=== PATIENT | male | born 1950 | race Two or more races ===

== ENCOUNTER 2017-01-22 21:40 | Inpatient (IN) | payer BC ==
[2017-01-22 23:49] LABS: ADD MAN DIFF? NO
[2017-01-22 23:51] LABS: BASOPHILS % 0.2 % (0.0-2.0); EOSINOPHILS # 0.1 10^3/ul (0.0-0.5); HEMOGLOBIN 9.2 g/dl (14.0-18.0); LYMPHOCYTES # 1.3 10^3/ul (0.8-2.9); LYMPHOCYTES % 11.4 % (15.0-51.0); MEAN CORPUSCULAR HEMOGLOBIN 28.6 pg (29.0-33.0); MEAN CORPUSCULAR HGB CONC 32.9 g/dl (32.0-37.0); MEAN PLATELET VOLUME 9.1 fl (7.4-10.4); MONOCYTE # 0.7 10^3/ul (0.3-0.9); MONOCYTES % 6.4 % (0.0-11.0); NEUTROPHILS % 79.8 % (39.0-77.0); PLATELET COUNT 259 10^3/UL (140-415); RED BLOOD COUNT 3.22 10^6/ul (4.70-6.10); RED CELL DISTRIBUTION WIDTH 15.2 % (11.5-14.5)
[2017-01-22 23:51] LABS: WHITE BLOOD COUNT 11.3 10^3/ul (4.8-10.8)
[2017-01-23 00:16] LABS: ALANINE AMINOTRANSFERASE 31 IU/L (13-69); ALBUMIN 3.4 g/dl (3.3-4.9); ALBUMIN/GLOBULIN RATIO 0.77; ALKALINE PHOSPHATASE 379 IU/L (42-121); ANION GAP 16 (8-16); ASPARTATE AMINO TRANSFERASE 20 IU/L (15-46); BILIRUBIN,INDIRECT 0.1 mg/dl (0-1.1); BILIRUBIN,TOTAL 0.1 mg/dl (0.2-1.3); BLOOD UREA NITROGEN 34 mg/dl (7-20); CALCIUM 9.8 mg/dl (8.4-10.2); CARBON DIOXIDE 21 mmol/L (21-31); CHLORIDE 113 mmol/L (97-110); CREATININE 1.85 mg/dl (0.61-1.24); GLUCOSE 103 mg/dl (70-220); SODIUM 146 mmol/L (135-144); TOTAL PROTEIN 7.8 g/dl (6.1-8.1)
[2017-01-23 00:17] LABS: LACTIC ACID 1.1 mmol/L (0.5-2.0)
[2017-01-23 00:47] LABS: LIPASE 3402 U/L (23-300)
[2017-01-23] MEDS ORDERED: SOD CHLORIDE 0.9% 1,000 ML IV (04:00)
[2017-01-23] MEDS ORDERED: DEXTROSE 50% 50 ML SYRINGE IV (04:30)
[2017-01-23] MEDS ORDERED: GLUCOSE GEL 15 GRAM TUBE BUCCAL (04:30)
[2017-01-23] MEDS ORDERED: GLUCAGON 1 MG INJ IM (04:30)
[2017-01-23] MEDS ORDERED: GLUCOSE GEL 15 GRAM TUBE PO ×2 (04:30)
[2017-01-23] MEDS: DEXTROSE 5%-0.45% NACL 1,000 ML IV ×3 (04:53→09:38)
[2017-01-23] MEDS: INSULIN ASPART [NOVOLOG] 3 ML PEN SC ×5 (04:53→21:00)
[2017-01-23 07:06] LABS: ADD MAN DIFF? NO
[2017-01-23 07:12] LABS: WHITE BLOOD COUNT 11.7 10^3/ul (4.8-10.8)
[2017-01-23 07:12] LABS: BASOPHILS % 0.2 % (0.0-2.0); EOSINOPHILS # 0.1 10^3/ul (0.0-0.5); EOSINOPHILS % 0.9 % (0.0-7.0); HEMATOCRIT 25.8 % (42.0-52.0); HEMOGLOBIN 8.4 g/dl (14.0-18.0); LYMPHOCYTES # 1.6 10^3/ul (0.8-2.9); LYMPHOCYTES % 13.6 % (15.0-51.0); MEAN CORPUSCULAR HEMOGLOBIN 28.4 pg (29.0-33.0); MEAN CORPUSCULAR HGB CONC 32.6 g/dl (32.0-37.0); MEAN CORPUSCULAR VOLUME 87.2 fl (82.0-101.0); MEAN PLATELET VOLUME 9.3 fl (7.4-10.4); MONOCYTE # 0.7 10^3/ul (0.3-0.9); MONOCYTES % 6.1 % (0.0-11.0); NEUTROPHIL # 9.1 10^3/ul (1.6-7.5); NEUTROPHILS % 77.9 % (39.0-77.0); PLATELET COUNT 273 10^3/UL (140-415); RED BLOOD COUNT 2.96 10^6/ul (4.70-6.10); RED CELL DISTRIBUTION WIDTH 15.4 % (11.5-14.5)
[2017-01-23 07:34] LABS: HEMOGLOBIN A1C 5.8 % (0-5.9)
[2017-01-23 07:34] LABS: ALANINE AMINOTRANSFERASE 30 IU/L (13-69); ALBUMIN 3.3 g/dl (3.3-4.9); ALBUMIN/GLOBULIN RATIO 0.75; ALKALINE PHOSPHATASE 403 IU/L (42-121); ANION GAP 15 (8-16); ASPARTATE AMINO TRANSFERASE 20 IU/L (15-46); BILIRUBIN,INDIRECT 0.1 mg/dl (0-1.1); BILIRUBIN,TOTAL 0.1 mg/dl (0.2-1.3); BLOOD UREA NITROGEN 35 mg/dl (7-20); CALCIUM 9.9 mg/dl (8.4-10.2); CARBON DIOXIDE 21 mmol/L (21-31); CHLORIDE 113 mmol/L (97-110); CREATININE 1.93 mg/dl (0.61-1.24); GLUCOSE 117 mg/dl (70-220); MAGNESIUM 1.9 mg/dl (1.7-2.5); POTASSIUM 4.2 mmol/L (3.5-5.1); SODIUM 145 mmol/L (135-144); TOTAL PROTEIN 7.7 g/dl (6.1-8.1)
[2017-01-23] MEDS: LOPERAMIDE 2 MG CAP PO ×3 (07:39→21:07)
[2017-01-23] MEDS: APIXABAN 5 MG TABLET PO ×2 (09:16→21:07)
[2017-01-23] MEDS: ZINC SULFATE 220 MG CAP PO (09:16)
[2017-01-23] MEDS: ASCORBIC ACID 500 MG TAB PO (09:16)
[2017-01-23 09:54] LABS: AMYLASE 366 U/L (11-123)
[2017-01-23 10:06] LABS: LIPASE 3680 U/L (23-300)
[2017-01-23] MEDS: AMLODIPINE 2.5 MG TAB PO ×2 (11:00→13:21)
[2017-01-23] MEDS ORDERED: VANCOMYCIN IV PER PHARMACY XX (11:00)
[2017-01-23 11:16] LABS: FREE T4 (FREE THYROXINE) 1.15 ng/dl (0.78-2.44)
[2017-01-23] MEDS: VANCOMYCIN 750 MG in DEXTROSE 5% 150 ML IVPB (13:21)
[2017-01-23] MEDS: PIPER-TAZO 2.25 GM (PMX) 50 ML IVPB ×2 (13:21→21:07)
[2017-01-23] MEDS: PANTOPRAZOLE 40 MG INJ IV (14:08)
[2017-01-23] MEDS: INSULIN GLARGINE [LANtus] 3 ML PEN SC (21:37)
[2017-01-23] MEDS: morphine 2 MG INJ IV (23:09)
[2017-01-24] MEDS: DEXTROSE 5%-0.45% NACL 1,000 ML IV ×4 (00:27→20:00)
[2017-01-24] MEDS: INSULIN ASPART [NOVOLOG] 3 ML PEN SC ×6 (00:27→21:00)
[2017-01-24] MEDS: ACCU-CHEK XX (02:00)
[2017-01-24] MEDS: PIPER-TAZO 2.25 GM (PMX) 50 ML IVPB ×3 (06:28→22:00)
[2017-01-24 06:50] LABS: ADD MAN DIFF? NO
[2017-01-24 06:52] LABS: WHITE BLOOD COUNT 10.5 10^3/ul (4.8-10.8)
[2017-01-24 06:52] LABS: BASOPHILS % 0.2 % (0.0-2.0); EOSINOPHILS # 0.1 10^3/ul (0.0-0.5); EOSINOPHILS % 1.3 % (0.0-7.0); HEMATOCRIT 24.6 % (42.0-52.0); HEMOGLOBIN 7.7 g/dl (14.0-18.0); LYMPHOCYTES # 1.3 10^3/ul (0.8-2.9); LYMPHOCYTES % 12.8 % (15.0-51.0); MEAN CORPUSCULAR HEMOGLOBIN 27.8 pg (29.0-33.0); MEAN CORPUSCULAR HGB CONC 31.3 g/dl (32.0-37.0); MEAN CORPUSCULAR VOLUME 88.8 fl (82.0-101.0); MEAN PLATELET VOLUME 9.2 fl (7.4-10.4); MONOCYTE # 0.5 10^3/ul (0.3-0.9); NEUTROPHIL # 8.3 10^3/ul (1.6-7.5); NEUTROPHILS % 79.5 % (39.0-77.0); PLATELET COUNT 250 10^3/UL (140-415); RED BLOOD COUNT 2.77 10^6/ul (4.70-6.10); RED CELL DISTRIBUTION WIDTH 15.3 % (11.5-14.5)
[2017-01-24 07:16] LABS: MAGNESIUM 1.5 mg/dl (1.7-2.5)
[2017-01-24 07:16] LABS: PHOSPHORUS 3.4 mg/dl (2.5-4.9)
[2017-01-24 07:18] LABS: CARBON DIOXIDE 19 mmol/L (21-31); CHLORIDE 112 mmol/L (97-110); POTASSIUM 4.1 mmol/L (3.5-5.1); SODIUM 139 mmol/L (135-144)
[2017-01-24 07:19] LABS: ALANINE AMINOTRANSFERASE 34 IU/L (13-69); ALBUMIN/GLOBULIN RATIO 0.78; ALKALINE PHOSPHATASE 304 IU/L (42-121); AMYLASE 306 U/L (11-123); ANION GAP 12 (8-16); ASPARTATE AMINO TRANSFERASE 21 IU/L (15-46); BILIRUBIN,INDIRECT 0.1 mg/dl (0-1.1); BILIRUBIN,TOTAL 0.1 mg/dl (0.2-1.3); BLOOD UREA NITROGEN 31 mg/dl (7-20); CALCIUM 9.1 mg/dl (8.4-10.2); CREATININE 1.99 mg/dl (0.61-1.24); GLUCOSE 126 mg/dl (70-220); TOTAL PROTEIN 6.8 g/dl (6.1-8.1)
[2017-01-24] MEDS: ZINC SULFATE 220 MG CAP PO (08:08)
[2017-01-24] MEDS: AMLODIPINE 2.5 MG TAB PO (08:08)
[2017-01-24] MEDS: APIXABAN 5 MG TABLET PO ×2 (08:08→20:59)
[2017-01-24] MEDS: ASCORBIC ACID 500 MG TAB PO (08:08)
[2017-01-24] MEDS: morphine 2 MG INJ IV ×2 (08:09→14:30)
[2017-01-24] MEDS: LOPERAMIDE 2 MG CAP PO ×3 (08:09→20:59)
[2017-01-24] MEDS: ONDANSETRON 4 MG INJ IV (08:23)
[2017-01-24 09:09] LABS: LIPASE 3515 U/L (23-300)
[2017-01-24] MEDS: MAGNESIUM SULFATE 2 GM/50 ML 50 ML IVPB (12:25)
[2017-01-24 12:38] LABS: CREATINE KINASE < 20 IU/L (23-200)
[2017-01-24 12:49] LABS: CK-MB < 0.22 ng/ml (0.0-2.4); TROPONIN-I < 0.012 ng/ml (0.00-0.12)
[2017-01-24 13:38] LABS: ADD UMIC YES; UR ASCORBIC ACID NEGATIVE (NEGATIVE); UR BACTERIA FEW /HPF (NONE SEEN); UR BILIRUBIN (Dip) NEGATIVE (NEGATIVE); UR BLOOD (Dip) 3+ mg/dL (NEGATIVE); UR CLARITY CLOUDY (CLEAR); UR COLOR RED (YELLOW); UR GLUCOSE (Dip) NEGATIVE (NEGATIVE); UR KETONES (Dip) NEGATIVE (NEGATIVE); UR LEUKOCYTE ESTERASE (Dip) 3+ Leu/ul (NEGATIVE); UR NITRITE (Dip) NEGATIVE (NEGATIVE); UR RBC > 182 /HPF (0-5); UR SPECIFIC GRAVITY (Dip) 1.012 (1.003-1.030); UR TOTAL PROTEIN (Dip) 2+ mg/dl (NEGATIVE); UR UROBILINOGEN (Dip) NEGATIVE (NEGATIVE); UR WBC > 182 /HPF (0-5)
[2017-01-24] MEDS: VANCOMYCIN 750 MG in DEXTROSE 5% 150 ML IVPB (14:30)
[2017-01-24] MEDS: INSULIN GLARGINE [LANtus] 3 ML PEN SC (21:00)
[2017-01-25] MEDS: INSULIN ASPART [NOVOLOG] 3 ML PEN SC ×6 (00:15→20:56)
[2017-01-25] MEDS: ACCU-CHEK XX (02:00)
[2017-01-25] MEDS: DEXTROSE 5%-0.45% NACL 1,000 ML IV ×3 (02:40→15:32)
[2017-01-25] MEDS: PIPER-TAZO 2.25 GM (PMX) 50 ML IVPB (06:41)
[2017-01-25] MEDS: morphine 2 MG INJ IV ×2 (07:33→20:57)
[2017-01-25 07:41] LABS: ADD MAN DIFF? NO
[2017-01-25 07:50] LABS: BASOPHILS % 0.3 % (0.0-2.0); EOSINOPHILS # 0.2 10^3/ul (0.0-0.5); EOSINOPHILS % 1.7 % (0.0-7.0); HEMOGLOBIN 7.4 g/dl (14.0-18.0); LYMPHOCYTES # 1.3 10^3/ul (0.8-2.9); LYMPHOCYTES % 14.1 % (15.0-51.0); MEAN CORPUSCULAR HEMOGLOBIN 28.2 pg (29.0-33.0); MEAN CORPUSCULAR HGB CONC 32.2 g/dl (32.0-37.0); MEAN CORPUSCULAR VOLUME 87.8 fl (82.0-101.0); MONOCYTE # 0.6 10^3/ul (0.3-0.9); MONOCYTES % 5.9 % (0.0-11.0); NEUTROPHIL # 7.3 10^3/ul (1.6-7.5); NEUTROPHILS % 76.7 % (39.0-77.0); PLATELET COUNT 245 10^3/UL (140-415); RED BLOOD COUNT 2.62 10^6/ul (4.70-6.10); RED CELL DISTRIBUTION WIDTH 15.5 % (11.5-14.5)
[2017-01-25 07:50] LABS: WHITE BLOOD COUNT 9.5 10^3/ul (4.8-10.8)
[2017-01-25] MEDS: AMLODIPINE 2.5 MG TAB PO (08:40)
[2017-01-25] MEDS: ZINC SULFATE 220 MG CAP PO (08:40)
[2017-01-25] MEDS: LOPERAMIDE 2 MG CAP PO ×3 (08:40→20:56)
[2017-01-25] MEDS: ASCORBIC ACID 500 MG TAB PO (08:41)
[2017-01-25] MEDS: APIXABAN 5 MG TABLET PO (08:41)
[2017-01-25 11:47] LABS: LIPASE 1552 U/L (23-300)
[2017-01-25 11:47] LABS: AMYLASE 204 U/L (11-123)
[2017-01-25 11:56] LABS: ALANINE AMINOTRANSFERASE 34 IU/L (13-69); ALBUMIN 2.5 g/dl (3.3-4.9); ALBUMIN/GLOBULIN RATIO 0.78; ALKALINE PHOSPHATASE 234 IU/L (42-121); ANION GAP 14 (8-16); ASPARTATE AMINO TRANSFERASE 12 IU/L (15-46); BLOOD UREA NITROGEN 28 mg/dl (7-20); CALCIUM 8.9 mg/dl (8.4-10.2); CARBON DIOXIDE 16 mmol/L (21-31); CHLORIDE 111 mmol/L (97-110); CREATININE 2.17 mg/dl (0.61-1.24); GLUCOSE 179 mg/dl (70-220); POTASSIUM 3.9 mmol/L (3.5-5.1); SODIUM 137 mmol/L (135-144); TOTAL PROTEIN 5.7 g/dl (6.1-8.1)
[2017-01-25] MEDS: VANCOMYCIN 750 MG in DEXTROSE 5% 150 ML IVPB (12:08)
[2017-01-25 12:19] LABS: MAGNESIUM 1.8 mg/dl (1.7-2.5)
[2017-01-25 12:19] LABS: PHOSPHORUS 3.7 mg/dl (2.5-4.9)
[2017-01-25] MEDS: DAPTOMYCIN 230 MG in SOD CHLORIDE 0.9% 100 ML IVPB (15:32)
[2017-01-25] MEDS: INFLUENZA VIRUS VACCINE 0.5 ML (DISPENSING) IM* (15:40)
[2017-01-25 16:05] LABS: ANION GAP 15 (8-16); BLOOD UREA NITROGEN 28 mg/dl (7-20); CALCIUM 9.3 mg/dl (8.4-10.2); CARBON DIOXIDE 20 mmol/L (21-31); CHLORIDE 109 mmol/L (97-110); CREATININE 2.41 mg/dl (0.61-1.24); GLUCOSE 92 mg/dl (70-220); POTASSIUM 4.1 mmol/L (3.5-5.1); SODIUM 140 mmol/L (135-144)
[2017-01-25 16:38] LABS: PROTIME 16.4 Sec (11.9-14.9); PT RATIO 1.3
[2017-01-25 16:39] LABS: PARTIAL THROMBOPLASTIN TIME 45.3 Sec (25.0-35.0)
[2017-01-25] MEDS: INSULIN GLARGINE [LANtus] 3 ML PEN SC ×2 (20:53→21:00)
[2017-01-25 22:27] LABS: AHG CROSSMATCH 1 1
[2017-01-26] MEDS: DEXTROSE 5%-0.45% NACL 1,000 ML IV ×2 (00:09→05:25)
[2017-01-26] MEDS: INSULIN ASPART [NOVOLOG] 3 ML PEN SC ×6 (01:00→20:53)
[2017-01-26] MEDS: ACCU-CHEK XX (02:00)
[2017-01-26] MEDS: ASCORBIC ACID 500 MG TAB PO (08:17)
[2017-01-26] MEDS: ZINC SULFATE 220 MG CAP PO (08:17)
[2017-01-26] MEDS: LOPERAMIDE 2 MG CAP PO ×3 (08:17→20:53)
[2017-01-26] MEDS: AMLODIPINE 2.5 MG TAB PO (08:17)
[2017-01-26 10:57] LABS: ADD MAN DIFF? NO
[2017-01-26 11:17] LABS: ANION GAP 15 (8-16); BASOPHILS % 0.2 % (0.0-2.0); BLOOD UREA NITROGEN 25 mg/dl (7-20); CALCIUM 9.6 mg/dl (8.4-10.2); CARBON DIOXIDE 17 mmol/L (21-31); CHLORIDE 111 mmol/L (97-110); CREATININE 2.46 mg/dl (0.61-1.24); EOSINOPHILS # 0.1 10^3/ul (0.0-0.5); EOSINOPHILS % 1.4 % (0.0-7.0); GLUCOSE 109 mg/dl (70-220); HEMATOCRIT 29.9 % (42.0-52.0); HEMOGLOBIN 9.6 g/dl (14.0-18.0); LYMPHOCYTES # 1.4 10^3/ul (0.8-2.9); LYMPHOCYTES % 16.4 % (15.0-51.0); MEAN CORPUSCULAR HGB CONC 32.1 g/dl (32.0-37.0); MEAN CORPUSCULAR VOLUME 87.2 fl (82.0-101.0); MEAN PLATELET VOLUME 9.3 fl (7.4-10.4); MONOCYTE # 0.4 10^3/ul (0.3-0.9); MONOCYTES % 4.8 % (0.0-11.0); NEUTROPHIL # 6.6 10^3/ul (1.6-7.5); NEUTROPHILS % 76.2 % (39.0-77.0); PLATELET COUNT 291 10^3/UL (140-415); POTASSIUM 4.2 mmol/L (3.5-5.1); RED BLOOD COUNT 3.43 10^6/ul (4.70-6.10); RED CELL DISTRIBUTION WIDTH 14.9 % (11.5-14.5); SODIUM 139 mmol/L (135-144)
[2017-01-26 11:17] LABS: WHITE BLOOD COUNT 8.6 10^3/ul (4.8-10.8)
[2017-01-26] MEDS: morphine 2 MG INJ IV ×2 (12:49→19:17)
[2017-01-26 13:11] LABS: ALANINE AMINOTRANSFERASE 22 IU/L (13-69); ALBUMIN 3.1 g/dl (3.3-4.9); ALKALINE PHOSPHATASE 252 IU/L (42-121); ASPARTATE AMINO TRANSFERASE 20 IU/L (15-46); BILIRUBIN,INDIRECT 0.2 mg/dl (0-1.1); BILIRUBIN,TOTAL 0.2 mg/dl (0.2-1.3); TOTAL PROTEIN 7.2 g/dl (6.1-8.1)
[2017-01-26] MEDS: INSULIN GLARGINE [LANtus] 3 ML PEN SC (20:53)
[2017-01-26] MEDS ORDERED: FLUCONAZOLE 100 MG/NS (PMX) 50 ML IVPB ×2 (21:00→21:27)
[2017-01-26] MEDS: FLUCONAZOLE 100 MG/NS (PMX) 50 ML IVPB (22:56)
[2017-01-27] MEDS: INSULIN ASPART [NOVOLOG] 3 ML PEN SC ×6 (01:00→20:35)
[2017-01-27] MEDS: ACCU-CHEK XX (02:00)
[2017-01-27] MEDS: DEXTROSE 5%-0.45% NACL 1,000 ML IV ×3 (04:34→20:47)
[2017-01-27] MEDS: DEXTROSE 50% 50 ML SYRINGE IV (05:55)
[2017-01-27] MEDS: LOPERAMIDE 2 MG CAP PO ×3 (08:35→20:34)
[2017-01-27] MEDS: ZINC SULFATE 220 MG CAP PO (08:36)
[2017-01-27] MEDS: AMLODIPINE 2.5 MG TAB PO (08:36)
[2017-01-27] MEDS: ASCORBIC ACID 500 MG TAB PO (08:36)
[2017-01-27 08:54] LABS: ADD MAN DIFF? NO
[2017-01-27 08:55] LABS: WHITE BLOOD COUNT 9.7 10^3/ul (4.8-10.8)
[2017-01-27 08:55] LABS: BASOPHILS % 0.2 % (0.0-2.0); EOSINOPHILS # 0.1 10^3/ul (0.0-0.5); EOSINOPHILS % 1.2 % (0.0-7.0); HEMOGLOBIN 9.3 g/dl (14.0-18.0); LYMPHOCYTES # 1.5 10^3/ul (0.8-2.9); MEAN CORPUSCULAR HEMOGLOBIN 28.2 pg (29.0-33.0); MEAN CORPUSCULAR HGB CONC 33.2 g/dl (32.0-37.0); MEAN CORPUSCULAR VOLUME 84.8 fl (82.0-101.0); MONOCYTE # 0.4 10^3/ul (0.3-0.9); MONOCYTES % 4.4 % (0.0-11.0); NEUTROPHIL # 7.6 10^3/ul (1.6-7.5); NEUTROPHILS % 78.2 % (39.0-77.0); PLATELET COUNT 272 10^3/UL (140-415); RED CELL DISTRIBUTION WIDTH 14.7 % (11.5-14.5)
[2017-01-27 09:26] LABS: ANION GAP 16 (8-16); BLOOD UREA NITROGEN 27 mg/dl (7-20); CALCIUM 9.4 mg/dl (8.4-10.2); CARBON DIOXIDE 15 mmol/L (21-31); CHLORIDE 111 mmol/L (97-110); CREATININE 2.52 mg/dl (0.61-1.24); GLUCOSE 110 mg/dl (70-220); POTASSIUM 4.3 mmol/L (3.5-5.1); SODIUM 138 mmol/L (135-144)
[2017-01-27 12:21] LABS: LIPASE 511 U/L (23-300)
[2017-01-27] MEDS: morphine 2 MG INJ IV ×2 (12:40→20:00)
[2017-01-27] MEDS: DAPTOMYCIN 230 MG in SOD CHLORIDE 0.9% 100 ML IVPB (15:45)
[2017-01-27] MEDS: ONDANSETRON 4 MG INJ IV (15:52)
[2017-01-27] MEDS: INSULIN GLARGINE [LANtus] 3 ML PEN SC (20:45)
[2017-01-27] MEDS: FLUCONAZOLE 100 MG/NS (PMX) 50 ML IVPB (22:14)
[2017-01-28] MEDS: INSULIN ASPART [NOVOLOG] 3 ML PEN SC ×6 (02:00→21:00)
[2017-01-28] MEDS: ACCU-CHEK XX (02:04)
[2017-01-28] MEDS: morphine 2 MG INJ IV ×4 (02:08→20:26)
[2017-01-28] MEDS: DEXTROSE 5%-0.45% NACL 1,000 ML IV ×2 (05:19→16:43)
[2017-01-28 07:17] LABS: ADD MAN DIFF? NO
[2017-01-28 07:24] LABS: WHITE BLOOD COUNT 8.9 10^3/ul (4.8-10.8)
[2017-01-28 07:24] LABS: BASOPHILS % 0.2 % (0.0-2.0); EOSINOPHILS # 0.2 10^3/ul (0.0-0.5); EOSINOPHILS % 1.8 % (0.0-7.0); HEMATOCRIT 28.5 % (42.0-52.0); HEMOGLOBIN 9.4 g/dl (14.0-18.0); LYMPHOCYTES # 1.6 10^3/ul (0.8-2.9); LYMPHOCYTES % 17.5 % (15.0-51.0); MEAN CORPUSCULAR HEMOGLOBIN 28.3 pg (29.0-33.0); MEAN CORPUSCULAR VOLUME 85.8 fl (82.0-101.0); MEAN PLATELET VOLUME 9.3 fl (7.4-10.4); MONOCYTE # 0.6 10^3/ul (0.3-0.9); MONOCYTES % 6.3 % (0.0-11.0); NEUTROPHIL # 6.5 10^3/ul (1.6-7.5); NEUTROPHILS % 73.4 % (39.0-77.0); PLATELET COUNT 293 10^3/UL (140-415); RED BLOOD COUNT 3.32 10^6/ul (4.70-6.10); RED CELL DISTRIBUTION WIDTH 14.9 % (11.5-14.5)
[2017-01-28 07:52] LABS: ANION GAP 17 (8-16); BLOOD UREA NITROGEN 24 mg/dl (7-20); CALCIUM 9.9 mg/dl (8.4-10.2); CARBON DIOXIDE 18 mmol/L (21-31); CHLORIDE 112 mmol/L (97-110); GLUCOSE 110 mg/dl (70-220); POTASSIUM 4.6 mmol/L (3.5-5.1); SODIUM 142 mmol/L (135-144)
[2017-01-28] MEDS: LOPERAMIDE 2 MG CAP PO ×3 (08:30→20:35)
[2017-01-28] MEDS: ZINC SULFATE 220 MG CAP PO (08:30)
[2017-01-28] MEDS: ASCORBIC ACID 500 MG TAB PO (08:30)
[2017-01-28] MEDS: AMLODIPINE 2.5 MG TAB PO (08:30)
[2017-01-28] MEDS ORDERED: LIDOCAINE 1% (MDV) 20 ML INJ (14:30)
[2017-01-28] MEDS ORDERED: IODIXANOL LOCM 100 ML BTL (14:30)
[2017-01-28] MEDS: INSULIN GLARGINE [LANtus] 3 ML PEN SC (20:33)
[2017-01-29] MEDS: FLUCONAZOLE 100 MG/NS (PMX) 50 ML IVPB ×2 (00:38→21:17)
[2017-01-29] MEDS: INSULIN ASPART [NOVOLOG] 3 ML PEN SC ×6 (01:00→21:00)
[2017-01-29] MEDS: ACCU-CHEK XX (02:00)
[2017-01-29] MEDS: morphine 2 MG INJ IV ×5 (02:02→21:16)
[2017-01-29 05:58] LABS: ADD MAN DIFF? NO
[2017-01-29 06:01] LABS: WHITE BLOOD COUNT 10.3 10^3/ul (4.8-10.8)
[2017-01-29 06:01] LABS: BASOPHILS % 0.2 % (0.0-2.0); EOSINOPHILS # 0.1 10^3/ul (0.0-0.5); EOSINOPHILS % 1.1 % (0.0-7.0); HEMATOCRIT 28.3 % (42.0-52.0); HEMOGLOBIN 9.2 g/dl (14.0-18.0); LYMPHOCYTES # 1.6 10^3/ul (0.8-2.9); LYMPHOCYTES % 15.7 % (15.0-51.0); MEAN CORPUSCULAR HGB CONC 32.5 g/dl (32.0-37.0); MEAN CORPUSCULAR VOLUME 86.3 fl (82.0-101.0); MONOCYTE # 0.7 10^3/ul (0.3-0.9); MONOCYTES % 7.1 % (0.0-11.0); NEUTROPHIL # 7.8 10^3/ul (1.6-7.5); NEUTROPHILS % 75.4 % (39.0-77.0); PLATELET COUNT 282 10^3/UL (140-415); RED BLOOD COUNT 3.28 10^6/ul (4.70-6.10); RED CELL DISTRIBUTION WIDTH 14.8 % (11.5-14.5)
[2017-01-29] MEDS: DEXTROSE 5%-0.45% NACL 1,000 ML IV ×2 (06:34→19:35)
[2017-01-29 07:01] LABS: ALANINE AMINOTRANSFERASE 27 IU/L (13-69); ALBUMIN/GLOBULIN RATIO 0.68; ALKALINE PHOSPHATASE 216 IU/L (42-121); ANION GAP 14 (8-16); ASPARTATE AMINO TRANSFERASE 15 IU/L (15-46); BLOOD UREA NITROGEN 19 mg/dl (7-20); CALCIUM 9.4 mg/dl (8.4-10.2); CARBON DIOXIDE 18 mmol/L (21-31); CHLORIDE 112 mmol/L (97-110); CREATININE 2.66 mg/dl (0.61-1.24); GLUCOSE 108 mg/dl (70-220); LIPASE 286 U/L (23-300); POTASSIUM 4.4 mmol/L (3.5-5.1); SODIUM 140 mmol/L (135-144); TOTAL PROTEIN 7.4 g/dl (6.1-8.1)
[2017-01-29] MEDS: ZINC SULFATE 220 MG CAP PO (09:11)
[2017-01-29] MEDS: LOPERAMIDE 2 MG CAP PO ×3 (09:11→21:09)
[2017-01-29] MEDS: ASCORBIC ACID 500 MG TAB PO (09:11)
[2017-01-29] MEDS: AMLODIPINE 2.5 MG TAB PO (09:13)
[2017-01-29] MEDS: ONDANSETRON 4 MG INJ IV (12:47)
[2017-01-29] MEDS: DAPTOMYCIN 230 MG in SOD CHLORIDE 0.9% 100 ML IVPB (15:25)
[2017-01-29] MEDS: ACETAMINOPHEN 325 MG TAB PO (16:50)
[2017-01-29] MEDS: INSULIN GLARGINE [LANtus] 3 ML PEN SC (21:11)
[2017-01-30] MEDS: INSULIN ASPART [NOVOLOG] 3 ML PEN SC ×6 (01:00→21:00)
[2017-01-30] MEDS: ACCU-CHEK XX (02:00)
[2017-01-30] MEDS: morphine 2 MG INJ IV ×4 (03:06→19:29)
[2017-01-30] MEDS: PANTOPRAZOLE 40 MG INJ IV (06:03)
[2017-01-30 06:11] LABS: ADD MAN DIFF? NO
[2017-01-30 06:38] LABS: BASOPHILS % 0.3 % (0.0-2.0); EOSINOPHILS # 0.1 10^3/ul (0.0-0.5); EOSINOPHILS % 0.8 % (0.0-7.0); HEMATOCRIT 31.7 % (42.0-52.0); HEMOGLOBIN 10.3 g/dl (14.0-18.0); LYMPHOCYTES % 15.6 % (15.0-51.0); MEAN CORPUSCULAR HGB CONC 32.5 g/dl (32.0-37.0); MEAN CORPUSCULAR VOLUME 86.1 fl (82.0-101.0); MEAN PLATELET VOLUME 9.1 fl (7.4-10.4); MONOCYTE # 0.7 10^3/ul (0.3-0.9); MONOCYTES % 5.2 % (0.0-11.0); NEUTROPHIL # 10.1 10^3/ul (1.6-7.5); NEUTROPHILS % 77.6 % (39.0-77.0); PLATELET COUNT 336 10^3/UL (140-415); RED BLOOD COUNT 3.68 10^6/ul (4.70-6.10); RED CELL DISTRIBUTION WIDTH 15.1 % (11.5-14.5)
[2017-01-30 07:12] LABS: ANION GAP 18 (8-16); BLOOD UREA NITROGEN 17 mg/dl (7-20); CALCIUM 10.3 mg/dl (8.4-10.2); CARBON DIOXIDE 17 mmol/L (21-31); CHLORIDE 110 mmol/L (97-110); CREATININE 2.86 mg/dl (0.61-1.24); GLUCOSE 98 mg/dl (70-220); POTASSIUM 4.5 mmol/L (3.5-5.1); SODIUM 140 mmol/L (135-144)
[2017-01-30] MEDS: ASCORBIC ACID 500 MG TAB PO (08:20)
[2017-01-30] MEDS: ZINC SULFATE 220 MG CAP PO (08:20)
[2017-01-30] MEDS: LOPERAMIDE 2 MG CAP PO ×3 (08:21→21:15)
[2017-01-30] MEDS: AMLODIPINE 2.5 MG TAB PO (08:21)
[2017-01-30] MEDS: DEXTROSE 5%-0.45% NACL 1,000 ML IV ×2 (08:22→22:18)
[2017-01-30] MEDS: ONDANSETRON 4 MG INJ IV ×2 (09:00→19:34)
[2017-01-30] MEDS ORDERED: ERTAPENEM SODIUM 1 GM in SOD CHLORIDE 0.9% 100 ML IVPB (12:30)
[2017-01-30] MEDS ORDERED: ERTAPENEM SODIUM 0.5 GM in SOD CHLORIDE 0.9% 100 ML IVPB (14:00)
[2017-01-30] MEDS: ERTAPENEM SODIUM 0.5 GM in SOD CHLORIDE 0.9% 100 ML IVPB (14:40)
[2017-01-30] MEDS: ACETAMINOPHEN 325 MG TAB PO ×2 (14:40→22:18)
[2017-01-30] MEDS: LINEZOLID 600 MG/D5W (PMX) 300 ML IVPB (21:13)
[2017-01-30] MEDS: INSULIN GLARGINE [LANtus] 3 ML PEN SC (21:22)
[2017-01-30] MEDS: FLUCONAZOLE 100 MG/NS (PMX) 50 ML IVPB (22:18)
[2017-01-31] MEDS: DEXTROSE 5%-0.45% NACL 1,000 ML IV ×2 (00:09→13:34)
[2017-01-31] MEDS: ONDANSETRON 4 MG INJ IV ×2 (00:57→08:04)
[2017-01-31] MEDS: morphine 2 MG INJ IV ×5 (00:57→22:46)
[2017-01-31] MEDS: ACCU-CHEK XX (02:00)
[2017-01-31] MEDS: PANTOPRAZOLE 40 MG INJ IV (05:09)
[2017-01-31] MEDS: INSULIN ASPART [NOVOLOG] 3 ML PEN SC ×4 (08:03→20:31)
[2017-01-31] MEDS: LOPERAMIDE 2 MG CAP PO ×3 (08:03→20:32)
[2017-01-31] MEDS: ZINC SULFATE 220 MG CAP PO (08:04)
[2017-01-31] MEDS: ASCORBIC ACID 500 MG TAB PO (08:04)
[2017-01-31] MEDS: AMLODIPINE 2.5 MG TAB PO (08:06)
[2017-01-31] MEDS: LINEZOLID 600 MG/D5W (PMX) 300 ML IVPB ×2 (08:28→20:31)
[2017-01-31] MEDS: ACETAMINOPHEN 325 MG TAB PO ×2 (08:28→20:39)
[2017-01-31 11:02] LABS: CREATINE KINASE < 20 IU/L (23-200)
[2017-01-31 11:08] LABS: ADD MAN DIFF? NO
[2017-01-31 11:11] LABS: BASOPHILS % 0.2 % (0.0-2.0); EOSINOPHILS # 0.1 10^3/ul (0.0-0.5); EOSINOPHILS % 0.6 % (0.0-7.0); HEMATOCRIT 29.5 % (42.0-52.0); HEMOGLOBIN 9.4 g/dl (14.0-18.0); LYMPHOCYTES # 1.2 10^3/ul (0.8-2.9); LYMPHOCYTES % 10.4 % (15.0-51.0); MEAN CORPUSCULAR HEMOGLOBIN 28.1 pg (29.0-33.0); MEAN CORPUSCULAR HGB CONC 31.9 g/dl (32.0-37.0); MEAN CORPUSCULAR VOLUME 88.3 fl (82.0-101.0); MEAN PLATELET VOLUME 9.1 fl (7.4-10.4); MONOCYTE # 0.6 10^3/ul (0.3-0.9); MONOCYTES % 5.2 % (0.0-11.0); NEUTROPHIL # 9.9 10^3/ul (1.6-7.5); NEUTROPHILS % 83.3 % (39.0-77.0); PLATELET COUNT 318 10^3/UL (140-415); RED BLOOD COUNT 3.34 10^6/ul (4.70-6.10); RED CELL DISTRIBUTION WIDTH 15.1 % (11.5-14.5)
[2017-01-31 11:11] LABS: WHITE BLOOD COUNT 11.9 10^3/ul (4.8-10.8)
[2017-01-31 11:33] LABS: ANION GAP 17 (8-16); BLOOD UREA NITROGEN 18 mg/dl (7-20); CALCIUM 9.6 mg/dl (8.4-10.2); CARBON DIOXIDE 15 mmol/L (21-31); CHLORIDE 109 mmol/L (97-110); CREATININE 2.82 mg/dl (0.61-1.24); GLUCOSE 142 mg/dl (70-220); POTASSIUM 4.5 mmol/L (3.5-5.1); SODIUM 136 mmol/L (135-144)
[2017-01-31] MEDS: ERTAPENEM SODIUM 0.5 GM in SOD CHLORIDE 0.9% 100 ML IVPB (13:34)
[2017-01-31] MEDS: INSULIN GLARGINE [LANtus] 3 ML PEN SC (20:37)
[2017-01-31] MEDS: FLUCONAZOLE 100 MG/NS (PMX) 50 ML IVPB (22:46)
[2017-02-01] MEDS: ACCU-CHEK XX (02:00)
[2017-02-01] MEDS: NACL 0.9% 3 ML SYG IV ×2 (02:44→05:15)
[2017-02-01] MEDS: morphine 2 MG INJ IV ×4 (02:44→20:42)
[2017-02-01] MEDS: DEXTROSE 5%-0.45% NACL 1,000 ML IV ×4 (02:47→20:34)
[2017-02-01] MEDS: PANTOPRAZOLE 40 MG INJ IV (05:15)
[2017-02-01] MEDS: INSULIN ASPART [NOVOLOG] 3 ML PEN SC ×4 (08:00→21:00)
[2017-02-01] MEDS: LOPERAMIDE 2 MG CAP PO ×3 (08:05→21:27)
[2017-02-01] MEDS: LINEZOLID 600 MG/D5W (PMX) 300 ML IVPB ×2 (08:05→21:27)
[2017-02-01] MEDS: ACETAMINOPHEN 325 MG TAB PO (08:06)
[2017-02-01] MEDS: ASCORBIC ACID 500 MG TAB PO (08:06)
[2017-02-01] MEDS: ZINC SULFATE 220 MG CAP PO (08:06)
[2017-02-01] MEDS: AMLODIPINE 2.5 MG TAB PO (08:08)
[2017-02-01 08:13] LABS: ADD MAN DIFF? NO
[2017-02-01 08:29] LABS: BASOPHILS % 0.2 % (0.0-2.0); EOSINOPHILS # 0.1 10^3/ul (0.0-0.5); HEMATOCRIT 28.8 % (42.0-52.0); HEMOGLOBIN 9.2 g/dl (14.0-18.0); LYMPHOCYTES # 1.3 10^3/ul (0.8-2.9); LYMPHOCYTES % 14.9 % (15.0-51.0); MEAN CORPUSCULAR HGB CONC 31.9 g/dl (32.0-37.0); MEAN CORPUSCULAR VOLUME 87.5 fl (82.0-101.0); MEAN PLATELET VOLUME 9.2 fl (7.4-10.4); MONOCYTE # 0.5 10^3/ul (0.3-0.9); MONOCYTES % 5.8 % (0.0-11.0); NEUTROPHIL # 6.8 10^3/ul (1.6-7.5); NEUTROPHILS % 77.6 % (39.0-77.0); PLATELET COUNT 299 10^3/UL (140-415); RED BLOOD COUNT 3.29 10^6/ul (4.70-6.10); RED CELL DISTRIBUTION WIDTH 15.1 % (11.5-14.5)
[2017-02-01 08:29] LABS: WHITE BLOOD COUNT 8.7 10^3/ul (4.8-10.8)
[2017-02-01 08:46] LABS: ALANINE AMINOTRANSFERASE 23 IU/L (13-69); ALBUMIN 3.2 g/dl (3.3-4.9); ALKALINE PHOSPHATASE 221 IU/L (42-121); ASPARTATE AMINO TRANSFERASE 14 IU/L (15-46); BILIRUBIN,INDIRECT 0.1 mg/dl (0-1.1); BILIRUBIN,TOTAL 0.1 mg/dl (0.2-1.3); TOTAL PROTEIN 7.6 g/dl (6.1-8.1)
[2017-02-01 08:51] LABS: LIPASE 582 U/L (23-300)
[2017-02-01 08:51] LABS: ANION GAP 16 (8-16); BLOOD UREA NITROGEN 19 mg/dl (7-20); CALCIUM 9.2 mg/dl (8.4-10.2); CARBON DIOXIDE 17 mmol/L (21-31); CHLORIDE 108 mmol/L (97-110); CREATININE 2.61 mg/dl (0.61-1.24); GLUCOSE 78 mg/dl (70-220); POTASSIUM 4.6 mmol/L (3.5-5.1); SODIUM 136 mmol/L (135-144)
[2017-02-01] MEDS: ONDANSETRON 4 MG INJ IV (10:06)
[2017-02-01] MEDS: ERTAPENEM SODIUM 0.5 GM in SOD CHLORIDE 0.9% 100 ML IVPB (13:59)
[2017-02-01] MEDS: INSULIN GLARGINE [LANtus] 3 ML PEN SC (21:29)
[2017-02-01] MEDS: FLUCONAZOLE 100 MG/NS (PMX) 50 ML IVPB (23:12)
[2017-02-02] MEDS: morphine 2 MG INJ IV ×5 (00:43→19:59)
[2017-02-02] MEDS: ACCU-CHEK XX (02:00)
[2017-02-02] MEDS: PANTOPRAZOLE 40 MG INJ IV (05:33)
[2017-02-02 07:09] LABS: ADD MAN DIFF? NO
[2017-02-02 07:25] LABS: BASOPHILS % 0.4 % (0.0-2.0); EOSINOPHILS # 0.1 10^3/ul (0.0-0.5); HEMATOCRIT 27.9 % (42.0-52.0); LYMPHOCYTES # 1.5 10^3/ul (0.8-2.9); LYMPHOCYTES % 18.3 % (15.0-51.0); MEAN CORPUSCULAR HEMOGLOBIN 28.2 pg (29.0-33.0); MEAN CORPUSCULAR HGB CONC 32.3 g/dl (32.0-37.0); MEAN CORPUSCULAR VOLUME 87.5 fl (82.0-101.0); MEAN PLATELET VOLUME 9.1 fl (7.4-10.4); MONOCYTE # 0.5 10^3/ul (0.3-0.9); MONOCYTES % 6.1 % (0.0-11.0); NEUTROPHILS % 73.7 % (39.0-77.0); PLATELET COUNT 310 10^3/UL (140-415); RED BLOOD COUNT 3.19 10^6/ul (4.70-6.10)
[2017-02-02 07:25] LABS: WHITE BLOOD COUNT 8.2 10^3/ul (4.8-10.8)
[2017-02-02] MEDS: INSULIN ASPART [NOVOLOG] 3 ML PEN SC ×4 (08:15→20:19)
[2017-02-02] MEDS: AMLODIPINE 2.5 MG TAB PO (09:00)
[2017-02-02 09:04] LABS: ANION GAP 16 (8-16)
[2017-02-02] MEDS: ASCORBIC ACID 500 MG TAB PO (09:07)
[2017-02-02] MEDS: LOPERAMIDE 2 MG CAP PO ×3 (09:07→20:18)
[2017-02-02] MEDS: ZINC SULFATE 220 MG CAP PO (09:10)
[2017-02-02] MEDS: LINEZOLID 600 MG/D5W (PMX) 300 ML IVPB ×2 (09:10→20:18)
[2017-02-02 09:16] LABS: BLOOD UREA NITROGEN 17 mg/dl (7-20); CALCIUM 9.7 mg/dl (8.4-10.2); CARBON DIOXIDE 16 mmol/L (21-31); CHLORIDE 108 mmol/L (97-110); CREATININE 2.65 mg/dl (0.61-1.24); GLUCOSE 91 mg/dl (70-220); POTASSIUM 4.7 mmol/L (3.5-5.1); SODIUM 135 mmol/L (135-144)
[2017-02-02 12:16] LABS: LIPASE 498 U/L (23-300)
[2017-02-02 13:18] LABS: MAGNESIUM 1.3 mg/dl (1.7-2.5)
[2017-02-02] MEDS: DEXTROSE 5%-0.45% NACL 1,000 ML IV ×2 (13:36→18:06)
[2017-02-02 13:55] LABS: ALANINE AMINOTRANSFERASE 24 IU/L (13-69); ALBUMIN 3.2 g/dl (3.3-4.9); ALKALINE PHOSPHATASE 228 IU/L (42-121); ASPARTATE AMINO TRANSFERASE 10 IU/L (15-46)
[2017-02-02] MEDS: ERTAPENEM SODIUM 0.5 GM in SOD CHLORIDE 0.9% 100 ML IVPB (14:42)
[2017-02-02] MEDS: INSULIN GLARGINE [LANtus] 3 ML PEN SC (20:20)
[2017-02-02] MEDS: FLUCONAZOLE 100 MG/NS (PMX) 50 ML IVPB (22:37)
[2017-02-03] MEDS: morphine 2 MG INJ IV ×5 (00:30→22:27)
[2017-02-03] MEDS: ACCU-CHEK XX (02:00)
[2017-02-03] MEDS: PANTOPRAZOLE 40 MG INJ IV (05:45)
[2017-02-03] MEDS: DEXTROSE 5%-0.45% NACL 1,000 ML IV ×2 (05:46→08:09)
[2017-02-03 07:33] LABS: ADD MAN DIFF? NO
[2017-02-03 07:38] LABS: WHITE BLOOD COUNT 7.6 10^3/ul (4.8-10.8)
[2017-02-03 07:38] LABS: BASOPHILS % 0.4 % (0.0-2.0); EOSINOPHILS # 0.1 10^3/ul (0.0-0.5); EOSINOPHILS % 1.3 % (0.0-7.0); HEMATOCRIT 26.3 % (42.0-52.0); HEMOGLOBIN 8.7 g/dl (14.0-18.0); LYMPHOCYTES # 1.7 10^3/ul (0.8-2.9); LYMPHOCYTES % 22.8 % (15.0-51.0); MEAN CORPUSCULAR HEMOGLOBIN 27.7 pg (29.0-33.0); MEAN CORPUSCULAR HGB CONC 33.1 g/dl (32.0-37.0); MEAN CORPUSCULAR VOLUME 83.8 fl (82.0-101.0); MEAN PLATELET VOLUME 8.7 fl (7.4-10.4); MONOCYTE # 0.5 10^3/ul (0.3-0.9); MONOCYTES % 6.6 % (0.0-11.0); NEUTROPHIL # 5.2 10^3/ul (1.6-7.5); NEUTROPHILS % 68.4 % (39.0-77.0); PLATELET COUNT 321 10^3/UL (140-415); RED BLOOD COUNT 3.14 10^6/ul (4.70-6.10); RED CELL DISTRIBUTION WIDTH 14.7 % (11.5-14.5)
[2017-02-03 08:01] LABS: LIPASE 563 U/L (23-300)
[2017-02-03 08:02] LABS: ALANINE AMINOTRANSFERASE 23 IU/L (13-69); ALBUMIN 2.9 g/dl (3.3-4.9); ALKALINE PHOSPHATASE 241 IU/L (42-121); ASPARTATE AMINO TRANSFERASE 13 IU/L (15-46); BILIRUBIN,INDIRECT 0.1 mg/dl (0-1.1); BILIRUBIN,TOTAL 0.1 mg/dl (0.2-1.3); TOTAL PROTEIN 6.8 g/dl (6.1-8.1)
[2017-02-03 08:03] LABS: BLOOD UREA NITROGEN 15 mg/dl (7-20); CALCIUM 9.4 mg/dl (8.4-10.2); CARBON DIOXIDE 15 mmol/L (21-31); CHLORIDE 107 mmol/L (97-110); GLUCOSE 88 mg/dl (70-220); POTASSIUM 4.2 mmol/L (3.5-5.1)
[2017-02-03 08:05] LABS: MAGNESIUM 1.1 mg/dl (1.7-2.5)
[2017-02-03] MEDS: INSULIN ASPART [NOVOLOG] 3 ML PEN SC ×4 (08:15→21:00)
[2017-02-03 08:18] LABS: ANION GAP 16 (8-16); SODIUM 134 mmol/L (135-144)
[2017-02-03] MEDS: CITRIC ACID/SODIUM CITRATE 15 ML CUP PO ×4 (08:43→22:06)
[2017-02-03] MEDS: ZINC SULFATE 220 MG CAP PO (08:44)
[2017-02-03] MEDS: LOPERAMIDE 2 MG CAP PO ×3 (08:44→21:07)
[2017-02-03] MEDS: ASCORBIC ACID 500 MG TAB PO (08:45)
[2017-02-03] MEDS: LINEZOLID 600 MG/D5W (PMX) 300 ML IVPB ×2 (08:47→21:08)
[2017-02-03] MEDS: AMLODIPINE 2.5 MG TAB PO (08:47)
[2017-02-03] MEDS: BARIUM SULF 2% 450 ML BTL (BERRY SMOOTHIE) PO (10:00)
[2017-02-03 10:21] LABS: AMYLASE 127 U/L (11-123)
[2017-02-03] MEDS: MAGNESIUM SULFATE 4 GM/100 ML 100 ML IVPB (10:39)
[2017-02-03] MEDS: ONDANSETRON 4 MG INJ IV (10:39)
[2017-02-03] MEDS: ERTAPENEM SODIUM 0.5 GM in SOD CHLORIDE 0.9% 100 ML IVPB (14:31)
[2017-02-03] MEDS: INSULIN GLARGINE [LANtus] 3 ML PEN SC (21:15)
[2017-02-03] MEDS: FLUCONAZOLE 100 MG/NS (PMX) 50 ML IVPB (22:26)
[2017-02-04] MEDS: ACCU-CHEK XX (02:00)
[2017-02-04] MEDS: morphine 2 MG INJ IV ×3 (05:09→19:44)
[2017-02-04] MEDS: PANTOPRAZOLE 40 MG INJ IV (05:09)
[2017-02-04] MEDS: DEXTROSE 5%-0.45% NACL 1,000 ML IV ×3 (05:10→19:45)
[2017-02-04 06:30] LABS: ADD MAN DIFF? NO
[2017-02-04 06:35] LABS: WHITE BLOOD COUNT 7.3 10^3/ul (4.8-10.8)
[2017-02-04 06:35] LABS: BASOPHILS % 0.6 % (0.0-2.0); EOSINOPHILS # 0.1 10^3/ul (0.0-0.5); EOSINOPHILS % 1.5 % (0.0-7.0); HEMATOCRIT 29.8 % (42.0-52.0); HEMOGLOBIN 9.8 g/dl (14.0-18.0); LYMPHOCYTES % 27.3 % (15.0-51.0); MEAN CORPUSCULAR HEMOGLOBIN 27.6 pg (29.0-33.0); MEAN CORPUSCULAR HGB CONC 32.9 g/dl (32.0-37.0); MEAN CORPUSCULAR VOLUME 83.9 fl (82.0-101.0); MEAN PLATELET VOLUME 8.7 fl (7.4-10.4); MONOCYTE # 0.5 10^3/ul (0.3-0.9); MONOCYTES % 6.7 % (0.0-11.0); NEUTROPHIL # 4.6 10^3/ul (1.6-7.5); NEUTROPHILS % 63.3 % (39.0-77.0); PLATELET COUNT 359 10^3/UL (140-415); RED BLOOD COUNT 3.55 10^6/ul (4.70-6.10); RED CELL DISTRIBUTION WIDTH 14.6 % (11.5-14.5)
[2017-02-04 07:08] LABS: ANION GAP 18 (8-16); BLOOD UREA NITROGEN 14 mg/dl (7-20); CALCIUM 10.1 mg/dl (8.4-10.2); CARBON DIOXIDE 19 mmol/L (21-31); CHLORIDE 103 mmol/L (97-110); CREATININE 2.73 mg/dl (0.61-1.24); GLUCOSE 88 mg/dl (70-220); POTASSIUM 4.3 mmol/L (3.5-5.1); SODIUM 136 mmol/L (135-144)
[2017-02-04 07:11] LABS: LIPASE 503 U/L (23-300)
[2017-02-04 07:28] LABS: MAGNESIUM 2.4 mg/dl (1.7-2.5)
[2017-02-04] MEDS: INSULIN ASPART [NOVOLOG] 3 ML PEN SC ×4 (08:15→21:00)
[2017-02-04] MEDS: LINEZOLID 600 MG/D5W (PMX) 300 ML IVPB ×2 (08:43→21:30)
[2017-02-04] MEDS: ZINC SULFATE 220 MG CAP PO (08:43)
[2017-02-04] MEDS: LOPERAMIDE 2 MG CAP PO ×3 (08:43→21:27)
[2017-02-04] MEDS: ASCORBIC ACID 500 MG TAB PO (08:43)
[2017-02-04] MEDS: AMLODIPINE 2.5 MG TAB PO (08:44)
[2017-02-04] MEDS: CITRIC ACID/SODIUM CITRATE 15 ML CUP PO ×2 (12:16→21:00)
[2017-02-04] MEDS: ERTAPENEM SODIUM 0.5 GM in SOD CHLORIDE 0.9% 100 ML IVPB (14:07)
[2017-02-04] MEDS: INSULIN GLARGINE [LANtus] 3 ML PEN SC (21:30)
[2017-02-05] MEDS: morphine 2 MG INJ IV ×3 (00:44→21:30)
[2017-02-05] MEDS: FLUCONAZOLE 100 MG/NS (PMX) 50 ML IVPB ×2 (00:48→22:35)
[2017-02-05] MEDS: ACCU-CHEK XX (02:00)
[2017-02-05] MEDS: PANTOPRAZOLE 40 MG INJ IV (05:41)
[2017-02-05 06:21] LABS: ADD MAN DIFF? NO
[2017-02-05 06:37] LABS: BASOPHILS % 0.5 % (0.0-2.0); EOSINOPHILS # 0.1 10^3/ul (0.0-0.5); EOSINOPHILS % 1.4 % (0.0-7.0); HEMATOCRIT 28.3 % (42.0-52.0); HEMOGLOBIN 9.4 g/dl (14.0-18.0); LYMPHOCYTES # 1.7 10^3/ul (0.8-2.9); LYMPHOCYTES % 25.9 % (15.0-51.0); MEAN CORPUSCULAR HEMOGLOBIN 27.8 pg (29.0-33.0); MEAN CORPUSCULAR HGB CONC 33.2 g/dl (32.0-37.0); MEAN CORPUSCULAR VOLUME 83.7 fl (82.0-101.0); MEAN PLATELET VOLUME 8.5 fl (7.4-10.4); MONOCYTE # 0.5 10^3/ul (0.3-0.9); MONOCYTES % 8.1 % (0.0-11.0); NEUTROPHIL # 4.2 10^3/ul (1.6-7.5); NEUTROPHILS % 63.6 % (39.0-77.0); PLATELET COUNT 327 10^3/UL (140-415); RED BLOOD COUNT 3.38 10^6/ul (4.70-6.10); RED CELL DISTRIBUTION WIDTH 14.6 % (11.5-14.5)
[2017-02-05 06:37] LABS: WHITE BLOOD COUNT 6.6 10^3/ul (4.8-10.8)
[2017-02-05 07:11] LABS: ANION GAP 20 (8-16); BLOOD UREA NITROGEN 17 mg/dl (7-20); CALCIUM 9.9 mg/dl (8.4-10.2); CARBON DIOXIDE 18 mmol/L (21-31); CHLORIDE 105 mmol/L (97-110); CREATININE 2.59 mg/dl (0.61-1.24); GLUCOSE 102 mg/dl (70-220); POTASSIUM 4.3 mmol/L (3.5-5.1); SODIUM 139 mmol/L (135-144)
[2017-02-05 07:24] LABS: MAGNESIUM 1.9 mg/dl (1.7-2.5)
[2017-02-05] MEDS: INSULIN ASPART [NOVOLOG] 3 ML PEN SC ×4 (08:15→21:39)
[2017-02-05] MEDS: LOPERAMIDE 2 MG CAP PO ×3 (08:21→21:30)
[2017-02-05] MEDS: AMLODIPINE 2.5 MG TAB PO (08:21)
[2017-02-05] MEDS: ASCORBIC ACID 500 MG TAB PO (08:21)
[2017-02-05] MEDS: CITRIC ACID/SODIUM CITRATE 15 ML CUP PO ×3 (08:22→21:28)
[2017-02-05] MEDS: ZINC SULFATE 220 MG CAP PO (08:22)
[2017-02-05] MEDS: LINEZOLID 600 MG/D5W (PMX) 300 ML IVPB ×2 (08:23→21:28)
[2017-02-05] MEDS: DEXTROSE 5%-0.45% NACL 1,000 ML IV (11:04)
[2017-02-05 11:32] LABS: LIPASE 568 U/L (23-300)
[2017-02-05] MEDS: ERTAPENEM SODIUM 0.5 GM in SOD CHLORIDE 0.9% 100 ML IVPB (13:38)
[2017-02-05] MEDS: INSULIN GLARGINE [LANtus] 3 ML PEN SC (21:39)
[2017-02-06] MEDS: morphine 2 MG INJ IV ×4 (01:47→21:00)
[2017-02-06] MEDS: ACCU-CHEK XX (02:41)
[2017-02-06] MEDS: DEXTROSE 5%-0.45% NACL 1,000 ML IV ×3 (04:04→21:01)
[2017-02-06] MEDS: PANTOPRAZOLE 40 MG INJ IV (06:03)
[2017-02-06 06:37] LABS: ADD MAN DIFF? NO
[2017-02-06 06:40] LABS: WHITE BLOOD COUNT 7.6 10^3/ul (4.8-10.8)
[2017-02-06 06:40] LABS: BASOPHILS % 0.4 % (0.0-2.0); EOSINOPHILS # 0.1 10^3/ul (0.0-0.5); EOSINOPHILS % 1.3 % (0.0-7.0); HEMATOCRIT 30.3 % (42.0-52.0); HEMOGLOBIN 9.7 g/dl (14.0-18.0); LYMPHOCYTES # 2.1 10^3/ul (0.8-2.9); LYMPHOCYTES % 27.8 % (15.0-51.0); MEAN CORPUSCULAR HEMOGLOBIN 27.2 pg (29.0-33.0); MEAN CORPUSCULAR VOLUME 85.1 fl (82.0-101.0); MEAN PLATELET VOLUME 8.5 fl (7.4-10.4); MONOCYTE # 0.5 10^3/ul (0.3-0.9); MONOCYTES % 6.9 % (0.0-11.0); NEUTROPHIL # 4.8 10^3/ul (1.6-7.5); NEUTROPHILS % 63.3 % (39.0-77.0); PLATELET COUNT 302 10^3/UL (140-415); RED BLOOD COUNT 3.56 10^6/ul (4.70-6.10); RED CELL DISTRIBUTION WIDTH 14.8 % (11.5-14.5)
[2017-02-06 07:16] LABS: ALANINE AMINOTRANSFERASE 17 IU/L (13-69); ALBUMIN 3.5 g/dl (3.3-4.9); ALBUMIN/GLOBULIN RATIO 0.77; ALKALINE PHOSPHATASE 261 IU/L (42-121); AMYLASE 147 U/L (11-123); ANION GAP 19 (8-16); ASPARTATE AMINO TRANSFERASE 19 IU/L (15-46); BLOOD UREA NITROGEN 16 mg/dl (7-20); CALCIUM 10.2 mg/dl (8.4-10.2); CARBON DIOXIDE 22 mmol/L (21-31); CHLORIDE 104 mmol/L (97-110); GLUCOSE 93 mg/dl (70-220); LIPASE 579 U/L (23-300); POTASSIUM 4.7 mmol/L (3.5-5.1); SODIUM 140 mmol/L (135-144)
[2017-02-06 07:22] LABS: MAGNESIUM 1.6 mg/dl (1.7-2.5)
[2017-02-06 07:22] LABS: PHOSPHORUS 3.7 mg/dl (2.5-4.9)
[2017-02-06] MEDS: INSULIN ASPART [NOVOLOG] 3 ML PEN SC ×4 (08:15→21:00)
[2017-02-06] MEDS: CITRIC ACID/SODIUM CITRATE 15 ML CUP PO ×3 (08:27→21:01)
[2017-02-06] MEDS: LOPERAMIDE 2 MG CAP PO ×3 (08:28→21:01)
[2017-02-06] MEDS: AMLODIPINE 2.5 MG TAB PO (08:29)
[2017-02-06] MEDS: ZINC SULFATE 220 MG CAP PO (08:30)
[2017-02-06] MEDS: ASCORBIC ACID 500 MG TAB PO (08:30)
[2017-02-06] MEDS: LINEZOLID 600 MG/D5W (PMX) 300 ML IVPB ×2 (08:30→21:00)
[2017-02-06] MEDS: MAGNESIUM SULFATE 2 GM/50 ML 50 ML IVPB (11:50)
[2017-02-06] MEDS: ERTAPENEM SODIUM 0.5 GM in SOD CHLORIDE 0.9% 100 ML IVPB (14:29)
[2017-02-06] MEDS: INSULIN GLARGINE [LANtus] 3 ML PEN SC (21:20)
[2017-02-06] MEDS: FLUCONAZOLE 100 MG/NS (PMX) 50 ML IVPB (22:23)
[2017-02-07] MEDS: morphine 2 MG INJ IV ×5 (01:13→21:37)
[2017-02-07] MEDS: ACCU-CHEK XX (02:00)
[2017-02-07] MEDS: PANTOPRAZOLE 40 MG INJ IV (06:15)
[2017-02-07 07:03] LABS: ADD MAN DIFF? NO
[2017-02-07 07:13] LABS: WHITE BLOOD COUNT 7.2 10^3/ul (4.8-10.8)
[2017-02-07 07:13] LABS: BASOPHIL # 0.1 10^3/ul (0.0-0.1); BASOPHILS % 0.7 % (0.0-2.0); EOSINOPHILS # 0.2 10^3/ul (0.0-0.5); EOSINOPHILS % 2.1 % (0.0-7.0); HEMATOCRIT 29.6 % (42.0-52.0); HEMOGLOBIN 9.7 g/dl (14.0-18.0); LYMPHOCYTES # 2.3 10^3/ul (0.8-2.9); LYMPHOCYTES % 31.7 % (15.0-51.0); MEAN CORPUSCULAR HEMOGLOBIN 27.6 pg (29.0-33.0); MEAN CORPUSCULAR HGB CONC 32.8 g/dl (32.0-37.0); MEAN CORPUSCULAR VOLUME 84.3 fl (82.0-101.0); MEAN PLATELET VOLUME 8.6 fl (7.4-10.4); MONOCYTE # 0.6 10^3/ul (0.3-0.9); MONOCYTES % 7.7 % (0.0-11.0); NEUTROPHIL # 4.1 10^3/ul (1.6-7.5); NEUTROPHILS % 57.4 % (39.0-77.0); PLATELET COUNT 271 10^3/UL (140-415); RED BLOOD COUNT 3.51 10^6/ul (4.70-6.10)
[2017-02-07 07:35] LABS: MAGNESIUM 2.2 mg/dl (1.7-2.5)
[2017-02-07 07:35] LABS: PHOSPHORUS 3.7 mg/dl (2.5-4.9)
[2017-02-07] MEDS: ZINC SULFATE 220 MG CAP PO (07:55)
[2017-02-07] MEDS: LOPERAMIDE 2 MG CAP PO ×3 (07:55→21:31)
[2017-02-07] MEDS: CITRIC ACID/SODIUM CITRATE 15 ML CUP PO ×3 (07:55→21:31)
[2017-02-07] MEDS: ASCORBIC ACID 500 MG TAB PO (07:56)
[2017-02-07] MEDS: AMLODIPINE 2.5 MG TAB PO (07:56)
[2017-02-07] MEDS: INSULIN ASPART [NOVOLOG] 3 ML PEN SC ×4 (07:57→21:00)
[2017-02-07] MEDS: LINEZOLID 600 MG/D5W (PMX) 300 ML IVPB ×2 (07:59→21:31)
[2017-02-07 08:02] LABS: AMYLASE 129 U/L (11-123); ANION GAP 19 (8-16); BLOOD UREA NITROGEN 17 mg/dl (7-20); CALCIUM 9.8 mg/dl (8.4-10.2); CARBON DIOXIDE 19 mmol/L (21-31); CHLORIDE 103 mmol/L (97-110); CREATININE 2.57 mg/dl (0.61-1.24); GLUCOSE 93 mg/dl (70-220); LIPASE 590 U/L (23-300); SODIUM 136 mmol/L (135-144)
[2017-02-07] MEDS: ONDANSETRON 4 MG INJ IV (10:02)
[2017-02-07] MEDS: DEXTROSE 5%-0.45% NACL 1,000 ML IV ×2 (13:39→17:18)
[2017-02-07] MEDS: ERTAPENEM SODIUM 0.5 GM in SOD CHLORIDE 0.9% 100 ML IVPB (13:39)
[2017-02-07] MEDS: INSULIN GLARGINE [LANtus] 3 ML PEN SC (21:33)
[2017-02-07] MEDS: FLUCONAZOLE 100 MG/NS (PMX) 50 ML IVPB (22:25)
[2017-02-08] MEDS: ACCU-CHEK XX (02:00)
[2017-02-08] MEDS: morphine 2 MG INJ IV ×4 (02:53→20:24)
[2017-02-08] MEDS: PANTOPRAZOLE 40 MG INJ IV (05:48)
[2017-02-08] MEDS: DEXTROSE 5%-0.45% NACL 1,000 ML IV ×4 (05:49→21:29)
[2017-02-08 06:03] LABS: ADD MAN DIFF? NO
[2017-02-08 06:12] LABS: BASOPHIL # 0.1 10^3/ul (0.0-0.1); BASOPHILS % 0.7 % (0.0-2.0); EOSINOPHILS # 0.2 10^3/ul (0.0-0.5); EOSINOPHILS % 2.2 % (0.0-7.0); HEMATOCRIT 32.4 % (42.0-52.0); HEMOGLOBIN 10.5 g/dl (14.0-18.0); LYMPHOCYTES # 2.1 10^3/ul (0.8-2.9); LYMPHOCYTES % 27.5 % (15.0-51.0); MEAN CORPUSCULAR HEMOGLOBIN 27.5 pg (29.0-33.0); MEAN CORPUSCULAR HGB CONC 32.4 g/dl (32.0-37.0); MEAN CORPUSCULAR VOLUME 84.8 fl (82.0-101.0); MEAN PLATELET VOLUME 8.3 fl (7.4-10.4); MONOCYTE # 0.4 10^3/ul (0.3-0.9); MONOCYTES % 5.5 % (0.0-11.0); NEUTROPHIL # 4.9 10^3/ul (1.6-7.5); NEUTROPHILS % 63.7 % (39.0-77.0); PLATELET COUNT 239 10^3/UL (140-415); RED BLOOD COUNT 3.82 10^6/ul (4.70-6.10); RED CELL DISTRIBUTION WIDTH 14.8 % (11.5-14.5)
[2017-02-08 06:12] LABS: WHITE BLOOD COUNT 7.6 10^3/ul (4.8-10.8)
[2017-02-08 06:37] LABS: PHOSPHORUS 4.2 mg/dl (2.5-4.9)
[2017-02-08 06:37] LABS: MAGNESIUM 1.8 mg/dl (1.7-2.5)
[2017-02-08 07:36] LABS: AMYLASE 156 U/L (11-123); ANION GAP 20 (8-16); BLOOD UREA NITROGEN 20 mg/dl (7-20); CARBON DIOXIDE 21 mmol/L (21-31); CHLORIDE 103 mmol/L (97-110); CREATININE 2.65 mg/dl (0.61-1.24); GLUCOSE 90 mg/dl (70-220); LIPASE 585 U/L (23-300); SODIUM 139 mmol/L (135-144)
[2017-02-08 08:01] LABS: POTASSIUM 5.4 mmol/L (3.5-5.1)
[2017-02-08] MEDS: INSULIN ASPART [NOVOLOG] 3 ML PEN SC ×4 (08:15→20:55)
[2017-02-08] MEDS: AMLODIPINE 2.5 MG TAB PO (09:00)
[2017-02-08] MEDS: ZINC SULFATE 220 MG CAP PO (09:50)
[2017-02-08] MEDS: LOPERAMIDE 2 MG CAP PO ×3 (09:50→20:56)
[2017-02-08] MEDS: ASCORBIC ACID 500 MG TAB PO (09:51)
[2017-02-08] MEDS: CITRIC ACID/SODIUM CITRATE 15 ML CUP PO ×3 (09:54→20:56)
[2017-02-08] MEDS: LINEZOLID 600 MG/D5W (PMX) 300 ML IVPB ×2 (09:55→20:49)
[2017-02-08 12:56] LABS: POTASSIUM 5.2 mmol/L (3.5-5.1)
[2017-02-08] MEDS: ERTAPENEM SODIUM 0.5 GM in SOD CHLORIDE 0.9% 100 ML IVPB (15:56)
[2017-02-08] MEDS: INSULIN GLARGINE [LANtus] 3 ML PEN SC (21:13)
[2017-02-08] MEDS: FLUCONAZOLE 100 MG/NS (PMX) 50 ML IVPB (22:24)
[2017-02-09] MEDS: morphine 2 MG INJ IV ×4 (00:11→21:41)
[2017-02-09] MEDS: ACCU-CHEK XX (02:00)
[2017-02-09] MEDS: PANTOPRAZOLE 40 MG INJ IV (06:02)
[2017-02-09 06:32] LABS: ADD MAN DIFF? NO
[2017-02-09 06:43] LABS: BASOPHILS % 0.5 % (0.0-2.0); EOSINOPHILS # 0.2 10^3/ul (0.0-0.5); EOSINOPHILS % 2.1 % (0.0-7.0); HEMATOCRIT 29.9 % (42.0-52.0); HEMOGLOBIN 9.5 g/dl (14.0-18.0); LYMPHOCYTES # 2.1 10^3/ul (0.8-2.9); LYMPHOCYTES % 25.8 % (15.0-51.0); MEAN CORPUSCULAR HEMOGLOBIN 27.4 pg (29.0-33.0); MEAN CORPUSCULAR HGB CONC 31.8 g/dl (32.0-37.0); MEAN CORPUSCULAR VOLUME 86.2 fl (82.0-101.0); MEAN PLATELET VOLUME 8.6 fl (7.4-10.4); MONOCYTE # 0.5 10^3/ul (0.3-0.9); MONOCYTES % 5.6 % (0.0-11.0); NEUTROPHIL # 5.4 10^3/ul (1.6-7.5); NEUTROPHILS % 65.6 % (39.0-77.0); PLATELET COUNT 218 10^3/UL (140-415); RED BLOOD COUNT 3.47 10^6/ul (4.70-6.10); RED CELL DISTRIBUTION WIDTH 14.9 % (11.5-14.5)
[2017-02-09 06:43] LABS: WHITE BLOOD COUNT 8.3 10^3/ul (4.8-10.8)
[2017-02-09 07:05] LABS: PHOSPHORUS 3.9 mg/dl (2.5-4.9)
[2017-02-09 07:05] LABS: MAGNESIUM 1.5 mg/dl (1.7-2.5)
[2017-02-09 07:12] LABS: ALANINE AMINOTRANSFERASE 20 IU/L (13-69); ALBUMIN 3.5 g/dl (3.3-4.9); ALBUMIN/GLOBULIN RATIO 0.83; ALKALINE PHOSPHATASE 212 IU/L (42-121); ANION GAP 18 (8-16); ASPARTATE AMINO TRANSFERASE 42 IU/L (15-46); BLOOD UREA NITROGEN 22 mg/dl (7-20); CALCIUM 9.8 mg/dl (8.4-10.2); CARBON DIOXIDE 24 mmol/L (21-31); CHLORIDE 104 mmol/L (97-110); CREATININE 2.62 mg/dl (0.61-1.24); GLUCOSE 85 mg/dl (70-220); POTASSIUM 5.1 mmol/L (3.5-5.1); SODIUM 141 mmol/L (135-144); TOTAL PROTEIN 7.7 g/dl (6.1-8.1)
[2017-02-09 07:34] LABS: LIPASE 492 U/L (23-300)
[2017-02-09 07:34] LABS: AMYLASE 158 U/L (11-123)
[2017-02-09] MEDS: INSULIN ASPART [NOVOLOG] 3 ML PEN SC ×4 (08:15→21:00)
[2017-02-09] MEDS: AMLODIPINE 2.5 MG TAB PO (09:00)
[2017-02-09] MEDS: LOPERAMIDE 2 MG CAP PO ×3 (09:24→21:39)
[2017-02-09] MEDS: ZINC SULFATE 220 MG CAP PO (09:24)
[2017-02-09] MEDS: LINEZOLID 600 MG/D5W (PMX) 300 ML IVPB (09:24)
[2017-02-09] MEDS: CITRIC ACID/SODIUM CITRATE 15 ML CUP PO ×3 (09:24→21:39)
[2017-02-09] MEDS: ASCORBIC ACID 500 MG TAB PO (09:24)
[2017-02-09] MEDS: DEXTROSE 5%-0.45% NACL 1,000 ML IV (12:16)
[2017-02-09] MEDS: ERTAPENEM SODIUM 0.5 GM in SOD CHLORIDE 0.9% 100 ML IVPB (14:13)
[2017-02-09] MEDS: ACETAMINOPHEN 325 MG TAB PO (16:25)
[2017-02-09] MEDS: FLUCONAZOLE 100 MG/NS (PMX) 50 ML IVPB (21:40)
[2017-02-09] MEDS: INSULIN GLARGINE [LANtus] 3 ML PEN SC (22:08)
[2017-02-10] MEDS: DEXTROSE 5%-0.45% NACL 1,000 ML IV ×4 (00:09→19:46)
[2017-02-10] MEDS: ACCU-CHEK XX (02:00)
[2017-02-10] MEDS: morphine 2 MG INJ IV ×4 (02:25→16:56)
[2017-02-10] MEDS: PANTOPRAZOLE 40 MG INJ IV (06:34)
[2017-02-10] MEDS: INSULIN ASPART [NOVOLOG] 3 ML PEN SC ×4 (08:15→21:00)
[2017-02-10] MEDS: AMLODIPINE 2.5 MG TAB PO (08:42)
[2017-02-10] MEDS: LOPERAMIDE 2 MG CAP PO ×3 (08:42→21:30)
[2017-02-10] MEDS: CITRIC ACID/SODIUM CITRATE 15 ML CUP PO ×3 (08:42→21:30)
[2017-02-10] MEDS: ZINC SULFATE 220 MG CAP PO (08:42)
[2017-02-10] MEDS: ASCORBIC ACID 500 MG TAB PO (08:42)
[2017-02-10 09:09] LABS: ANION GAP 21 (8-16); BLOOD UREA NITROGEN 21 mg/dl (7-20); CALCIUM 9.7 mg/dl (8.4-10.2); CARBON DIOXIDE 23 mmol/L (21-31); CHLORIDE 102 mmol/L (97-110); CREATININE 2.41 mg/dl (0.61-1.24); GLUCOSE 87 mg/dl (70-220); MAGNESIUM 1.4 mg/dl (1.7-2.5); POTASSIUM 5.6 mmol/L (3.5-5.1); SODIUM 140 mmol/L (135-144)
[2017-02-10] MEDS: NA POLYST SULFON 15 GM/60 ML BTL PO (12:48)
[2017-02-10] MEDS: MAGNESIUM SULFATE 4 GM/100 ML 100 ML IVPB (16:16)
[2017-02-10] MEDS: HYDROCODONE/APAP (5/325) TAB PO (19:45)
[2017-02-10] MEDS: INSULIN GLARGINE [LANtus] 3 ML PEN SC (21:38)
[2017-02-10] MEDS: FLUCONAZOLE 100 MG TAB PO (22:36)
[2017-02-11] MEDS: ACCU-CHEK XX (02:00)
[2017-02-11] MEDS: PANTOPRAZOLE 40 MG INJ IV (05:47)
[2017-02-11 07:19] LABS: AMYLASE 166 U/L (11-123)
[2017-02-11 07:19] LABS: LIPASE 392 U/L (23-300)
[2017-02-11] MEDS: INSULIN ASPART [NOVOLOG] 3 ML PEN SC ×4 (08:15→21:28)
[2017-02-11] MEDS: LOPERAMIDE 2 MG CAP PO ×3 (10:17→21:23)
[2017-02-11] MEDS: HYDROCODONE/APAP (5/325) TAB PO (10:17)
[2017-02-11] MEDS: CITRIC ACID/SODIUM CITRATE 15 ML CUP PO ×3 (10:17→21:23)
[2017-02-11] MEDS: ZINC SULFATE 220 MG CAP PO (10:17)
[2017-02-11] MEDS: AMLODIPINE 2.5 MG TAB PO (10:18)
[2017-02-11] MEDS: ASCORBIC ACID 500 MG TAB PO (10:19)
[2017-02-11] MEDS: DEXTROSE 5%-0.45% NACL 1,000 ML IV ×2 (10:19→16:09)
[2017-02-11 18:51] LABS: ANION GAP 21 (8-16); BLOOD UREA NITROGEN 24 mg/dl (7-20); CALCIUM 9.5 mg/dl (8.4-10.2); CARBON DIOXIDE 26 mmol/L (21-31); CHLORIDE 100 mmol/L (97-110); GLUCOSE 133 mg/dl (70-220); POTASSIUM 4.9 mmol/L (3.5-5.1); SODIUM 142 mmol/L (135-144)
[2017-02-11] MEDS: FLUCONAZOLE 100 MG TAB PO (21:25)
[2017-02-11] MEDS: INSULIN GLARGINE [LANtus] 3 ML PEN SC (21:28)
[2017-02-11] MEDS: morphine 2 MG INJ IV (21:37)
[2017-02-12] MEDS: DEXTROSE 5%-0.45% NACL 1,000 ML IV ×3 (01:19→18:00)
[2017-02-12] MEDS: ACCU-CHEK XX (02:00)
[2017-02-12] MEDS: SOD CHLORIDE 0.9% 500 ML IV (02:13)
[2017-02-12] MEDS: morphine 2 MG INJ IV ×3 (03:32→22:11)
[2017-02-12] MEDS: PANTOPRAZOLE 40 MG INJ IV (06:37)
[2017-02-12] MEDS: INSULIN ASPART [NOVOLOG] 3 ML PEN SC ×4 (08:15→21:00)
[2017-02-12] MEDS: AMLODIPINE 2.5 MG TAB PO (09:00)
[2017-02-12] MEDS: ASCORBIC ACID 500 MG TAB PO (09:43)
[2017-02-12] MEDS: CITRIC ACID/SODIUM CITRATE 15 ML CUP PO ×3 (09:43→21:57)
[2017-02-12] MEDS: ZINC SULFATE 220 MG CAP PO (09:43)
[2017-02-12] MEDS: LOPERAMIDE 2 MG CAP PO ×3 (09:44→21:57)
[2017-02-12 18:00] LABS: ANION GAP 18 (8-16); BLOOD UREA NITROGEN 24 mg/dl (7-20); CALCIUM 9.4 mg/dl (8.4-10.2); CARBON DIOXIDE 26 mmol/L (21-31); CHLORIDE 105 mmol/L (97-110); GLUCOSE 99 mg/dl (70-220); POTASSIUM 5.3 mmol/L (3.5-5.1); SODIUM 144 mmol/L (135-144)
[2017-02-12] MEDS: FLUCONAZOLE 100 MG TAB PO (21:57)
[2017-02-12] MEDS: INSULIN GLARGINE [LANtus] 3 ML PEN SC (22:09)
[2017-02-13] MEDS: ACCU-CHEK XX (02:00)
[2017-02-13] MEDS: DEXTROSE 5%-0.45% NACL 1,000 ML IV ×3 (03:44→21:29)
[2017-02-13] MEDS: morphine 2 MG INJ IV ×2 (03:55→19:18)
[2017-02-13] MEDS: PANTOPRAZOLE 40 MG INJ IV (05:28)
[2017-02-13 06:03] LABS: ADD MAN DIFF? NO
[2017-02-13 06:12] LABS: BASOPHILS % 0.4 % (0.0-2.0); EOSINOPHILS # 0.2 10^3/ul (0.0-0.5); HEMATOCRIT 27.1 % (42.0-52.0); HEMOGLOBIN 8.4 g/dl (14.0-18.0); LYMPHOCYTES # 2.4 10^3/ul (0.8-2.9); LYMPHOCYTES % 30.1 % (15.0-51.0); MEAN CORPUSCULAR HEMOGLOBIN 27.6 pg (29.0-33.0); MEAN CORPUSCULAR VOLUME 89.1 fl (82.0-101.0); MEAN PLATELET VOLUME 9.3 fl (7.4-10.4); MONOCYTE # 0.6 10^3/ul (0.3-0.9); MONOCYTES % 7.3 % (0.0-11.0); NEUTROPHIL # 4.8 10^3/ul (1.6-7.5); PLATELET COUNT 150 10^3/UL (140-415); RED BLOOD COUNT 3.04 10^6/ul (4.70-6.10); RED CELL DISTRIBUTION WIDTH 14.9 % (11.5-14.5)
[2017-02-13 06:37] LABS: ANION GAP 17 (8-16); BLOOD UREA NITROGEN 25 mg/dl (7-20); CALCIUM 9.3 mg/dl (8.4-10.2); CARBON DIOXIDE 25 mmol/L (21-31); CHLORIDE 106 mmol/L (97-110); CREATININE 2.38 mg/dl (0.61-1.24); GLUCOSE 73 mg/dl (70-220); SODIUM 143 mmol/L (135-144)
[2017-02-13] MEDS: INSULIN ASPART [NOVOLOG] 3 ML PEN SC ×4 (08:15→21:00)
[2017-02-13] MEDS: AMLODIPINE 2.5 MG TAB PO (09:00)
[2017-02-13] MEDS: LOPERAMIDE 2 MG CAP PO ×3 (09:10→22:22)
[2017-02-13] MEDS: CITRIC ACID/SODIUM CITRATE 15 ML CUP PO ×3 (09:10→22:23)
[2017-02-13] MEDS: ASCORBIC ACID 500 MG TAB PO (09:11)
[2017-02-13] MEDS: ZINC SULFATE 220 MG CAP PO (09:11)
[2017-02-13 16:36] LABS: MAGNESIUM 1.8 mg/dl (1.7-2.5)
[2017-02-13] MEDS: FLUCONAZOLE 100 MG TAB PO (22:22)
[2017-02-13] MEDS: INSULIN GLARGINE [LANtus] 3 ML PEN SC (22:33)
[2017-02-14] MEDS: morphine 2 MG INJ IV ×3 (01:39→21:44)
[2017-02-14] MEDS: ACCU-CHEK XX (02:00)
[2017-02-14] MEDS: PANTOPRAZOLE (EC) 40 MG TAB PO (06:47)
[2017-02-14 07:28] LABS: MAGNESIUM 1.7 mg/dl (1.7-2.5)
[2017-02-14] MEDS: INSULIN ASPART [NOVOLOG] 3 ML PEN SC ×4 (08:15→21:00)
[2017-02-14] MEDS: AMLODIPINE 2.5 MG TAB PO (09:00)
[2017-02-14] MEDS: CITRIC ACID/SODIUM CITRATE 15 ML CUP PO ×3 (09:21→21:43)
[2017-02-14] MEDS: DEXTROSE 5%-0.45% NACL 1,000 ML IV ×3 (09:22→20:25)
[2017-02-14] MEDS: ZINC SULFATE 220 MG CAP PO (09:22)
[2017-02-14] MEDS: LOPERAMIDE 2 MG CAP PO ×3 (09:22→21:43)
[2017-02-14] MEDS: ASCORBIC ACID 500 MG TAB PO (09:22)
[2017-02-14] MEDS: SOD CHLORIDE 0.9% 250 ML IV (21:43)
[2017-02-14] MEDS: FLUCONAZOLE 100 MG TAB PO (21:43)
[2017-02-14] MEDS: INSULIN GLARGINE [LANtus] 3 ML PEN SC (21:58)
[2017-02-15] MEDS: DEXTROSE 5%-0.45% NACL 1,000 ML IV ×3 (00:09→13:29)
[2017-02-15] MEDS: ACCU-CHEK XX (02:00)
[2017-02-15 06:22] LABS: ADD MAN DIFF? NO
[2017-02-15 06:32] LABS: BASOPHIL # 0.1 10^3/ul (0.0-0.1); BASOPHILS % 0.8 % (0.0-2.0); EOSINOPHILS # 0.2 10^3/ul (0.0-0.5); EOSINOPHILS % 3.3 % (0.0-7.0); HEMATOCRIT 26.4 % (42.0-52.0); HEMOGLOBIN 8.3 g/dl (14.0-18.0); LYMPHOCYTES % 30.8 % (15.0-51.0); MEAN CORPUSCULAR HEMOGLOBIN 27.5 pg (29.0-33.0); MEAN CORPUSCULAR HGB CONC 31.4 g/dl (32.0-37.0); MEAN CORPUSCULAR VOLUME 87.4 fl (82.0-101.0); MONOCYTE # 0.5 10^3/ul (0.3-0.9); MONOCYTES % 7.6 % (0.0-11.0); NEUTROPHIL # 3.7 10^3/ul (1.6-7.5); PLATELET COUNT 156 10^3/UL (140-415); RED BLOOD COUNT 3.02 10^6/ul (4.70-6.10)
[2017-02-15 06:32] LABS: WHITE BLOOD COUNT 6.5 10^3/ul (4.8-10.8)
[2017-02-15] MEDS: PANTOPRAZOLE (EC) 40 MG TAB PO (06:39)
[2017-02-15] MEDS: morphine 2 MG INJ IV ×2 (06:39→15:29)
[2017-02-15 06:47] LABS: ANION GAP 17 (8-16); BLOOD UREA NITROGEN 23 mg/dl (7-20); CALCIUM 9.5 mg/dl (8.4-10.2); CARBON DIOXIDE 24 mmol/L (21-31); CHLORIDE 107 mmol/L (97-110); CREATININE 2.31 mg/dl (0.61-1.24); GLUCOSE 82 mg/dl (70-220); POTASSIUM 4.8 mmol/L (3.5-5.1); SODIUM 143 mmol/L (135-144)
[2017-02-15 07:00] LABS: LIPASE 404 U/L (23-300)
[2017-02-15] MEDS: INSULIN ASPART [NOVOLOG] 3 ML PEN SC ×4 (08:15→20:51)
[2017-02-15] MEDS: ASCORBIC ACID 500 MG TAB PO (08:27)
[2017-02-15] MEDS: ZINC SULFATE 220 MG CAP PO (08:27)
[2017-02-15] MEDS: LOPERAMIDE 2 MG CAP PO ×3 (08:27→20:48)
[2017-02-15] MEDS: AMLODIPINE 2.5 MG TAB PO (08:28)
[2017-02-15] MEDS: CITRIC ACID/SODIUM CITRATE 15 ML CUP PO ×2 (08:28→11:30)
[2017-02-15] MEDS: INSULIN GLARGINE [LANtus] 3 ML PEN SC (21:08)
[2017-02-15] MEDS: HYDROCODONE/APAP (5/325) TAB PO (22:41)
[2017-02-16] MEDS: DEXTROSE 5%-0.45% NACL 1,000 ML IV (00:36)
[2017-02-16] MEDS: ACCU-CHEK XX (02:00)
[2017-02-16] MEDS: HYDROCODONE/APAP (5/325) TAB PO (05:46)
[2017-02-16] MEDS: PANTOPRAZOLE (EC) 40 MG TAB PO (05:46)
[2017-02-16 06:30] LABS: ADD MAN DIFF? NO
[2017-02-16 06:41] LABS: BASOPHILS % 0.5 % (0.0-2.0); EOSINOPHILS # 0.3 10^3/ul (0.0-0.5); EOSINOPHILS % 3.8 % (0.0-7.0); HEMATOCRIT 26.8 % (42.0-52.0); HEMOGLOBIN 8.4 g/dl (14.0-18.0); LYMPHOCYTES # 2.3 10^3/ul (0.8-2.9); LYMPHOCYTES % 34.5 % (15.0-51.0); MEAN CORPUSCULAR HGB CONC 31.3 g/dl (32.0-37.0); MEAN CORPUSCULAR VOLUME 89.3 fl (82.0-101.0); MEAN PLATELET VOLUME 9.6 fl (7.4-10.4); MONOCYTE # 0.5 10^3/ul (0.3-0.9); MONOCYTES % 7.7 % (0.0-11.0); NEUTROPHIL # 3.5 10^3/ul (1.6-7.5); NEUTROPHILS % 53.2 % (39.0-77.0); PLATELET COUNT 185 10^3/UL (140-415); RED CELL DISTRIBUTION WIDTH 14.9 % (11.5-14.5)
[2017-02-16 06:41] LABS: WHITE BLOOD COUNT 6.6 10^3/ul (4.8-10.8)
[2017-02-16 07:08] LABS: AMYLASE 136 U/L (11-123); ANION GAP 15 (8-16); BLOOD UREA NITROGEN 24 mg/dl (7-20); CALCIUM 9.3 mg/dl (8.4-10.2); CARBON DIOXIDE 25 mmol/L (21-31); CHLORIDE 108 mmol/L (97-110); CREATININE 2.44 mg/dl (0.61-1.24); GLUCOSE 88 mg/dl (70-220); LIPASE 378 U/L (23-300); POTASSIUM 5.1 mmol/L (3.5-5.1); SODIUM 143 mmol/L (135-144)
[2017-02-16 07:12] LABS: MAGNESIUM 1.4 mg/dl (1.7-2.5)
[2017-02-16 07:12] LABS: PHOSPHORUS 4.4 mg/dl (2.5-4.9)
[2017-02-16] MEDS: INSULIN ASPART [NOVOLOG] 3 ML PEN SC ×4 (07:53→20:24)
[2017-02-16] MEDS: ASCORBIC ACID 500 MG TAB PO (09:23)
[2017-02-16] MEDS: ZINC SULFATE 220 MG CAP PO (09:23)
[2017-02-16] MEDS: AMLODIPINE 2.5 MG TAB PO (09:24)
[2017-02-16] MEDS: LOPERAMIDE 2 MG CAP PO ×3 (09:24→20:22)
[2017-02-16] MEDS: MAGNESIUM SULFATE 3 GM in DEXTROSE 5% 100 ML IVPB (10:00)
[2017-02-16] MEDS: morphine 2 MG INJ IV ×3 (12:50→23:59)
[2017-02-16] MEDS: INSULIN GLARGINE [LANtus] 3 ML PEN SC (20:30)
[2017-02-17] MEDS: ACCU-CHEK XX (01:04)
[2017-02-17] MEDS: PANTOPRAZOLE (EC) 40 MG TAB PO (05:40)
[2017-02-17] MEDS: morphine 2 MG INJ IV ×3 (06:02→16:34)
[2017-02-17 06:15] LABS: ADD MAN DIFF? NO
[2017-02-17 06:20] LABS: BASOPHILS % 0.6 % (0.0-2.0); EOSINOPHILS # 0.2 10^3/ul (0.0-0.5); EOSINOPHILS % 3.4 % (0.0-7.0); HEMATOCRIT 30.2 % (42.0-52.0); HEMOGLOBIN 9.5 g/dl (14.0-18.0); LYMPHOCYTES # 2.2 10^3/ul (0.8-2.9); LYMPHOCYTES % 31.1 % (15.0-51.0); MEAN CORPUSCULAR HEMOGLOBIN 27.9 pg (29.0-33.0); MEAN CORPUSCULAR HGB CONC 31.5 g/dl (32.0-37.0); MEAN CORPUSCULAR VOLUME 88.6 fl (82.0-101.0); MEAN PLATELET VOLUME 9.6 fl (7.4-10.4); MONOCYTE # 0.6 10^3/ul (0.3-0.9); MONOCYTES % 7.9 % (0.0-11.0); NEUTROPHILS % 56.6 % (39.0-77.0); PLATELET COUNT 221 10^3/UL (140-415); RED BLOOD COUNT 3.41 10^6/ul (4.70-6.10); RED CELL DISTRIBUTION WIDTH 15.2 % (11.5-14.5)
[2017-02-17 06:20] LABS: WHITE BLOOD COUNT 7.1 10^3/ul (4.8-10.8)
[2017-02-17 06:45] LABS: PHOSPHORUS 4.5 mg/dl (2.5-4.9)
[2017-02-17 06:45] LABS: MAGNESIUM 2.1 mg/dl (1.7-2.5)
[2017-02-17 06:57] LABS: AMYLASE 151 U/L (11-123); ANION GAP 16 (8-16); BLOOD UREA NITROGEN 24 mg/dl (7-20); CALCIUM 10.1 mg/dl (8.4-10.2); CARBON DIOXIDE 23 mmol/L (21-31); CHLORIDE 107 mmol/L (97-110); CREATININE 2.65 mg/dl (0.61-1.24); GLUCOSE 80 mg/dl (70-220); LIPASE 392 U/L (23-300); POTASSIUM 5.1 mmol/L (3.5-5.1); SODIUM 141 mmol/L (135-144)
[2017-02-17] MEDS: INSULIN ASPART [NOVOLOG] 3 ML PEN SC ×3 (08:01→17:27)
[2017-02-17] MEDS: ZINC SULFATE 220 MG CAP PO (08:47)
[2017-02-17] MEDS: ASCORBIC ACID 500 MG TAB PO (08:47)
[2017-02-17] MEDS: LOPERAMIDE 2 MG CAP PO ×2 (08:48→14:03)
[2017-02-17] MEDS: AMLODIPINE 2.5 MG TAB PO (08:48)
== END 2017-02-17 18:20 | DRG 853 ==
LOC: TEL 21:40 → MS2 01-28 14:53
PROC: 06H03DZ Insertion of Intraluminal Device into Inferior Vena Cava, Percutaneous Approach (ICD-10-PCS; principal; 2017-01-28 13:30)
PROC: B519ZZA Fluoroscopy of Inferior Vena Cava, Guidance (ICD-10-PCS; 2017-01-28 13:30)
PROC: 30233N1 Transfusion of Nonautologous Red Blood Cells into Peripheral Vein, Percutaneous Approach (ICD-10-PCS; 2017-01-28 14:34)
DX: A41.02 Sepsis due to Methicillin resistant Staphylococcus aureus (principal); E43 Unspecified severe protein-calorie malnutrition; N17.0 Acute kidney failure with tubular necrosis; I82.411 Acute embolism and thrombosis of right femoral vein; N13.30 Unspecified hydronephrosis; E83.42 Hypomagnesemia; B37.49 Other urogenital candidiasis; K85.90 Acute pancreatitis without necrosis or infection, unspecified; N39.0 Urinary tract infection, site not specified; Z68.1 Body mass index [BMI] 19.9 or less, adult; B17.9 Acute viral hepatitis, unspecified; A41.81 Sepsis due to Enterococcus; I12.9 Hypertensive chronic kidney disease with stage 1 through stage 4 chronic kidney disease, or unspecified chronic kidney disease; N18.9 Chronic kidney disease, unspecified; Z85.51 Personal history of malignant neoplasm of bladder; Z93.3 Colostomy status; Z93.2 Ileostomy status; Z80.0 Family history of malignant neoplasm of digestive organs; D63.1 Anemia in chronic kidney disease; N13.9 Obstructive and reflux uropathy, unspecified; Z92.21 Personal history of antineoplastic chemotherapy; K62.7 Radiation proctitis; M47.9 Spondylosis, unspecified; Z85.46 Personal history of malignant neoplasm of prostate; Y84.2 Radiological procedure and radiotherapy as the cause of abnormal reaction of the patient, or of later complication, without mention of misadventure at the time of the procedure
CPT/HCPCS: 36430; 37191; 71010; 74176; 76705; 80048; 80053; 80076; 81001; 82150; 82550; 82553; 82962; 83036; 83605; 83690; 83735; 84100; 84132; 84439; 84443; 84484; 85025; 85610; 85730; 86850; 86900; 86901; 86920; 87040; 87075; 87086; 90686; 97110; 97116; 97162; 97530

== ENCOUNTER 2017-02-26 19:40 | Inpatient (IN) | payer BC ==
[2017-02-26] MEDS: CEFEPIME 2GM/50 ML (PMX) 50 ML IVPB (20:18)
[2017-02-26] MEDS: SOD CHLORIDE 0.9% 1,000 ML IV ×2 (20:21→20:23)
[2017-02-26 20:28] LABS: HEMATOCRIT 34.3 % (42.0-52.0); HEMOGLOBIN 11.4 g/dl (14.0-18.0); MEAN CORPUSCULAR HEMOGLOBIN 28.1 pg (29.0-33.0); MEAN CORPUSCULAR HGB CONC 33.2 g/dl (32.0-37.0); MEAN CORPUSCULAR VOLUME 84.5 fl (82.0-101.0); MEAN PLATELET VOLUME 9.4 fl (7.4-10.4); PLATELET COUNT 567 10^3/UL (140-415); POSITIVE DIFF @See below; RED BLOOD COUNT 4.06 10^6/ul (4.70-6.10); RED CELL DISTRIBUTION WIDTH 16.8 % (11.5-14.5)
[2017-02-26 20:28] LABS: WHITE BLOOD COUNT 9.9 10^3/ul (4.8-10.8)
[2017-02-26 20:35] LABS: ADD MAN DIFF? YES
[2017-02-26 20:48] LABS: INR 0.93; PROTIME 12.6 Sec (11.9-14.9)
[2017-02-26 20:49] LABS: PARTIAL THROMBOPLASTIN TIME 33.2 Sec (25.0-35.0)
[2017-02-26 20:52] LABS: ALANINE AMINOTRANSFERASE 57 IU/L (13-69); ALBUMIN 4.4 g/dl (3.3-4.9); ALBUMIN/GLOBULIN RATIO 0.89; ALKALINE PHOSPHATASE 490 IU/L (42-121); ANION GAP 30 (8-16); ASPARTATE AMINO TRANSFERASE 34 IU/L (15-46); BLOOD UREA NITROGEN 76 mg/dl (7-20); CALCIUM 10.3 mg/dl (8.4-10.2); CARBON DIOXIDE 13 mmol/L (21-31); CHLORIDE 98 mmol/L (97-110); CREATININE 4.22 mg/dl (0.61-1.24); GLUCOSE 147 mg/dl (70-220); SODIUM 135 mmol/L (135-144); TOTAL PROTEIN 9.3 g/dl (6.1-8.1)
[2017-02-26 20:53] LABS: LACTIC ACID 1.6 mmol/L (0.5-2.0)
[2017-02-26 20:57] LABS: BAND NEUTROPHILS #M 1.3 10^3/ul (0.0-0.6); BAND NEUTROPHILS % (M) 14 % (0-4); GIANT THROMBO% (M) 3 % (0-0); LYMPHOCYTES #M 1.7 10^3/ul (0.8-2.9); LYMPHOCYTES % (M) 18 % (15-51); MONOCYTE #M 0.9 10^3/ul (0.3-0.9); MONOCYTES % (M) 10 % (0-11); PLATELET ESTIMATE NORMAL; SEG NEUT #M 5.9 10^3/ul (1.7-7.5); SEGMENTED NEUTROPHILS (M) % 58 % (39-77); SMUDGE%M 3 % (0-0)
[2017-02-26 21:05] LABS: POTASSIUM 6.4 mmol/L (3.5-5.1); TROPONIN-I < 0.012 ng/ml (0.00-0.12)
[2017-02-26] MEDS ORDERED: ONDANSETRON 4 MG INJ IV (21:30)
[2017-02-26] MEDS: VANCOMYCIN 1 GM (PMX) 250 ML IVPB (21:40)
[2017-02-26] MEDS: ACETAMINOPHEN 325 MG TAB PO (21:44)
[2017-02-26 22:11] LABS: LACTIC ACID 2.2 mmol/L (0.5-2.0)
[2017-02-26] MEDS: NA BICARBONATE 8.4% 50 ML SYG IV (22:11)
[2017-02-26] MEDS: NA POLYST SULFON 15 GM/60 ML BTL PO (22:12)
[2017-02-26] MEDS: INSULIN REGULAR, HUMAN 100 UNIT/1 ML 3ML VIAL IV (22:16)
[2017-02-26] MEDS: DEXTROSE 50% 50 ML SYRINGE IV (22:21)
[2017-02-26] MEDS: ALBUTEROL 0.5% (NEB) 2.5 MG/0.5 ML AMP INH (22:28)
[2017-02-26] MEDS ORDERED: LORAZEPAM 2 MG INJ IV (22:30)
[2017-02-26] MEDS ORDERED: hydrALAzine 20 MG INJ IV (22:30)
[2017-02-26] MEDS ORDERED: DOCUSATE SODIUM 100 MG CAP PO (22:30)
[2017-02-26] MEDS ORDERED: NITROGLYCERIN (SL) 0.4 MG TAB SL (22:30)
[2017-02-26] MEDS ORDERED: NA PHOSPHATE/BIPHOS 133 ML ENEMA PR (22:30)
[2017-02-26] MEDS ORDERED: NACL 0.9% 3 ML SYG IV (22:30)
[2017-02-26] MEDS ORDERED: VANCOMYCIN IV PER PHARMACY XX (22:30)
[2017-02-26] MEDS ORDERED: ACETAMINOPHEN 325 MG TAB PO (22:30)
[2017-02-26] MEDS ORDERED: MAGNESIUM HYDROXIDE 30ML CUP PO (22:30)
[2017-02-26] MEDS ORDERED: ALBUTEROL/IPRATROPIUM (NEB) 3 ML AMP HHN (22:30)
[2017-02-27] MEDS: PIPER-TAZO 2.25 GM (PMX) 50 ML IVPB ×4 (00:35→17:22)
[2017-02-27] MEDS: SOD CHLORIDE 0.45% 1,000 ML IV (00:35)
[2017-02-27 01:55] LABS: LACTIC ACID 3.5 mmol/L (0.5-2.0)
[2017-02-27] MEDS: ONDANSETRON 4 MG INJ IV ×2 (04:16→11:04)
[2017-02-27] MEDS: SOD CHLORIDE 0.9% 1,000 ML IV ×2 (05:55→16:19)
[2017-02-27] MEDS ORDERED: PANTOPRAZOLE 40 MG INJ IV (06:00)
[2017-02-27] MEDS: PANTOPRAZOLE (EC) 40 MG TAB PO (07:37)
[2017-02-27 08:57] LABS: LACTIC ACID 1.7 mmol/L (0.5-2.0)
[2017-02-27 09:01] LABS: ANION GAP 18 (8-16); BLOOD UREA NITROGEN 62 mg/dl (7-20); CALCIUM 9.5 mg/dl (8.4-10.2); CARBON DIOXIDE 21 mmol/L (21-31); CHLORIDE 105 mmol/L (97-110); CREATININE 3.27 mg/dl (0.61-1.24); GLUCOSE 122 mg/dl (70-220); MAGNESIUM 1.5 mg/dl (1.7-2.5); PHOSPHORUS 4.8 mg/dl (2.5-4.9); POTASSIUM 5.2 mmol/L (3.5-5.1); SODIUM 139 mmol/L (135-144)
[2017-02-27 09:03] LABS: CHOL/HDL RATIO 5.1 RATIO; HDL CHOLESTEROL 29 mg/dl (30-78); LDL CHOLESTEROL,CALCULATED 79 mg/dl; TRIGLYCERIDES 200 mg/dl (0-149)
[2017-02-27 09:03] LABS: CHOLESTEROL 148 mg/dl (100-200)
[2017-02-27 09:33] LABS: THYROID STIMULATING HORMONE 0.472 MIU/L (0.465-4.680)
[2017-02-27] MEDS: ZINC SULFATE 220 MG CAP PO (09:38)
[2017-02-27] MEDS: LOPERAMIDE 2 MG CAP PO ×3 (09:38→22:45)
[2017-02-27] MEDS: ASCORBIC ACID 500 MG TAB PO (09:38)
[2017-02-27 09:45] LABS: HEMOGLOBIN A1C 5.6 % (0-5.9)
[2017-02-27] MEDS: HEPARIN 5,000 UNIT/0.5 ML VIAL SC ×2 (09:50→23:01)
[2017-02-27] MEDS: MAGNESIUM SULFATE 2 GM/50 ML 50 ML IVPB (11:04)
[2017-02-27] MEDS: ACETAMINOPHEN 325 MG TAB PO ×3 (11:05→22:46)
[2017-02-27 11:58] LABS: ADD UMIC YES; UR ASCORBIC ACID 20 mg/dL (NEGATIVE); UR BACTERIA FEW /HPF (NONE SEEN); UR BILIRUBIN (Dip) NEGATIVE (NEGATIVE); UR BLOOD (Dip) 3+ mg/dL (NEGATIVE); UR CLARITY TURBID (CLEAR); UR COLOR YELLOW (YELLOW); UR GLUCOSE (Dip) NEGATIVE (NEGATIVE); UR KETONES (Dip) NEGATIVE (NEGATIVE); UR LEUKOCYTE ESTERASE (Dip) 3+ Leu/ul (NEGATIVE); UR MUCUS FEW /HPF (NONE SEEN); UR NITRITE (Dip) NEGATIVE (NEGATIVE); UR NONSQUAMOUS EPITHELIAL CELL 127 /HPF (NONE SEEN); UR RBC > 182 /HPF (0-5); UR SPECIFIC GRAVITY (Dip) 1.013 (1.003-1.030); UR SQUAMOUS EPITHELIAL CELL FEW /HPF (FEW); UR TOTAL PROTEIN (Dip) 2+ mg/dl (NEGATIVE); UR UROBILINOGEN (Dip) NEGATIVE (NEGATIVE); UR WBC > 182 /HPF (0-5)
[2017-02-27 12:37] LABS: LACTIC ACID 1.9 mmol/L (0.5-2.0)
[2017-02-27 12:42] LABS: POTASSIUM 5.7 mmol/L (3.5-5.1)
[2017-02-27] MEDS: SOD CHLORIDE 0.9% 500 ML IV ×2 (13:30→21:16)
[2017-02-27 14:16] LABS: HEMATOCRIT 32.2 % (42.0-52.0); HEMOGLOBIN 10.2 g/dl (14.0-18.0); MEAN CORPUSCULAR HEMOGLOBIN 27.5 pg (29.0-33.0); MEAN CORPUSCULAR HGB CONC 31.7 g/dl (32.0-37.0); MEAN CORPUSCULAR VOLUME 86.8 fl (82.0-101.0); MEAN PLATELET VOLUME 9.8 fl (7.4-10.4); PLATELET COUNT 382 10^3/UL (140-415); POSITIVE DIFF @See below; RED BLOOD COUNT 3.71 10^6/ul (4.70-6.10); RED CELL DISTRIBUTION WIDTH 17.1 % (11.5-14.5)
[2017-02-27 14:27] LABS: ADD MAN DIFF? YES
[2017-02-27] MEDS: NA POLYST SULFON 15 GM/60 ML BTL PO (15:04)
[2017-02-27 16:04] LABS: BAND NEUTROPHILS #M 0.4 10^3/ul (0.0-0.6); BAND NEUTROPHILS % (M) 8 % (0-4); LYMPHOCYTES # 1.1 10^3/ul (0.8-2.9); LYMPHOCYTES #M 1.1 10^3/ul (0.8-2.9); LYMPHOCYTES % (M) 19 % (15-51); MONOCYTE # 0.6 10^3/ul (0.3-0.9); MONOCYTE #M 0.6 10^3/ul (0.3-0.9); MONOCYTES % (M) 10 % (0-11); SEG NEUT #M 3.8 10^3/ul (1.7-7.5); SEGMENTED NEUTROPHILS (M) % 63 % (39-77)
[2017-02-27 18:51] LABS: LACTIC ACID 1.6 mmol/L (0.5-2.0)
[2017-02-27] MEDS ORDERED: SOD CHLORIDE 0.9% 500 ML IV ×3 (21:00→21:30)
[2017-02-27] MEDS: LACTOBACILLUS RHAMNOSUS CAP PO (22:45)
[2017-02-28] MEDS: PIPER-TAZO 2.25 GM (PMX) 50 ML IVPB ×2 (00:19→06:07)
[2017-02-28] MEDS: SOD CHLORIDE 0.9% 1,000 ML IV ×5 (00:59→21:00)
[2017-02-28] MEDS: ACETAMINOPHEN 325 MG TAB PO (04:58)
[2017-02-28 06:09] LABS: ADD MAN DIFF? NO
[2017-02-28 06:20] LABS: WHITE BLOOD COUNT 5.7 10^3/ul (4.8-10.8)
[2017-02-28 06:20] LABS: BASOPHILS % 0.7 % (0.0-2.0); EOSINOPHILS # 0.1 10^3/ul (0.0-0.5); EOSINOPHILS % 1.7 % (0.0-7.0); HEMATOCRIT 28.1 % (42.0-52.0); HEMOGLOBIN 9.3 g/dl (14.0-18.0); LYMPHOCYTES % 16.6 % (15.0-51.0); MEAN CORPUSCULAR HEMOGLOBIN 28.3 pg (29.0-33.0); MEAN CORPUSCULAR HGB CONC 33.1 g/dl (32.0-37.0); MEAN CORPUSCULAR VOLUME 85.4 fl (82.0-101.0); MEAN PLATELET VOLUME 9.3 fl (7.4-10.4); MONOCYTE # 0.6 10^3/ul (0.3-0.9); MONOCYTES % 10.5 % (0.0-11.0); NEUTROPHILS % 69.6 % (39.0-77.0); PLATELET COUNT 312 10^3/UL (140-415); RED BLOOD COUNT 3.29 10^6/ul (4.70-6.10)
[2017-02-28 06:43] LABS: ALANINE AMINOTRANSFERASE 40 IU/L (13-69); ALBUMIN 3.2 g/dl (3.3-4.9); ALBUMIN/GLOBULIN RATIO 0.74; ALKALINE PHOSPHATASE 323 IU/L (42-121); ANION GAP 16 (8-16); ASPARTATE AMINO TRANSFERASE 22 IU/L (15-46); BLOOD UREA NITROGEN 47 mg/dl (7-20); CALCIUM 9.5 mg/dl (8.4-10.2); CARBON DIOXIDE 19 mmol/L (21-31); CHLORIDE 109 mmol/L (97-110); CREATININE 2.58 mg/dl (0.61-1.24); GLUCOSE 94 mg/dl (70-220); MAGNESIUM 2.1 mg/dl (1.7-2.5); PHOSPHORUS 3.4 mg/dl (2.5-4.9); POTASSIUM 4.2 mmol/L (3.5-5.1); SODIUM 140 mmol/L (135-144); TOTAL PROTEIN 7.5 g/dl (6.1-8.1)
[2017-02-28 07:48] LABS: VANCOMYCIN,RANDOM 8.7 ug/ml
[2017-02-28] MEDS: LACTOBACILLUS RHAMNOSUS CAP PO ×2 (08:29→21:25)
[2017-02-28] MEDS: ASCORBIC ACID 500 MG TAB PO (08:29)
[2017-02-28] MEDS: ZINC SULFATE 220 MG CAP PO (08:29)
[2017-02-28] MEDS: LOPERAMIDE 2 MG CAP PO ×3 (08:30→21:25)
[2017-02-28] MEDS: FAMOTIDINE 20 MG TAB PO (08:30)
[2017-02-28] MEDS: HEPARIN 5,000 UNIT/0.5 ML VIAL SC ×2 (08:31→21:26)
[2017-02-28] MEDS: HYDROCODONE/APAP (5/325) TAB PO ×2 (12:22→18:29)
[2017-02-28] MEDS: VANCOMYCIN 1 GM 250 ML IVPB (13:58)
[2017-02-28] MEDS ORDERED: SOD CHLORIDE 0.9% 500 ML IV (14:30)
[2017-02-28] MEDS ORDERED: MIDODRINE 5 MG TAB PO (14:30)
[2017-02-28] MEDS: MIDODRINE 5 MG TAB PO (14:31)
[2017-02-28] MEDS: ALBUMIN HUMAN 25% 100 ML IV (15:47)
[2017-02-28] MEDS: SOD CHLORIDE 0.9% 500 ML IV (15:48)
[2017-02-28] MEDS ORDERED: VANCOMYCIN 1 GM 250 ML IVPB (17:00)
[2017-02-28] MEDS: MEROPENEM 500MG/50 ML (PMX) 50 ML IVPB ×2 (17:52→21:25)
[2017-03-01] MEDS: HYDROCODONE/APAP (5/325) TAB PO ×3 (02:22→17:26)
[2017-03-01 06:19] LABS: ADD MAN DIFF? NO
[2017-03-01 06:46] LABS: WHITE BLOOD COUNT 5.1 10^3/ul (4.8-10.8)
[2017-03-01 06:46] LABS: BASOPHILS % 0.4 % (0.0-2.0); EOSINOPHILS # 0.1 10^3/ul (0.0-0.5); EOSINOPHILS % 1.6 % (0.0-7.0); HEMATOCRIT 23.8 % (42.0-52.0); HEMOGLOBIN 7.7 g/dl (14.0-18.0); LYMPHOCYTES # 1.4 10^3/ul (0.8-2.9); MEAN CORPUSCULAR HEMOGLOBIN 28.4 pg (29.0-33.0); MEAN CORPUSCULAR HGB CONC 32.4 g/dl (32.0-37.0); MEAN CORPUSCULAR VOLUME 87.8 fl (82.0-101.0); MEAN PLATELET VOLUME 9.3 fl (7.4-10.4); MONOCYTE # 0.5 10^3/ul (0.3-0.9); MONOCYTES % 9.8 % (0.0-11.0); NEUTROPHILS % 59.2 % (39.0-77.0); PLATELET COUNT 250 10^3/UL (140-415); RED BLOOD COUNT 2.71 10^6/ul (4.70-6.10); RED CELL DISTRIBUTION WIDTH 17.2 % (11.5-14.5)
[2017-03-01 06:56] LABS: ANION GAP 13 (8-16); BLOOD UREA NITROGEN 35 mg/dl (7-20); CALCIUM 9.3 mg/dl (8.4-10.2); CARBON DIOXIDE 16 mmol/L (21-31); CHLORIDE 114 mmol/L (97-110); CREATININE 2.07 mg/dl (0.61-1.24); GLUCOSE 84 mg/dl (70-220); POTASSIUM 4.2 mmol/L (3.5-5.1); SODIUM 139 mmol/L (135-144)
[2017-03-01] MEDS: FAMOTIDINE 20 MG TAB PO (09:09)
[2017-03-01] MEDS: ZINC SULFATE 220 MG CAP PO (09:09)
[2017-03-01] MEDS: SOD CHLORIDE 0.9% 1,000 ML IV ×3 (09:09→22:58)
[2017-03-01] MEDS: LACTOBACILLUS RHAMNOSUS CAP PO ×2 (09:10→20:47)
[2017-03-01] MEDS: LOPERAMIDE 2 MG CAP PO ×3 (09:10→20:47)
[2017-03-01] MEDS: ASCORBIC ACID 500 MG TAB PO (09:10)
[2017-03-01] MEDS: HEPARIN 5,000 UNIT/0.5 ML VIAL SC ×2 (09:11→20:59)
[2017-03-01] MEDS: MEROPENEM 500MG/50 ML (PMX) 50 ML IVPB ×2 (11:06→20:46)
[2017-03-02] MEDS: HYDROCODONE/APAP (5/325) TAB PO ×4 (00:13→19:46)
[2017-03-02 07:46] LABS: ADD MAN DIFF? NO
[2017-03-02 07:48] LABS: BASOPHILS % 0.5 % (0.0-2.0); EOSINOPHILS # 0.1 10^3/ul (0.0-0.5); EOSINOPHILS % 1.4 % (0.0-7.0); HEMATOCRIT 24.2 % (42.0-52.0); HEMOGLOBIN 7.9 g/dl (14.0-18.0); LYMPHOCYTES # 1.3 10^3/ul (0.8-2.9); MEAN CORPUSCULAR HEMOGLOBIN 28.6 pg (29.0-33.0); MEAN CORPUSCULAR HGB CONC 32.6 g/dl (32.0-37.0); MEAN CORPUSCULAR VOLUME 87.7 fl (82.0-101.0); MONOCYTE # 0.7 10^3/ul (0.3-0.9); MONOCYTES % 10.5 % (0.0-11.0); NEUTROPHIL # 4.2 10^3/ul (1.6-7.5); NEUTROPHILS % 64.4 % (39.0-77.0); PLATELET COUNT 281 10^3/UL (140-415); RED BLOOD COUNT 2.76 10^6/ul (4.70-6.10); RED CELL DISTRIBUTION WIDTH 17.4 % (11.5-14.5)
[2017-03-02 07:48] LABS: WHITE BLOOD COUNT 6.5 10^3/ul (4.8-10.8)
[2017-03-02 08:14] LABS: ALANINE AMINOTRANSFERASE 31 IU/L (13-69); ALBUMIN 2.9 g/dl (3.3-4.9); ALBUMIN/GLOBULIN RATIO 0.87; ALKALINE PHOSPHATASE 284 IU/L (42-121); ANION GAP 14 (8-16); ASPARTATE AMINO TRANSFERASE 16 IU/L (15-46); BLOOD UREA NITROGEN 27 mg/dl (7-20); CALCIUM 8.8 mg/dl (8.4-10.2); CARBON DIOXIDE 16 mmol/L (21-31); CHLORIDE 115 mmol/L (97-110); CREATININE 1.82 mg/dl (0.61-1.24); GLUCOSE 93 mg/dl (70-220); POTASSIUM 3.9 mmol/L (3.5-5.1); SODIUM 141 mmol/L (135-144); TOTAL PROTEIN 6.2 g/dl (6.1-8.1)
[2017-03-02] MEDS: MEROPENEM 500MG/50 ML (PMX) 50 ML IVPB ×2 (11:15→21:07)
[2017-03-02] MEDS: FAMOTIDINE 20 MG TAB PO (11:16)
[2017-03-02] MEDS: ZINC SULFATE 220 MG CAP PO (11:16)
[2017-03-02] MEDS: ASCORBIC ACID 500 MG TAB PO (11:16)
[2017-03-02] MEDS: LACTOBACILLUS RHAMNOSUS CAP PO ×2 (11:16→21:07)
[2017-03-02] MEDS: LOPERAMIDE 2 MG CAP PO ×3 (11:16→21:07)
[2017-03-02] MEDS: HEPARIN 5,000 UNIT/0.5 ML VIAL SC ×2 (11:17→21:08)
[2017-03-02] MEDS: FLUCONAZOLE 100 MG TAB PO (17:54)
[2017-03-02] MEDS: SOD CHLORIDE 0.9% 1,000 ML IV (19:47)
[2017-03-03] MEDS: HYDROCODONE/APAP (5/325) TAB PO ×3 (03:06→21:28)
[2017-03-03 07:14] LABS: ADD MAN DIFF? NO
[2017-03-03 07:21] LABS: WHITE BLOOD COUNT 7.8 10^3/ul (4.8-10.8)
[2017-03-03 07:21] LABS: BASOPHILS % 0.3 % (0.0-2.0); EOSINOPHILS # 0.1 10^3/ul (0.0-0.5); EOSINOPHILS % 1.2 % (0.0-7.0); HEMATOCRIT 24.6 % (42.0-52.0); HEMOGLOBIN 8.1 g/dl (14.0-18.0); LYMPHOCYTES # 1.5 10^3/ul (0.8-2.9); LYMPHOCYTES % 18.6 % (15.0-51.0); MEAN CORPUSCULAR HEMOGLOBIN 28.2 pg (29.0-33.0); MEAN CORPUSCULAR HGB CONC 32.9 g/dl (32.0-37.0); MEAN CORPUSCULAR VOLUME 85.7 fl (82.0-101.0); MEAN PLATELET VOLUME 9.5 fl (7.4-10.4); MONOCYTE # 0.6 10^3/ul (0.3-0.9); MONOCYTES % 7.2 % (0.0-11.0); NEUTROPHIL # 5.5 10^3/ul (1.6-7.5); NEUTROPHILS % 69.9 % (39.0-77.0); PLATELET COUNT 273 10^3/UL (140-415); POSITIVE DIFF @See below; RED BLOOD COUNT 2.87 10^6/ul (4.70-6.10); RED CELL DISTRIBUTION WIDTH 17.4 % (11.5-14.5)
[2017-03-03 07:41] LABS: ANION GAP 14 (8-16); BLOOD UREA NITROGEN 25 mg/dl (7-20); CALCIUM 9.5 mg/dl (8.4-10.2); CARBON DIOXIDE 16 mmol/L (21-31); CHLORIDE 116 mmol/L (97-110); CREATININE 1.83 mg/dl (0.61-1.24); GLUCOSE 106 mg/dl (70-220); POTASSIUM 3.9 mmol/L (3.5-5.1); SODIUM 142 mmol/L (135-144)
[2017-03-03] MEDS: FAMOTIDINE 20 MG TAB PO (08:47)
[2017-03-03] MEDS: LOPERAMIDE 2 MG CAP PO ×3 (08:47→21:07)
[2017-03-03] MEDS: ASCORBIC ACID 500 MG TAB PO (08:47)
[2017-03-03] MEDS: LACTOBACILLUS RHAMNOSUS CAP PO ×2 (08:47→21:07)
[2017-03-03] MEDS: MEROPENEM 500MG/50 ML (PMX) 50 ML IVPB (08:47)
[2017-03-03] MEDS: HEPARIN 5,000 UNIT/0.5 ML VIAL SC ×2 (08:47→21:09)
[2017-03-03] MEDS: FLUCONAZOLE 100 MG TAB PO (08:47)
[2017-03-03] MEDS: ZINC SULFATE 220 MG CAP PO (08:47)
[2017-03-03] MEDS: ERTAPENEM SODIUM 1 GM in SOD CHLORIDE 0.9% 100 ML IVPB (17:20)
[2017-03-03] MEDS: CITRIC ACID/SODIUM CITRATE 15 ML CUP PO (21:11)
[2017-03-03 22:52] LABS: ADD UMIC YES; UR ASCORBIC ACID NEGATIVE (NEGATIVE); UR BILIRUBIN (Dip) NEGATIVE (NEGATIVE); UR BLOOD (Dip) 3+ mg/dL (NEGATIVE); UR CLARITY TURBID (CLEAR); UR COLOR YELLOW (YELLOW); UR GLUCOSE (Dip) NEGATIVE (NEGATIVE); UR KETONES (Dip) NEGATIVE (NEGATIVE); UR LEUKOCYTE ESTERASE (Dip) 3+ Leu/ul (NEGATIVE); UR NITRITE (Dip) NEGATIVE (NEGATIVE); UR RBC > 182 /HPF (0-5); UR TOTAL PROTEIN (Dip) 2+ mg/dl (NEGATIVE); UR UROBILINOGEN (Dip) NEGATIVE (NEGATIVE); UR WBC > 182 /HPF (0-5)
[2017-03-04] MEDS: HYDROCODONE/APAP (5/325) TAB PO ×3 (05:38→18:15)
[2017-03-04 06:38] LABS: ADD MAN DIFF? NO
[2017-03-04 06:46] LABS: WHITE BLOOD COUNT 8.2 10^3/ul (4.8-10.8)
[2017-03-04 06:46] LABS: BASOPHILS % 0.5 % (0.0-2.0); EOSINOPHILS # 0.1 10^3/ul (0.0-0.5); EOSINOPHILS % 1.1 % (0.0-7.0); HEMATOCRIT 30.6 % (42.0-52.0); HEMOGLOBIN 9.6 g/dl (14.0-18.0); LYMPHOCYTES # 1.7 10^3/ul (0.8-2.9); LYMPHOCYTES % 20.4 % (15.0-51.0); MEAN CORPUSCULAR HEMOGLOBIN 27.7 pg (29.0-33.0); MEAN CORPUSCULAR HGB CONC 31.4 g/dl (32.0-37.0); MEAN CORPUSCULAR VOLUME 88.2 fl (82.0-101.0); MEAN PLATELET VOLUME 8.8 fl (7.4-10.4); MONOCYTE # 0.6 10^3/ul (0.3-0.9); MONOCYTES % 6.8 % (0.0-11.0); NEUTROPHIL # 5.5 10^3/ul (1.6-7.5); NEUTROPHILS % 67.2 % (39.0-77.0); PLATELET COUNT 289 10^3/UL (140-415); RED BLOOD COUNT 3.47 10^6/ul (4.70-6.10); RED CELL DISTRIBUTION WIDTH 17.6 % (11.5-14.5)
[2017-03-04 07:19] LABS: ANION GAP 15 (8-16); BLOOD UREA NITROGEN 24 mg/dl (7-20); CARBON DIOXIDE 17 mmol/L (21-31); CHLORIDE 116 mmol/L (97-110); CREATININE 1.96 mg/dl (0.61-1.24); GLUCOSE 99 mg/dl (70-220); POTASSIUM 4.3 mmol/L (3.5-5.1); SODIUM 144 mmol/L (135-144)
[2017-03-04] MEDS: ASCORBIC ACID 500 MG TAB PO (08:57)
[2017-03-04] MEDS: LACTOBACILLUS RHAMNOSUS CAP PO ×2 (08:57→20:58)
[2017-03-04] MEDS: ZINC SULFATE 220 MG CAP PO (08:57)
[2017-03-04] MEDS: FAMOTIDINE 20 MG TAB PO (08:57)
[2017-03-04] MEDS: FLUCONAZOLE 100 MG TAB PO (08:57)
[2017-03-04] MEDS: LOPERAMIDE 2 MG CAP PO ×3 (08:57→20:58)
[2017-03-04] MEDS: HEPARIN 5,000 UNIT/0.5 ML VIAL SC ×2 (08:58→20:59)
[2017-03-04] MEDS: CITRIC ACID/SODIUM CITRATE 15 ML CUP PO ×2 (09:00→20:58)
[2017-03-04] MEDS: ERTAPENEM SODIUM 1 GM in SOD CHLORIDE 0.9% 100 ML IVPB (17:24)
[2017-03-05] MEDS: HYDROCODONE/APAP (5/325) TAB PO ×3 (01:00→19:02)
[2017-03-05 06:12] LABS: HEMATOCRIT 28.3 % (42.0-52.0); HEMOGLOBIN 9.2 g/dl (14.0-18.0); MEAN CORPUSCULAR HGB CONC 32.5 g/dl (32.0-37.0); MEAN CORPUSCULAR VOLUME 86.3 fl (82.0-101.0); MEAN PLATELET VOLUME 9.1 fl (7.4-10.4); PLATELET COUNT 319 10^3/UL (140-415); POSITIVE DIFF @See below; RED BLOOD COUNT 3.28 10^6/ul (4.70-6.10); RED CELL DISTRIBUTION WIDTH 17.8 % (11.5-14.5)
[2017-03-05 06:12] LABS: WHITE BLOOD COUNT 11.1 10^3/ul (4.8-10.8)
[2017-03-05 06:37] LABS: ADD MAN DIFF? YES
[2017-03-05 06:54] LABS: ANION GAP 15 (8-16); BLOOD UREA NITROGEN 31 mg/dl (7-20); CALCIUM 9.7 mg/dl (8.4-10.2); CARBON DIOXIDE 21 mmol/L (21-31); CHLORIDE 110 mmol/L (97-110); CREATININE 2.21 mg/dl (0.61-1.24); GLUCOSE 101 mg/dl (70-220); POTASSIUM 4.4 mmol/L (3.5-5.1); SODIUM 142 mmol/L (135-144)
[2017-03-05] MEDS: CITRIC ACID/SODIUM CITRATE 15 ML CUP PO ×2 (09:44→20:28)
[2017-03-05] MEDS: FAMOTIDINE 20 MG TAB PO (09:45)
[2017-03-05] MEDS: ZINC SULFATE 220 MG CAP PO (09:45)
[2017-03-05] MEDS: FLUCONAZOLE 100 MG TAB PO (09:45)
[2017-03-05] MEDS: LOPERAMIDE 2 MG CAP PO ×3 (09:45→20:28)
[2017-03-05] MEDS: ASCORBIC ACID 500 MG TAB PO (09:45)
[2017-03-05] MEDS: LACTOBACILLUS RHAMNOSUS CAP PO ×2 (09:45→20:28)
[2017-03-05] MEDS: HEPARIN 5,000 UNIT/0.5 ML VIAL SC ×2 (09:47→20:29)
[2017-03-05 10:42] LABS: ANISOCYTOSIS 1+ (0-0); BAND NEUTROPHILS #M 0.7 10^3/ul (0.0-0.6); BAND NEUTROPHILS % (M) 7 % (0-4); BASOPHIL #M 0.1 10^3/ul (0.0-0.0); BASOPHILS % (M) 1 % (0-2); EOSINOPHILS % (M) 2 % (0-7); GIANT THROMBO% (M) 1 % (0-0); LYMPHOCYTES #M 2.1 10^3/ul (0.8-2.9); LYMPHOCYTES % (M) 19 % (15-51); METAMYELOCYTES #M 0.1 10^3/ul (0.0-0.0); METAMYELOCYTES %M 1 % (0-0); MONOCYTE #M 0.4 10^3/ul (0.3-0.9); MONOCYTES % (M) 4 % (0-11); MYELOCYTES #M 0.1 10^3/ul (0.0-0.0); MYELOCYTES % (M) 1 % (0-0); PLATELET ESTIMATE NORMAL; POLYCHROMASIA 3+ (0-0); SEG NEUT #M 7.3 10^3/ul (1.7-7.5); SEGMENTED NEUTROPHILS (M) % 65 % (39-77); SMUDGE%M 2 % (0-0)
[2017-03-05] MEDS: ERTAPENEM SODIUM 1 GM in SOD CHLORIDE 0.9% 100 ML IVPB (17:44)
[2017-03-06] MEDS: HYDROCODONE/APAP (5/325) TAB PO ×3 (01:24→16:49)
[2017-03-06 05:03] LABS: ADD MAN DIFF? NO
[2017-03-06 05:06] LABS: BASOPHILS % 0.4 % (0.0-2.0); EOSINOPHILS # 0.1 10^3/ul (0.0-0.5); EOSINOPHILS % 1.1 % (0.0-7.0); HEMATOCRIT 27.9 % (42.0-52.0); HEMOGLOBIN 9.2 g/dl (14.0-18.0); LYMPHOCYTES # 2.2 10^3/ul (0.8-2.9); LYMPHOCYTES % 21.1 % (15.0-51.0); MEAN CORPUSCULAR HEMOGLOBIN 28.3 pg (29.0-33.0); MEAN CORPUSCULAR VOLUME 85.8 fl (82.0-101.0); MEAN PLATELET VOLUME 8.9 fl (7.4-10.4); MONOCYTE # 0.6 10^3/ul (0.3-0.9); MONOCYTES % 6.1 % (0.0-11.0); NEUTROPHIL # 7.1 10^3/ul (1.6-7.5); NEUTROPHILS % 69.6 % (39.0-77.0); PLATELET COUNT 285 10^3/UL (140-415); POSITIVE DIFF @See below; RED BLOOD COUNT 3.25 10^6/ul (4.70-6.10); RED CELL DISTRIBUTION WIDTH 17.8 % (11.5-14.5)
[2017-03-06 05:06] LABS: WHITE BLOOD COUNT 10.2 10^3/ul (4.8-10.8)
[2017-03-06 05:41] LABS: ANION GAP 15 (8-16); BLOOD UREA NITROGEN 31 mg/dl (7-20); CALCIUM 9.8 mg/dl (8.4-10.2); CARBON DIOXIDE 18 mmol/L (21-31); CHLORIDE 111 mmol/L (97-110); CREATININE 2.21 mg/dl (0.61-1.24); GLUCOSE 94 mg/dl (70-220); POTASSIUM 4.2 mmol/L (3.5-5.1); SODIUM 140 mmol/L (135-144)
[2017-03-06] MEDS: LACTOBACILLUS RHAMNOSUS CAP PO ×2 (08:59→21:51)
[2017-03-06] MEDS: ASCORBIC ACID 500 MG TAB PO (08:59)
[2017-03-06] MEDS: FAMOTIDINE 20 MG TAB PO (08:59)
[2017-03-06] MEDS: FLUCONAZOLE 100 MG TAB PO (08:59)
[2017-03-06] MEDS: LOPERAMIDE 2 MG CAP PO ×3 (08:59→21:51)
[2017-03-06] MEDS: ZINC SULFATE 220 MG CAP PO (08:59)
[2017-03-06] MEDS: HEPARIN 5,000 UNIT/0.5 ML VIAL SC ×2 (09:00→21:52)
[2017-03-06] MEDS: CITRIC ACID/SODIUM CITRATE 15 ML CUP PO ×2 (09:04→21:51)
[2017-03-06] MEDS: ERTAPENEM SODIUM 1 GM in SOD CHLORIDE 0.9% 100 ML IVPB (17:25)
[2017-03-06] MEDS: morphine 2 MG INJ IV (22:17)
[2017-03-07] MEDS: SOD CHLORIDE 0.9% 500 ML IV (05:58)
[2017-03-07] MEDS: traMADol 50 MG TAB PO (05:59)
[2017-03-07] MEDS: morphine 2 MG INJ IV ×3 (08:39→21:35)
[2017-03-07] MEDS: FAMOTIDINE 20 MG TAB PO (08:40)
[2017-03-07] MEDS: ASCORBIC ACID 500 MG TAB PO (08:44)
[2017-03-07] MEDS: HEPARIN 5,000 UNIT/0.5 ML VIAL SC ×2 (08:44→21:26)
[2017-03-07] MEDS: ZINC SULFATE 220 MG CAP PO (08:44)
[2017-03-07] MEDS: LACTOBACILLUS RHAMNOSUS CAP PO ×2 (08:45→21:20)
[2017-03-07] MEDS: CITRIC ACID/SODIUM CITRATE 15 ML CUP PO ×2 (08:45→21:20)
[2017-03-07] MEDS: FLUCONAZOLE 100 MG TAB PO (08:45)
[2017-03-07] MEDS: LOPERAMIDE 2 MG CAP PO ×3 (08:46→21:20)
[2017-03-07] MEDS: ERTAPENEM SODIUM 1 GM in SOD CHLORIDE 0.9% 100 ML IVPB (16:16)
[2017-03-08] MEDS: SOD CHLORIDE 0.9% 500 ML IV (04:22)
[2017-03-08] MEDS: CITRIC ACID/SODIUM CITRATE 15 ML CUP PO ×2 (09:03→21:13)
[2017-03-08] MEDS: FAMOTIDINE 20 MG TAB PO (09:08)
[2017-03-08] MEDS: LOPERAMIDE 2 MG CAP PO ×3 (09:08→21:13)
[2017-03-08] MEDS: ASCORBIC ACID 500 MG TAB PO (09:08)
[2017-03-08] MEDS: HEPARIN 5,000 UNIT/0.5 ML VIAL SC ×2 (09:08→21:23)
[2017-03-08] MEDS: ZINC SULFATE 220 MG CAP PO (09:08)
[2017-03-08] MEDS: FLUCONAZOLE 100 MG TAB PO (09:08)
[2017-03-08] MEDS: LACTOBACILLUS RHAMNOSUS CAP PO ×2 (09:08→21:13)
[2017-03-08] MEDS: morphine 2 MG INJ IV (11:47)
[2017-03-08] MEDS: morphine LIQ (10 MG/5 ML) CUP PO ×2 (17:23→21:57)
[2017-03-08] MEDS: ERTAPENEM SODIUM 1 GM in SOD CHLORIDE 0.9% 100 ML IVPB (17:23)
[2017-03-09] MEDS: morphine LIQ (10 MG/5 ML) CUP PO ×4 (03:07→21:26)
[2017-03-09] MEDS: ZINC SULFATE 220 MG CAP PO (08:40)
[2017-03-09] MEDS: LACTOBACILLUS RHAMNOSUS CAP PO ×2 (08:40→20:13)
[2017-03-09] MEDS: CITRIC ACID/SODIUM CITRATE 15 ML CUP PO ×2 (08:40→20:13)
[2017-03-09] MEDS: ASCORBIC ACID 500 MG TAB PO (08:40)
[2017-03-09] MEDS: LOPERAMIDE 2 MG CAP PO ×3 (08:40→20:13)
[2017-03-09] MEDS: FAMOTIDINE 20 MG TAB PO (08:40)
[2017-03-09] MEDS: HEPARIN 5,000 UNIT/0.5 ML VIAL SC ×2 (08:42→20:18)
[2017-03-09] MEDS: VORICONAZOLE 200 MG TAB PO ×2 (08:44→20:13)
[2017-03-09 09:53] LABS: ANION GAP 20 (8-16); BLOOD UREA NITROGEN 35 mg/dl (7-20); CALCIUM 10.6 mg/dl (8.4-10.2); CARBON DIOXIDE 23 mmol/L (21-31); CHLORIDE 104 mmol/L (97-110); GLUCOSE 148 mg/dl (70-220); POTASSIUM 4.9 mmol/L (3.5-5.1); SODIUM 142 mmol/L (135-144)
[2017-03-09] MEDS: ERTAPENEM SODIUM 1 GM in SOD CHLORIDE 0.9% 100 ML IVPB (16:46)
[2017-03-10 07:08] LABS: ANION GAP 17 (8-16); BLOOD UREA NITROGEN 40 mg/dl (7-20); CALCIUM 10.5 mg/dl (8.4-10.2); CARBON DIOXIDE 25 mmol/L (21-31); CHLORIDE 102 mmol/L (97-110); CREATININE 2.65 mg/dl (0.61-1.24); GLUCOSE 110 mg/dl (70-220); MAGNESIUM 1.2 mg/dl (1.7-2.5); PHOSPHORUS 4.9 mg/dl (2.5-4.9); SODIUM 139 mmol/L (135-144)
[2017-03-10 07:12] LABS: POTASSIUM 5.3 mmol/L (3.5-5.1)
[2017-03-10] MEDS: CITRIC ACID/SODIUM CITRATE 15 ML CUP PO (10:26)
[2017-03-10] MEDS: ZINC SULFATE 220 MG CAP PO (10:26)
[2017-03-10] MEDS: FAMOTIDINE 20 MG TAB PO (10:26)
[2017-03-10] MEDS: LOPERAMIDE 2 MG CAP PO ×2 (10:26→14:08)
[2017-03-10] MEDS: VORICONAZOLE 200 MG TAB PO (10:26)
[2017-03-10] MEDS: LACTOBACILLUS RHAMNOSUS CAP PO (10:26)
[2017-03-10] MEDS: ASCORBIC ACID 500 MG TAB PO (10:26)
[2017-03-10] MEDS: HEPARIN 5,000 UNIT/0.5 ML VIAL SC (10:28)
[2017-03-10] MEDS: MAGNESIUM SULFATE 4 GM/100 ML 100 ML IVPB (10:32)
[2017-03-10] MEDS: HYDROCODONE/APAP (5/325) TAB PO ×2 (10:32→18:09)
[2017-03-10] MEDS: MAGNESIUM OXIDE 400 MG TAB PO (14:01)
[2017-03-10] MEDS: NA POLYST SULFON 15 GM/60 ML BTL PO (19:42)
== END 2017-03-10 20:04 | DRG 871 ==
LOC: E/R 19:40 → PP2 02-28 13:30 → MS4 21:10
DX: A41.02 Sepsis due to Methicillin resistant Staphylococcus aureus (principal); N17.0 Acute kidney failure with tubular necrosis; E43 Unspecified severe protein-calorie malnutrition; E87.5 Hyperkalemia; B37.49 Other urogenital candidiasis; N39.0 Urinary tract infection, site not specified; Z68.1 Body mass index [BMI] 19.9 or less, adult; R65.20 Severe sepsis without septic shock; I12.9 Hypertensive chronic kidney disease with stage 1 through stage 4 chronic kidney disease, or unspecified chronic kidney disease; N18.9 Chronic kidney disease, unspecified; Z86.718 Personal history of other venous thrombosis and embolism; Z93.2 Ileostomy status; Z85.51 Personal history of malignant neoplasm of bladder; D64.9 Anemia, unspecified
CPT/HCPCS: 71045; 80048; 80053; 80061; 80202; 81001; 82962; 83036; 83605; 83735; 84100; 84132; 84439; 84443; 84484; 85025; 85610; 85730; 87040; 87045; 87075; 87081; 87086; 87400; 93005; 94664; 96374; 96375; 97110; 97116; 97163; 97530; 99291-25

== ENCOUNTER 2017-03-12 20:54 | Inpatient (IN) | payer BC ==
[2017-03-12 21:40] LABS: ADD MAN DIFF? NO
[2017-03-12 21:45] LABS: BASOPHILS % 0.2 % (0.0-2.0); EOSINOPHILS % 0.4 % (0.0-7.0); HEMATOCRIT 33.2 % (42.0-52.0); HEMOGLOBIN 10.7 g/dl (14.0-18.0); LYMPHOCYTES # 1.9 10^3/ul (0.8-2.9); MEAN CORPUSCULAR HEMOGLOBIN 28.5 pg (29.0-33.0); MEAN CORPUSCULAR HGB CONC 32.2 g/dl (32.0-37.0); MEAN CORPUSCULAR VOLUME 88.3 fl (82.0-101.0); MEAN PLATELET VOLUME 9.9 fl (7.4-10.4); MONOCYTE # 0.8 10^3/ul (0.3-0.9); MONOCYTES % 7.3 % (0.0-11.0); NEUTROPHIL # 7.9 10^3/ul (1.6-7.5); NEUTROPHILS % 73.6 % (39.0-77.0); PLATELET COUNT 366 10^3/UL (140-415); RED BLOOD COUNT 3.76 10^6/ul (4.70-6.10); RED CELL DISTRIBUTION WIDTH 18.6 % (11.5-14.5)
[2017-03-12 21:45] LABS: WHITE BLOOD COUNT 10.7 10^3/ul (4.8-10.8)
[2017-03-12] MEDS: SOD CHLORIDE 0.9% 1,000 ML IV ×2 (21:45→22:28)
[2017-03-12 22:16] LABS: ANION GAP 24 (8-16); BLOOD UREA NITROGEN 66 mg/dl (7-20); CALCIUM 10.9 mg/dl (8.4-10.2); CARBON DIOXIDE 21 mmol/L (21-31); CHLORIDE 97 mmol/L (97-110); CREATININE 5.19 mg/dl (0.61-1.24); GLUCOSE 79 mg/dl (70-220); SODIUM 136 mmol/L (135-144)
[2017-03-12 22:22] LABS: POTASSIUM 6.4 mmol/L (3.5-5.1)
[2017-03-12 22:24] LABS: LACTIC ACID 2.7 mmol/L (0.5-2.0)
[2017-03-13] MEDS: CALCIUM GLUCONATE 10% 1 GM in DEXTROSE 5% 100 ML IVPB (00:13)
[2017-03-13] MEDS: NA BICARBONATE 8.4% 50 ML SYG IV (00:13)
[2017-03-13] MEDS: SOD CHLORIDE 0.9% 1,000 ML IV (00:14)
[2017-03-13] MEDS: NA POLYST SULFON 15 GM/60 ML BTL PO (00:14)
[2017-03-13] MEDS ORDERED: ALBUTEROL/IPRATROPIUM (NEB) 3 ML AMP NEB (00:30)
[2017-03-13] MEDS: CEFEPIME 2GM/50 ML (PMX) 50 ML IVPB (00:45)
[2017-03-13] MEDS: NORepinephrine 8MG/250 ML (PMX 250 ML IV ×2 (00:49→19:18)
[2017-03-13] MEDS: morphine 2 MG INJ IV ×3 (01:01→19:46)
[2017-03-13] MEDS: VANCOMYCIN 1 GM (PMX) 250 ML IVPB (01:41)
[2017-03-13] MEDS: DEXTROSE 5%-0.45% NACL 1,000 ML IV ×3 (01:41→13:14)
[2017-03-13 01:57] LABS: LACTIC ACID 3.7 mmol/L (0.5-2.0)
[2017-03-13 03:42] LABS: LACTIC ACID 1.1 mmol/L (0.5-2.0)
[2017-03-13 08:16] LABS: ADD MAN DIFF? NO
[2017-03-13 08:23] LABS: BASOPHILS % 0.2 % (0.0-2.0); EOSINOPHILS # 0.1 10^3/ul (0.0-0.5); EOSINOPHILS % 0.6 % (0.0-7.0); HEMATOCRIT 24.6 % (42.0-52.0); HEMOGLOBIN 7.9 g/dl (14.0-18.0); LYMPHOCYTES # 1.5 10^3/ul (0.8-2.9); LYMPHOCYTES % 11.9 % (15.0-51.0); MEAN CORPUSCULAR HEMOGLOBIN 28.9 pg (29.0-33.0); MEAN CORPUSCULAR HGB CONC 32.1 g/dl (32.0-37.0); MEAN CORPUSCULAR VOLUME 90.1 fl (82.0-101.0); MEAN PLATELET VOLUME 9.5 fl (7.4-10.4); MONOCYTE # 0.8 10^3/ul (0.3-0.9); MONOCYTES % 6.7 % (0.0-11.0); NEUTROPHILS % 80.1 % (39.0-77.0); PLATELET COUNT 353 10^3/UL (140-415); RED BLOOD COUNT 2.73 10^6/ul (4.70-6.10); RED CELL DISTRIBUTION WIDTH 18.3 % (11.5-14.5)
[2017-03-13 08:23] LABS: WHITE BLOOD COUNT 12.5 10^3/ul (4.8-10.8)
[2017-03-13 08:39] LABS: ALANINE AMINOTRANSFERASE 73 IU/L (13-69); ALBUMIN 3.2 g/dl (3.3-4.9); ALBUMIN/GLOBULIN RATIO 0.91; ALKALINE PHOSPHATASE 421 IU/L (42-121); ANION GAP 15 (8-16); ASPARTATE AMINO TRANSFERASE 101 IU/L (15-46); BILIRUBIN,INDIRECT 0.1 mg/dl (0-1.1); BILIRUBIN,TOTAL 0.1 mg/dl (0.2-1.3); BLOOD UREA NITROGEN 51 mg/dl (7-20); CALCIUM 8.9 mg/dl (8.4-10.2); CARBON DIOXIDE 20 mmol/L (21-31); CHLORIDE 110 mmol/L (97-110); GLUCOSE 159 mg/dl (70-220); POTASSIUM 5.1 mmol/L (3.5-5.1); SODIUM 140 mmol/L (135-144); TOTAL PROTEIN 6.7 g/dl (6.1-8.1)
[2017-03-13] MEDS: FAMOTIDINE 20 MG INJ IV (08:56)
[2017-03-13] MEDS: ZINC SULFATE 220 MG CAP PO (08:56)
[2017-03-13] MEDS: HEPARIN 5,000 UNIT/0.5 ML VIAL SC ×2 (08:56→21:32)
[2017-03-13] MEDS: ONDANSETRON 4 MG INJ IV (10:57)
[2017-03-13] MEDS ORDERED: FLUCONAZOLE 100 MG/NS (PMX) 50 ML IVPB (13:30)
[2017-03-13 13:36] LABS: HEMATOCRIT 25.5 % (42.0-52.0); HEMOGLOBIN 8.3 g/dl (14.0-18.0)
[2017-03-13] MEDS: MEROPENEM 500MG/50 ML (PMX) 50 ML IVPB ×2 (14:09→21:31)
[2017-03-13] MEDS: LINEZOLID 600 MG/D5W (PMX) 300 ML IVPB ×2 (14:34→21:31)
[2017-03-13 15:51] LABS: ADD UMIC YES; UR ASCORBIC ACID 20 mg/dL (NEGATIVE); UR BACTERIA FEW /HPF (NONE SEEN); UR BILIRUBIN (Dip) NEGATIVE (NEGATIVE); UR BLOOD (Dip) 3+ mg/dL (NEGATIVE); UR CLARITY TURBID (CLEAR); UR COLOR YELLOW (YELLOW); UR GLUCOSE (Dip) NEGATIVE (NEGATIVE); UR KETONES (Dip) NEGATIVE (NEGATIVE); UR LEUKOCYTE ESTERASE (Dip) 3+ Leu/ul (NEGATIVE); UR MUCUS MODERATE /HPF (NONE SEEN); UR NITRITE (Dip) NEGATIVE (NEGATIVE); UR NONSQUAMOUS EPITHELIAL CELL 1 /HPF (NONE SEEN); UR RBC > 182 /HPF (0-5); UR SPECIFIC GRAVITY (Dip) 1.011 (1.003-1.030); UR TOTAL PROTEIN (Dip) 2+ mg/dl (NEGATIVE); UR UROBILINOGEN (Dip) NEGATIVE (NEGATIVE); UR WBC > 182 /HPF (0-5)
[2017-03-13] MEDS: FLUCONAZOLE 100 MG/NS (PMX) 50 ML IVPB (15:58)
[2017-03-14] MEDS: morphine 2 MG INJ IV ×4 (00:28→20:51)
[2017-03-14] MEDS: DEXTROSE 5%-0.45% NACL 1,000 ML IV ×2 (03:06→13:47)
[2017-03-14 05:26] LABS: ADD MAN DIFF? NO
[2017-03-14 05:32] LABS: WHITE BLOOD COUNT 8.5 10^3/ul (4.8-10.8)
[2017-03-14 05:32] LABS: BASOPHILS % 0.4 % (0.0-2.0); EOSINOPHILS # 0.1 10^3/ul (0.0-0.5); EOSINOPHILS % 1.1 % (0.0-7.0); HEMATOCRIT 24.3 % (42.0-52.0); HEMOGLOBIN 7.6 g/dl (14.0-18.0); LYMPHOCYTES # 1.7 10^3/ul (0.8-2.9); LYMPHOCYTES % 19.4 % (15.0-51.0); MEAN CORPUSCULAR HEMOGLOBIN 28.3 pg (29.0-33.0); MEAN CORPUSCULAR HGB CONC 31.3 g/dl (32.0-37.0); MEAN CORPUSCULAR VOLUME 90.3 fl (82.0-101.0); MEAN PLATELET VOLUME 9.7 fl (7.4-10.4); MONOCYTE # 0.6 10^3/ul (0.3-0.9); MONOCYTES % 7.2 % (0.0-11.0); NEUTROPHIL # 6.1 10^3/ul (1.6-7.5); NEUTROPHILS % 71.5 % (39.0-77.0); PLATELET COUNT 254 10^3/UL (140-415); POSITIVE DIFF @See below; RED BLOOD COUNT 2.69 10^6/ul (4.70-6.10); RED CELL DISTRIBUTION WIDTH 18.5 % (11.5-14.5)
[2017-03-14 06:07] LABS: ANION GAP 16 (8-16); BLOOD UREA NITROGEN 36 mg/dl (7-20); CALCIUM 8.9 mg/dl (8.4-10.2); CARBON DIOXIDE 20 mmol/L (21-31); CHLORIDE 111 mmol/L (97-110); CREATININE 2.49 mg/dl (0.61-1.24); GLUCOSE 116 mg/dl (70-220); POTASSIUM 4.8 mmol/L (3.5-5.1); SODIUM 142 mmol/L (135-144)
[2017-03-14] MEDS: MEROPENEM 500MG/50 ML (PMX) 50 ML IVPB ×2 (08:07→20:52)
[2017-03-14] MEDS: HEPARIN 5,000 UNIT/0.5 ML VIAL SC ×2 (09:00→20:53)
[2017-03-14] MEDS: LINEZOLID 600 MG/D5W (PMX) 300 ML IVPB ×2 (09:10→20:52)
[2017-03-14] MEDS: ZINC SULFATE 220 MG CAP PO (09:10)
[2017-03-14] MEDS: FAMOTIDINE 20 MG INJ IV (09:10)
[2017-03-14] MEDS: FLUCONAZOLE 100 MG/NS (PMX) 50 ML IVPB (15:41)
[2017-03-15] MEDS: morphine 2 MG INJ IV ×3 (00:27→12:38)
[2017-03-15] MEDS: NORepinephrine 8MG/250 ML (PMX 250 ML IV (01:55)
[2017-03-15] MEDS: DEXTROSE 5%-0.45% NACL 1,000 ML IV ×3 (01:55→23:06)
[2017-03-15 05:55] LABS: ADD MAN DIFF? NO
[2017-03-15 05:59] LABS: BASOPHILS % 0.6 % (0.0-2.0); EOSINOPHILS # 0.2 10^3/ul (0.0-0.5); EOSINOPHILS % 2.3 % (0.0-7.0); HEMOGLOBIN 7.9 g/dl (14.0-18.0); LYMPHOCYTES # 1.6 10^3/ul (0.8-2.9); LYMPHOCYTES % 23.2 % (15.0-51.0); MEAN CORPUSCULAR HEMOGLOBIN 28.6 pg (29.0-33.0); MEAN CORPUSCULAR HGB CONC 31.6 g/dl (32.0-37.0); MEAN CORPUSCULAR VOLUME 90.6 fl (82.0-101.0); MEAN PLATELET VOLUME 9.7 fl (7.4-10.4); MONOCYTE # 0.6 10^3/ul (0.3-0.9); MONOCYTES % 8.5 % (0.0-11.0); NEUTROPHIL # 4.5 10^3/ul (1.6-7.5); NEUTROPHILS % 65.1 % (39.0-77.0); PLATELET COUNT 253 10^3/UL (140-415); RED BLOOD COUNT 2.76 10^6/ul (4.70-6.10); RED CELL DISTRIBUTION WIDTH 18.7 % (11.5-14.5)
[2017-03-15 05:59] LABS: WHITE BLOOD COUNT 6.9 10^3/ul (4.8-10.8)
[2017-03-15 06:37] LABS: ANION GAP 13 (8-16); BLOOD UREA NITROGEN 27 mg/dl (7-20); CARBON DIOXIDE 20 mmol/L (21-31); CHLORIDE 111 mmol/L (97-110); CREATININE 2.15 mg/dl (0.61-1.24); GLUCOSE 116 mg/dl (70-220); POTASSIUM 5.1 mmol/L (3.5-5.1); SODIUM 139 mmol/L (135-144)
[2017-03-15] MEDS: ZINC SULFATE 220 MG CAP PO (08:29)
[2017-03-15] MEDS: FAMOTIDINE 20 MG INJ IV (08:29)
[2017-03-15] MEDS: LINEZOLID 600 MG/D5W (PMX) 300 ML IVPB (08:29)
[2017-03-15] MEDS: HEPARIN 5,000 UNIT/0.5 ML VIAL SC ×2 (08:37→20:59)
[2017-03-15] MEDS: MEROPENEM 500MG/50 ML (PMX) 50 ML IVPB (09:41)
[2017-03-15 10:14] LABS: ALANINE AMINOTRANSFERASE 43 IU/L (13-69); ALBUMIN 3.1 g/dl (3.3-4.9); ALKALINE PHOSPHATASE 318 IU/L (42-121); ASPARTATE AMINO TRANSFERASE 35 IU/L (15-46); TOTAL PROTEIN 6.7 g/dl (6.1-8.1)
[2017-03-15 10:15] LABS: AMYLASE 94 U/L (11-123)
[2017-03-15 10:15] LABS: LIPASE 359 U/L (23-300)
[2017-03-15] MEDS: FLUCONAZOLE 100 MG/NS (PMX) 50 ML IVPB (14:34)
[2017-03-15] MEDS: morphine LIQ (10 MG/5 ML) CUP PO ×2 (16:29→21:02)
[2017-03-15] MEDS: CITRIC ACID/SODIUM CITRATE 15 ML CUP PO (20:56)
[2017-03-16] MEDS: morphine LIQ (10 MG/5 ML) CUP PO ×5 (01:40→20:22)
[2017-03-16 05:29] LABS: ADD MAN DIFF? NO
[2017-03-16 05:44] LABS: BASOPHILS % 0.5 % (0.0-2.0); EOSINOPHILS # 0.1 10^3/ul (0.0-0.5); EOSINOPHILS % 1.8 % (0.0-7.0); HEMATOCRIT 23.3 % (42.0-52.0); HEMOGLOBIN 7.4 g/dl (14.0-18.0); LYMPHOCYTES # 1.5 10^3/ul (0.8-2.9); LYMPHOCYTES % 19.5 % (15.0-51.0); MEAN CORPUSCULAR HEMOGLOBIN 28.8 pg (29.0-33.0); MEAN CORPUSCULAR HGB CONC 31.8 g/dl (32.0-37.0); MEAN CORPUSCULAR VOLUME 90.7 fl (82.0-101.0); MEAN PLATELET VOLUME 9.6 fl (7.4-10.4); MONOCYTE # 0.7 10^3/ul (0.3-0.9); MONOCYTES % 8.6 % (0.0-11.0); NEUTROPHIL # 5.5 10^3/ul (1.6-7.5); NEUTROPHILS % 69.2 % (39.0-77.0); PLATELET COUNT 212 10^3/UL (140-415); RED BLOOD COUNT 2.57 10^6/ul (4.70-6.10); RED CELL DISTRIBUTION WIDTH 18.7 % (11.5-14.5)
[2017-03-16 05:44] LABS: WHITE BLOOD COUNT 7.9 10^3/ul (4.8-10.8)
[2017-03-16 06:22] LABS: PHOSPHORUS 3.1 mg/dl (2.5-4.9)
[2017-03-16 06:22] LABS: MAGNESIUM 1.2 mg/dl (1.7-2.5)
[2017-03-16 06:32] LABS: ANION GAP 12 (8-16); BLOOD UREA NITROGEN 23 mg/dl (7-20); CALCIUM 8.7 mg/dl (8.4-10.2); CARBON DIOXIDE 19 mmol/L (21-31); CHLORIDE 114 mmol/L (97-110); GLUCOSE 118 mg/dl (70-220); POTASSIUM 4.5 mmol/L (3.5-5.1); SODIUM 140 mmol/L (135-144)
[2017-03-16] MEDS ORDERED: MAGNESIUM SULFATE 2 GM/50 ML 50 ML (06:45)
[2017-03-16] MEDS: MAGNESIUM SULFATE 2 GM/50 ML 50 ML IVPB (06:51)
[2017-03-16] MEDS: DEXTROSE 5%-0.45% NACL 1,000 ML IV ×2 (09:40→18:23)
[2017-03-16] MEDS: HEPARIN 5,000 UNIT/0.5 ML VIAL SC ×2 (09:50→20:25)
[2017-03-16] MEDS: CITRIC ACID/SODIUM CITRATE 15 ML CUP PO ×3 (09:50→20:22)
[2017-03-16] MEDS: ZINC SULFATE 220 MG CAP PO (09:50)
[2017-03-16] MEDS: FAMOTIDINE 20 MG INJ IV (09:51)
[2017-03-16 12:50] LABS: MAGNESIUM 2.1 mg/dl (1.7-2.5)
[2017-03-16] MEDS: VORICONAZOLE 200 MG TAB PO (20:22)
[2017-03-17] MEDS: morphine LIQ (10 MG/5 ML) CUP PO ×4 (00:23→18:29)
[2017-03-17] MEDS: DEXTROSE 5%-0.45% NACL 1,000 ML IV ×3 (04:25→21:06)
[2017-03-17 05:55] LABS: ADD MAN DIFF? NO
[2017-03-17 06:04] LABS: BASOPHILS % 0.4 % (0.0-2.0); EOSINOPHILS # 0.2 10^3/ul (0.0-0.5); EOSINOPHILS % 2.8 % (0.0-7.0); HEMATOCRIT 22.6 % (42.0-52.0); LYMPHOCYTES # 1.9 10^3/ul (0.8-2.9); LYMPHOCYTES % 27.2 % (15.0-51.0); MEAN CORPUSCULAR HEMOGLOBIN 28.2 pg (29.0-33.0); MEAN CORPUSCULAR VOLUME 91.1 fl (82.0-101.0); MEAN PLATELET VOLUME 10.1 fl (7.4-10.4); MONOCYTE # 0.7 10^3/ul (0.3-0.9); MONOCYTES % 9.8 % (0.0-11.0); NEUTROPHIL # 4.1 10^3/ul (1.6-7.5); NEUTROPHILS % 59.5 % (39.0-77.0); PLATELET COUNT 237 10^3/UL (140-415); RED BLOOD COUNT 2.48 10^6/ul (4.70-6.10); RED CELL DISTRIBUTION WIDTH 18.8 % (11.5-14.5)
[2017-03-17 06:04] LABS: WHITE BLOOD COUNT 6.8 10^3/ul (4.8-10.8)
[2017-03-17 06:27] LABS: PHOSPHORUS 2.9 mg/dl (2.5-4.9)
[2017-03-17 06:27] LABS: MAGNESIUM 1.5 mg/dl (1.7-2.5)
[2017-03-17 06:34] LABS: BLOOD UREA NITROGEN 18 mg/dl (7-20); CARBON DIOXIDE 20 mmol/L (21-31); CHLORIDE 110 mmol/L (97-110); CREATININE 1.77 mg/dl (0.61-1.24); GLUCOSE 103 mg/dl (70-220); SODIUM 139 mmol/L (135-144)
[2017-03-17 07:40] LABS: ANION GAP 14 (8-16)
[2017-03-17 07:43] LABS: POTASSIUM 4.7 mmol/L (3.5-5.1)
[2017-03-17] MEDS: FAMOTIDINE 20 MG INJ IV (08:11)
[2017-03-17] MEDS: CITRIC ACID/SODIUM CITRATE 15 ML CUP PO ×3 (08:11→21:02)
[2017-03-17] MEDS: ZINC SULFATE 220 MG CAP PO (08:11)
[2017-03-17] MEDS: VORICONAZOLE 200 MG TAB PO ×2 (08:11→21:03)
[2017-03-17 10:19] LABS: HEMATOCRIT 21.8 % (42.0-52.0)
[2017-03-17] MEDS: HYDROCORTISONE 100 MG INJ IV ×3 (10:22→21:06)
[2017-03-17] MEDS: MAGNESIUM SULFATE 2 GM/50 ML 50 ML IVPB (10:22)
[2017-03-17 10:24] LABS: HEMOGLOBIN 6.9 g/dl (14.0-18.0)
[2017-03-17] MEDS: HEPARIN 5,000 UNIT/0.5 ML VIAL SC (10:30)
[2017-03-17 12:50] LABS: AHG CROSSMATCH 1 1
[2017-03-18] MEDS: morphine LIQ (10 MG/5 ML) CUP PO ×6 (01:56→22:24)
[2017-03-18 05:46] LABS: ADD MAN DIFF? NO
[2017-03-18 05:56] LABS: WHITE BLOOD COUNT 5.2 10^3/ul (4.8-10.8)
[2017-03-18 05:56] LABS: BASOPHILS % 0.2 % (0.0-2.0); HEMATOCRIT 26.5 % (42.0-52.0); HEMOGLOBIN 8.6 g/dl (14.0-18.0); LYMPHOCYTES # 1.1 10^3/ul (0.8-2.9); LYMPHOCYTES % 20.2 % (15.0-51.0); MEAN CORPUSCULAR HEMOGLOBIN 28.6 pg (29.0-33.0); MEAN CORPUSCULAR HGB CONC 32.5 g/dl (32.0-37.0); MEAN PLATELET VOLUME 9.5 fl (7.4-10.4); MONOCYTE # 0.3 10^3/ul (0.3-0.9); MONOCYTES % 5.6 % (0.0-11.0); NEUTROPHIL # 3.9 10^3/ul (1.6-7.5); PLATELET COUNT 193 10^3/UL (140-415); RED BLOOD COUNT 3.01 10^6/ul (4.70-6.10); RED CELL DISTRIBUTION WIDTH 18.4 % (11.5-14.5)
[2017-03-18] MEDS: HYDROCORTISONE 100 MG INJ IV ×3 (06:12→22:25)
[2017-03-18 06:22] LABS: PHOSPHORUS 2.8 mg/dl (2.5-4.9)
[2017-03-18 06:22] LABS: MAGNESIUM 1.8 mg/dl (1.7-2.5)
[2017-03-18 06:35] LABS: ANION GAP 10 (8-16); BLOOD UREA NITROGEN 20 mg/dl (7-20); CALCIUM 8.8 mg/dl (8.4-10.2); CARBON DIOXIDE 25 mmol/L (21-31); CHLORIDE 109 mmol/L (97-110); CREATININE 1.53 mg/dl (0.61-1.24); GLUCOSE 197 mg/dl (70-220); POTASSIUM 5.3 mmol/L (3.5-5.1); SODIUM 139 mmol/L (135-144)
[2017-03-18] MEDS: CITRIC ACID/SODIUM CITRATE 15 ML CUP PO ×3 (08:07→22:25)
[2017-03-18] MEDS: VORICONAZOLE 200 MG TAB PO ×2 (08:07→22:26)
[2017-03-18] MEDS: ZINC SULFATE 220 MG CAP PO (08:07)
[2017-03-18] MEDS: FAMOTIDINE 20 MG INJ IV (08:07)
[2017-03-18] MEDS: DEXTROSE 5%-0.45% NACL 1,000 ML IV ×2 (10:27→22:26)
[2017-03-19] MEDS: morphine LIQ (10 MG/5 ML) CUP PO ×4 (02:01→23:18)
[2017-03-19] MEDS: HYDROCORTISONE 100 MG INJ IV (05:42)
[2017-03-19] MEDS: DEXTROSE 5%-0.45% NACL 1,000 ML IV ×2 (06:07→15:22)
[2017-03-19 08:23] LABS: ADD MAN DIFF? NO
[2017-03-19 08:26] LABS: BASOPHILS % 0.2 % (0.0-2.0); HEMATOCRIT 28.9 % (42.0-52.0); HEMOGLOBIN 9.1 g/dl (14.0-18.0); MEAN CORPUSCULAR HEMOGLOBIN 28.4 pg (29.0-33.0); MEAN CORPUSCULAR HGB CONC 31.5 g/dl (32.0-37.0); MEAN CORPUSCULAR VOLUME 90.3 fl (82.0-101.0); MONOCYTE # 0.2 10^3/ul (0.3-0.9); MONOCYTES % 3.5 % (0.0-11.0); NEUTROPHIL # 5.2 10^3/ul (1.6-7.5); NEUTROPHILS % 79.8 % (39.0-77.0); PLATELET COUNT 185 10^3/UL (140-415); RED CELL DISTRIBUTION WIDTH 18.5 % (11.5-14.5)
[2017-03-19 08:26] LABS: WHITE BLOOD COUNT 6.5 10^3/ul (4.8-10.8)
[2017-03-19] MEDS: CITRIC ACID/SODIUM CITRATE 15 ML CUP PO ×3 (08:35→21:44)
[2017-03-19] MEDS: VORICONAZOLE 200 MG TAB PO ×2 (08:35→21:44)
[2017-03-19] MEDS: FAMOTIDINE 20 MG INJ IV (08:35)
[2017-03-19] MEDS: ZINC SULFATE 220 MG CAP PO (08:35)
[2017-03-19 08:46] LABS: PHOSPHORUS 3.1 mg/dl (2.5-4.9)
[2017-03-19 08:46] LABS: MAGNESIUM 1.6 mg/dl (1.7-2.5)
[2017-03-19 08:59] LABS: ALANINE AMINOTRANSFERASE 57 IU/L (13-69); ALBUMIN 2.9 g/dl (3.3-4.9); ALBUMIN/GLOBULIN RATIO 0.85; ALKALINE PHOSPHATASE 271 IU/L (42-121); ANION GAP 12 (8-16); ASPARTATE AMINO TRANSFERASE 86 IU/L (15-46); BLOOD UREA NITROGEN 23 mg/dl (7-20); CARBON DIOXIDE 22 mmol/L (21-31); CHLORIDE 110 mmol/L (97-110); GLUCOSE 137 mg/dl (70-220); SODIUM 139 mmol/L (135-144); TOTAL PROTEIN 6.3 g/dl (6.1-8.1)
[2017-03-19] MEDS: MAGNESIUM SULFATE 2 GM/50 ML 50 ML IVPB (11:44)
[2017-03-19 13:20] LABS: FREE T4 (FREE THYROXINE) 0.91 ng/dl (0.78-2.44)
[2017-03-19 13:30] LABS: THYROID STIMULATING HORMONE 0.315 MIU/L (0.465-4.680)
[2017-03-20] MEDS: DEXTROSE 5%-0.45% NACL 1,000 ML IV ×3 (01:41→21:18)
[2017-03-20 07:22] LABS: ADD MAN DIFF? NO
[2017-03-20 07:25] LABS: WHITE BLOOD COUNT 5.7 10^3/ul (4.8-10.8)
[2017-03-20 07:25] LABS: BASOPHILS % 0.4 % (0.0-2.0); EOSINOPHILS % 0.5 % (0.0-7.0); HEMATOCRIT 27.8 % (42.0-52.0); HEMOGLOBIN 9.1 g/dl (14.0-18.0); LYMPHOCYTES # 1.7 10^3/ul (0.8-2.9); LYMPHOCYTES % 30.4 % (15.0-51.0); MEAN CORPUSCULAR HEMOGLOBIN 29.4 pg (29.0-33.0); MEAN CORPUSCULAR HGB CONC 32.7 g/dl (32.0-37.0); MEAN CORPUSCULAR VOLUME 89.7 fl (82.0-101.0); MEAN PLATELET VOLUME 9.9 fl (7.4-10.4); MONOCYTE # 0.7 10^3/ul (0.3-0.9); MONOCYTES % 11.4 % (0.0-11.0); NEUTROPHIL # 3.2 10^3/ul (1.6-7.5); NEUTROPHILS % 56.6 % (39.0-77.0); PLATELET COUNT 207 10^3/UL (140-415); RED CELL DISTRIBUTION WIDTH 18.2 % (11.5-14.5)
[2017-03-20 07:43] LABS: MAGNESIUM 1.6 mg/dl (1.7-2.5)
[2017-03-20 07:43] LABS: PHOSPHORUS 2.8 mg/dl (2.5-4.9)
[2017-03-20 07:48] LABS: ANION GAP 8 (8-16); BLOOD UREA NITROGEN 23 mg/dl (7-20); CALCIUM 8.6 mg/dl (8.4-10.2); CARBON DIOXIDE 25 mmol/L (21-31); CHLORIDE 111 mmol/L (97-110); CREATININE 1.79 mg/dl (0.61-1.24); GLUCOSE 88 mg/dl (70-220); POTASSIUM 4.1 mmol/L (3.5-5.1); SODIUM 140 mmol/L (135-144)
[2017-03-20] MEDS: VORICONAZOLE 200 MG TAB PO ×2 (09:08→20:18)
[2017-03-20] MEDS: ZINC SULFATE 220 MG CAP PO (09:08)
[2017-03-20] MEDS: FAMOTIDINE 20 MG INJ IV (09:08)
[2017-03-20] MEDS: CITRIC ACID/SODIUM CITRATE 15 ML CUP PO ×2 (09:08→20:18)
[2017-03-20] MEDS: MAGNESIUM SULFATE 2 GM/50 ML 50 ML IVPB (13:09)
[2017-03-20] MEDS: morphine LIQ (10 MG/5 ML) CUP PO (21:18)
[2017-03-21] MEDS: morphine LIQ (10 MG/5 ML) CUP PO ×3 (05:03→23:26)
[2017-03-21 06:27] LABS: ADD MAN DIFF? NO
[2017-03-21 06:39] LABS: BASOPHILS % 0.5 % (0.0-2.0); EOSINOPHILS # 0.1 10^3/ul (0.0-0.5); EOSINOPHILS % 1.6 % (0.0-7.0); HEMATOCRIT 26.9 % (42.0-52.0); HEMOGLOBIN 8.7 g/dl (14.0-18.0); LYMPHOCYTES # 1.7 10^3/ul (0.8-2.9); LYMPHOCYTES % 30.4 % (15.0-51.0); MEAN CORPUSCULAR HGB CONC 32.3 g/dl (32.0-37.0); MEAN CORPUSCULAR VOLUME 89.7 fl (82.0-101.0); MEAN PLATELET VOLUME 9.8 fl (7.4-10.4); MONOCYTE # 0.7 10^3/ul (0.3-0.9); MONOCYTES % 11.6 % (0.0-11.0); NEUTROPHIL # 3.1 10^3/ul (1.6-7.5); NEUTROPHILS % 55.4 % (39.0-77.0); PLATELET COUNT 241 10^3/UL (140-415); RED CELL DISTRIBUTION WIDTH 18.3 % (11.5-14.5)
[2017-03-21 06:39] LABS: WHITE BLOOD COUNT 5.6 10^3/ul (4.8-10.8)
[2017-03-21 06:59] LABS: ANION GAP 8 (8-16); BLOOD UREA NITROGEN 23 mg/dl (7-20); CALCIUM 8.6 mg/dl (8.4-10.2); CARBON DIOXIDE 22 mmol/L (21-31); CHLORIDE 110 mmol/L (97-110); CREATININE 1.83 mg/dl (0.61-1.24); GLUCOSE 101 mg/dl (70-220); POTASSIUM 4.1 mmol/L (3.5-5.1); SODIUM 136 mmol/L (135-144)
[2017-03-21 07:00] LABS: PHOSPHORUS 3.1 mg/dl (2.5-4.9)
[2017-03-21 07:00] LABS: MAGNESIUM 1.9 mg/dl (1.7-2.5)
[2017-03-21] MEDS: FAMOTIDINE 20 MG INJ IV (09:25)
[2017-03-21] MEDS: VORICONAZOLE 200 MG TAB PO ×2 (09:25→20:44)
[2017-03-21] MEDS: ZINC SULFATE 220 MG CAP PO (09:25)
[2017-03-21] MEDS: CITRIC ACID/SODIUM CITRATE 15 ML CUP PO ×2 (09:26→20:44)
[2017-03-21] MEDS: DEXTROSE 5%-0.45% NACL 1,000 ML IV ×2 (09:26→18:16)
[2017-03-22] MEDS: morphine LIQ (10 MG/5 ML) CUP PO ×3 (04:47→16:11)
[2017-03-22] MEDS: DEXTROSE 5%-0.45% NACL 1,000 ML IV ×2 (04:53→15:26)
[2017-03-22 07:21] LABS: ADD MAN DIFF? NO
[2017-03-22 07:34] LABS: BASOPHILS % 0.2 % (0.0-2.0); EOSINOPHILS # 0.1 10^3/ul (0.0-0.5); EOSINOPHILS % 1.4 % (0.0-7.0); HEMATOCRIT 28.5 % (42.0-52.0); HEMOGLOBIN 9.1 g/dl (14.0-18.0); LYMPHOCYTES # 1.5 10^3/ul (0.8-2.9); MEAN CORPUSCULAR HEMOGLOBIN 28.9 pg (29.0-33.0); MEAN CORPUSCULAR HGB CONC 31.9 g/dl (32.0-37.0); MEAN CORPUSCULAR VOLUME 90.5 fl (82.0-101.0); MEAN PLATELET VOLUME 9.5 fl (7.4-10.4); MONOCYTE # 0.7 10^3/ul (0.3-0.9); MONOCYTES % 10.4 % (0.0-11.0); NEUTROPHILS % 63.4 % (39.0-77.0); PLATELET COUNT 228 10^3/UL (140-415); RED BLOOD COUNT 3.15 10^6/ul (4.70-6.10); RED CELL DISTRIBUTION WIDTH 18.6 % (11.5-14.5)
[2017-03-22 07:34] LABS: WHITE BLOOD COUNT 6.3 10^3/ul (4.8-10.8)
[2017-03-22 07:49] LABS: MAGNESIUM 1.4 mg/dl (1.7-2.5)
[2017-03-22 07:49] LABS: PHOSPHORUS 3.1 mg/dl (2.5-4.9)
[2017-03-22 07:50] LABS: ANION GAP 10 (8-16); BLOOD UREA NITROGEN 22 mg/dl (7-20); CALCIUM 8.6 mg/dl (8.4-10.2); CARBON DIOXIDE 23 mmol/L (21-31); CHLORIDE 110 mmol/L (97-110); CREATININE 1.89 mg/dl (0.61-1.24); GLUCOSE 171 mg/dl (70-220); SODIUM 139 mmol/L (135-144)
[2017-03-22] MEDS: CITRIC ACID/SODIUM CITRATE 15 ML CUP PO ×2 (09:47→20:37)
[2017-03-22] MEDS: ZINC SULFATE 220 MG CAP PO (09:48)
[2017-03-22] MEDS: VORICONAZOLE 200 MG TAB PO (09:48)
[2017-03-22] MEDS: FAMOTIDINE 20 MG INJ IV (09:48)
[2017-03-22] MEDS: MAGNESIUM SULFATE 4 GM/100 ML 100 ML IVPB (15:29)
[2017-03-22 23:23] LABS: AHG CROSSMATCH 1 1
[2017-03-23] MEDS: DEXTROSE 5%-0.45% NACL 1,000 ML IV ×3 (00:07→20:07)
[2017-03-23] MEDS: morphine LIQ (10 MG/5 ML) CUP PO ×2 (02:23→14:57)
[2017-03-23] MEDS: CITRIC ACID/SODIUM CITRATE 15 ML CUP PO ×2 (08:52→21:36)
[2017-03-23] MEDS: ZINC SULFATE 220 MG CAP PO (08:52)
[2017-03-23] MEDS: FAMOTIDINE 20 MG INJ IV (08:52)
[2017-03-23] MEDS: MAGNESIUM SULFATE 3 GM in DEXTROSE 5% 100 ML IVPB (12:20)
[2017-03-23 15:36] LABS: ADD MAN DIFF? NO
[2017-03-23 15:39] LABS: BASOPHILS % 0.2 % (0.0-2.0); EOSINOPHILS # 0.1 10^3/ul (0.0-0.5); HEMATOCRIT 28.8 % (42.0-52.0); HEMOGLOBIN 9.3 g/dl (14.0-18.0); LYMPHOCYTES % 16.3 % (15.0-51.0); MEAN CORPUSCULAR HEMOGLOBIN 28.7 pg (29.0-33.0); MEAN CORPUSCULAR HGB CONC 32.3 g/dl (32.0-37.0); MEAN CORPUSCULAR VOLUME 88.9 fl (82.0-101.0); MEAN PLATELET VOLUME 9.5 fl (7.4-10.4); MONOCYTE # 0.6 10^3/ul (0.3-0.9); MONOCYTES % 10.5 % (0.0-11.0); NEUTROPHIL # 4.3 10^3/ul (1.6-7.5); NEUTROPHILS % 70.7 % (39.0-77.0); PLATELET COUNT 224 10^3/UL (140-415); RED BLOOD COUNT 3.24 10^6/ul (4.70-6.10); RED CELL DISTRIBUTION WIDTH 18.3 % (11.5-14.5)
[2017-03-23 15:39] LABS: WHITE BLOOD COUNT 6.1 10^3/ul (4.8-10.8)
[2017-03-23] MEDS: VORICONAZOLE 200 MG TAB PO (21:36)
[2017-03-23] MEDS: HYDROCODONE/APAP (10/325) TAB PO (21:39)
[2017-03-24] MEDS: DEXTROSE 5%-0.45% NACL 1,000 ML IV ×3 (05:49→21:45)
[2017-03-24 07:16] LABS: ADD MAN DIFF? NO
[2017-03-24 07:21] LABS: WHITE BLOOD COUNT 5.5 10^3/ul (4.8-10.8)
[2017-03-24 07:21] LABS: BASOPHILS % 0.2 % (0.0-2.0); EOSINOPHILS # 0.2 10^3/ul (0.0-0.5); EOSINOPHILS % 3.8 % (0.0-7.0); HEMATOCRIT 31.2 % (42.0-52.0); HEMOGLOBIN 10.1 g/dl (14.0-18.0); LYMPHOCYTES # 1.1 10^3/ul (0.8-2.9); LYMPHOCYTES % 20.5 % (15.0-51.0); MEAN CORPUSCULAR HEMOGLOBIN 28.8 pg (29.0-33.0); MEAN CORPUSCULAR HGB CONC 32.4 g/dl (32.0-37.0); MEAN CORPUSCULAR VOLUME 88.9 fl (82.0-101.0); MEAN PLATELET VOLUME 9.6 fl (7.4-10.4); MONOCYTE # 0.6 10^3/ul (0.3-0.9); MONOCYTES % 11.5 % (0.0-11.0); NEUTROPHIL # 3.5 10^3/ul (1.6-7.5); NEUTROPHILS % 63.6 % (39.0-77.0); PLATELET COUNT 242 10^3/UL (140-415); RED BLOOD COUNT 3.51 10^6/ul (4.70-6.10); RED CELL DISTRIBUTION WIDTH 17.5 % (11.5-14.5)
[2017-03-24 07:47] LABS: ANION GAP 12 (8-16); BLOOD UREA NITROGEN 23 mg/dl (7-20); CALCIUM 8.9 mg/dl (8.4-10.2); CARBON DIOXIDE 25 mmol/L (21-31); CHLORIDE 105 mmol/L (97-110); CREATININE 1.98 mg/dl (0.61-1.24); GLUCOSE 94 mg/dl (70-220); MAGNESIUM 2.4 mg/dl (1.7-2.5); POTASSIUM 4.5 mmol/L (3.5-5.1); SODIUM 137 mmol/L (135-144)
[2017-03-24] MEDS: ZINC SULFATE 220 MG CAP PO (08:44)
[2017-03-24] MEDS: VORICONAZOLE 200 MG TAB PO ×2 (08:44→21:35)
[2017-03-24] MEDS: CITRIC ACID/SODIUM CITRATE 15 ML CUP PO ×2 (08:44→21:35)
[2017-03-24] MEDS: FAMOTIDINE 20 MG INJ IV (09:14)
[2017-03-24] MEDS: SODIUM CHLORIDE 0.45% 500 ML BAG IV* (12:00)
[2017-03-24] MEDS: FLUCONAZOLE 100 MG/NS (PMX) 50 ML IVPB ×2 (12:00→12:30)
[2017-03-24] MEDS ORDERED: ROCURONIUM 50 MG INJ (13:00)
[2017-03-24] MEDS ORDERED: ETOMIDATE 20 MG INJ (13:00)
[2017-03-24] MEDS ORDERED: SUGAMMADEX SODIUM 200 MG/2 ML VIAL IV (13:00)
[2017-03-24] MEDS ORDERED: SUCCINYLCHOLINE CHLORIDE 100 MG/5 ML SYG IV (13:00)
[2017-03-24] MEDS ORDERED: PROPOFOL 200 MG INJ (13:00)
[2017-03-24] MEDS ORDERED: LIDOCAINE 2% (SDV) 5 ML INJ (13:00)
[2017-03-24] MEDS ORDERED: FENTAnyl 50 MCG/ML VIAL (13:00)
[2017-03-24] MEDS ORDERED: CIPRO 400 MG/200 ML D5W IVPB (13:00)
[2017-03-24] MEDS: IOHEXOL 300MG/ML 30 ML BTL (13:56)
[2017-03-24] MEDS ORDERED: MEPERIDINE 25 MG INJ IV (14:00)
[2017-03-24] MEDS ORDERED: METOCLOPRAMIDE 10 MG INJ IV (14:00)
[2017-03-24] MEDS ORDERED: FENTAnyl 50 MCG/ML VIAL IV ×2 (14:00)
[2017-03-24] MEDS ORDERED: ONDANSETRON 4 MG INJ IV (14:00)
[2017-03-24] MEDS ORDERED: DIPHENHYDRAMINE 50 MG INJ IV (14:00)
[2017-03-24] MEDS: morphine LIQ (10 MG/5 ML) CUP PO (17:54)
[2017-03-24] MEDS: HYDROCODONE/APAP (10/325) TAB PO (21:35)
[2017-03-25] MEDS: DEXTROSE 5%-0.45% NACL 1,000 ML IV ×3 (02:07→22:42)
[2017-03-25] MEDS: morphine LIQ (10 MG/5 ML) CUP PO ×2 (02:11→09:53)
[2017-03-25] MEDS: FAMOTIDINE 20 MG INJ IV (09:00)
[2017-03-25] MEDS: CITRIC ACID/SODIUM CITRATE 15 ML CUP PO ×2 (09:53→20:43)
[2017-03-25] MEDS: VORICONAZOLE 200 MG TAB PO ×2 (09:53→20:43)
[2017-03-25] MEDS: ACETAMINOPHEN 650MG/20.3ML CUP PO ×2 (09:53→20:43)
[2017-03-25] MEDS: ZINC SULFATE 220 MG CAP PO (09:53)
[2017-03-25 23:00] LABS: ADD UMIC YES; UR ASCORBIC ACID NEGATIVE (NEGATIVE); UR BACTERIA MODERATE /HPF (NONE SEEN); UR BILIRUBIN (Dip) NEGATIVE (NEGATIVE); UR BLOOD (Dip) 2+ mg/dL (NEGATIVE); UR CLARITY TURBID (CLEAR); UR COLOR YELLOW (YELLOW); UR GLUCOSE (Dip) NEGATIVE (NEGATIVE); UR KETONES (Dip) NEGATIVE (NEGATIVE); UR LEUKOCYTE ESTERASE (Dip) 3+ Leu/ul (NEGATIVE); UR NITRITE (Dip) POSITIVE (NEGATIVE); UR RBC 124 /HPF (0-5); UR SPECIFIC GRAVITY (Dip) 1.009 (1.003-1.030); UR TOTAL PROTEIN (Dip) 2+ mg/dl (NEGATIVE); UR UROBILINOGEN (Dip) NEGATIVE (NEGATIVE); UR WBC > 182 /HPF (0-5)
[2017-03-26] MEDS: ONDANSETRON 4 MG INJ IV (00:34)
[2017-03-26] MEDS: SOD CHLORIDE 0.9% 1,000 ML IV (01:41)
[2017-03-26] MEDS: CEFEPIME 1GM/50 ML (PMX) 50 ML IVPB ×2 (01:41→09:15)
[2017-03-26] MEDS: DEXTROSE 5%-0.45% NACL 1,000 ML IV ×2 (08:07→18:28)
[2017-03-26] MEDS: VORICONAZOLE 200 MG TAB PO ×3 (09:00→20:48)
[2017-03-26] MEDS: CITRIC ACID/SODIUM CITRATE 15 ML CUP PO ×2 (09:15→20:48)
[2017-03-26] MEDS: LOPERAMIDE 2 MG CAP PO ×3 (09:16→20:48)
[2017-03-26] MEDS: ZINC SULFATE 220 MG CAP PO (09:16)
[2017-03-26] MEDS: FAMOTIDINE 20 MG INJ IV (09:16)
[2017-03-26] MEDS: PANTOPRAZOLE (EC) 40 MG TAB PO (09:25)
[2017-03-26] MEDS ORDERED: VANCOMYCIN IV PER PHARMACY XX (13:00)
[2017-03-26] MEDS: VANCOMYCIN 1.25 GM in SOD CHLORIDE 0.9% 250 ML IVPB (18:05)
[2017-03-26] MEDS: HYDROCODONE/APAP (10/325) TAB PO (18:27)
[2017-03-26] MEDS: MEROPENEM 500MG/50 ML (PMX) 50 ML IVPB (20:48)
[2017-03-26] MEDS: LACTOBACILLUS RHAMNOSUS CAP PO (20:48)
[2017-03-26] MEDS: morphine LIQ (10 MG/5 ML) CUP PO (20:48)
[2017-03-27] MEDS: DEXTROSE 5%-0.45% NACL 1,000 ML IV ×2 (05:38→12:10)
[2017-03-27] MEDS: morphine LIQ (10 MG/5 ML) CUP PO ×2 (05:39→23:33)
[2017-03-27 07:12] LABS: ADD MAN DIFF? NO
[2017-03-27 07:15] LABS: BASOPHILS % 0.3 % (0.0-2.0); EOSINOPHILS # 0.1 10^3/ul (0.0-0.5); EOSINOPHILS % 1.3 % (0.0-7.0); HEMATOCRIT 29.8 % (42.0-52.0); HEMOGLOBIN 9.7 g/dl (14.0-18.0); LYMPHOCYTES % 15.8 % (15.0-51.0); MEAN CORPUSCULAR HGB CONC 32.6 g/dl (32.0-37.0); MEAN PLATELET VOLUME 9.6 fl (7.4-10.4); MONOCYTE # 0.8 10^3/ul (0.3-0.9); MONOCYTES % 12.3 % (0.0-11.0); NEUTROPHIL # 4.5 10^3/ul (1.6-7.5); NEUTROPHILS % 69.5 % (39.0-77.0); PLATELET COUNT 224 10^3/UL (140-415); RED BLOOD COUNT 3.35 10^6/ul (4.70-6.10); RED CELL DISTRIBUTION WIDTH 17.3 % (11.5-14.5)
[2017-03-27 07:15] LABS: WHITE BLOOD COUNT 6.4 10^3/ul (4.8-10.8)
[2017-03-27 08:03] LABS: ALANINE AMINOTRANSFERASE 27 IU/L (13-69); ALBUMIN 2.8 g/dl (3.3-4.9); ALKALINE PHOSPHATASE 361 IU/L (42-121); ANION GAP 11 (8-16); ASPARTATE AMINO TRANSFERASE 32 IU/L (15-46); BILIRUBIN,TOTAL 0.1 mg/dl (0.2-1.3); BLOOD UREA NITROGEN 19 mg/dl (7-20); CARBON DIOXIDE 23 mmol/L (21-31); CHLORIDE 109 mmol/L (97-110); CREATININE 1.89 mg/dl (0.61-1.24); GLUCOSE 105 mg/dl (70-220); SODIUM 139 mmol/L (135-144); TOTAL PROTEIN 6.3 g/dl (6.1-8.1)
[2017-03-27] MEDS: MEROPENEM 500MG/50 ML (PMX) 50 ML IVPB ×2 (08:48→20:21)
[2017-03-27] MEDS: CITRIC ACID/SODIUM CITRATE 15 ML CUP PO ×2 (08:48→20:21)
[2017-03-27] MEDS: ZINC SULFATE 220 MG CAP PO (08:49)
[2017-03-27] MEDS: PANTOPRAZOLE (EC) 40 MG TAB PO (08:49)
[2017-03-27] MEDS: FAMOTIDINE 20 MG INJ IV (08:49)
[2017-03-27] MEDS: VORICONAZOLE 200 MG TAB PO ×2 (08:49→20:21)
[2017-03-27] MEDS: LOPERAMIDE 2 MG CAP PO ×3 (08:49→20:21)
[2017-03-27] MEDS: LACTOBACILLUS RHAMNOSUS CAP PO ×2 (08:49→20:21)
[2017-03-27] MEDS: ENOXAPARIN 30 MG/0.3 ML SYG SC (08:59)
[2017-03-27 09:03] LABS: TRIIODOTHYRONINE 0.69 ng/ml (0.97-1.69)
[2017-03-27] MEDS: VANCOMYCIN 1 GM (PMX) 250 ML IVPB (17:44)
[2017-03-28] MEDS: DEXTROSE 5%-0.45% NACL 1,000 ML IV ×3 (01:27→14:51)
[2017-03-28] MEDS ORDERED: VANCOMYCIN 1 GM (PMX) 250 ML IVPB (06:00)
[2017-03-28 06:21] LABS: ADD MAN DIFF? NO
[2017-03-28 06:24] LABS: BASOPHILS % 0.3 % (0.0-2.0); EOSINOPHILS # 0.1 10^3/ul (0.0-0.5); EOSINOPHILS % 1.3 % (0.0-7.0); HEMATOCRIT 29.3 % (42.0-52.0); HEMOGLOBIN 9.4 g/dl (14.0-18.0); LYMPHOCYTES # 1.3 10^3/ul (0.8-2.9); LYMPHOCYTES % 19.4 % (15.0-51.0); MEAN CORPUSCULAR HEMOGLOBIN 29.1 pg (29.0-33.0); MEAN CORPUSCULAR HGB CONC 32.1 g/dl (32.0-37.0); MEAN CORPUSCULAR VOLUME 90.7 fl (82.0-101.0); MEAN PLATELET VOLUME 9.4 fl (7.4-10.4); MONOCYTE # 0.6 10^3/ul (0.3-0.9); MONOCYTES % 9.4 % (0.0-11.0); NEUTROPHIL # 4.7 10^3/ul (1.6-7.5); NEUTROPHILS % 68.9 % (39.0-77.0); PLATELET COUNT 217 10^3/UL (140-415); RED BLOOD COUNT 3.23 10^6/ul (4.70-6.10); RED CELL DISTRIBUTION WIDTH 17.3 % (11.5-14.5)
[2017-03-28 06:24] LABS: WHITE BLOOD COUNT 6.8 10^3/ul (4.8-10.8)
[2017-03-28 06:59] LABS: ALANINE AMINOTRANSFERASE 37 IU/L (13-69); ALBUMIN 2.8 g/dl (3.3-4.9); ALKALINE PHOSPHATASE 416 IU/L (42-121); ANION GAP 12 (8-16); ASPARTATE AMINO TRANSFERASE 36 IU/L (15-46); BLOOD UREA NITROGEN 17 mg/dl (7-20); CALCIUM 8.6 mg/dl (8.4-10.2); CARBON DIOXIDE 24 mmol/L (21-31); CHLORIDE 110 mmol/L (97-110); CREATININE 1.79 mg/dl (0.61-1.24); GLUCOSE 89 mg/dl (70-220); MAGNESIUM 1.4 mg/dl (1.7-2.5); PHOSPHORUS 2.9 mg/dl (2.5-4.9); POTASSIUM 4.1 mmol/L (3.5-5.1); SODIUM 142 mmol/L (135-144); TOTAL PROTEIN 5.9 g/dl (6.1-8.1)
[2017-03-28] MEDS: PANTOPRAZOLE (EC) 40 MG TAB PO (08:55)
[2017-03-28] MEDS: LACTOBACILLUS RHAMNOSUS CAP PO ×2 (08:55→20:26)
[2017-03-28] MEDS: LOPERAMIDE 2 MG CAP PO ×3 (08:56→20:26)
[2017-03-28] MEDS: ZINC SULFATE 220 MG CAP PO (08:56)
[2017-03-28] MEDS: VORICONAZOLE 200 MG TAB PO ×2 (08:56→20:25)
[2017-03-28] MEDS: FAMOTIDINE 20 MG TAB PO (08:56)
[2017-03-28] MEDS: CITRIC ACID/SODIUM CITRATE 15 ML CUP PO ×2 (08:56→20:25)
[2017-03-28] MEDS: ENOXAPARIN 30 MG/0.3 ML SYG SC (08:57)
[2017-03-28] MEDS: MEROPENEM 500MG/50 ML (PMX) 50 ML IVPB ×2 (09:02→20:25)
[2017-03-28] MEDS: HYDROCODONE/APAP (10/325) TAB PO (14:51)
[2017-03-28] MEDS: VANCOMYCIN 1 GM (PMX) 250 ML IVPB (17:52)
[2017-03-28] MEDS ORDERED: LIDOCAINE 1% (MPF) 5 ML VIAL SC (19:30)
[2017-03-28] MEDS: morphine LIQ (10 MG/5 ML) CUP PO (23:36)
[2017-03-29 07:01] LABS: ADD MAN DIFF? NO
[2017-03-29 07:06] LABS: WHITE BLOOD COUNT 7.2 10^3/ul (4.8-10.8)
[2017-03-29 07:06] LABS: BASOPHILS % 0.3 % (0.0-2.0); EOSINOPHILS # 0.2 10^3/ul (0.0-0.5); EOSINOPHILS % 2.2 % (0.0-7.0); HEMATOCRIT 29.3 % (42.0-52.0); HEMOGLOBIN 9.5 g/dl (14.0-18.0); LYMPHOCYTES # 1.6 10^3/ul (0.8-2.9); LYMPHOCYTES % 21.8 % (15.0-51.0); MEAN CORPUSCULAR HEMOGLOBIN 29.1 pg (29.0-33.0); MEAN CORPUSCULAR HGB CONC 32.4 g/dl (32.0-37.0); MEAN CORPUSCULAR VOLUME 89.6 fl (82.0-101.0); MEAN PLATELET VOLUME 9.6 fl (7.4-10.4); MONOCYTE # 0.6 10^3/ul (0.3-0.9); MONOCYTES % 8.6 % (0.0-11.0); NEUTROPHIL # 4.8 10^3/ul (1.6-7.5); NEUTROPHILS % 66.3 % (39.0-77.0); PLATELET COUNT 219 10^3/UL (140-415); RED BLOOD COUNT 3.27 10^6/ul (4.70-6.10); RED CELL DISTRIBUTION WIDTH 17.2 % (11.5-14.5)
[2017-03-29 07:23] LABS: ANION GAP 11 (8-16); BLOOD UREA NITROGEN 20 mg/dl (7-20); CALCIUM 8.9 mg/dl (8.4-10.2); CARBON DIOXIDE 23 mmol/L (21-31); CHLORIDE 109 mmol/L (97-110); CREATININE 2.08 mg/dl (0.61-1.24); GLUCOSE 105 mg/dl (70-220); POTASSIUM 4.4 mmol/L (3.5-5.1); SODIUM 139 mmol/L (135-144)
[2017-03-29 07:24] LABS: PHOSPHORUS 3.4 mg/dl (2.5-4.9)
[2017-03-29 07:24] LABS: MAGNESIUM 1.3 mg/dl (1.7-2.5)
[2017-03-29] MEDS: CITRIC ACID/SODIUM CITRATE 15 ML CUP PO ×2 (08:35→22:15)
[2017-03-29] MEDS: LOPERAMIDE 2 MG CAP PO ×3 (08:35→22:15)
[2017-03-29] MEDS: LACTOBACILLUS RHAMNOSUS CAP PO ×2 (08:35→22:15)
[2017-03-29] MEDS: VORICONAZOLE 200 MG TAB PO ×2 (08:35→22:15)
[2017-03-29] MEDS: MEROPENEM 500MG/50 ML (PMX) 50 ML IVPB ×2 (08:35→22:15)
[2017-03-29] MEDS: ZINC SULFATE 220 MG CAP PO (08:35)
[2017-03-29] MEDS: PANTOPRAZOLE (EC) 40 MG TAB PO (08:35)
[2017-03-29] MEDS: FAMOTIDINE 20 MG TAB PO (08:38)
[2017-03-29] MEDS: DEXTROSE 5%-0.45% NACL 1,000 ML IV (08:38)
[2017-03-29] MEDS: ENOXAPARIN 40 MG/0.4 ML SYG SC (08:42)
[2017-03-29] MEDS: HYDROCODONE/APAP (10/325) TAB PO ×2 (10:43→22:36)
[2017-03-29] MEDS: MAGNESIUM SULFATE 3 GM in DEXTROSE 5% 100 ML IVPB (12:17)
[2017-03-30] MEDS: HYDROCODONE/APAP (10/325) TAB PO ×2 (04:36→22:02)
[2017-03-30] MEDS: DEXTROSE 5%-0.45% NACL 1,000 ML IV (06:23)
[2017-03-30] MEDS: PANTOPRAZOLE (EC) 40 MG TAB PO (06:28)
[2017-03-30 06:41] LABS: ADD MAN DIFF? NO
[2017-03-30 06:48] LABS: BASOPHILS % 0.5 % (0.0-2.0); EOSINOPHILS # 0.2 10^3/ul (0.0-0.5); EOSINOPHILS % 2.3 % (0.0-7.0); HEMATOCRIT 29.5 % (42.0-52.0); HEMOGLOBIN 9.6 g/dl (14.0-18.0); LYMPHOCYTES % 26.5 % (15.0-51.0); MEAN CORPUSCULAR HEMOGLOBIN 29.1 pg (29.0-33.0); MEAN CORPUSCULAR HGB CONC 32.5 g/dl (32.0-37.0); MEAN CORPUSCULAR VOLUME 89.4 fl (82.0-101.0); MEAN PLATELET VOLUME 9.7 fl (7.4-10.4); MONOCYTE # 0.6 10^3/ul (0.3-0.9); MONOCYTES % 8.4 % (0.0-11.0); NEUTROPHIL # 4.6 10^3/ul (1.6-7.5); NEUTROPHILS % 61.5 % (39.0-77.0); PLATELET COUNT 227 10^3/UL (140-415); RED CELL DISTRIBUTION WIDTH 17.2 % (11.5-14.5)
[2017-03-30 06:48] LABS: WHITE BLOOD COUNT 7.5 10^3/ul (4.8-10.8)
[2017-03-30 07:08] LABS: PHOSPHORUS 3.2 mg/dl (2.5-4.9)
[2017-03-30 07:39] LABS: ALANINE AMINOTRANSFERASE 47 IU/L (13-69); ALKALINE PHOSPHATASE 602 IU/L (42-121); ANION GAP 15 (8-16); ASPARTATE AMINO TRANSFERASE 79 IU/L (15-46); BILIRUBIN,INDIRECT 0.1 mg/dl (0-1.1); BILIRUBIN,TOTAL 0.1 mg/dl (0.2-1.3); BLOOD UREA NITROGEN 21 mg/dl (7-20); CALCIUM 8.8 mg/dl (8.4-10.2); CARBON DIOXIDE 23 mmol/L (21-31); CHLORIDE 109 mmol/L (97-110); CREATININE 1.91 mg/dl (0.61-1.24); GLUCOSE 88 mg/dl (70-220); POTASSIUM 4.6 mmol/L (3.5-5.1); SODIUM 142 mmol/L (135-144); TOTAL PROTEIN 6.3 g/dl (6.1-8.1)
[2017-03-30] MEDS: FAMOTIDINE 20 MG TAB PO (08:50)
[2017-03-30] MEDS: MEROPENEM 500MG/50 ML (PMX) 50 ML IVPB ×2 (08:50→22:01)
[2017-03-30] MEDS: CITRIC ACID/SODIUM CITRATE 15 ML CUP PO ×2 (08:50→22:02)
[2017-03-30] MEDS: ZINC SULFATE 220 MG CAP PO (08:50)
[2017-03-30] MEDS: LOPERAMIDE 2 MG CAP PO ×3 (08:50→22:02)
[2017-03-30] MEDS: LACTOBACILLUS RHAMNOSUS CAP PO ×2 (08:50→22:01)
[2017-03-30] MEDS: VORICONAZOLE 200 MG TAB PO ×2 (08:50→22:01)
[2017-03-31] MEDS: DEXTROSE 5%-0.45% NACL 1,000 ML IV ×2 (04:10→23:32)
[2017-03-31] MEDS: PANTOPRAZOLE (EC) 40 MG TAB PO (06:31)
[2017-03-31] MEDS: HYDROCODONE/APAP (10/325) TAB PO (06:31)
[2017-03-31 08:31] LABS: ADD MAN DIFF? NO
[2017-03-31 08:41] LABS: WHITE BLOOD COUNT 9.4 10^3/ul (4.8-10.8)
[2017-03-31 08:41] LABS: BASOPHILS % 0.3 % (0.0-2.0); EOSINOPHILS # 0.2 10^3/ul (0.0-0.5); HEMATOCRIT 32.2 % (42.0-52.0); HEMOGLOBIN 10.4 g/dl (14.0-18.0); LYMPHOCYTES # 2.1 10^3/ul (0.8-2.9); LYMPHOCYTES % 22.2 % (15.0-51.0); MEAN CORPUSCULAR HEMOGLOBIN 29.7 pg (29.0-33.0); MEAN CORPUSCULAR HGB CONC 32.3 g/dl (32.0-37.0); MEAN PLATELET VOLUME 9.6 fl (7.4-10.4); MONOCYTE # 0.6 10^3/ul (0.3-0.9); MONOCYTES % 6.1 % (0.0-11.0); NEUTROPHIL # 6.4 10^3/ul (1.6-7.5); NEUTROPHILS % 68.3 % (39.0-77.0); PLATELET COUNT 250 10^3/UL (140-415); RED CELL DISTRIBUTION WIDTH 17.2 % (11.5-14.5)
[2017-03-31 09:00] LABS: PHOSPHORUS 3.7 mg/dl (2.5-4.9)
[2017-03-31 09:00] LABS: ANION GAP 14 (8-16); BLOOD UREA NITROGEN 25 mg/dl (7-20); CALCIUM 9.5 mg/dl (8.4-10.2); CARBON DIOXIDE 24 mmol/L (21-31); CHLORIDE 110 mmol/L (97-110); CREATININE 1.98 mg/dl (0.61-1.24); GLUCOSE 104 mg/dl (70-220); MAGNESIUM 1.8 mg/dl (1.7-2.5); POTASSIUM 5.1 mmol/L (3.5-5.1); SODIUM 143 mmol/L (135-144)
[2017-03-31] MEDS: CITRIC ACID/SODIUM CITRATE 15 ML CUP PO ×2 (09:14→20:24)
[2017-03-31] MEDS: FAMOTIDINE 20 MG TAB PO (09:15)
[2017-03-31] MEDS: LACTOBACILLUS RHAMNOSUS CAP PO ×2 (09:15→20:24)
[2017-03-31] MEDS: VORICONAZOLE 200 MG TAB PO ×2 (09:15→20:24)
[2017-03-31] MEDS: ZINC SULFATE 220 MG CAP PO (09:15)
[2017-03-31] MEDS: LOPERAMIDE 2 MG CAP PO ×3 (09:15→20:24)
[2017-03-31] MEDS: MEROPENEM 500MG/50 ML (PMX) 50 ML IVPB ×2 (09:21→20:24)
[2017-04-01 06:35] LABS: ADD MAN DIFF? NO
[2017-04-01 06:42] LABS: BASOPHILS % 0.3 % (0.0-2.0); EOSINOPHILS # 0.2 10^3/ul (0.0-0.5); EOSINOPHILS % 1.9 % (0.0-7.0); HEMOGLOBIN 10.3 g/dl (14.0-18.0); LYMPHOCYTES # 2.2 10^3/ul (0.8-2.9); LYMPHOCYTES % 24.5 % (15.0-51.0); MEAN CORPUSCULAR HEMOGLOBIN 29.1 pg (29.0-33.0); MEAN CORPUSCULAR HGB CONC 32.2 g/dl (32.0-37.0); MEAN CORPUSCULAR VOLUME 90.4 fl (82.0-101.0); MEAN PLATELET VOLUME 9.3 fl (7.4-10.4); MONOCYTE # 0.5 10^3/ul (0.3-0.9); MONOCYTES % 5.9 % (0.0-11.0); NEUTROPHIL # 6.1 10^3/ul (1.6-7.5); NEUTROPHILS % 66.6 % (39.0-77.0); PLATELET COUNT 260 10^3/UL (140-415); RED BLOOD COUNT 3.54 10^6/ul (4.70-6.10); RED CELL DISTRIBUTION WIDTH 17.2 % (11.5-14.5)
[2017-04-01 06:42] LABS: WHITE BLOOD COUNT 9.2 10^3/ul (4.8-10.8)
[2017-04-01 07:07] LABS: ANION GAP 14 (8-16); BLOOD UREA NITROGEN 25 mg/dl (7-20); CALCIUM 9.6 mg/dl (8.4-10.2); CARBON DIOXIDE 24 mmol/L (21-31); CHLORIDE 110 mmol/L (97-110); GLUCOSE 106 mg/dl (70-220); POTASSIUM 5.4 mmol/L (3.5-5.1); SODIUM 143 mmol/L (135-144)
[2017-04-01 07:13] LABS: PHOSPHORUS 3.8 mg/dl (2.5-4.9)
[2017-04-01 07:13] LABS: MAGNESIUM 1.6 mg/dl (1.7-2.5)
[2017-04-01] MEDS: VORICONAZOLE 200 MG TAB PO ×2 (09:08→21:43)
[2017-04-01] MEDS: FAMOTIDINE 20 MG TAB PO (09:08)
[2017-04-01] MEDS: PANTOPRAZOLE (EC) 40 MG TAB PO (09:08)
[2017-04-01] MEDS: CITRIC ACID/SODIUM CITRATE 15 ML CUP PO ×2 (09:09→21:42)
[2017-04-01] MEDS: ZINC SULFATE 220 MG CAP PO (09:09)
[2017-04-01] MEDS: LOPERAMIDE 2 MG CAP PO ×3 (09:09→21:42)
[2017-04-01] MEDS: LACTOBACILLUS RHAMNOSUS CAP PO ×2 (09:09→21:42)
[2017-04-01] MEDS: DEXTROSE 5%-0.45% NACL 1,000 ML IV (09:10)
[2017-04-01] MEDS: MEROPENEM 500MG/50 ML (PMX) 50 ML IVPB ×2 (09:10→21:42)
[2017-04-01] MEDS: MAGNESIUM SULFATE 2 GM/50 ML 50 ML IVPB (10:15)
[2017-04-01] MEDS: ALBUTEROL 0.083% (NEB) 2.5 MG/3 ML AMP HHN (11:36)
[2017-04-01] MEDS: HYDROCODONE/APAP (10/325) TAB PO (19:52)
[2017-04-02 06:59] LABS: ADD MAN DIFF? NO
[2017-04-02 07:04] LABS: BASOPHIL # 0.1 10^3/ul (0.0-0.1); BASOPHILS % 0.5 % (0.0-2.0); EOSINOPHILS # 0.2 10^3/ul (0.0-0.5); HEMATOCRIT 32.4 % (42.0-52.0); HEMOGLOBIN 10.4 g/dl (14.0-18.0); LYMPHOCYTES # 2.5 10^3/ul (0.8-2.9); LYMPHOCYTES % 23.3 % (15.0-51.0); MEAN CORPUSCULAR HEMOGLOBIN 29.1 pg (29.0-33.0); MEAN CORPUSCULAR HGB CONC 32.1 g/dl (32.0-37.0); MEAN CORPUSCULAR VOLUME 90.5 fl (82.0-101.0); MEAN PLATELET VOLUME 9.6 fl (7.4-10.4); MONOCYTE # 0.5 10^3/ul (0.3-0.9); MONOCYTES % 5.1 % (0.0-11.0); NEUTROPHIL # 7.2 10^3/ul (1.6-7.5); NEUTROPHILS % 68.4 % (39.0-77.0); PLATELET COUNT 298 10^3/UL (140-415); RED BLOOD COUNT 3.58 10^6/ul (4.70-6.10); RED CELL DISTRIBUTION WIDTH 17.4 % (11.5-14.5)
[2017-04-02 07:04] LABS: WHITE BLOOD COUNT 10.5 10^3/ul (4.8-10.8)
[2017-04-02 07:32] LABS: ANION GAP 13 (8-16); BLOOD UREA NITROGEN 28 mg/dl (7-20); CALCIUM 9.8 mg/dl (8.4-10.2); CARBON DIOXIDE 26 mmol/L (21-31); CHLORIDE 107 mmol/L (97-110); CREATININE 1.86 mg/dl (0.61-1.24); GLUCOSE 97 mg/dl (70-220); POTASSIUM 5.4 mmol/L (3.5-5.1); SODIUM 141 mmol/L (135-144)
[2017-04-02 07:37] LABS: MAGNESIUM 2.2 mg/dl (1.7-2.5)
[2017-04-02 07:37] LABS: PHOSPHORUS 3.6 mg/dl (2.5-4.9)
[2017-04-02] MEDS: HYDROCODONE/APAP (10/325) TAB PO ×2 (07:56→23:52)
[2017-04-02] MEDS: LOPERAMIDE 2 MG CAP PO ×3 (08:43→21:57)
[2017-04-02] MEDS: PANTOPRAZOLE (EC) 40 MG TAB PO (08:43)
[2017-04-02] MEDS: ZINC SULFATE 220 MG CAP PO (08:43)
[2017-04-02] MEDS: VORICONAZOLE 200 MG TAB PO ×2 (08:43→21:57)
[2017-04-02] MEDS: LACTOBACILLUS RHAMNOSUS CAP PO ×2 (08:43→21:56)
[2017-04-02] MEDS: CITRIC ACID/SODIUM CITRATE 15 ML CUP PO ×2 (08:44→21:56)
[2017-04-02] MEDS: MEROPENEM 500MG/50 ML (PMX) 50 ML IVPB ×2 (08:44→21:56)
[2017-04-02] MEDS: DEXTROSE 50% 50 ML SYRINGE IV (10:38)
[2017-04-02] MEDS: INSULIN REGULAR, HUMAN 100 UNIT/1 ML 3ML VIAL IVP (10:51)
[2017-04-02] MEDS: NA POLYST SULFON 15 GM/60 ML BTL PO (14:28)
[2017-04-02 21:20] LABS: POTASSIUM 5.8 mmol/L (3.5-5.1)
[2017-04-03 06:52] LABS: ADD MAN DIFF? NO
[2017-04-03 07:15] LABS: BASOPHIL # 0.1 10^3/ul (0.0-0.1); BASOPHILS % 0.6 % (0.0-2.0); EOSINOPHILS # 0.2 10^3/ul (0.0-0.5); EOSINOPHILS % 2.3 % (0.0-7.0); HEMATOCRIT 32.4 % (42.0-52.0); HEMOGLOBIN 10.2 g/dl (14.0-18.0); LYMPHOCYTES # 2.5 10^3/ul (0.8-2.9); LYMPHOCYTES % 30.4 % (15.0-51.0); MEAN CORPUSCULAR HEMOGLOBIN 28.7 pg (29.0-33.0); MEAN CORPUSCULAR HGB CONC 31.5 g/dl (32.0-37.0); MEAN CORPUSCULAR VOLUME 91.3 fl (82.0-101.0); MEAN PLATELET VOLUME 9.9 fl (7.4-10.4); MONOCYTE # 0.7 10^3/ul (0.3-0.9); MONOCYTES % 8.2 % (0.0-11.0); NEUTROPHIL # 4.7 10^3/ul (1.6-7.5); NEUTROPHILS % 57.3 % (39.0-77.0); PLATELET COUNT 304 10^3/UL (140-415); RED BLOOD COUNT 3.55 10^6/ul (4.70-6.10); RED CELL DISTRIBUTION WIDTH 17.2 % (11.5-14.5)
[2017-04-03 07:15] LABS: WHITE BLOOD COUNT 8.2 10^3/ul (4.8-10.8)
[2017-04-03 07:40] LABS: MAGNESIUM 1.8 mg/dl (1.7-2.5)
[2017-04-03 07:40] LABS: PHOSPHORUS 4.3 mg/dl (2.5-4.9)
[2017-04-03 07:49] LABS: ANION GAP 17 (8-16); BLOOD UREA NITROGEN 29 mg/dl (7-20); CALCIUM 9.4 mg/dl (8.4-10.2); CARBON DIOXIDE 26 mmol/L (21-31); CHLORIDE 106 mmol/L (97-110); CREATININE 2.15 mg/dl (0.61-1.24); GLUCOSE 67 mg/dl (70-220); POTASSIUM 5.4 mmol/L (3.5-5.1); SODIUM 144 mmol/L (135-144)
[2017-04-03] MEDS: PANTOPRAZOLE (EC) 40 MG TAB PO (08:03)
[2017-04-03] MEDS: VORICONAZOLE 200 MG TAB PO ×2 (08:21→20:51)
[2017-04-03] MEDS: ZINC SULFATE 220 MG CAP PO (08:21)
[2017-04-03] MEDS: LACTOBACILLUS RHAMNOSUS CAP PO ×2 (08:21→20:51)
[2017-04-03] MEDS: LOPERAMIDE 2 MG CAP PO ×3 (08:21→20:51)
[2017-04-03] MEDS: CITRIC ACID/SODIUM CITRATE 15 ML CUP PO ×2 (08:21→20:51)
[2017-04-03] MEDS: MEROPENEM 500MG/50 ML (PMX) 50 ML IVPB ×2 (08:45→20:50)
[2017-04-03] MEDS: HYDROCODONE/APAP (10/325) TAB PO ×2 (08:46→16:19)
[2017-04-04] MEDS: DEXTROSE 5% 1,000 ML IV ×2 (01:45→15:54)
[2017-04-04] MEDS: HYDROCODONE/APAP (10/325) TAB PO ×2 (06:07→23:30)
[2017-04-04 07:18] LABS: ADD MAN DIFF? NO
[2017-04-04 07:20] LABS: BASOPHILS % 0.5 % (0.0-2.0); EOSINOPHILS # 0.2 10^3/ul (0.0-0.5); EOSINOPHILS % 2.7 % (0.0-7.0); HEMATOCRIT 30.5 % (42.0-52.0); HEMOGLOBIN 9.8 g/dl (14.0-18.0); LYMPHOCYTES # 2.1 10^3/ul (0.8-2.9); LYMPHOCYTES % 23.6 % (15.0-51.0); MEAN CORPUSCULAR HEMOGLOBIN 29.6 pg (29.0-33.0); MEAN CORPUSCULAR HGB CONC 32.1 g/dl (32.0-37.0); MEAN CORPUSCULAR VOLUME 92.1 fl (82.0-101.0); MEAN PLATELET VOLUME 9.9 fl (7.4-10.4); MONOCYTE # 0.6 10^3/ul (0.3-0.9); MONOCYTES % 6.6 % (0.0-11.0); NEUTROPHIL # 5.8 10^3/ul (1.6-7.5); PLATELET COUNT 274 10^3/UL (140-415); RED BLOOD COUNT 3.31 10^6/ul (4.70-6.10); RED CELL DISTRIBUTION WIDTH 17.2 % (11.5-14.5)
[2017-04-04 07:20] LABS: WHITE BLOOD COUNT 8.8 10^3/ul (4.8-10.8)
[2017-04-04 07:36] LABS: ANION GAP 20 (8-16)
[2017-04-04 07:37] LABS: BLOOD UREA NITROGEN 33 mg/dl (7-20); CALCIUM 9.4 mg/dl (8.4-10.2); CARBON DIOXIDE 22 mmol/L (21-31); CHLORIDE 105 mmol/L (97-110); CREATININE 1.88 mg/dl (0.61-1.24); GLUCOSE 114 mg/dl (70-220); POTASSIUM 5.3 mmol/L (3.5-5.1); SODIUM 142 mmol/L (135-144)
[2017-04-04 07:38] LABS: MAGNESIUM 1.6 mg/dl (1.7-2.5)
[2017-04-04 07:38] LABS: PHOSPHORUS 4.2 mg/dl (2.5-4.9)
[2017-04-04] MEDS: PANTOPRAZOLE (EC) 40 MG TAB PO (07:39)
[2017-04-04] MEDS: LOPERAMIDE 2 MG CAP PO ×3 (08:25→20:48)
[2017-04-04] MEDS: ZINC SULFATE 220 MG CAP PO (08:25)
[2017-04-04] MEDS: LACTOBACILLUS RHAMNOSUS CAP PO ×2 (08:25→20:48)
[2017-04-04] MEDS: CITRIC ACID/SODIUM CITRATE 15 ML CUP PO ×2 (08:25→20:47)
[2017-04-04] MEDS: MEROPENEM 500MG/50 ML (PMX) 50 ML IVPB ×2 (08:25→20:47)
[2017-04-04] MEDS: VORICONAZOLE 200 MG TAB PO ×2 (08:25→20:48)
[2017-04-04] MEDS: MAGNESIUM SULFATE 2 GM/50 ML 50 ML IVPB (10:19)
[2017-04-04] MEDS: NA POLYST SULFON 15 GM/60 ML BTL PO (12:24)
[2017-04-05] MEDS: ACETAMINOPHEN 325 MG TAB PO (02:30)
[2017-04-05 06:38] LABS: ADD MAN DIFF? NO
[2017-04-05] MEDS: HYDROCODONE/APAP (10/325) TAB PO ×3 (06:41→23:18)
[2017-04-05 06:42] LABS: BASOPHIL # 0.1 10^3/ul (0.0-0.1); BASOPHILS % 0.6 % (0.0-2.0); EOSINOPHILS # 0.2 10^3/ul (0.0-0.5); EOSINOPHILS % 2.2 % (0.0-7.0); HEMATOCRIT 31.4 % (42.0-52.0); HEMOGLOBIN 9.8 g/dl (14.0-18.0); LYMPHOCYTES # 2.6 10^3/ul (0.8-2.9); LYMPHOCYTES % 29.7 % (15.0-51.0); MEAN CORPUSCULAR HEMOGLOBIN 29.3 pg (29.0-33.0); MEAN CORPUSCULAR HGB CONC 31.2 g/dl (32.0-37.0); MEAN CORPUSCULAR VOLUME 93.7 fl (82.0-101.0); MONOCYTE # 0.6 10^3/ul (0.3-0.9); MONOCYTES % 6.7 % (0.0-11.0); NEUTROPHIL # 5.2 10^3/ul (1.6-7.5); NEUTROPHILS % 60.1 % (39.0-77.0); PLATELET COUNT 290 10^3/UL (140-415); RED BLOOD COUNT 3.35 10^6/ul (4.70-6.10); RED CELL DISTRIBUTION WIDTH 17.2 % (11.5-14.5)
[2017-04-05 06:42] LABS: WHITE BLOOD COUNT 8.7 10^3/ul (4.8-10.8)
[2017-04-05 07:16] LABS: ANION GAP 18 (8-16); BLOOD UREA NITROGEN 37 mg/dl (7-20); CALCIUM 9.7 mg/dl (8.4-10.2); CARBON DIOXIDE 22 mmol/L (21-31); CHLORIDE 107 mmol/L (97-110); CREATININE 1.88 mg/dl (0.61-1.24); GLUCOSE 93 mg/dl (70-220); MAGNESIUM 2.1 mg/dl (1.7-2.5); SODIUM 141 mmol/L (135-144)
[2017-04-05 07:16] LABS: PHOSPHORUS 4.6 mg/dl (2.5-4.9)
[2017-04-05 07:27] LABS: POTASSIUM 5.6 mmol/L (3.5-5.1)
[2017-04-05] MEDS: VORICONAZOLE 200 MG TAB PO ×2 (08:38→20:11)
[2017-04-05] MEDS: PANTOPRAZOLE (EC) 40 MG TAB PO (08:38)
[2017-04-05] MEDS: LACTOBACILLUS RHAMNOSUS CAP PO ×2 (08:38→20:11)
[2017-04-05] MEDS: ZINC SULFATE 220 MG CAP PO (08:38)
[2017-04-05] MEDS: LOPERAMIDE 2 MG CAP PO ×3 (08:38→20:11)
[2017-04-05] MEDS: CITRIC ACID/SODIUM CITRATE 15 ML CUP PO ×2 (08:39→20:11)
[2017-04-05] MEDS: MEROPENEM 500MG/50 ML (PMX) 50 ML IVPB ×2 (10:03→20:11)
[2017-04-05] MEDS: NA POLYST SULFON 15 GM/60 ML BTL PO (16:34)
[2017-04-06] MEDS: HYDROCODONE/APAP (10/325) TAB PO ×2 (05:37→12:30)
[2017-04-06] MEDS: PANTOPRAZOLE (EC) 40 MG TAB PO (08:46)
[2017-04-06] MEDS: LACTOBACILLUS RHAMNOSUS CAP PO ×2 (08:46→22:12)
[2017-04-06] MEDS: CITRIC ACID/SODIUM CITRATE 15 ML CUP PO ×2 (08:46→21:06)
[2017-04-06] MEDS: LOPERAMIDE 2 MG CAP PO ×3 (08:46→21:07)
[2017-04-06] MEDS: ZINC SULFATE 220 MG CAP PO (08:46)
[2017-04-06] MEDS: VORICONAZOLE 200 MG TAB PO ×2 (08:46→21:06)
[2017-04-06] MEDS: MEROPENEM 500MG/50 ML (PMX) 50 ML IVPB ×2 (08:47→21:07)
[2017-04-06 10:03] LABS: ANION GAP 19 (8-16); BLOOD UREA NITROGEN 39 mg/dl (7-20); CARBON DIOXIDE 23 mmol/L (21-31); CHLORIDE 108 mmol/L (97-110); GLUCOSE 168 mg/dl (70-220); SODIUM 145 mmol/L (135-144)
[2017-04-07] MEDS: HYDROCODONE/APAP (10/325) TAB PO ×3 (04:35→21:11)
[2017-04-07] MEDS: PANTOPRAZOLE (EC) 40 MG TAB PO (08:20)
[2017-04-07] MEDS: LOPERAMIDE 2 MG CAP PO ×3 (08:28→20:49)
[2017-04-07] MEDS: ZINC SULFATE 220 MG CAP PO (08:28)
[2017-04-07] MEDS: CITRIC ACID/SODIUM CITRATE 15 ML CUP PO ×2 (08:28→20:49)
[2017-04-07] MEDS: VORICONAZOLE 200 MG TAB PO ×2 (08:28→20:49)
[2017-04-07] MEDS: LACTOBACILLUS RHAMNOSUS CAP PO ×2 (08:28→20:49)
[2017-04-07] MEDS: MEROPENEM 500MG/50 ML (PMX) 50 ML IVPB ×2 (10:29→20:49)
[2017-04-08] MEDS: PANTOPRAZOLE (EC) 40 MG TAB PO (07:23)
[2017-04-08] MEDS: CITRIC ACID/SODIUM CITRATE 15 ML CUP PO ×2 (08:30→21:19)
[2017-04-08] MEDS: LACTOBACILLUS RHAMNOSUS CAP PO ×2 (08:31→21:19)
[2017-04-08] MEDS: VORICONAZOLE 200 MG TAB PO ×2 (08:31→21:19)
[2017-04-08] MEDS: LOPERAMIDE 2 MG CAP PO ×3 (08:31→21:19)
[2017-04-08] MEDS: ZINC SULFATE 220 MG CAP PO (08:31)
[2017-04-08 10:11] LABS: ANION GAP 16 (8-16); BLOOD UREA NITROGEN 42 mg/dl (7-20); CALCIUM 9.8 mg/dl (8.4-10.2); CARBON DIOXIDE 25 mmol/L (21-31); CHLORIDE 107 mmol/L (97-110); GLUCOSE 89 mg/dl (70-220); POTASSIUM 5.4 mmol/L (3.5-5.1); SODIUM 143 mmol/L (135-144)
[2017-04-08] MEDS: MEROPENEM 500MG/50 ML (PMX) 50 ML IVPB ×2 (11:04→21:19)
[2017-04-08] MEDS: NA POLYST SULFON 15 GM/60 ML BTL PO (13:09)
[2017-04-08] MEDS: ACETAMINOPHEN 325 MG TAB PO (22:55)
[2017-04-09] MEDS: PANTOPRAZOLE (EC) 40 MG TAB PO (06:47)
[2017-04-09] MEDS: ZINC SULFATE 220 MG CAP PO (08:13)
[2017-04-09] MEDS: HYDROCODONE/APAP (10/325) TAB PO ×2 (08:13→20:39)
[2017-04-09] MEDS: LOPERAMIDE 2 MG CAP PO ×3 (08:13→20:38)
[2017-04-09] MEDS: VORICONAZOLE 200 MG TAB PO ×2 (08:13→20:38)
[2017-04-09] MEDS: CITRIC ACID/SODIUM CITRATE 15 ML CUP PO ×2 (08:13→20:38)
[2017-04-09] MEDS: LACTOBACILLUS RHAMNOSUS CAP PO ×2 (08:14→20:38)
[2017-04-10] MEDS: PANTOPRAZOLE (EC) 40 MG TAB PO (06:18)
[2017-04-10] MEDS: VORICONAZOLE 200 MG TAB PO ×2 (08:26→20:37)
[2017-04-10] MEDS: LOPERAMIDE 2 MG CAP PO ×3 (08:26→20:37)
[2017-04-10] MEDS: LACTOBACILLUS RHAMNOSUS CAP PO ×2 (08:26→20:37)
[2017-04-10] MEDS: ZINC SULFATE 220 MG CAP PO (08:26)
[2017-04-10] MEDS: CITRIC ACID/SODIUM CITRATE 15 ML CUP PO ×2 (08:26→20:37)
[2017-04-10 08:46] LABS: ADD MAN DIFF? NO
[2017-04-10 08:51] LABS: BASOPHIL # 0.1 10^3/ul (0.0-0.1); BASOPHILS % 0.9 % (0.0-2.0); EOSINOPHILS # 0.2 10^3/ul (0.0-0.5); EOSINOPHILS % 2.3 % (0.0-7.0); HEMATOCRIT 31.2 % (42.0-52.0); HEMOGLOBIN 9.9 g/dl (14.0-18.0); LYMPHOCYTES # 2.4 10^3/ul (0.8-2.9); LYMPHOCYTES % 28.8 % (15.0-51.0); MEAN CORPUSCULAR HEMOGLOBIN 29.6 pg (29.0-33.0); MEAN CORPUSCULAR HGB CONC 31.7 g/dl (32.0-37.0); MEAN CORPUSCULAR VOLUME 93.1 fl (82.0-101.0); MEAN PLATELET VOLUME 10.4 fl (7.4-10.4); MONOCYTE # 0.6 10^3/ul (0.3-0.9); MONOCYTES % 7.7 % (0.0-11.0); NEUTROPHIL # 4.9 10^3/ul (1.6-7.5); NEUTROPHILS % 59.9 % (39.0-77.0); PLATELET COUNT 363 10^3/UL (140-415); RED BLOOD COUNT 3.35 10^6/ul (4.70-6.10); RED CELL DISTRIBUTION WIDTH 17.3 % (11.5-14.5)
[2017-04-10 08:51] LABS: WHITE BLOOD COUNT 8.2 10^3/ul (4.8-10.8)
[2017-04-10 09:20] LABS: ANION GAP 18 (8-16); BLOOD UREA NITROGEN 41 mg/dl (7-20); CALCIUM 9.5 mg/dl (8.4-10.2); CARBON DIOXIDE 23 mmol/L (21-31); CHLORIDE 107 mmol/L (97-110); GLUCOSE 92 mg/dl (70-220); POTASSIUM 4.9 mmol/L (3.5-5.1); SODIUM 143 mmol/L (135-144)
[2017-04-10] MEDS: DEXTROSE 5%-0.45% NACL 1,000 ML IV (15:20)
[2017-04-10] MEDS: HYDROCODONE/APAP (10/325) TAB PO (18:25)
[2017-04-11] MEDS: PANTOPRAZOLE (EC) 40 MG TAB PO (06:01)
[2017-04-11 07:18] LABS: ANION GAP 15 (8-16); BLOOD UREA NITROGEN 37 mg/dl (7-20); CALCIUM 8.9 mg/dl (8.4-10.2); CARBON DIOXIDE 22 mmol/L (21-31); CHLORIDE 107 mmol/L (97-110); CREATININE 1.74 mg/dl (0.61-1.24); GLUCOSE 105 mg/dl (70-220); POTASSIUM 4.3 mmol/L (3.5-5.1); SODIUM 140 mmol/L (135-144)
[2017-04-11] MEDS: DEXTROSE 5%-0.45% NACL 1,000 ML IV (08:09)
[2017-04-11] MEDS: LACTOBACILLUS RHAMNOSUS CAP PO ×2 (08:23→20:53)
[2017-04-11] MEDS: VORICONAZOLE 200 MG TAB PO ×2 (08:23→20:52)
[2017-04-11] MEDS: ACETAMINOPHEN 325 MG TAB PO ×2 (08:23→17:12)
[2017-04-11] MEDS: ZINC SULFATE 220 MG CAP PO (08:23)
[2017-04-11] MEDS: LOPERAMIDE 2 MG CAP PO ×3 (08:23→20:53)
[2017-04-11] MEDS: CITRIC ACID/SODIUM CITRATE 15 ML CUP PO ×2 (08:23→20:52)
[2017-04-12] MEDS: DEXTROSE 5%-0.45% NACL 1,000 ML IV ×2 (00:20→16:15)
[2017-04-12] MEDS: PANTOPRAZOLE (EC) 40 MG TAB PO (07:31)
[2017-04-12] MEDS: ACETAMINOPHEN 325 MG TAB PO (07:32)
[2017-04-12 08:11] LABS: ADD MAN DIFF? NO
[2017-04-12 08:16] LABS: BASOPHILS % 0.5 % (0.0-2.0); EOSINOPHILS # 0.2 10^3/ul (0.0-0.5); EOSINOPHILS % 1.8 % (0.0-7.0); HEMATOCRIT 33.2 % (42.0-52.0); HEMOGLOBIN 10.4 g/dl (14.0-18.0); LYMPHOCYTES % 23.5 % (15.0-51.0); MEAN CORPUSCULAR HEMOGLOBIN 29.3 pg (29.0-33.0); MEAN CORPUSCULAR HGB CONC 31.3 g/dl (32.0-37.0); MEAN CORPUSCULAR VOLUME 93.5 fl (82.0-101.0); MEAN PLATELET VOLUME 10.3 fl (7.4-10.4); MONOCYTE # 0.5 10^3/ul (0.3-0.9); MONOCYTES % 6.3 % (0.0-11.0); NEUTROPHIL # 5.7 10^3/ul (1.6-7.5); NEUTROPHILS % 67.5 % (39.0-77.0); PLATELET COUNT 323 10^3/UL (140-415); RED BLOOD COUNT 3.55 10^6/ul (4.70-6.10); RED CELL DISTRIBUTION WIDTH 16.9 % (11.5-14.5)
[2017-04-12 08:16] LABS: WHITE BLOOD COUNT 8.4 10^3/ul (4.8-10.8)
[2017-04-12] MEDS: VORICONAZOLE 200 MG TAB PO ×2 (08:29→21:52)
[2017-04-12] MEDS: LOPERAMIDE 2 MG CAP PO ×3 (08:29→21:52)
[2017-04-12] MEDS: LACTOBACILLUS RHAMNOSUS CAP PO ×2 (08:29→21:52)
[2017-04-12] MEDS: CITRIC ACID/SODIUM CITRATE 15 ML CUP PO ×2 (08:29→21:52)
[2017-04-12] MEDS: ZINC SULFATE 220 MG CAP PO (08:29)
[2017-04-12 08:47] LABS: ANION GAP 19 (8-16); BLOOD UREA NITROGEN 30 mg/dl (7-20); CALCIUM 9.7 mg/dl (8.4-10.2); CARBON DIOXIDE 20 mmol/L (21-31); CHLORIDE 111 mmol/L (97-110); CREATININE 1.69 mg/dl (0.61-1.24); GLUCOSE 148 mg/dl (70-220); POTASSIUM 4.7 mmol/L (3.5-5.1); SODIUM 145 mmol/L (135-144)
[2017-04-13] MEDS: PANTOPRAZOLE (EC) 40 MG TAB PO (07:40)
[2017-04-13 08:04] LABS: ADD MAN DIFF? NO
[2017-04-13] MEDS: LACTOBACILLUS RHAMNOSUS CAP PO ×2 (08:06→20:36)
[2017-04-13] MEDS: CITRIC ACID/SODIUM CITRATE 15 ML CUP PO ×2 (08:06→20:36)
[2017-04-13] MEDS: LOPERAMIDE 2 MG CAP PO ×3 (08:06→20:36)
[2017-04-13] MEDS: VORICONAZOLE 200 MG TAB PO ×2 (08:06→20:36)
[2017-04-13] MEDS: ZINC SULFATE 220 MG CAP PO (08:06)
[2017-04-13 08:14] LABS: WHITE BLOOD COUNT 9.1 10^3/ul (4.8-10.8)
[2017-04-13 08:14] LABS: BASOPHIL # 0.1 10^3/ul (0.0-0.1); BASOPHILS % 0.8 % (0.0-2.0); EOSINOPHILS # 0.2 10^3/ul (0.0-0.5); EOSINOPHILS % 1.9 % (0.0-7.0); HEMATOCRIT 31.3 % (42.0-52.0); HEMOGLOBIN 10.1 g/dl (14.0-18.0); LYMPHOCYTES # 2.5 10^3/ul (0.8-2.9); LYMPHOCYTES % 27.9 % (15.0-51.0); MEAN CORPUSCULAR HEMOGLOBIN 29.2 pg (29.0-33.0); MEAN CORPUSCULAR HGB CONC 32.3 g/dl (32.0-37.0); MEAN CORPUSCULAR VOLUME 90.5 fl (82.0-101.0); MEAN PLATELET VOLUME 10.4 fl (7.4-10.4); MONOCYTE # 0.8 10^3/ul (0.3-0.9); MONOCYTES % 8.8 % (0.0-11.0); NEUTROPHIL # 5.5 10^3/ul (1.6-7.5); NEUTROPHILS % 60.2 % (39.0-77.0); PLATELET COUNT 359 10^3/UL (140-415); RED BLOOD COUNT 3.46 10^6/ul (4.70-6.10); RED CELL DISTRIBUTION WIDTH 17.2 % (11.5-14.5)
[2017-04-13 08:30] LABS: ANION GAP 16 (8-16); BLOOD UREA NITROGEN 28 mg/dl (7-20); CALCIUM 9.9 mg/dl (8.4-10.2); CARBON DIOXIDE 21 mmol/L (21-31); CHLORIDE 109 mmol/L (97-110); CREATININE 1.89 mg/dl (0.61-1.24); GLUCOSE 91 mg/dl (70-220); POTASSIUM 4.4 mmol/L (3.5-5.1); SODIUM 142 mmol/L (135-144)
[2017-04-13 08:33] LABS: MAGNESIUM 1.3 mg/dl (1.7-2.5)
[2017-04-13 08:33] LABS: PHOSPHORUS 3.4 mg/dl (2.5-4.9)
[2017-04-13] MEDS: DEXTROSE 5%-0.45% NACL 1,000 ML IV (09:40)
[2017-04-13] MEDS: HYDROCODONE/APAP (10/325) TAB PO (09:51)
[2017-04-13] MEDS: MAGNESIUM SULFATE 3 GM in DEXTROSE 5% 100 ML IVPB (10:08)
[2017-04-13] MEDS: ACETAMINOPHEN 325 MG TAB PO (20:37)
[2017-04-14] MEDS: DEXTROSE 5%-0.45% NACL 1,000 ML IV ×2 (02:20→08:42)
[2017-04-14] MEDS: PANTOPRAZOLE (EC) 40 MG TAB PO (08:40)
[2017-04-14] MEDS: HYDROCODONE/APAP (10/325) TAB PO ×3 (08:41→19:04)
[2017-04-14] MEDS: LACTOBACILLUS RHAMNOSUS CAP PO ×2 (09:00→20:47)
[2017-04-14] MEDS: VORICONAZOLE 200 MG TAB PO ×2 (09:34→20:47)
[2017-04-14] MEDS: ZINC SULFATE 220 MG CAP PO (09:34)
[2017-04-14] MEDS: CITRIC ACID/SODIUM CITRATE 15 ML CUP PO ×2 (09:35→20:47)
[2017-04-14] MEDS: LOPERAMIDE 2 MG CAP PO ×3 (09:35→20:47)
[2017-04-14] MEDS: ACETAMINOPHEN 325 MG TAB PO (20:50)
[2017-04-15 06:36] LABS: ADD MAN DIFF? NO
[2017-04-15 06:45] LABS: BASOPHILS % 0.5 % (0.0-2.0); EOSINOPHILS # 0.3 10^3/ul (0.0-0.5); EOSINOPHILS % 3.5 % (0.0-7.0); HEMOGLOBIN 9.1 g/dl (14.0-18.0); LYMPHOCYTES % 27.5 % (15.0-51.0); MEAN CORPUSCULAR HEMOGLOBIN 28.8 pg (29.0-33.0); MEAN CORPUSCULAR HGB CONC 31.4 g/dl (32.0-37.0); MEAN CORPUSCULAR VOLUME 91.8 fl (82.0-101.0); MEAN PLATELET VOLUME 10.7 fl (7.4-10.4); MONOCYTE # 0.8 10^3/ul (0.3-0.9); MONOCYTES % 10.9 % (0.0-11.0); NEUTROPHIL # 4.2 10^3/ul (1.6-7.5); NEUTROPHILS % 57.2 % (39.0-77.0); PLATELET COUNT 268 10^3/UL (140-415); RED BLOOD COUNT 3.16 10^6/ul (4.70-6.10); RED CELL DISTRIBUTION WIDTH 16.8 % (11.5-14.5)
[2017-04-15 06:45] LABS: WHITE BLOOD COUNT 7.4 10^3/ul (4.8-10.8)
[2017-04-15 07:10] LABS: ANION GAP 15 (8-16); BLOOD UREA NITROGEN 29 mg/dl (7-20); CALCIUM 9.3 mg/dl (8.4-10.2); CARBON DIOXIDE 21 mmol/L (21-31); CHLORIDE 108 mmol/L (97-110); CREATININE 2.01 mg/dl (0.61-1.24); GLUCOSE 116 mg/dl (70-220); POTASSIUM 4.4 mmol/L (3.5-5.1); SODIUM 140 mmol/L (135-144)
[2017-04-15 07:17] LABS: MAGNESIUM 1.7 mg/dl (1.7-2.5)
[2017-04-15] MEDS: PANTOPRAZOLE (EC) 40 MG TAB PO (07:32)
[2017-04-15] MEDS: CITRIC ACID/SODIUM CITRATE 15 ML CUP PO ×2 (08:39→21:19)
[2017-04-15] MEDS: ZINC SULFATE 220 MG CAP PO (08:39)
[2017-04-15] MEDS: VORICONAZOLE 200 MG TAB PO ×2 (08:39→21:20)
[2017-04-15] MEDS: LOPERAMIDE 2 MG CAP PO ×3 (08:39→21:20)
[2017-04-15] MEDS: ACETAMINOPHEN 325 MG TAB PO ×2 (08:39→15:09)
[2017-04-15] MEDS: LACTOBACILLUS RHAMNOSUS CAP PO ×2 (09:25→21:20)
[2017-04-15] MEDS: DEXTROSE 5%-0.45% NACL 1,000 ML IV ×2 (11:40→21:22)
[2017-04-15] MEDS: ACETAMINOPHEN 650MG/20.3ML CUP PO (21:33)
[2017-04-16] MEDS: PANTOPRAZOLE (EC) 40 MG TAB PO (07:47)
[2017-04-16] MEDS: CITRIC ACID/SODIUM CITRATE 15 ML CUP PO ×2 (09:11→21:33)
[2017-04-16] MEDS: LACTOBACILLUS RHAMNOSUS CAP PO ×2 (09:12→21:00)
[2017-04-16] MEDS: VORICONAZOLE 200 MG TAB PO ×2 (09:12→21:33)
[2017-04-16] MEDS: LOPERAMIDE 2 MG CAP PO ×3 (09:12→21:33)
[2017-04-16] MEDS: ZINC SULFATE 220 MG CAP PO (09:12)
[2017-04-16] MEDS: ACETAMINOPHEN 325 MG TAB PO ×2 (09:34→23:01)
[2017-04-16] MEDS: DEXTROSE 5%-0.45% NACL 1,000 ML IV (12:46)
[2017-04-17] MEDS: DEXTROSE 5%-0.45% NACL 1,000 ML IV (06:12)
[2017-04-17 08:36] LABS: ADD MAN DIFF? NO
[2017-04-17 08:43] LABS: WHITE BLOOD COUNT 7.8 10^3/ul (4.8-10.8)
[2017-04-17 08:43] LABS: BASOPHILS % 0.4 % (0.0-2.0); EOSINOPHILS # 0.1 10^3/ul (0.0-0.5); EOSINOPHILS % 1.4 % (0.0-7.0); HEMATOCRIT 30.2 % (42.0-52.0); HEMOGLOBIN 9.7 g/dl (14.0-18.0); LYMPHOCYTES # 1.6 10^3/ul (0.8-2.9); LYMPHOCYTES % 20.7 % (15.0-51.0); MEAN CORPUSCULAR HEMOGLOBIN 28.8 pg (29.0-33.0); MEAN CORPUSCULAR HGB CONC 32.1 g/dl (32.0-37.0); MEAN CORPUSCULAR VOLUME 89.6 fl (82.0-101.0); MEAN PLATELET VOLUME 10.6 fl (7.4-10.4); MONOCYTE # 0.9 10^3/ul (0.3-0.9); MONOCYTES % 11.6 % (0.0-11.0); NEUTROPHIL # 5.1 10^3/ul (1.6-7.5); NEUTROPHILS % 65.5 % (39.0-77.0); PLATELET COUNT 260 10^3/UL (140-415); RED BLOOD COUNT 3.37 10^6/ul (4.70-6.10); RED CELL DISTRIBUTION WIDTH 16.9 % (11.5-14.5)
[2017-04-17] MEDS: LOPERAMIDE 2 MG CAP PO ×3 (08:48→20:28)
[2017-04-17] MEDS: VORICONAZOLE 200 MG TAB PO ×2 (08:48→20:28)
[2017-04-17] MEDS: LACTOBACILLUS RHAMNOSUS CAP PO ×2 (08:48→20:28)
[2017-04-17] MEDS: ZINC SULFATE 220 MG CAP PO (08:48)
[2017-04-17] MEDS: CITRIC ACID/SODIUM CITRATE 15 ML CUP PO ×2 (08:48→20:28)
[2017-04-17] MEDS: PANTOPRAZOLE (EC) 40 MG TAB PO (08:48)
[2017-04-17 09:02] LABS: PHOSPHORUS 2.9 mg/dl (2.5-4.9)
[2017-04-17 09:02] LABS: MAGNESIUM 1.6 mg/dl (1.7-2.5)
[2017-04-17 09:11] LABS: ANION GAP 18 (8-16); BLOOD UREA NITROGEN 24 mg/dl (7-20); CALCIUM 9.6 mg/dl (8.4-10.2); CARBON DIOXIDE 18 mmol/L (21-31); CHLORIDE 112 mmol/L (97-110); CREATININE 1.86 mg/dl (0.61-1.24); GLUCOSE 98 mg/dl (70-220); POTASSIUM 4.3 mmol/L (3.5-5.1); SODIUM 144 mmol/L (135-144)
[2017-04-17] MEDS: MAGNESIUM SULFATE 2 GM/50 ML 50 ML IVPB (10:25)
[2017-04-17] MEDS: ACETAMINOPHEN 325 MG TAB PO (23:42)
[2017-04-18] MEDS: DEXTROSE 5%-0.45% NACL 1,000 ML IV ×2 (01:30→20:49)
[2017-04-18] MEDS: PANTOPRAZOLE (EC) 40 MG TAB PO (06:22)
[2017-04-18] MEDS: ZINC SULFATE 220 MG CAP PO (08:32)
[2017-04-18] MEDS: LACTOBACILLUS RHAMNOSUS CAP PO ×2 (08:32→20:44)
[2017-04-18] MEDS: LOPERAMIDE 2 MG CAP PO ×3 (08:32→20:44)
[2017-04-18] MEDS: CITRIC ACID/SODIUM CITRATE 15 ML CUP PO ×2 (08:32→20:44)
[2017-04-18] MEDS: VORICONAZOLE 200 MG TAB PO (08:32)
[2017-04-18] MEDS: ERTAPENEM SODIUM 1 GM in SOD CHLORIDE 0.9% 100 ML IVPB (11:00)
[2017-04-18 12:22] LABS: ANION GAP 17 (8-16); BLOOD UREA NITROGEN 23 mg/dl (7-20); CALCIUM 9.5 mg/dl (8.4-10.2); CARBON DIOXIDE 19 mmol/L (21-31); CHLORIDE 111 mmol/L (97-110); GLUCOSE 149 mg/dl (70-220); POTASSIUM 3.9 mmol/L (3.5-5.1); SODIUM 143 mmol/L (135-144)
[2017-04-18] MEDS: ZYVOX 600 MG TAB PO ×2 (17:29→20:45)
[2017-04-18] MEDS: HYDROCODONE/APAP (10/325) TAB PO (17:29)
[2017-04-19] MEDS: PANTOPRAZOLE (EC) 40 MG TAB PO (06:21)
[2017-04-19] MEDS: HYDROCODONE/APAP (10/325) TAB PO (06:27)
[2017-04-19 06:49] LABS: ADD MAN DIFF? NO
[2017-04-19 06:53] LABS: WHITE BLOOD COUNT 6.7 10^3/ul (4.8-10.8)
[2017-04-19 06:53] LABS: BASOPHILS % 0.6 % (0.0-2.0); EOSINOPHILS # 0.2 10^3/ul (0.0-0.5); EOSINOPHILS % 2.5 % (0.0-7.0); HEMATOCRIT 27.7 % (42.0-52.0); HEMOGLOBIN 9.4 g/dl (14.0-18.0); LYMPHOCYTES # 1.4 10^3/ul (0.8-2.9); LYMPHOCYTES % 21.4 % (15.0-51.0); MEAN CORPUSCULAR HEMOGLOBIN 30.4 pg (29.0-33.0); MEAN CORPUSCULAR HGB CONC 33.9 g/dl (32.0-37.0); MEAN CORPUSCULAR VOLUME 89.6 fl (82.0-101.0); MEAN PLATELET VOLUME 10.3 fl (7.4-10.4); MONOCYTE # 0.9 10^3/ul (0.3-0.9); NEUTROPHIL # 4.1 10^3/ul (1.6-7.5); NEUTROPHILS % 61.2 % (39.0-77.0); PLATELET COUNT 229 10^3/UL (140-415); RED BLOOD COUNT 3.09 10^6/ul (4.70-6.10); RED CELL DISTRIBUTION WIDTH 16.8 % (11.5-14.5)
[2017-04-19 07:15] LABS: ANION GAP 17 (8-16); BLOOD UREA NITROGEN 28 mg/dl (7-20); CALCIUM 9.3 mg/dl (8.4-10.2); CARBON DIOXIDE 18 mmol/L (21-31); CHLORIDE 110 mmol/L (97-110); CREATININE 1.88 mg/dl (0.61-1.24); GLUCOSE 108 mg/dl (70-220); POTASSIUM 4.7 mmol/L (3.5-5.1); SODIUM 140 mmol/L (135-144)
[2017-04-19] MEDS: ZINC SULFATE 220 MG CAP PO (08:38)
[2017-04-19] MEDS: ZYVOX 600 MG TAB PO ×2 (08:38→22:35)
[2017-04-19] MEDS: CITRIC ACID/SODIUM CITRATE 15 ML CUP PO ×2 (08:38→22:34)
[2017-04-19] MEDS: LOPERAMIDE 2 MG CAP PO ×3 (08:38→22:35)
[2017-04-19] MEDS: LACTOBACILLUS RHAMNOSUS CAP PO ×2 (08:38→22:35)
[2017-04-19 10:19] LABS: PHOSPHORUS 3.3 mg/dl (2.5-4.9)
[2017-04-19 10:19] LABS: MAGNESIUM 1.7 mg/dl (1.7-2.5)
[2017-04-19] MEDS: ACETAMINOPHEN 325 MG TAB PO (11:56)
[2017-04-19] MEDS: ERTAPENEM SODIUM 1 GM in SOD CHLORIDE 0.9% 100 ML IVPB (11:56)
[2017-04-19] MEDS: DEXTROSE 5%-0.45% NACL 1,000 ML IV (11:56)
[2017-04-20] MEDS: HYDROCODONE/APAP (10/325) TAB PO (00:55)
[2017-04-20] MEDS: DEXTROSE 5%-0.45% NACL 1,000 ML IV (07:20)
[2017-04-20] MEDS: PANTOPRAZOLE (EC) 40 MG TAB PO (07:20)
[2017-04-20] MEDS: ZINC SULFATE 220 MG CAP PO (09:06)
[2017-04-20] MEDS: LOPERAMIDE 2 MG CAP PO ×3 (09:06→21:37)
[2017-04-20] MEDS: ZYVOX 600 MG TAB PO ×2 (09:06→21:37)
[2017-04-20] MEDS: LACTOBACILLUS RHAMNOSUS CAP PO ×2 (09:06→21:37)
[2017-04-20] MEDS: CITRIC ACID/SODIUM CITRATE 15 ML CUP PO ×2 (09:11→21:36)
[2017-04-20] MEDS: ERTAPENEM SODIUM 1 GM in SOD CHLORIDE 0.9% 100 ML IVPB (11:54)
[2017-04-20] MEDS: ACETAMINOPHEN 325 MG TAB PO ×2 (12:08→17:15)
[2017-04-21] MEDS: DEXTROSE 5%-0.45% NACL 1,000 ML IV ×2 (01:07→17:39)
[2017-04-21] MEDS: PANTOPRAZOLE (EC) 40 MG TAB PO (06:32)
[2017-04-21] MEDS: CITRIC ACID/SODIUM CITRATE 15 ML CUP PO ×2 (09:36→20:37)
[2017-04-21] MEDS: LOPERAMIDE 2 MG CAP PO ×3 (09:37→20:37)
[2017-04-21] MEDS: ZYVOX 600 MG TAB PO ×2 (09:37→20:37)
[2017-04-21] MEDS: LACTOBACILLUS RHAMNOSUS CAP PO ×2 (09:37→20:37)
[2017-04-21] MEDS: ZINC SULFATE 220 MG CAP PO (09:37)
[2017-04-21] MEDS: ERTAPENEM SODIUM 1 GM in SOD CHLORIDE 0.9% 100 ML IVPB (11:54)
[2017-04-21] MEDS: ACETAMINOPHEN 325 MG TAB PO ×2 (15:51→22:40)
[2017-04-22] MEDS: PANTOPRAZOLE (EC) 40 MG TAB PO (06:33)
[2017-04-22] MEDS: CITRIC ACID/SODIUM CITRATE 15 ML CUP PO ×2 (08:58→21:02)
[2017-04-22] MEDS: LACTOBACILLUS RHAMNOSUS CAP PO ×2 (08:58→21:02)
[2017-04-22] MEDS: DEXTROSE 5%-0.45% NACL 1,000 ML IV ×2 (08:59→10:20)
[2017-04-22] MEDS: ZINC SULFATE 220 MG CAP PO (08:59)
[2017-04-22] MEDS: ZYVOX 600 MG TAB PO ×2 (08:59→21:03)
[2017-04-22] MEDS: LOPERAMIDE 2 MG CAP PO ×3 (08:59→21:03)
[2017-04-22] MEDS: ERTAPENEM SODIUM 1 GM in SOD CHLORIDE 0.9% 100 ML IVPB (12:51)
[2017-04-22] MEDS: ACETAMINOPHEN 325 MG TAB PO (21:14)
[2017-04-23] MEDS: DEXTROSE 5%-0.45% NACL 1,000 ML IV (03:08)
[2017-04-23 05:35] LABS: ADD MAN DIFF? NO
[2017-04-23 05:40] LABS: WHITE BLOOD COUNT 7.7 10^3/ul (4.8-10.8)
[2017-04-23 05:40] LABS: BASOPHILS % 0.5 % (0.0-2.0); EOSINOPHILS # 0.2 10^3/ul (0.0-0.5); HEMATOCRIT 29.5 % (42.0-52.0); HEMOGLOBIN 9.9 g/dl (14.0-18.0); LYMPHOCYTES % 26.1 % (15.0-51.0); MEAN CORPUSCULAR HEMOGLOBIN 29.6 pg (29.0-33.0); MEAN CORPUSCULAR HGB CONC 33.6 g/dl (32.0-37.0); MEAN CORPUSCULAR VOLUME 88.1 fl (82.0-101.0); MEAN PLATELET VOLUME 9.4 fl (7.4-10.4); MONOCYTE # 0.5 10^3/ul (0.3-0.9); MONOCYTES % 6.2 % (0.0-11.0); NEUTROPHIL # 4.9 10^3/ul (1.6-7.5); NEUTROPHILS % 64.2 % (39.0-77.0); PLATELET COUNT 263 10^3/UL (140-415); RED BLOOD COUNT 3.35 10^6/ul (4.70-6.10); RED CELL DISTRIBUTION WIDTH 16.7 % (11.5-14.5)
[2017-04-23] MEDS: PANTOPRAZOLE (EC) 40 MG TAB PO (05:47)
[2017-04-23 06:08] LABS: ALANINE AMINOTRANSFERASE 20 IU/L (13-69); ALBUMIN 3.7 g/dl (3.3-4.9); ALBUMIN/GLOBULIN RATIO 1.08; ALKALINE PHOSPHATASE 329 IU/L (42-121); ANION GAP 20 (8-16); ASPARTATE AMINO TRANSFERASE 19 IU/L (15-46); BLOOD UREA NITROGEN 27 mg/dl (7-20); CALCIUM 9.4 mg/dl (8.4-10.2); CARBON DIOXIDE 18 mmol/L (21-31); CHLORIDE 112 mmol/L (97-110); CREATININE 2.13 mg/dl (0.61-1.24); GLUCOSE 136 mg/dl (70-220); POTASSIUM 4.2 mmol/L (3.5-5.1); SODIUM 146 mmol/L (135-144); TOTAL PROTEIN 7.1 g/dl (6.1-8.1)
[2017-04-23] MEDS: CITRIC ACID/SODIUM CITRATE 15 ML CUP PO (09:01)
[2017-04-23] MEDS: LOPERAMIDE 2 MG CAP PO ×2 (09:02→13:30)
[2017-04-23] MEDS: ZINC SULFATE 220 MG CAP PO (09:02)
[2017-04-23] MEDS: LACTOBACILLUS RHAMNOSUS CAP PO (09:02)
[2017-04-23] MEDS: ZYVOX 600 MG TAB PO (09:02)
[2017-04-23] MEDS: ERTAPENEM SODIUM 1 GM in SOD CHLORIDE 0.9% 100 ML IVPB (11:00)
== END 2017-04-23 19:25 | DRG 871 ==
LOC: ICU 03-13 00:12 → TEL 03-18 16:25 → E/R 20:54 → TEL 03-18 22:31
PROVIDERS: Internal Medicine
PROC: 0TP98DZ Removal of Intraluminal Device from Ureter, Via Natural or Artificial Opening Endoscopic (ICD-10-PCS; principal; 2017-03-24 13:00)
PROC: BT1B1ZZ Fluoroscopy of Bladder and Urethra using Low Osmolar Contrast (ICD-10-PCS; 2017-03-24 13:00)
PROC: 0T788DZ Dilation of Bilateral Ureters with Intraluminal Device, Via Natural or Artificial Opening Endoscopic (ICD-10-PCS; 2017-03-24 13:00)
PROC: 02HV33Z Insertion of Infusion Device into Superior Vena Cava, Percutaneous Approach (ICD-10-PCS; 2017-03-24 13:12)
PROC: 30233N1 Transfusion of Nonautologous Red Blood Cells into Peripheral Vein, Percutaneous Approach (ICD-10-PCS; 2017-03-24 13:12)
DX: A41.51 Sepsis due to Escherichia coli [E. coli] (principal); R65.21 Severe sepsis with septic shock; N17.0 Acute kidney failure with tubular necrosis; E43 Unspecified severe protein-calorie malnutrition; E87.5 Hyperkalemia; I82.511 Chronic embolism and thrombosis of right femoral vein; J44.9 Chronic obstructive pulmonary disease, unspecified; B48.8 Other specified mycoses; B37.49 Other urogenital candidiasis; E86.0 Dehydration; R64 Cachexia; Z68.1 Body mass index [BMI] 19.9 or less, adult; N18.9 Chronic kidney disease, unspecified; Z85.51 Personal history of malignant neoplasm of bladder; Z86.718 Personal history of other venous thrombosis and embolism; D64.9 Anemia, unspecified; Z93.3 Colostomy status; R00.1 Bradycardia, unspecified; N13.9 Obstructive and reflux uropathy, unspecified; R91.1 Solitary pulmonary nodule; Z16.12 Extended spectrum beta lactamase (ESBL) resistance; B95.2 Enterococcus as the cause of diseases classified elsewhere; Z16.21 Resistance to vancomycin
CPT/HCPCS: 36415; 36430; 36569; 71045; 74176; 74430; 76775; 76937; 80048; 80053; 80076; 81001; 82150; 82962; 83605; 83690; 83735; 84100; 84132; 84439; 84443; 84480; 85014; 85018; 85025; 86850; 86900; 86901; 86920; 87040; 87070; 87081; 87086; 87103; 93005; 94664; 96361; 96365; 96368; 96375; 97110; 97116; 97163; 97530; 99291-25

== ENCOUNTER 2017-05-04 22:49 | Inpatient (IN) | payer BC ==
[2017-05-05] MEDS ORDERED: ONDANSETRON 4 MG INJ IV ×2 (00:30→07:30)
[2017-05-05] MEDS: SOD CHLORIDE 0.9% 1,000 ML IV ×3 (02:19→21:02)
[2017-05-05 02:57] LABS: ADD MAN DIFF? NO
[2017-05-05 02:59] LABS: WHITE BLOOD COUNT 7.1 10^3/ul (4.8-10.8)
[2017-05-05 02:59] LABS: BASOPHILS % 0.4 % (0.0-2.0); EOSINOPHILS # 0.1 10^3/ul (0.0-0.5); EOSINOPHILS % 1.3 % (0.0-7.0); HEMOGLOBIN 7.4 g/dl (14.0-18.0); LYMPHOCYTES # 1.8 10^3/ul (0.8-2.9); LYMPHOCYTES % 25.5 % (15.0-51.0); MEAN CORPUSCULAR HEMOGLOBIN 30.1 pg (29.0-33.0); MEAN CORPUSCULAR HGB CONC 35.2 g/dl (32.0-37.0); MEAN CORPUSCULAR VOLUME 85.4 fl (82.0-101.0); MEAN PLATELET VOLUME 9.4 fl (7.4-10.4); MONOCYTE # 0.7 10^3/ul (0.3-0.9); MONOCYTES % 9.9 % (0.0-11.0); NEUTROPHIL # 4.5 10^3/ul (1.6-7.5); NEUTROPHILS % 62.3 % (39.0-77.0); PLATELET COUNT 168 10^3/UL (140-415); RED BLOOD COUNT 2.46 10^6/ul (4.70-6.10); RED CELL DISTRIBUTION WIDTH 16.2 % (11.5-14.5)
[2017-05-05 03:09] LABS: ADD UMIC YES; UR ASCORBIC ACID NEGATIVE (NEGATIVE); UR BACTERIA FEW /HPF (NONE SEEN); UR BILIRUBIN (Dip) NEGATIVE (NEGATIVE); UR BLOOD (Dip) 3+ mg/dL (NEGATIVE); UR CLARITY CLOUDY (CLEAR); UR COLOR RED (YELLOW); UR GLUCOSE (Dip) NEGATIVE (NEGATIVE); UR KETONES (Dip) NEGATIVE (NEGATIVE); UR LEUKOCYTE ESTERASE (Dip) 3+ Leu/ul (NEGATIVE); UR NITRITE (Dip) NEGATIVE (NEGATIVE); UR RBC > 182 /HPF (0-5); UR SPECIFIC GRAVITY (Dip) 1.011 (1.003-1.030); UR TOTAL PROTEIN (Dip) 3+ mg/dl (NEGATIVE); UR UROBILINOGEN (Dip) NEGATIVE (NEGATIVE); UR WBC > 182 /HPF (0-5)
[2017-05-05 03:21] LABS: ALANINE AMINOTRANSFERASE 26 IU/L (13-69); ALBUMIN 2.5 g/dl (3.3-4.9); ALBUMIN/GLOBULIN RATIO 0.89; ALKALINE PHOSPHATASE 130 IU/L (42-121); ANION GAP 14 (8-16); ASPARTATE AMINO TRANSFERASE 13 IU/L (15-46); BILIRUBIN,INDIRECT 0.2 mg/dl (0-1.1); BILIRUBIN,TOTAL 0.2 mg/dl (0.2-1.3); BLOOD UREA NITROGEN 36 mg/dl (7-20); CALCIUM 7.2 mg/dl (8.4-10.2); CARBON DIOXIDE 17 mmol/L (21-31); CHLORIDE 115 mmol/L (97-110); CREATININE 1.72 mg/dl (0.61-1.24); GLUCOSE 75 mg/dl (70-220); POTASSIUM 3.2 mmol/L (3.5-5.1); SODIUM 143 mmol/L (135-144); TOTAL PROTEIN 5.3 g/dl (6.1-8.1)
[2017-05-05 03:25] LABS: HEMOGLOBIN A1C 5.7 % (0-5.9)
[2017-05-05 03:27] LABS: MAGNESIUM 0.9 mg/dl (1.7-2.5)
[2017-05-05] MEDS: MAGNESIUM SULFATE 6 GM in DEXTROSE 5% 100 ML IVPB (06:00)
[2017-05-05] MEDS ORDERED: ALBUTEROL/IPRATROPIUM (NEB) 3 ML AMP HHN (07:30)
[2017-05-05] MEDS ORDERED: NACL 0.9% 3 ML SYG IV (07:30)
[2017-05-05] MEDS: PANTOPRAZOLE (EC) 40 MG TAB PO (07:49)
[2017-05-05] MEDS: ZINC SULFATE 220 MG CAP PO (09:41)
[2017-05-05] MEDS: LOPERAMIDE 2 MG CAP PO ×3 (09:41→20:58)
[2017-05-05 09:43] LABS: HEMATOCRIT 23.5 % (42.0-52.0); HEMOGLOBIN 8.1 g/dl (14.0-18.0)
[2017-05-05] MEDS: POTASSIUM PHOSPHATE 20 MEQ in SOD CHLORIDE 0.9% 250 ML IVPB (11:57)
[2017-05-05 12:23] LABS: ADD UMIC YES; UR ASCORBIC ACID NEGATIVE (NEGATIVE); UR BACTERIA FEW /HPF (NONE SEEN); UR BILIRUBIN (Dip) NEGATIVE (NEGATIVE); UR BLOOD (Dip) 3+ mg/dL (NEGATIVE); UR CLARITY CLOUDY (CLEAR); UR COLOR RED (YELLOW); UR GLUCOSE (Dip) NEGATIVE (NEGATIVE); UR KETONES (Dip) NEGATIVE (NEGATIVE); UR LEUKOCYTE ESTERASE (Dip) 3+ Leu/ul (NEGATIVE); UR NITRITE (Dip) NEGATIVE (NEGATIVE); UR RBC > 182 /HPF (0-5); UR SPECIFIC GRAVITY (Dip) 1.012 (1.003-1.030); UR TOTAL PROTEIN (Dip) 2+ mg/dl (NEGATIVE); UR UROBILINOGEN (Dip) NEGATIVE (NEGATIVE); UR WBC > 182 /HPF (0-5)
[2017-05-05 13:32] LABS: CREATININE,URINE RANDOM 78.74 mg/dl (20-370)
[2017-05-05 13:32] LABS: SODIUM,URINE RANDOM 59 mmol/L (30-90)
[2017-05-05] MEDS: DOCUSATE SODIUM 100 MG CAP PO (21:00)
[2017-05-05] MEDS: ERTAPENEM SODIUM 1 GM in SOD CHLORIDE 0.9% 100 ML IVPB (21:31)
[2017-05-05] MEDS: ACETAMINOPHEN 325 MG TAB PO (23:43)
[2017-05-06] MEDS: SOD CHLORIDE 0.9% 1,000 ML IV (06:30)
[2017-05-06 08:03] LABS: ADD MAN DIFF? NO
[2017-05-06] MEDS: LOPERAMIDE 2 MG CAP PO ×2 (08:10→13:19)
[2017-05-06] MEDS: PANTOPRAZOLE (EC) 40 MG TAB PO (08:10)
[2017-05-06] MEDS: DOCUSATE SODIUM 100 MG CAP PO ×2 (08:10→20:54)
[2017-05-06] MEDS: ZINC SULFATE 220 MG CAP PO (08:10)
[2017-05-06 08:25] LABS: INR 0.99; PARTIAL THROMBOPLASTIN TIME 28.4 Sec (25.0-35.0); PROTIME 13.2 Sec (11.9-14.9)
[2017-05-06 08:27] LABS: ALANINE AMINOTRANSFERASE 21 IU/L (13-69); ALBUMIN 2.6 g/dl (3.3-4.9); ALKALINE PHOSPHATASE 139 IU/L (42-121); ANION GAP 16 (8-16); ASPARTATE AMINO TRANSFERASE 16 IU/L (15-46); BLOOD UREA NITROGEN 29 mg/dl (7-20); CALCIUM 7.3 mg/dl (8.4-10.2); CARBON DIOXIDE 15 mmol/L (21-31); CHLORIDE 118 mmol/L (97-110); CREATININE 1.81 mg/dl (0.61-1.24); GLUCOSE 77 mg/dl (70-220); MAGNESIUM 2.2 mg/dl (1.7-2.5); POTASSIUM 3.2 mmol/L (3.5-5.1); SODIUM 146 mmol/L (135-144); TOTAL PROTEIN 5.2 g/dl (6.1-8.1)
[2017-05-06 08:30] LABS: ANION GAP 13 (8-16); BLOOD UREA NITROGEN 29 mg/dl (7-20); CALCIUM 7.3 mg/dl (8.4-10.2); CARBON DIOXIDE 15 mmol/L (21-31); CHLORIDE 119 mmol/L (97-110); CREATININE 1.74 mg/dl (0.61-1.24); GLUCOSE 74 mg/dl (70-220); PHOSPHORUS 2.9 mg/dl (2.5-4.9); POTASSIUM 3.4 mmol/L (3.5-5.1); SODIUM 144 mmol/L (135-144)
[2017-05-06 09:36] LABS: WHITE BLOOD COUNT 9.5 10^3/ul (4.8-10.8)
[2017-05-06 09:36] LABS: BASOPHILS % 0.4 % (0.0-2.0); EOSINOPHILS # 0.2 10^3/ul (0.0-0.5); EOSINOPHILS % 1.8 % (0.0-7.0); HEMATOCRIT 25.7 % (42.0-52.0); LYMPHOCYTES % 21.4 % (15.0-51.0); MEAN CORPUSCULAR HEMOGLOBIN 30.3 pg (29.0-33.0); MEAN CORPUSCULAR VOLUME 86.5 fl (82.0-101.0); MONOCYTE # 0.7 10^3/ul (0.3-0.9); MONOCYTES % 7.5 % (0.0-11.0); NEUTROPHIL # 6.5 10^3/ul (1.6-7.5); NEUTROPHILS % 68.5 % (39.0-77.0); PLATELET COUNT 221 10^3/UL (140-415); RED BLOOD COUNT 2.97 10^6/ul (4.70-6.10); RED CELL DISTRIBUTION WIDTH 16.5 % (11.5-14.5)
[2017-05-06 09:55] LABS: AADO2 Arterial 10.4 mmHg (7.0-24.0); Allen Test ACCEPTAB; Arterial Base Excess -9.9 mmol/L (-3.0-3); Arterial Blood Gas Oxygen Sat 96.6 mmHG (95.0-98.0); Arterial COHb 0.2 % (0.0-3.0); Arterial Fraction of Oxyhgb 95.8 % (93.0-99.0); Arterial MetHb 0.6 % (0.0-1.5); Arterial Total Hemglobin 9.2 g/dl (12.0-18.0); Arterial pCO2 29.7 mmhg (35-45); MODE ROOM AIR; Site Right Radial
[2017-05-06] MEDS: POTASSIUM CHLORIDE (SR) 20 MEQ TAB PO (10:11)
[2017-05-06] MEDS: SOD CHLORIDE 0.45% 1,000 ML IV (10:12)
[2017-05-06] MEDS: FLUCONAZOLE 200 MG/NS (PMX) 100 ML IVPB (17:09)
[2017-05-06 17:29] LABS: CREATINE KINASE 211 IU/L (23-200)
[2017-05-06 17:43] LABS: CK INDEX 0.4
[2017-05-06 17:44] LABS: CK-MB 0.88 ng/ml (0.0-2.4); TROPONIN-I < 0.012 ng/ml (0.00-0.12)
[2017-05-06] MEDS: ERTAPENEM SODIUM 1 GM in SOD CHLORIDE 0.9% 100 ML IVPB (20:54)
[2017-05-07] MEDS: SOD CHLORIDE 0.45% 1,000 ML IV ×2 (00:10→11:45)
[2017-05-07] MEDS: morphine 2 MG INJ IV ×2 (00:12→21:02)
[2017-05-07] MEDS: DOCUSATE SODIUM 100 MG CAP PO ×2 (08:11→21:02)
[2017-05-07] MEDS: ZINC SULFATE 220 MG CAP PO (08:11)
[2017-05-07] MEDS: PANTOPRAZOLE (EC) 40 MG TAB PO (08:11)
[2017-05-07 15:15] LABS: ADD MAN DIFF? NO
[2017-05-07 15:17] LABS: CREATINE KINASE 22 IU/L (23-200)
[2017-05-07 15:22] LABS: WHITE BLOOD COUNT 7.7 10^3/ul (4.8-10.8)
[2017-05-07 15:22] LABS: HEMOGLOBIN 7.8 g/dl (14.0-18.0); RED BLOOD COUNT 2.55 10^6/ul (4.70-6.10)
[2017-05-07 15:23] LABS: BASOPHILS % 0.3 % (0.0-2.0); EOSINOPHILS # 0.2 10^3/ul (0.0-0.5); EOSINOPHILS % 2.6 % (0.0-7.0); HEMATOCRIT 22.4 % (42.0-52.0); LYMPHOCYTES # 1.8 10^3/ul (0.8-2.9); MEAN CORPUSCULAR HEMOGLOBIN 30.6 pg (29.0-33.0); MEAN CORPUSCULAR HGB CONC 34.8 g/dl (32.0-37.0); MEAN CORPUSCULAR VOLUME 87.8 fl (82.0-101.0); MEAN PLATELET VOLUME 9.8 fl (7.4-10.4); MONOCYTE # 0.6 10^3/ul (0.3-0.9); MONOCYTES % 8.2 % (0.0-11.0); NEUTROPHILS % 65.4 % (39.0-77.0); PLATELET COUNT 204 10^3/UL (140-415); RED CELL DISTRIBUTION WIDTH 16.7 % (11.5-14.5)
[2017-05-07 15:38] LABS: CK-MB < 0.22 ng/ml (0.0-2.4); TROPONIN-I < 0.012 ng/ml (0.00-0.12)
[2017-05-07 15:54] LABS: INR 0.94; PROTIME 12.7 Sec (11.9-14.9)
[2017-05-07 15:55] LABS: PARTIAL THROMBOPLASTIN TIME 30.9 Sec (25.0-35.0)
[2017-05-07 16:17] LABS: ANION GAP 16 (8-16); BLOOD UREA NITROGEN 24 mg/dl (7-20); CALCIUM 8.3 mg/dl (8.4-10.2); CARBON DIOXIDE 13 mmol/L (21-31); CHLORIDE 116 mmol/L (97-110); CREATININE 1.83 mg/dl (0.61-1.24); GLUCOSE 83 mg/dl (70-220); MAGNESIUM 1.8 mg/dl (1.7-2.5); PHOSPHORUS 2.8 mg/dl (2.5-4.9); POTASSIUM 4.3 mmol/L (3.5-5.1); SODIUM 141 mmol/L (135-144)
[2017-05-07] MEDS: FLUCONAZOLE 200 MG/NS (PMX) 100 ML IVPB (16:28)
[2017-05-07 17:13] LABS: B-TYPE NATRIURETIC PEPTIDE 146 PG/ML (0-125)
[2017-05-07 17:35] LABS: THYROID STIMULATING HORMONE 0.558 MIU/L (0.465-4.680)
[2017-05-07 18:17] LABS: CREATININE, RANDOM URINE 96 mg/dL (20-370); MICROALBUMIN/CREATININE RATIO 1167 (<30)
[2017-05-07 20:47] LABS: CREATINE KINASE 30 IU/L (23-200)
[2017-05-07 21:00] LABS: CK INDEX 0.8
[2017-05-07 21:02] LABS: CK-MB 0.25 ng/ml (0.0-2.4); TROPONIN-I < 0.012 ng/ml (0.00-0.12)
[2017-05-07] MEDS: ERTAPENEM SODIUM 1 GM in SOD CHLORIDE 0.9% 100 ML IVPB (21:02)
[2017-05-08] MEDS: SOD CHLORIDE 0.45% 1,000 ML IV ×2 (02:00)
[2017-05-08] MEDS: morphine 2 MG INJ IV ×4 (02:17→21:43)
[2017-05-08 07:21] LABS: ADD MAN DIFF? NO
[2017-05-08 07:23] LABS: WHITE BLOOD COUNT 7.1 10^3/ul (4.8-10.8)
[2017-05-08 07:23] LABS: BASOPHILS % 0.3 % (0.0-2.0); EOSINOPHILS # 0.2 10^3/ul (0.0-0.5); HEMOGLOBIN 7.2 g/dl (14.0-18.0); LYMPHOCYTES # 1.8 10^3/ul (0.8-2.9); LYMPHOCYTES % 25.1 % (15.0-51.0); MEAN CORPUSCULAR HEMOGLOBIN 30.6 pg (29.0-33.0); MEAN CORPUSCULAR HGB CONC 34.3 g/dl (32.0-37.0); MEAN CORPUSCULAR VOLUME 89.4 fl (82.0-101.0); MEAN PLATELET VOLUME 9.5 fl (7.4-10.4); MONOCYTE # 0.6 10^3/ul (0.3-0.9); MONOCYTES % 7.8 % (0.0-11.0); NEUTROPHIL # 4.5 10^3/ul (1.6-7.5); NEUTROPHILS % 63.4 % (39.0-77.0); PLATELET COUNT 200 10^3/UL (140-415); RED BLOOD COUNT 2.35 10^6/ul (4.70-6.10)
[2017-05-08 07:46] LABS: ANION GAP 16 (8-16); BLOOD UREA NITROGEN 21 mg/dl (7-20); CALCIUM 8.6 mg/dl (8.4-10.2); CARBON DIOXIDE 14 mmol/L (21-31); CHLORIDE 114 mmol/L (97-110); CREATININE 1.82 mg/dl (0.61-1.24); GLUCOSE 73 mg/dl (70-220); MAGNESIUM 1.6 mg/dl (1.7-2.5); PHOSPHORUS 2.9 mg/dl (2.5-4.9); POTASSIUM 4.2 mmol/L (3.5-5.1); SODIUM 140 mmol/L (135-144)
[2017-05-08] MEDS: DOCUSATE SODIUM 100 MG CAP PO ×2 (08:09→21:47)
[2017-05-08] MEDS: ZINC SULFATE 220 MG CAP PO (08:09)
[2017-05-08] MEDS: PANTOPRAZOLE (EC) 40 MG TAB PO (08:09)
[2017-05-08] MEDS: MAGNESIUM SULFATE 2 GM/50 ML 50 ML IVPB (09:21)
[2017-05-08 09:54] LABS: IRON 27 ug/dl (35-150)
[2017-05-08] MEDS: SODIUM BICARBONATE (IV ADD) 75 MEQ in DEXTROSE 5% 1,000 ML IV ×2 (09:58→23:20)
[2017-05-08 10:03] LABS: % IRON SATURATION 12 % SAT (22-52); TOTAL IRON BINDING CAPACITY 227 ug/dl (241-421)
[2017-05-08] MEDS: EPOETIN ALFA (NESRD) 3,000 UNITS/ML VIAL SC (12:01)
[2017-05-08] MEDS: FLUCONAZOLE 200 MG/NS (PMX) 100 ML IVPB (15:56)
[2017-05-08] MEDS: ERTAPENEM SODIUM 1 GM in SOD CHLORIDE 0.9% 100 ML IVPB (21:47)
[2017-05-09] MEDS: SODIUM BICARBONATE (IV ADD) 75 MEQ in DEXTROSE 5% 1,000 ML IV ×2 (00:35→14:48)
[2017-05-09] MEDS: PANTOPRAZOLE (EC) 40 MG TAB PO (07:53)
[2017-05-09] MEDS: ACETAMINOPHEN 325 MG TAB PO (07:53)
[2017-05-09] MEDS: DOCUSATE SODIUM 100 MG CAP PO ×2 (08:27→20:32)
[2017-05-09] MEDS: ZINC SULFATE 220 MG CAP PO (08:27)
[2017-05-09] MEDS: morphine 2 MG INJ IV ×3 (11:35→20:45)
[2017-05-09 12:22] LABS: ANION GAP 13 (8-16); BLOOD UREA NITROGEN 22 mg/dl (7-20); CALCIUM 8.6 mg/dl (8.4-10.2); CARBON DIOXIDE 19 mmol/L (21-31); CHLORIDE 111 mmol/L (97-110); CREATININE 1.88 mg/dl (0.61-1.24); GLUCOSE 93 mg/dl (70-220); POTASSIUM 4.2 mmol/L (3.5-5.1); SODIUM 139 mmol/L (135-144)
[2017-05-09] MEDS: FLUCONAZOLE 200 MG/NS (PMX) 100 ML IVPB (16:42)
[2017-05-09] MEDS: SOD FERRIC GLUC COMPLX 125 MG in SOD CHLORIDE 0.9% 100 ML IVPB (18:12)
[2017-05-09] MEDS: ERTAPENEM SODIUM 1 GM in SOD CHLORIDE 0.9% 100 ML IVPB (20:32)
[2017-05-10] MEDS: OXYCODONE/ACETAMINOPHEN (5/325) TAB PO (00:06)
[2017-05-10] MEDS: morphine 2 MG INJ IV (01:45)
[2017-05-10] MEDS: SODIUM BICARBONATE (IV ADD) 75 MEQ in DEXTROSE 5% 1,000 ML IV ×3 (04:00→18:35)
[2017-05-10 07:38] LABS: ADD MAN DIFF? NO
[2017-05-10] MEDS: PANTOPRAZOLE (EC) 40 MG TAB PO (07:44)
[2017-05-10 07:53] LABS: WHITE BLOOD COUNT 6.5 10^3/ul (4.8-10.8)
[2017-05-10 07:53] LABS: BASOPHILS % 0.3 % (0.0-2.0); EOSINOPHILS # 0.2 10^3/ul (0.0-0.5); EOSINOPHILS % 3.4 % (0.0-7.0); HEMOGLOBIN 7.2 g/dl (14.0-18.0); LYMPHOCYTES # 1.4 10^3/ul (0.8-2.9); LYMPHOCYTES % 22.1 % (15.0-51.0); MEAN CORPUSCULAR HEMOGLOBIN 30.4 pg (29.0-33.0); MEAN CORPUSCULAR HGB CONC 34.3 g/dl (32.0-37.0); MEAN CORPUSCULAR VOLUME 88.6 fl (82.0-101.0); MEAN PLATELET VOLUME 10.1 fl (7.4-10.4); MONOCYTE # 0.5 10^3/ul (0.3-0.9); MONOCYTES % 8.3 % (0.0-11.0); NEUTROPHIL # 4.3 10^3/ul (1.6-7.5); NEUTROPHILS % 65.4 % (39.0-77.0); PLATELET COUNT 224 10^3/UL (140-415); RED BLOOD COUNT 2.37 10^6/ul (4.70-6.10); RED CELL DISTRIBUTION WIDTH 17.1 % (11.5-14.5)
[2017-05-10 08:16] LABS: ANION GAP 15 (8-16); BLOOD UREA NITROGEN 24 mg/dl (7-20); CALCIUM 8.4 mg/dl (8.4-10.2); CARBON DIOXIDE 19 mmol/L (21-31); CHLORIDE 108 mmol/L (97-110); CREATININE 1.95 mg/dl (0.61-1.24); GLUCOSE 102 mg/dl (70-220); MAGNESIUM 1.5 mg/dl (1.7-2.5); PHOSPHORUS 2.9 mg/dl (2.5-4.9); POTASSIUM 3.9 mmol/L (3.5-5.1); SODIUM 138 mmol/L (135-144)
[2017-05-10] MEDS: DOCUSATE SODIUM 100 MG CAP PO ×2 (08:22→20:41)
[2017-05-10] MEDS: ZINC SULFATE 220 MG CAP PO (08:22)
[2017-05-10] MEDS: ACETAMINOPHEN 325 MG TAB PO (08:23)
[2017-05-10] MEDS: MAGNESIUM SULFATE 2 GM/50 ML 50 ML IVPB (12:13)
[2017-05-10] MEDS: SOD FERRIC GLUC COMPLX 125 MG in SOD CHLORIDE 0.9% 100 ML IVPB (16:55)
[2017-05-10] MEDS: morphine LIQ (10 MG/5 ML) CUP PO ×2 (17:04→21:00)
[2017-05-11 06:05] LABS: ADD MAN DIFF? NO
[2017-05-11 06:11] LABS: BASOPHILS % 0.4 % (0.0-2.0); EOSINOPHILS # 0.2 10^3/ul (0.0-0.5); EOSINOPHILS % 3.5 % (0.0-7.0); HEMATOCRIT 21.4 % (42.0-52.0); HEMOGLOBIN 7.3 g/dl (14.0-18.0); LYMPHOCYTES # 1.4 10^3/ul (0.8-2.9); LYMPHOCYTES % 20.6 % (15.0-51.0); MEAN CORPUSCULAR HGB CONC 34.1 g/dl (32.0-37.0); MEAN CORPUSCULAR VOLUME 88.1 fl (82.0-101.0); MEAN PLATELET VOLUME 9.4 fl (7.4-10.4); MONOCYTE # 0.6 10^3/ul (0.3-0.9); MONOCYTES % 8.3 % (0.0-11.0); NEUTROPHIL # 4.5 10^3/ul (1.6-7.5); NEUTROPHILS % 66.5 % (39.0-77.0); PLATELET COUNT 227 10^3/UL (140-415); RED BLOOD COUNT 2.43 10^6/ul (4.70-6.10); RED CELL DISTRIBUTION WIDTH 16.9 % (11.5-14.5)
[2017-05-11 06:11] LABS: WHITE BLOOD COUNT 6.8 10^3/ul (4.8-10.8)
[2017-05-11 06:44] LABS: ANION GAP 12 (8-16); BLOOD UREA NITROGEN 22 mg/dl (7-20); CALCIUM 8.4 mg/dl (8.4-10.2); CARBON DIOXIDE 25 mmol/L (21-31); CHLORIDE 104 mmol/L (97-110); CREATININE 1.87 mg/dl (0.61-1.24); GLUCOSE 103 mg/dl (70-220); MAGNESIUM 1.9 mg/dl (1.7-2.5); PHOSPHORUS 2.8 mg/dl (2.5-4.9); POTASSIUM 4.1 mmol/L (3.5-5.1); SODIUM 137 mmol/L (135-144)
[2017-05-11] MEDS: ZINC SULFATE 220 MG CAP PO (09:07)
[2017-05-11] MEDS: DOCUSATE SODIUM 100 MG CAP PO ×2 (09:07→20:20)
[2017-05-11] MEDS: PANTOPRAZOLE (EC) 40 MG TAB PO (09:07)
[2017-05-11] MEDS: OXYCODONE/ACETAMINOPHEN (5/325) TAB PO (11:44)
[2017-05-11] MEDS: CITRIC ACID/SODIUM CITRATE 15 ML CUP PO ×2 (11:45→20:20)
[2017-05-11] MEDS: morphine LIQ (10 MG/5 ML) CUP PO (15:58)
[2017-05-11] MEDS: SOD FERRIC GLUC COMPLX 125 MG in SOD CHLORIDE 0.9% 100 ML IVPB (17:10)
[2017-05-12] MEDS: morphine LIQ (10 MG/5 ML) CUP PO ×4 (00:18→22:34)
[2017-05-12 06:25] LABS: ADD MAN DIFF? NO
[2017-05-12 06:40] LABS: BASOPHILS % 0.3 % (0.0-2.0); EOSINOPHILS # 0.3 10^3/ul (0.0-0.5); EOSINOPHILS % 4.3 % (0.0-7.0); HEMATOCRIT 23.8 % (42.0-52.0); HEMOGLOBIN 7.8 g/dl (14.0-18.0); LYMPHOCYTES # 1.7 10^3/ul (0.8-2.9); LYMPHOCYTES % 28.1 % (15.0-51.0); MEAN CORPUSCULAR HGB CONC 32.8 g/dl (32.0-37.0); MEAN CORPUSCULAR VOLUME 91.5 fl (82.0-101.0); MEAN PLATELET VOLUME 9.7 fl (7.4-10.4); MONOCYTE # 0.7 10^3/ul (0.3-0.9); MONOCYTES % 10.9 % (0.0-11.0); NEUTROPHIL # 3.3 10^3/ul (1.6-7.5); NEUTROPHILS % 55.7 % (39.0-77.0); PLATELET COUNT 277 10^3/UL (140-415); RED CELL DISTRIBUTION WIDTH 17.2 % (11.5-14.5)
[2017-05-12 07:11] LABS: ANION GAP 13 (8-16); BLOOD UREA NITROGEN 24 mg/dl (7-20); CALCIUM 9.1 mg/dl (8.4-10.2); CARBON DIOXIDE 26 mmol/L (21-31); CHLORIDE 107 mmol/L (97-110); GLUCOSE 78 mg/dl (70-220); MAGNESIUM 1.8 mg/dl (1.7-2.5); PHOSPHORUS 3.5 mg/dl (2.5-4.9); POTASSIUM 4.8 mmol/L (3.5-5.1); SODIUM 141 mmol/L (135-144)
[2017-05-12] MEDS: ZINC SULFATE 220 MG CAP PO (08:02)
[2017-05-12] MEDS: CITRIC ACID/SODIUM CITRATE 15 ML CUP PO ×2 (08:02→22:34)
[2017-05-12] MEDS: PANTOPRAZOLE (EC) 40 MG TAB PO (08:02)
[2017-05-12] MEDS: DOCUSATE SODIUM 100 MG CAP PO ×2 (08:02→22:35)
[2017-05-12] MEDS: SOD CHLORIDE 0.9% 1,000 ML IV (14:53)
[2017-05-12] MEDS: SOD FERRIC GLUC COMPLX 125 MG in SOD CHLORIDE 0.9% 100 ML IVPB (16:07)
[2017-05-13 05:57] LABS: ADD MAN DIFF? NO
[2017-05-13 06:00] LABS: WHITE BLOOD COUNT 6.2 10^3/ul (4.8-10.8)
[2017-05-13 06:00] LABS: BASOPHILS % 0.2 % (0.0-2.0); EOSINOPHILS # 0.3 10^3/ul (0.0-0.5); EOSINOPHILS % 4.5 % (0.0-7.0); HEMATOCRIT 22.8 % (42.0-52.0); HEMOGLOBIN 7.5 g/dl (14.0-18.0); LYMPHOCYTES # 1.5 10^3/ul (0.8-2.9); LYMPHOCYTES % 24.2 % (15.0-51.0); MEAN CORPUSCULAR HEMOGLOBIN 30.4 pg (29.0-33.0); MEAN CORPUSCULAR HGB CONC 32.9 g/dl (32.0-37.0); MEAN CORPUSCULAR VOLUME 92.3 fl (82.0-101.0); MEAN PLATELET VOLUME 9.7 fl (7.4-10.4); MONOCYTE # 0.6 10^3/ul (0.3-0.9); MONOCYTES % 9.5 % (0.0-11.0); NEUTROPHIL # 3.8 10^3/ul (1.6-7.5); NEUTROPHILS % 61.1 % (39.0-77.0); PLATELET COUNT 244 10^3/UL (140-415); RED BLOOD COUNT 2.47 10^6/ul (4.70-6.10); RED CELL DISTRIBUTION WIDTH 17.1 % (11.5-14.5)
[2017-05-13 06:42] LABS: ANION GAP 13 (8-16); BLOOD UREA NITROGEN 25 mg/dl (7-20); CALCIUM 8.9 mg/dl (8.4-10.2); CARBON DIOXIDE 24 mmol/L (21-31); CHLORIDE 109 mmol/L (97-110); CREATININE 2.03 mg/dl (0.61-1.24); GLUCOSE 85 mg/dl (70-220); MAGNESIUM 1.5 mg/dl (1.7-2.5); PHOSPHORUS 3.3 mg/dl (2.5-4.9); POTASSIUM 4.8 mmol/L (3.5-5.1); SODIUM 141 mmol/L (135-144)
[2017-05-13] MEDS: CITRIC ACID/SODIUM CITRATE 15 ML CUP PO ×2 (09:18→22:42)
[2017-05-13] MEDS: ZINC SULFATE 220 MG CAP PO (09:19)
[2017-05-13] MEDS: DOCUSATE SODIUM 100 MG CAP PO ×2 (09:19→22:42)
[2017-05-13] MEDS: PANTOPRAZOLE (EC) 40 MG TAB PO (09:19)
[2017-05-13] MEDS: SOD FERRIC GLUC COMPLX 125 MG in SOD CHLORIDE 0.9% 100 ML IVPB (17:05)
[2017-05-13] MEDS: morphine LIQ (10 MG/5 ML) CUP PO ×2 (17:05→23:10)
[2017-05-14 02:22] LABS: ADD UMIC YES; UR AMORPHOUS CRYSTAL FEW /HPF (NONE SEEN); UR ASCORBIC ACID NEGATIVE (NEGATIVE); UR BACTERIA FEW /HPF (NONE SEEN); UR BILIRUBIN (Dip) NEGATIVE (NEGATIVE); UR BLOOD (Dip) 3+ mg/dL (NEGATIVE); UR CLARITY CLOUDY (CLEAR); UR COLOR RED (YELLOW); UR GLUCOSE (Dip) NEGATIVE (NEGATIVE); UR KETONES (Dip) NEGATIVE (NEGATIVE); UR LEUKOCYTE ESTERASE (Dip) 3+ Leu/ul (NEGATIVE); UR NITRITE (Dip) NEGATIVE (NEGATIVE); UR RBC > 182 /HPF (0-5); UR TOTAL PROTEIN (Dip) 2+ mg/dl (NEGATIVE); UR UROBILINOGEN (Dip) NEGATIVE (NEGATIVE); UR WBC > 182 /HPF (0-5)
[2017-05-14 06:38] LABS: ADD MAN DIFF? NO
[2017-05-14 06:43] LABS: WHITE BLOOD COUNT 6.8 10^3/ul (4.8-10.8)
[2017-05-14 06:43] LABS: BASOPHILS % 0.1 % (0.0-2.0); EOSINOPHILS # 0.3 10^3/ul (0.0-0.5); HEMATOCRIT 24.6 % (42.0-52.0); LYMPHOCYTES # 2.1 10^3/ul (0.8-2.9); LYMPHOCYTES % 31.2 % (15.0-51.0); MEAN CORPUSCULAR HEMOGLOBIN 30.3 pg (29.0-33.0); MEAN CORPUSCULAR HGB CONC 32.5 g/dl (32.0-37.0); MEAN CORPUSCULAR VOLUME 93.2 fl (82.0-101.0); MEAN PLATELET VOLUME 9.8 fl (7.4-10.4); MONOCYTE # 0.6 10^3/ul (0.3-0.9); MONOCYTES % 9.2 % (0.0-11.0); NEUTROPHIL # 3.6 10^3/ul (1.6-7.5); NEUTROPHILS % 53.8 % (39.0-77.0); PLATELET COUNT 257 10^3/UL (140-415); RED BLOOD COUNT 2.64 10^6/ul (4.70-6.10); RED CELL DISTRIBUTION WIDTH 17.3 % (11.5-14.5)
[2017-05-14] MEDS: PANTOPRAZOLE (EC) 40 MG TAB PO (07:30)
[2017-05-14 07:34] LABS: ANION GAP 17 (8-16); BLOOD UREA NITROGEN 26 mg/dl (7-20); CALCIUM 9.1 mg/dl (8.4-10.2); CARBON DIOXIDE 23 mmol/L (21-31); CHLORIDE 107 mmol/L (97-110); CREATININE 2.15 mg/dl (0.61-1.24); GLUCOSE 78 mg/dl (70-220); MAGNESIUM 1.5 mg/dl (1.7-2.5); PHOSPHORUS 3.3 mg/dl (2.5-4.9); SODIUM 142 mmol/L (135-144)
[2017-05-14] MEDS: CITRIC ACID/SODIUM CITRATE 15 ML CUP PO ×2 (09:11→20:20)
[2017-05-14] MEDS: ZINC SULFATE 220 MG CAP PO (09:11)
[2017-05-14] MEDS: DOCUSATE SODIUM 100 MG CAP PO ×2 (09:11→20:20)
[2017-05-14] MEDS: SOD CHLORIDE 0.9% 1,000 ML IV (11:22)
[2017-05-14] MEDS: MAGNESIUM SULFATE 2 GM/50 ML 50 ML IVPB (12:00)
[2017-05-15 05:37] LABS: ANION GAP 16 (8-16); BLOOD UREA NITROGEN 25 mg/dl (7-20); CALCIUM 9.4 mg/dl (8.4-10.2); CARBON DIOXIDE 22 mmol/L (21-31); CHLORIDE 110 mmol/L (97-110); CREATININE 2.33 mg/dl (0.61-1.24); GLUCOSE 98 mg/dl (70-220); MAGNESIUM 2.1 mg/dl (1.7-2.5); PHOSPHORUS 3.7 mg/dl (2.5-4.9); POTASSIUM 5.2 mmol/L (3.5-5.1); SODIUM 143 mmol/L (135-144)
[2017-05-15] MEDS: PANTOPRAZOLE (EC) 40 MG TAB PO (08:36)
[2017-05-15] MEDS: DOCUSATE SODIUM 100 MG CAP PO ×2 (08:36→20:36)
[2017-05-15] MEDS: ZINC SULFATE 220 MG CAP PO (08:36)
[2017-05-15] MEDS: CITRIC ACID/SODIUM CITRATE 15 ML CUP PO ×2 (08:36→20:36)
[2017-05-15] MEDS ORDERED: LIDOCAINE 1% (MPF) 5 ML VIAL SC (14:00)
[2017-05-15] MEDS: MIDODRINE 5 MG TAB PO (17:28)
[2017-05-15] MEDS: morphine LIQ (10 MG/5 ML) CUP PO (20:41)
[2017-05-16] MEDS: morphine LIQ (10 MG/5 ML) CUP PO (03:00)
[2017-05-16] MEDS: PANTOPRAZOLE (EC) 40 MG TAB PO (08:54)
[2017-05-16] MEDS: DOCUSATE SODIUM 100 MG CAP PO ×2 (08:54→21:10)
[2017-05-16] MEDS: CITRIC ACID/SODIUM CITRATE 15 ML CUP PO ×2 (08:54→21:10)
[2017-05-16] MEDS: ZINC SULFATE 220 MG CAP PO (08:54)
[2017-05-16] MEDS: MIDODRINE 5 MG TAB PO ×3 (08:59→17:36)
[2017-05-16 10:43] LABS: ADD MAN DIFF? NO; BASOPHILS % 0.2 % (0.0-2.0); EOSINOPHILS # 0.3 10^3/ul (0.0-0.5); EOSINOPHILS % 2.7 % (0.0-7.0); HEMOGLOBIN 9.8 g/dl (14.0-18.0); LYMPHOCYTES # 1.9 10^3/ul (0.8-2.9); LYMPHOCYTES % 18.8 % (15.0-51.0); MEAN CORPUSCULAR HEMOGLOBIN 30.5 pg (29.0-33.0); MEAN CORPUSCULAR HGB CONC 32.7 g/dl (32.0-37.0); MEAN CORPUSCULAR VOLUME 93.5 fl (82.0-101.0); MEAN PLATELET VOLUME 9.2 fl (7.4-10.4); MONOCYTE # 0.8 10^3/ul (0.3-0.9); NEUTROPHIL # 6.9 10^3/ul (1.6-7.5); NEUTROPHILS % 69.6 % (39.0-77.0); PLATELET COUNT 255 10^3/UL (140-415); RED BLOOD COUNT 3.21 10^6/ul (4.70-6.10); RED CELL DISTRIBUTION WIDTH 17.4 % (11.5-14.5)
[2017-05-16 11:06] LABS: ALANINE AMINOTRANSFERASE 32 IU/L (13-69); ALBUMIN 4.1 g/dl (3.3-4.9); ALBUMIN/GLOBULIN RATIO 1.13; ALKALINE PHOSPHATASE 222 IU/L (42-121); ANION GAP 19 (8-16); ASPARTATE AMINO TRANSFERASE 27 IU/L (15-46); BLOOD UREA NITROGEN 29 mg/dl (7-20); CALCIUM 9.6 mg/dl (8.4-10.2); CARBON DIOXIDE 19 mmol/L (21-31); CHLORIDE 108 mmol/L (97-110); CREATININE 2.79 mg/dl (0.61-1.24); GLUCOSE 126 mg/dl (70-220); POTASSIUM 4.9 mmol/L (3.5-5.1); SODIUM 141 mmol/L (135-144); TOTAL PROTEIN 7.7 g/dl (6.1-8.1)
[2017-05-16] MEDS ORDERED: TPN 1,000 ML IV (18:00)
[2017-05-16] MEDS: TPN 1,000 ML IV (19:48)
[2017-05-17] MEDS: ACCU-CHEK XX ×4 (06:00→17:27)
[2017-05-17 06:36] LABS: ADD MAN DIFF? NO
[2017-05-17 06:40] LABS: WHITE BLOOD COUNT 9.8 10^3/ul (4.8-10.8)
[2017-05-17 06:40] LABS: BASOPHILS % 0.3 % (0.0-2.0); EOSINOPHILS # 0.3 10^3/ul (0.0-0.5); EOSINOPHILS % 3.2 % (0.0-7.0); HEMATOCRIT 29.9 % (42.0-52.0); HEMOGLOBIN 9.8 g/dl (14.0-18.0); LYMPHOCYTES # 2.8 10^3/ul (0.8-2.9); LYMPHOCYTES % 28.8 % (15.0-51.0); MEAN CORPUSCULAR HEMOGLOBIN 30.2 pg (29.0-33.0); MEAN CORPUSCULAR HGB CONC 32.8 g/dl (32.0-37.0); MEAN PLATELET VOLUME 9.5 fl (7.4-10.4); MONOCYTE # 0.6 10^3/ul (0.3-0.9); MONOCYTES % 6.2 % (0.0-11.0); NEUTROPHIL # 5.9 10^3/ul (1.6-7.5); NEUTROPHILS % 60.5 % (39.0-77.0); PLATELET COUNT 288 10^3/UL (140-415); RED BLOOD COUNT 3.25 10^6/ul (4.70-6.10); RED CELL DISTRIBUTION WIDTH 17.6 % (11.5-14.5)
[2017-05-17 07:07] LABS: PHOSPHORUS 4.2 mg/dl (2.5-4.9)
[2017-05-17 07:07] LABS: MAGNESIUM 1.8 mg/dl (1.7-2.5)
[2017-05-17 07:12] LABS: ALANINE AMINOTRANSFERASE 39 IU/L (13-69); ALBUMIN 4.2 g/dl (3.3-4.9); ALBUMIN/GLOBULIN RATIO 1.13; ALKALINE PHOSPHATASE 235 IU/L (42-121); ANION GAP 19 (8-16); ASPARTATE AMINO TRANSFERASE 30 IU/L (15-46); BLOOD UREA NITROGEN 35 mg/dl (7-20); CALCIUM 9.9 mg/dl (8.4-10.2); CARBON DIOXIDE 21 mmol/L (21-31); CHLORIDE 107 mmol/L (97-110); CREATININE 2.95 mg/dl (0.61-1.24); GLUCOSE 99 mg/dl (70-220); POTASSIUM 5.5 mmol/L (3.5-5.1); SODIUM 141 mmol/L (135-144); TOTAL PROTEIN 7.9 g/dl (6.1-8.1)
[2017-05-17 07:16] LABS: TRIGLYCERIDES 152 mg/dl (0-149)
[2017-05-17 07:23] LABS: PREALBUMIN 30.8 mg/dl (17.6-36.0)
[2017-05-17] MEDS: PANTOPRAZOLE (EC) 40 MG TAB PO (07:52)
[2017-05-17] MEDS: ZINC SULFATE 220 MG CAP PO (08:53)
[2017-05-17] MEDS: CITRIC ACID/SODIUM CITRATE 15 ML CUP PO ×2 (08:53→21:13)
[2017-05-17] MEDS: DOCUSATE SODIUM 100 MG CAP PO ×2 (08:53→21:13)
[2017-05-17] MEDS: MIDODRINE 5 MG TAB PO ×3 (08:54→17:27)
[2017-05-17] MEDS: SOD CHLORIDE 0.9% 1,000 ML IV ×2 (09:52→21:14)
[2017-05-17 15:30] LABS: ADD UMIC YES; UR ASCORBIC ACID NEGATIVE (NEGATIVE); UR BACTERIA MANY /HPF (NONE SEEN); UR BILIRUBIN (Dip) NEGATIVE (NEGATIVE); UR BLOOD (Dip) 3+ mg/dL (NEGATIVE); UR CLARITY TURBID (CLEAR); UR COLOR RED (YELLOW); UR GLUCOSE (Dip) NEGATIVE (NEGATIVE); UR KETONES (Dip) NEGATIVE (NEGATIVE); UR LEUKOCYTE ESTERASE (Dip) 3+ Leu/ul (NEGATIVE); UR MUCUS FEW /HPF (NONE SEEN); UR NITRITE (Dip) NEGATIVE (NEGATIVE); UR NONSQUAMOUS EPITHELIAL CELL 6 /HPF (NONE SEEN); UR RBC > 182 /HPF (0-5); UR SPECIFIC GRAVITY (Dip) 1.013 (1.003-1.030); UR TOTAL PROTEIN (Dip) 2+ mg/dl (NEGATIVE); UR UROBILINOGEN (Dip) NEGATIVE (NEGATIVE); UR WBC > 182 /HPF (0-5)
[2017-05-17 15:49] LABS: CREATININE,URINE RANDOM 121.09 mg/dl (20-370)
[2017-05-17 15:52] LABS: SODIUM,URINE RANDOM 59 mmol/L (30-90)
[2017-05-17] MEDS: TPN 1,000 ML IV (21:14)
[2017-05-18] MEDS: SOD CHLORIDE 0.9% 1,000 ML IV ×3 (05:00→20:57)
[2017-05-18 06:29] LABS: ADD MAN DIFF? NO
[2017-05-18 06:44] LABS: WHITE BLOOD COUNT 10.6 10^3/ul (4.8-10.8)
[2017-05-18 06:44] LABS: BASOPHILS % 0.2 % (0.0-2.0); EOSINOPHILS # 0.2 10^3/ul (0.0-0.5); EOSINOPHILS % 2.2 % (0.0-7.0); HEMATOCRIT 29.4 % (42.0-52.0); HEMOGLOBIN 9.8 g/dl (14.0-18.0); LYMPHOCYTES # 2.7 10^3/ul (0.8-2.9); LYMPHOCYTES % 25.7 % (15.0-51.0); MEAN CORPUSCULAR HEMOGLOBIN 30.7 pg (29.0-33.0); MEAN CORPUSCULAR HGB CONC 33.3 g/dl (32.0-37.0); MEAN CORPUSCULAR VOLUME 92.2 fl (82.0-101.0); MEAN PLATELET VOLUME 9.7 fl (7.4-10.4); MONOCYTE # 0.5 10^3/ul (0.3-0.9); MONOCYTES % 4.7 % (0.0-11.0); NEUTROPHILS % 66.3 % (39.0-77.0); PLATELET COUNT 232 10^3/UL (140-415); RED BLOOD COUNT 3.19 10^6/ul (4.70-6.10); RED CELL DISTRIBUTION WIDTH 17.5 % (11.5-14.5)
[2017-05-18 07:16] LABS: ANION GAP 16 (8-16); BLOOD UREA NITROGEN 41 mg/dl (7-20); CALCIUM 9.5 mg/dl (8.4-10.2); CARBON DIOXIDE 18 mmol/L (21-31); CHLORIDE 112 mmol/L (97-110); CREATININE 2.74 mg/dl (0.61-1.24); GLUCOSE 128 mg/dl (70-220); MAGNESIUM 1.7 mg/dl (1.7-2.5); POTASSIUM 4.5 mmol/L (3.5-5.1); SODIUM 141 mmol/L (135-144)
[2017-05-18] MEDS: CITRIC ACID/SODIUM CITRATE 15 ML CUP PO ×2 (08:40→20:57)
[2017-05-18] MEDS: ZINC SULFATE 220 MG CAP PO (08:40)
[2017-05-18] MEDS: PANTOPRAZOLE (EC) 40 MG TAB PO (08:40)
[2017-05-18] MEDS: DOCUSATE SODIUM 100 MG CAP PO ×2 (08:41→20:57)
[2017-05-18] MEDS: ACCU-CHEK XX ×2 (08:47→21:13)
[2017-05-18] MEDS: MIDODRINE 5 MG TAB PO ×3 (08:47→17:48)
[2017-05-18] MEDS: TPN 1,000 ML IV ×2 (19:00→23:49)
[2017-05-19] MEDS: SOD CHLORIDE 0.9% 1,000 ML IV ×2 (01:00→08:38)
[2017-05-19] MEDS: morphine LIQ (10 MG/5 ML) CUP PO (05:22)
[2017-05-19] MEDS: PANTOPRAZOLE (EC) 40 MG TAB PO (08:37)
[2017-05-19] MEDS: DOCUSATE SODIUM 100 MG CAP PO (08:37)
[2017-05-19] MEDS: CITRIC ACID/SODIUM CITRATE 15 ML CUP PO (08:37)
[2017-05-19] MEDS: ZINC SULFATE 220 MG CAP PO (08:37)
[2017-05-19] MEDS: ACCU-CHEK XX (08:41)
[2017-05-19] MEDS: MIDODRINE 5 MG TAB PO ×3 (08:44→16:47)
[2017-05-19 08:54] LABS: ADD MAN DIFF? NO
[2017-05-19 09:00] LABS: WHITE BLOOD COUNT 10.1 10^3/ul (4.8-10.8)
[2017-05-19 09:00] LABS: BASOPHILS % 0.4 % (0.0-2.0); EOSINOPHILS # 0.2 10^3/ul (0.0-0.5); EOSINOPHILS % 1.7 % (0.0-7.0); HEMATOCRIT 28.7 % (42.0-52.0); HEMOGLOBIN 9.2 g/dl (14.0-18.0); LYMPHOCYTES # 2.9 10^3/ul (0.8-2.9); LYMPHOCYTES % 28.9 % (15.0-51.0); MEAN CORPUSCULAR HEMOGLOBIN 30.6 pg (29.0-33.0); MEAN CORPUSCULAR HGB CONC 32.1 g/dl (32.0-37.0); MEAN CORPUSCULAR VOLUME 95.3 fl (82.0-101.0); MEAN PLATELET VOLUME 9.6 fl (7.4-10.4); MONOCYTE # 0.6 10^3/ul (0.3-0.9); MONOCYTES % 6.4 % (0.0-11.0); NEUTROPHIL # 6.2 10^3/ul (1.6-7.5); NEUTROPHILS % 61.8 % (39.0-77.0); PLATELET COUNT 240 10^3/UL (140-415); RED BLOOD COUNT 3.01 10^6/ul (4.70-6.10); RED CELL DISTRIBUTION WIDTH 17.9 % (11.5-14.5)
[2017-05-19 11:08] LABS: ANION GAP 17 (8-16); BLOOD UREA NITROGEN 44 mg/dl (7-20); CALCIUM 9.5 mg/dl (8.4-10.2); CARBON DIOXIDE 19 mmol/L (21-31); CHLORIDE 111 mmol/L (97-110); CREATININE 2.39 mg/dl (0.61-1.24); GLUCOSE 136 mg/dl (70-220); MAGNESIUM 1.7 mg/dl (1.7-2.5); PHOSPHORUS 2.8 mg/dl (2.5-4.9); POTASSIUM 4.4 mmol/L (3.5-5.1); SODIUM 143 mmol/L (135-144)
== END 2017-05-19 20:08 | disposition home health service (06) | DRG 683 ==
LOC: PP2 05-11 15:40 → TEL 22:49
DX: N17.9 Acute kidney failure, unspecified (principal); E87.1 Hypo-osmolality and hyponatremia; E87.2 Acidosis; E46 Unspecified protein-calorie malnutrition; Z68.1 Body mass index [BMI] 19.9 or less, adult; N18.9 Chronic kidney disease, unspecified; E86.0 Dehydration; E83.42 Hypomagnesemia; Z92.3 Personal history of irradiation; Z87.440 Personal history of urinary (tract) infections; D50.0 Iron deficiency anemia secondary to blood loss (chronic); R31.0 Gross hematuria; Z90.6 Acquired absence of other parts of urinary tract; Z86.718 Personal history of other venous thrombosis and embolism; Z95.828 Presence of other vascular implants and grafts; Z85.51 Personal history of malignant neoplasm of bladder; E87.6 Hypokalemia; E83.39 Other disorders of phosphorus metabolism; E83.89 Other disorders of mineral metabolism; N13.6 Pyonephrosis; E87.5 Hyperkalemia; R00.1 Bradycardia, unspecified; Z93.3 Colostomy status; I95.9 Hypotension, unspecified; D50.9 Iron deficiency anemia, unspecified; Z93.2 Ileostomy status
CPT/HCPCS: 36600; 76775; 80048; 80053; 81001; 81003; 82043; 82550; 82553; 82728; 82803; 82962; 83036; 83540; 83735; 83880; 84100; 84134; 84155; 84300; 84443; 84478; 84484; 85014; 85018; 85025; 85610; 85730; 87081; 87086; 93005; 93306

== ENCOUNTER 2017-06-14 11:59 | Inpatient (IN) | payer BC ==
[2017-06-14] MEDS: SOD CHLORIDE 0.9% 500 ML IV (13:19)
[2017-06-14 13:43] LABS: ADD MAN DIFF? NO
[2017-06-14 13:44] LABS: BASOPHILS % 0.2 % (0.0-2.0); EOSINOPHILS % 0.3 % (0.0-7.0); HEMATOCRIT 31.5 % (42.0-52.0); HEMOGLOBIN 10.4 g/dl (14.0-18.0); LYMPHOCYTES # 1.1 10^3/ul (0.8-2.9); LYMPHOCYTES % 8.5 % (15.0-51.0); MEAN CORPUSCULAR HEMOGLOBIN 30.1 pg (29.0-33.0); MEAN CORPUSCULAR VOLUME 91.3 fl (82.0-101.0); MEAN PLATELET VOLUME 9.1 fl (7.4-10.4); MONOCYTE # 1.3 10^3/ul (0.3-0.9); MONOCYTES % 9.5 % (0.0-11.0); NEUTROPHIL # 10.8 10^3/ul (1.6-7.5); NEUTROPHILS % 80.9 % (39.0-77.0); PLATELET COUNT 267 10^3/UL (140-415); RED BLOOD COUNT 3.45 10^6/ul (4.70-6.10); RED CELL DISTRIBUTION WIDTH 16.4 % (11.5-14.5)
[2017-06-14 13:44] LABS: WHITE BLOOD COUNT 13.3 10^3/ul (4.8-10.8)
[2017-06-14] MEDS: ONDANSETRON 4 MG INJ IV ×2 (13:59→23:37)
[2017-06-14 14:02] LABS: ALANINE AMINOTRANSFERASE 51 IU/L (13-69); ALBUMIN 3.7 g/dl (3.3-4.9); ALKALINE PHOSPHATASE 334 IU/L (42-121); ANION GAP 16 (8-16); ASPARTATE AMINO TRANSFERASE 36 IU/L (15-46); BILIRUBIN,INDIRECT 0.1 mg/dl (0-1.1); BILIRUBIN,TOTAL 0.1 mg/dl (0.2-1.3); BLOOD UREA NITROGEN 86 mg/dl (7-20); CALCIUM 11.1 mg/dl (8.4-10.2); CHLORIDE 115 mmol/L (97-110); CREATININE 3.49 mg/dl (0.61-1.24); GLUCOSE 144 mg/dl (70-220); POTASSIUM 3.3 mmol/L (3.5-5.1); SODIUM 136 mmol/L (135-144); TOTAL PROTEIN 8.3 g/dl (6.1-8.1)
[2017-06-14 14:02] LABS: LACTIC ACID 1.9 mmol/L (0.5-2.0)
[2017-06-14 14:05] LABS: INR 0.97
[2017-06-14 14:06] LABS: PARTIAL THROMBOPLASTIN TIME 32.3 Sec (25.0-35.0)
[2017-06-14 14:11] LABS: CARBON DIOXIDE 8 mmol/L (21-31)
[2017-06-14 14:15] LABS: ADD UMIC YES; TROPONIN-I < 0.012 ng/ml (0.00-0.12); UR ASCORBIC ACID NEGATIVE (NEGATIVE); UR BACTERIA MODERATE /HPF (NONE SEEN); UR BILIRUBIN (Dip) NEGATIVE (NEGATIVE); UR BLOOD (Dip) 3+ mg/dL (NEGATIVE); UR CLARITY TURBID (CLEAR); UR COLOR YELLOW (YELLOW); UR GLUCOSE (Dip) NEGATIVE (NEGATIVE); UR KETONES (Dip) NEGATIVE (NEGATIVE); UR LEUKOCYTE ESTERASE (Dip) 3+ Leu/ul (NEGATIVE); UR MUCUS FEW /HPF (NONE SEEN); UR NITRITE (Dip) NEGATIVE (NEGATIVE); UR RBC > 182 /HPF (0-5); UR TOTAL PROTEIN (Dip) 3+ mg/dl (NEGATIVE); UR UROBILINOGEN (Dip) NEGATIVE (NEGATIVE); UR WBC > 182 /HPF (0-5)
[2017-06-14] MEDS: PIPER-TAZO 2.25 GM (PMX) 50 ML IVPB (15:01)
[2017-06-14 16:15] LABS: LACTIC ACID 1.1 mmol/L (0.5-2.0)
[2017-06-14 18:36] LABS: LACTIC ACID 0.8 mmol/L (0.5-2.0)
[2017-06-14] MEDS ORDERED: ACETAMINOPHEN 325 MG TAB PO (19:00)
[2017-06-14] MEDS ORDERED: DOCUSATE SODIUM 100 MG CAP PO (19:00)
[2017-06-14] MEDS ORDERED: ZOLPIDEM 5 MG TAB PO (19:00)
[2017-06-14] MEDS ORDERED: HYDROCODONE/APAP (5/325) TAB PO (19:00)
[2017-06-14] MEDS ORDERED: CEFEPIME 2GM/50 ML (PMX) 50 ML IVPB (21:00)
[2017-06-14] MEDS: LINEZOLID 600 MG/D5W (PMX) 300 ML IVPB (21:05)
[2017-06-14] MEDS: D5-NS + KCL 20 MEQ 1,000 ML IV (21:05)
[2017-06-14] MEDS: CEFTAZIDIME 1GM/50 ML (PMX) 50 ML IVPB (23:27)
[2017-06-15] MEDS: D5-NS + KCL 20 MEQ 1,000 ML IV (05:00)
[2017-06-15 05:41] LABS: ADD MAN DIFF? NO
[2017-06-15 05:53] LABS: BASOPHILS % 0.2 % (0.0-2.0); EOSINOPHILS % 0.4 % (0.0-7.0); HEMATOCRIT 27.3 % (42.0-52.0); HEMOGLOBIN 9.3 g/dl (14.0-18.0); LYMPHOCYTES # 1.2 10^3/ul (0.8-2.9); LYMPHOCYTES % 11.8 % (15.0-51.0); MEAN CORPUSCULAR HEMOGLOBIN 30.7 pg (29.0-33.0); MEAN CORPUSCULAR HGB CONC 34.1 g/dl (32.0-37.0); MEAN CORPUSCULAR VOLUME 90.1 fl (82.0-101.0); MEAN PLATELET VOLUME 9.1 fl (7.4-10.4); MONOCYTES % 10.2 % (0.0-11.0); NEUTROPHIL # 7.7 10^3/ul (1.6-7.5); NEUTROPHILS % 76.9 % (39.0-77.0); PLATELET COUNT 329 10^3/UL (140-415); RED BLOOD COUNT 3.03 10^6/ul (4.70-6.10); RED CELL DISTRIBUTION WIDTH 15.9 % (11.5-14.5)
[2017-06-15 05:53] LABS: WHITE BLOOD COUNT 10.1 10^3/ul (4.8-10.8)
[2017-06-15 06:21] LABS: ANION GAP 14 (8-16); BLOOD UREA NITROGEN 85 mg/dl (7-20); CALCIUM 10.8 mg/dl (8.4-10.2); CHLORIDE 119 mmol/L (97-110); CREATININE 3.55 mg/dl (0.61-1.24); GLUCOSE 131 mg/dl (70-220); PHOSPHORUS 3.7 mg/dl (2.5-4.9); SODIUM 140 mmol/L (135-144)
[2017-06-15 06:22] LABS: CARBON DIOXIDE 10 mmol/L (21-31)
[2017-06-15 06:23] LABS: POTASSIUM 2.9 mmol/L (3.5-5.1)
[2017-06-15] MEDS ORDERED: [UNRECOGNIZED DRUG - NUTRITION] IV (09:00)
[2017-06-15] MEDS: KCL 30 MEQ in NS 250 ML IVPB X1 IVPB (09:13)
[2017-06-15] MEDS ORDERED: D5-NS + KCL 40 MEQ 1,000 ML IV (10:00)
[2017-06-15 10:24] LABS: Arterial Base Excess -19.3 mmol/L (-3.0-3); Arterial Blood Gas Oxygen Sat 97.9 mmHG (95.0-98.0); Arterial COHb 0.3 % (0.0-3.0); Arterial Fraction of Oxyhgb 97.2 % (93.0-99.0); Arterial HCO3 7.9 mmol/L (22.0-26.0); Arterial MetHb 0.4 % (0.0-1.5); Arterial Total Hemglobin 10.5 g/dl (12.0-18.0); Arterial pCO2 23.4 mmhg (35-45); MODE ROOM AIR; Site LB
[2017-06-15] MEDS: CITRIC ACID/SODIUM CITRATE 15 ML CUP PO ×2 (10:42→20:49)
[2017-06-15] MEDS: POTASSIUM CHLORIDE (SR) 20 MEQ TAB PO ×2 (10:42→13:03)
[2017-06-15] MEDS: ONDANSETRON 4 MG INJ IV (10:51)
[2017-06-15] MEDS ORDERED: DEXTROSE 5% 1,000 ML IV (11:00)
[2017-06-15] MEDS: D5-NS + KCL 40 MEQ 1,000 ML IV (11:39)
[2017-06-15] MEDS: LINEZOLID 600 MG/D5W (PMX) 300 ML IVPB ×2 (11:40→20:49)
[2017-06-15] MEDS: morphine 2 MG INJ IV ×2 (11:44→22:08)
[2017-06-15 12:43] LABS: ADD UMIC YES; UR ASCORBIC ACID NEGATIVE (NEGATIVE); UR BACTERIA FEW /HPF (NONE SEEN); UR BILIRUBIN (Dip) NEGATIVE (NEGATIVE); UR BLOOD (Dip) 3+ mg/dL (NEGATIVE); UR CLARITY TURBID (CLEAR); UR COLOR RED (YELLOW); UR GLUCOSE (Dip) NEGATIVE (NEGATIVE); UR KETONES (Dip) NEGATIVE (NEGATIVE); UR LEUKOCYTE ESTERASE (Dip) 3+ Leu/ul (NEGATIVE); UR NITRITE (Dip) NEGATIVE (NEGATIVE); UR NONSQUAMOUS EPITHELIAL CELL 12 /HPF (NONE SEEN); UR RBC > 182 /HPF (0-5); UR SPECIFIC GRAVITY (Dip) 1.011 (1.003-1.030); UR TOTAL PROTEIN (Dip) 2+ mg/dl (NEGATIVE); UR UROBILINOGEN (Dip) NEGATIVE (NEGATIVE); UR WBC > 182 /HPF (0-5)
[2017-06-15] MEDS: SODIUM BICARBONATE (IV ADD) 150 MEQ in DEXTROSE 5% 1,000 ML IV (13:02)
[2017-06-15 13:03] LABS: CREATININE,URINE RANDOM 66.43 mg/dl (20-370)
[2017-06-15 13:03] LABS: SODIUM,URINE RANDOM 39 mmol/L (30-90)
[2017-06-15] MEDS ORDERED: TPN 1,000 ML IV (15:19)
[2017-06-15 15:41] LABS: ANION GAP 15 (8-16); BLOOD UREA NITROGEN 80 mg/dl (7-20); CALCIUM 10.9 mg/dl (8.4-10.2); CARBON DIOXIDE 11 mmol/L (21-31); CHLORIDE 118 mmol/L (97-110); CREATININE 3.74 mg/dl (0.61-1.24); GLUCOSE 145 mg/dl (70-220); POTASSIUM 3.3 mmol/L (3.5-5.1); SODIUM 141 mmol/L (135-144)
[2017-06-15 16:43] LABS: TRIGLYCERIDES 170 mg/dl (0-149)
[2017-06-15 16:50] LABS: PREALBUMIN 19.6 mg/dl (17.6-36.0)
[2017-06-15] MEDS: CEFTAZIDIME 1GM/50 ML (PMX) 50 ML IVPB (22:07)
[2017-06-16] MEDS: SODIUM BICARBONATE (IV ADD) 150 MEQ in DEXTROSE 5% 1,000 ML IV ×2 (02:50→06:54)
[2017-06-16 05:49] LABS: ADD MAN DIFF? NO
[2017-06-16 05:57] LABS: WHITE BLOOD COUNT 8.9 10^3/ul (4.8-10.8)
[2017-06-16 05:57] LABS: BASOPHILS % 0.3 % (0.0-2.0); EOSINOPHILS # 0.1 10^3/ul (0.0-0.5); EOSINOPHILS % 1.2 % (0.0-7.0); HEMATOCRIT 24.4 % (42.0-52.0); HEMOGLOBIN 8.5 g/dl (14.0-18.0); LYMPHOCYTES # 1.3 10^3/ul (0.8-2.9); LYMPHOCYTES % 14.8 % (15.0-51.0); MEAN CORPUSCULAR HEMOGLOBIN 30.4 pg (29.0-33.0); MEAN CORPUSCULAR HGB CONC 34.8 g/dl (32.0-37.0); MEAN CORPUSCULAR VOLUME 87.1 fl (82.0-101.0); MEAN PLATELET VOLUME 9.4 fl (7.4-10.4); MONOCYTES % 10.7 % (0.0-11.0); NEUTROPHIL # 6.4 10^3/ul (1.6-7.5); NEUTROPHILS % 72.4 % (39.0-77.0); PLATELET COUNT 324 10^3/UL (140-415); RED CELL DISTRIBUTION WIDTH 15.9 % (11.5-14.5)
[2017-06-16 06:33] LABS: ANION GAP 12 (8-16); BLOOD UREA NITROGEN 74 mg/dl (7-20); CALCIUM 9.6 mg/dl (8.4-10.2); CARBON DIOXIDE 21 mmol/L (21-31); CHLORIDE 110 mmol/L (97-110); GLUCOSE 264 mg/dl (70-220); MAGNESIUM 1.7 mg/dl (1.7-2.5); PHOSPHORUS 2.9 mg/dl (2.5-4.9); SODIUM 140 mmol/L (135-144)
[2017-06-16 06:41] LABS: POTASSIUM 2.6 mmol/L (3.5-5.1)
[2017-06-16] MEDS: morphine 2 MG INJ IV ×3 (08:54→21:17)
[2017-06-16] MEDS: CITRIC ACID/SODIUM CITRATE 15 ML CUP PO ×2 (08:54→21:24)
[2017-06-16] MEDS: SOD CHLORIDE 0.9% 1,000 ML IV ×2 (08:54→20:50)
[2017-06-16] MEDS: POTASSIUM CHLORIDE (SR) 20 MEQ TAB PO (08:54)
[2017-06-16] MEDS: ONDANSETRON 4 MG INJ IV (08:58)
[2017-06-16] MEDS ORDERED: FAT EMULSION 20% 250 ML IV (09:00)
[2017-06-16] MEDS: POTASSIUM CHLORIDE 100 ML IVPB (09:39)
[2017-06-16] MEDS: LINEZOLID 600 MG/D5W (PMX) 300 ML IVPB ×2 (09:39→21:24)
[2017-06-16] MEDS ORDERED: POTASSIUM CHLORIDE (SR) 20 MEQ TAB PO (11:30)
[2017-06-16 14:45] LABS: ANION GAP 15 (8-16); CARBON DIOXIDE 15 mmol/L (21-31); CHLORIDE 113 mmol/L (97-110); CREATININE 3.63 mg/dl (0.61-1.24); POTASSIUM 3.3 mmol/L (3.5-5.1); SODIUM 140 mmol/L (135-144)
[2017-06-16 14:49] LABS: BLOOD UREA NITROGEN 70 mg/dl (7-20); CALCIUM 11.9 mg/dl (8.4-10.2); GLUCOSE 96 mg/dl (70-220)
[2017-06-16] MEDS: FISH OIL 1,000 MG CAP PO (15:22)
[2017-06-16] MEDS: LACTOBACILLUS RHAMNOSUS CAP PO ×2 (15:22→21:25)
[2017-06-16 16:41] LABS: CREATININE, RANDOM URINE 81 mg/dL (20-370); MICROALBUMIN 49.9 mg/dL; MICROALBUMIN/CREATININE RATIO 616 (<30)
[2017-06-16] MEDS: FAT EMULSION 20% 250 ML IV (18:55)
[2017-06-16] MEDS: TPN 1,000 ML IV (18:55)
[2017-06-16] MEDS: CEFTAZIDIME 1GM/50 ML (PMX) 50 ML IVPB (23:01)
[2017-06-17] MEDS: SOD CHLORIDE 0.9% 1,000 ML IV ×2 (03:28→23:30)
[2017-06-17] MEDS: morphine 2 MG INJ IV ×3 (03:35→17:31)
[2017-06-17 06:01] LABS: ADD MAN DIFF? NO
[2017-06-17 06:06] LABS: BASOPHILS % 0.3 % (0.0-2.0); EOSINOPHILS # 0.2 10^3/ul (0.0-0.5); EOSINOPHILS % 1.5 % (0.0-7.0); HEMATOCRIT 23.8 % (42.0-52.0); HEMOGLOBIN 8.2 g/dl (14.0-18.0); LYMPHOCYTES # 1.5 10^3/ul (0.8-2.9); LYMPHOCYTES % 12.9 % (15.0-51.0); MEAN CORPUSCULAR HEMOGLOBIN 30.6 pg (29.0-33.0); MEAN CORPUSCULAR HGB CONC 34.5 g/dl (32.0-37.0); MEAN CORPUSCULAR VOLUME 88.8 fl (82.0-101.0); MONOCYTE # 1.1 10^3/ul (0.3-0.9); MONOCYTES % 9.1 % (0.0-11.0); NEUTROPHIL # 8.8 10^3/ul (1.6-7.5); NEUTROPHILS % 75.6 % (39.0-77.0); PLATELET COUNT 261 10^3/UL (140-415); RED BLOOD COUNT 2.68 10^6/ul (4.70-6.10); RED CELL DISTRIBUTION WIDTH 16.4 % (11.5-14.5)
[2017-06-17 06:06] LABS: WHITE BLOOD COUNT 11.7 10^3/ul (4.8-10.8)
[2017-06-17 06:33] LABS: ANION GAP 11 (8-16); BLOOD UREA NITROGEN 66 mg/dl (7-20); CALCIUM 9.6 mg/dl (8.4-10.2); CARBON DIOXIDE 17 mmol/L (21-31); CHLORIDE 113 mmol/L (97-110); CREATININE 3.27 mg/dl (0.61-1.24); GLUCOSE 105 mg/dl (70-220); MAGNESIUM 1.6 mg/dl (1.7-2.5); PHOSPHORUS 2.3 mg/dl (2.5-4.9); POTASSIUM 3.1 mmol/L (3.5-5.1); SODIUM 138 mmol/L (135-144)
[2017-06-17] MEDS: LINEZOLID 600 MG/D5W (PMX) 300 ML IVPB (09:14)
[2017-06-17] MEDS: CITRIC ACID/SODIUM CITRATE 15 ML CUP PO ×2 (09:14→21:37)
[2017-06-17] MEDS: POTASSIUM CHLORIDE (SR) 20 MEQ TAB PO ×2 (09:15→09:25)
[2017-06-17] MEDS: LACTOBACILLUS RHAMNOSUS CAP PO ×2 (09:15→21:36)
[2017-06-17] MEDS: MULTIVITAMINS THERAPEUTIC TAB PO (09:15)
[2017-06-17] MEDS: ONDANSETRON 4 MG INJ IV ×2 (09:32→17:31)
[2017-06-17] MEDS: MAGNESIUM OXIDE 400 MG TAB PO ×2 (10:30→21:37)
[2017-06-17] MEDS ORDERED: AMIKACIN IV PER PHARMACY XX (11:30)
[2017-06-17] MEDS: MAGNESIUM SULFATE 2 GM/50 ML 50 ML IVPB (12:04)
[2017-06-17] MEDS: AMIKACIN IVPB (14:17)
[2017-06-17] MEDS: DEXTROSE 5% IVPB (14:17)
[2017-06-17] MEDS: POTASSIUM PHOSPHATE 20 MEQ in SOD CHLORIDE 0.9% 250 ML IVPB (15:46)
[2017-06-17] MEDS: TPN 1,000 ML IV (15:58)
[2017-06-17] MEDS: FAT EMULSION 20% 250 ML IV (17:28)
[2017-06-18] MEDS: morphine 2 MG INJ IV ×3 (04:29→17:58)
[2017-06-18 05:39] LABS: ADD MAN DIFF? NO
[2017-06-18 05:44] LABS: WHITE BLOOD COUNT 12.6 10^3/ul (4.8-10.8)
[2017-06-18 05:44] LABS: BASOPHILS % 0.3 % (0.0-2.0); EOSINOPHILS # 0.1 10^3/ul (0.0-0.5); EOSINOPHILS % 1.1 % (0.0-7.0); HEMATOCRIT 25.1 % (42.0-52.0); HEMOGLOBIN 8.7 g/dl (14.0-18.0); LYMPHOCYTES # 1.9 10^3/ul (0.8-2.9); MEAN CORPUSCULAR HGB CONC 34.7 g/dl (32.0-37.0); MEAN CORPUSCULAR VOLUME 89.3 fl (82.0-101.0); MEAN PLATELET VOLUME 8.9 fl (7.4-10.4); MONOCYTE # 1.1 10^3/ul (0.3-0.9); MONOCYTES % 8.8 % (0.0-11.0); NEUTROPHIL # 9.2 10^3/ul (1.6-7.5); NEUTROPHILS % 73.5 % (39.0-77.0); PLATELET COUNT 264 10^3/UL (140-415); RED BLOOD COUNT 2.81 10^6/ul (4.70-6.10); RED CELL DISTRIBUTION WIDTH 16.2 % (11.5-14.5)
[2017-06-18 06:14] LABS: ANION GAP 13 (8-16); BLOOD UREA NITROGEN 72 mg/dl (7-20); CALCIUM 9.9 mg/dl (8.4-10.2); CARBON DIOXIDE 18 mmol/L (21-31); CHLORIDE 112 mmol/L (97-110); CREATININE 3.21 mg/dl (0.61-1.24); GLUCOSE 115 mg/dl (70-220); MAGNESIUM 2.3 mg/dl (1.7-2.5); PHOSPHORUS 2.2 mg/dl (2.5-4.9); POTASSIUM 3.7 mmol/L (3.5-5.1); SODIUM 139 mmol/L (135-144)
[2017-06-18] MEDS: ONDANSETRON 4 MG INJ IV (09:29)
[2017-06-18] MEDS: CITRIC ACID/SODIUM CITRATE 15 ML CUP PO ×2 (09:29→20:23)
[2017-06-18] MEDS: LACTOBACILLUS RHAMNOSUS CAP PO ×2 (09:30→20:23)
[2017-06-18] MEDS: MULTIVITAMINS THERAPEUTIC TAB PO (09:30)
[2017-06-18] MEDS: POTASSIUM CHLORIDE (SR) 20 MEQ TAB PO (09:30)
[2017-06-18] MEDS: MAGNESIUM OXIDE 400 MG TAB PO ×2 (09:30→20:23)
[2017-06-18] MEDS: POTASSIUM PHOSPHATE 20 MEQ in SOD CHLORIDE 0.9% 250 ML IVPB (11:39)
[2017-06-18] MEDS: TPN 1,000 ML IV (13:28)
[2017-06-18] MEDS: FAT EMULSION 20% 250 ML IV (17:55)
[2017-06-18] MEDS: SOD CHLORIDE 0.9% 1,000 ML IV (19:01)
[2017-06-19] MEDS: SOD CHLORIDE 0.9% 1,000 ML IV ×2 (02:10→09:02)
[2017-06-19] MEDS: TPN 1,000 ML IV ×2 (06:00→12:30)
[2017-06-19 06:05] LABS: ADD MAN DIFF? NO; BASOPHILS % 0.4 % (0.0-2.0); EOSINOPHILS # 0.1 10^3/ul (0.0-0.5); EOSINOPHILS % 1.3 % (0.0-7.0); HEMATOCRIT 26.1 % (42.0-52.0); LYMPHOCYTES # 1.9 10^3/ul (0.8-2.9); LYMPHOCYTES % 17.6 % (15.0-51.0); MEAN CORPUSCULAR HEMOGLOBIN 31.1 pg (29.0-33.0); MEAN CORPUSCULAR HGB CONC 34.5 g/dl (32.0-37.0); MEAN CORPUSCULAR VOLUME 90.3 fl (82.0-101.0); MEAN PLATELET VOLUME 9.1 fl (7.4-10.4); MONOCYTE # 0.7 10^3/ul (0.3-0.9); NEUTROPHIL # 7.6 10^3/ul (1.6-7.5); NEUTROPHILS % 71.9 % (39.0-77.0); PLATELET COUNT 309 10^3/UL (140-415); RED BLOOD COUNT 2.89 10^6/ul (4.70-6.10); RED CELL DISTRIBUTION WIDTH 16.4 % (11.5-14.5)
[2017-06-19 06:05] LABS: WHITE BLOOD COUNT 10.6 10^3/ul (4.8-10.8)
[2017-06-19 07:05] LABS: ANION GAP 15 (8-16); BLOOD UREA NITROGEN 71 mg/dl (7-20); CALCIUM 9.6 mg/dl (8.4-10.2); CARBON DIOXIDE 19 mmol/L (21-31); CHLORIDE 110 mmol/L (97-110); CREATININE 3.16 mg/dl (0.61-1.24); GLUCOSE 123 mg/dl (70-220); MAGNESIUM 2.3 mg/dl (1.7-2.5); PHOSPHORUS 3.2 mg/dl (2.5-4.9); POTASSIUM 4.2 mmol/L (3.5-5.1); SODIUM 140 mmol/L (135-144)
[2017-06-19] MEDS: POTASSIUM CHLORIDE (SR) 20 MEQ TAB PO (09:02)
[2017-06-19] MEDS: CITRIC ACID/SODIUM CITRATE 15 ML CUP PO ×2 (09:02→20:42)
[2017-06-19] MEDS: MULTIVITAMINS THERAPEUTIC TAB PO (09:03)
[2017-06-19] MEDS: LACTOBACILLUS RHAMNOSUS CAP PO ×2 (09:03→20:42)
[2017-06-19] MEDS: MAGNESIUM OXIDE 400 MG TAB PO ×2 (09:03→20:42)
[2017-06-19 12:11] LABS: AMIKACIN RANDOM 7.1 mg/L
[2017-06-19] MEDS ORDERED: TPN 1,000 ML IV (12:30)
[2017-06-19] MEDS: morphine 2 MG INJ IV ×3 (12:38→22:05)
[2017-06-19] MEDS: AMIKACIN 300 MG in SOD CHLORIDE 0.9% 100 ML IVPB (15:56)
[2017-06-19] MEDS ORDERED: AMIKACIN 500 MG in SOD CHLORIDE 0.9% 100 ML IVPB (16:00)
[2017-06-19] MEDS: FAT EMULSION 20% 250 ML IV (17:41)
[2017-06-20] MEDS: SOD CHLORIDE 0.9% 1,000 ML IV ×3 (03:59→21:10)
[2017-06-20] MEDS: morphine 2 MG INJ IV ×5 (04:00→22:41)
[2017-06-20 06:19] LABS: ADD MAN DIFF? NO
[2017-06-20 06:36] LABS: WHITE BLOOD COUNT 11.6 10^3/ul (4.8-10.8)
[2017-06-20 06:36] LABS: BASOPHILS % 0.3 % (0.0-2.0); EOSINOPHILS # 0.2 10^3/ul (0.0-0.5); EOSINOPHILS % 1.7 % (0.0-7.0); HEMATOCRIT 24.4 % (42.0-52.0); LYMPHOCYTES # 1.6 10^3/ul (0.8-2.9); LYMPHOCYTES % 13.6 % (15.0-51.0); MEAN CORPUSCULAR HEMOGLOBIN 30.2 pg (29.0-33.0); MEAN CORPUSCULAR HGB CONC 32.8 g/dl (32.0-37.0); MEAN CORPUSCULAR VOLUME 92.1 fl (82.0-101.0); MEAN PLATELET VOLUME 9.4 fl (7.4-10.4); MONOCYTE # 0.9 10^3/ul (0.3-0.9); NEUTROPHIL # 8.6 10^3/ul (1.6-7.5); NEUTROPHILS % 74.1 % (39.0-77.0); PLATELET COUNT 304 10^3/UL (140-415); RED BLOOD COUNT 2.65 10^6/ul (4.70-6.10); RED CELL DISTRIBUTION WIDTH 16.1 % (11.5-14.5)
[2017-06-20 07:01] LABS: TRIGLYCERIDES 180 mg/dl (0-149)
[2017-06-20 07:20] LABS: ANION GAP 13 (8-16); BLOOD UREA NITROGEN 69 mg/dl (7-20); CALCIUM 9.6 mg/dl (8.4-10.2); CARBON DIOXIDE 22 mmol/L (21-31); CHLORIDE 109 mmol/L (97-110); CREATININE 2.82 mg/dl (0.61-1.24); GLUCOSE 135 mg/dl (70-220); PHOSPHORUS 2.6 mg/dl (2.5-4.9); POTASSIUM 4.4 mmol/L (3.5-5.1); SODIUM 140 mmol/L (135-144)
[2017-06-20] MEDS: CITRIC ACID/SODIUM CITRATE 15 ML CUP PO ×2 (09:18→21:08)
[2017-06-20] MEDS: MAGNESIUM OXIDE 400 MG TAB PO ×2 (09:19→21:09)
[2017-06-20] MEDS: LACTOBACILLUS RHAMNOSUS CAP PO ×2 (09:19→21:09)
[2017-06-20] MEDS: MULTIVITAMINS THERAPEUTIC TAB PO (09:19)
[2017-06-20] MEDS: POTASSIUM CHLORIDE (SR) 20 MEQ TAB PO (09:19)
[2017-06-20] MEDS: ONDANSETRON 4 MG INJ IV (12:24)
[2017-06-20] MEDS: TPN 1,000 ML IV (12:24)
[2017-06-20] MEDS: FAT EMULSION 20% 250 ML IV (17:50)
[2017-06-21] MEDS: morphine 2 MG INJ IV ×5 (02:48→21:30)
[2017-06-21] MEDS: ONDANSETRON 4 MG INJ IV ×2 (05:15→16:17)
[2017-06-21 05:47] LABS: ADD MAN DIFF? NO
[2017-06-21 06:02] LABS: WHITE BLOOD COUNT 11.3 10^3/ul (4.8-10.8)
[2017-06-21 06:02] LABS: BASOPHIL # 0.1 10^3/ul (0.0-0.1); BASOPHILS % 0.4 % (0.0-2.0); EOSINOPHILS # 0.2 10^3/ul (0.0-0.5); EOSINOPHILS % 2.1 % (0.0-7.0); HEMATOCRIT 24.1 % (42.0-52.0); HEMOGLOBIN 7.9 g/dl (14.0-18.0); LYMPHOCYTES # 1.9 10^3/ul (0.8-2.9); LYMPHOCYTES % 16.7 % (15.0-51.0); MEAN CORPUSCULAR HEMOGLOBIN 30.6 pg (29.0-33.0); MEAN CORPUSCULAR HGB CONC 32.8 g/dl (32.0-37.0); MEAN CORPUSCULAR VOLUME 93.4 fl (82.0-101.0); MEAN PLATELET VOLUME 9.1 fl (7.4-10.4); MONOCYTE # 0.9 10^3/ul (0.3-0.9); MONOCYTES % 8.3 % (0.0-11.0); NEUTROPHIL # 7.9 10^3/ul (1.6-7.5); PLATELET COUNT 289 10^3/UL (140-415); RED BLOOD COUNT 2.58 10^6/ul (4.70-6.10); RED CELL DISTRIBUTION WIDTH 15.7 % (11.5-14.5)
[2017-06-21 06:31] LABS: ANION GAP 14 (8-16); BLOOD UREA NITROGEN 68 mg/dl (7-20); CALCIUM 9.4 mg/dl (8.4-10.2); CARBON DIOXIDE 22 mmol/L (21-31); CHLORIDE 108 mmol/L (97-110); CREATININE 2.81 mg/dl (0.61-1.24); GLUCOSE 121 mg/dl (70-220); MAGNESIUM 1.8 mg/dl (1.7-2.5); PHOSPHORUS 2.8 mg/dl (2.5-4.9); POTASSIUM 4.9 mmol/L (3.5-5.1); SODIUM 139 mmol/L (135-144)
[2017-06-21] MEDS: MAGNESIUM OXIDE 400 MG TAB PO ×2 (08:53→21:04)
[2017-06-21] MEDS: MULTIVITAMINS THERAPEUTIC TAB PO (08:53)
[2017-06-21] MEDS: LACTOBACILLUS RHAMNOSUS CAP PO ×2 (08:53→21:04)
[2017-06-21] MEDS: POTASSIUM CHLORIDE (SR) 20 MEQ TAB PO (08:54)
[2017-06-21] MEDS: CITRIC ACID/SODIUM CITRATE 15 ML CUP PO ×2 (08:57→21:03)
[2017-06-21] MEDS: TPN 1,000 ML IV (11:43)
[2017-06-21] MEDS: SOD CHLORIDE 0.9% 1,000 ML IV (15:25)
[2017-06-21] MEDS: FAT EMULSION 20% 250 ML IV (17:33)
[2017-06-21] MEDS: AMIKACIN 300 MG in SOD CHLORIDE 0.9% 100 ML IVPB (17:54)
[2017-06-22] MEDS: morphine 2 MG INJ IV ×6 (02:19→22:18)
[2017-06-22] MEDS: ONDANSETRON 4 MG INJ IV ×3 (05:49→20:35)
[2017-06-22 06:21] LABS: ADD MAN DIFF? NO
[2017-06-22 06:37] LABS: BASOPHILS % 0.2 % (0.0-2.0); EOSINOPHILS # 0.2 10^3/ul (0.0-0.5); EOSINOPHILS % 1.5 % (0.0-7.0); HEMATOCRIT 22.6 % (42.0-52.0); HEMOGLOBIN 7.4 g/dl (14.0-18.0); LYMPHOCYTES % 18.4 % (15.0-51.0); MEAN CORPUSCULAR HEMOGLOBIN 30.6 pg (29.0-33.0); MEAN CORPUSCULAR HGB CONC 32.7 g/dl (32.0-37.0); MEAN CORPUSCULAR VOLUME 93.4 fl (82.0-101.0); MEAN PLATELET VOLUME 9.5 fl (7.4-10.4); MONOCYTE # 0.9 10^3/ul (0.3-0.9); MONOCYTES % 8.8 % (0.0-11.0); NEUTROPHIL # 7.4 10^3/ul (1.6-7.5); NEUTROPHILS % 69.6 % (39.0-77.0); PLATELET COUNT 238 10^3/UL (140-415); RED BLOOD COUNT 2.42 10^6/ul (4.70-6.10); RED CELL DISTRIBUTION WIDTH 15.4 % (11.5-14.5)
[2017-06-22 06:37] LABS: WHITE BLOOD COUNT 10.6 10^3/ul (4.8-10.8)
[2017-06-22 07:05] LABS: ALANINE AMINOTRANSFERASE 29 IU/L (13-69); ALBUMIN 2.8 g/dl (3.3-4.9); ALBUMIN/GLOBULIN RATIO 0.77; ALKALINE PHOSPHATASE 285 IU/L (42-121); ANION GAP 13 (8-16); ASPARTATE AMINO TRANSFERASE 25 IU/L (15-46); BLOOD UREA NITROGEN 75 mg/dl (7-20); CALCIUM 9.2 mg/dl (8.4-10.2); CARBON DIOXIDE 24 mmol/L (21-31); CHLORIDE 109 mmol/L (97-110); CREATININE 2.92 mg/dl (0.61-1.24); GLUCOSE 109 mg/dl (70-220); POTASSIUM 5.5 mmol/L (3.5-5.1); SODIUM 140 mmol/L (135-144); TOTAL PROTEIN 6.4 g/dl (6.1-8.1)
[2017-06-22 07:06] LABS: PREALBUMIN 17.8 mg/dl (17.6-36.0)
[2017-06-22 08:14] LABS: MAGNESIUM 1.8 mg/dl (1.7-2.5)
[2017-06-22 08:14] LABS: PHOSPHORUS 3.5 mg/dl (2.5-4.9)
[2017-06-22] MEDS: CITRIC ACID/SODIUM CITRATE 15 ML CUP PO ×2 (09:17→20:34)
[2017-06-22] MEDS: LACTOBACILLUS RHAMNOSUS CAP PO ×2 (09:18→20:34)
[2017-06-22] MEDS: MAGNESIUM OXIDE 400 MG TAB PO ×2 (09:18→20:34)
[2017-06-22] MEDS: MULTIVITAMINS THERAPEUTIC TAB PO (09:18)
[2017-06-22] MEDS: TPN 1,000 ML IV (09:56)
[2017-06-22] MEDS: SOD CHLORIDE 0.9% 1,000 ML IV (13:00)
[2017-06-22] MEDS ORDERED: morphine LIQ (10 MG/5 ML) CUP PO (16:30)
[2017-06-22] MEDS: FAT EMULSION 20% 250 ML IV (18:06)
[2017-06-23] MEDS: SOD CHLORIDE 0.9% 1,000 ML IV ×2 (02:01→07:22)
[2017-06-23] MEDS: morphine 2 MG INJ IV ×3 (02:14→13:36)
[2017-06-23] MEDS: ONDANSETRON 4 MG INJ IV ×3 (02:28→15:46)
[2017-06-23] MEDS: TPN 1,000 ML IV ×2 (05:57→10:00)
[2017-06-23 06:18] LABS: ADD MAN DIFF? NO
[2017-06-23 06:23] LABS: BASOPHILS % 0.3 % (0.0-2.0); EOSINOPHILS # 0.2 10^3/ul (0.0-0.5); EOSINOPHILS % 1.6 % (0.0-7.0); HEMATOCRIT 21.7 % (42.0-52.0); LYMPHOCYTES # 1.4 10^3/ul (0.8-2.9); LYMPHOCYTES % 15.7 % (15.0-51.0); MEAN CORPUSCULAR HEMOGLOBIN 30.4 pg (29.0-33.0); MEAN CORPUSCULAR HGB CONC 32.3 g/dl (32.0-37.0); MEAN CORPUSCULAR VOLUME 94.3 fl (82.0-101.0); MEAN PLATELET VOLUME 9.4 fl (7.4-10.4); MONOCYTE # 0.9 10^3/ul (0.3-0.9); MONOCYTES % 9.9 % (0.0-11.0); NEUTROPHIL # 6.5 10^3/ul (1.6-7.5); PLATELET COUNT 218 10^3/UL (140-415); RED CELL DISTRIBUTION WIDTH 15.1 % (11.5-14.5)
[2017-06-23 06:23] LABS: WHITE BLOOD COUNT 9.2 10^3/ul (4.8-10.8)
[2017-06-23 06:53] LABS: ANION GAP 15 (8-16); BLOOD UREA NITROGEN 66 mg/dl (7-20); CALCIUM 8.7 mg/dl (8.4-10.2); CARBON DIOXIDE 22 mmol/L (21-31); CHLORIDE 107 mmol/L (97-110); CREATININE 2.85 mg/dl (0.61-1.24); GLUCOSE 91 mg/dl (70-220); MAGNESIUM 1.7 mg/dl (1.7-2.5); PHOSPHORUS 4.1 mg/dl (2.5-4.9); POTASSIUM 4.5 mmol/L (3.5-5.1); SODIUM 139 mmol/L (135-144)
[2017-06-23] MEDS: CITRIC ACID/SODIUM CITRATE 15 ML CUP PO (09:15)
[2017-06-23] MEDS: LACTOBACILLUS RHAMNOSUS CAP PO (09:15)
[2017-06-23] MEDS: MULTIVITAMINS THERAPEUTIC TAB PO (09:15)
[2017-06-23] MEDS: MAGNESIUM OXIDE 400 MG TAB PO (09:15)
[2017-06-23 14:29] LABS: AHG CROSSMATCH 1 1
[2017-06-23] MEDS: IOHEXOL 14.3 MG(I)/ML (ADULT) BTL PO (14:30)
[2017-06-23 14:54] LABS: HEMATOCRIT 22.7 % (42.0-52.0); HEMOGLOBIN 7.2 g/dl (14.0-18.0)
[2017-06-23] MEDS: AMIKACIN 300 MG in SOD CHLORIDE 0.9% 100 ML IVPB (17:23)
[2017-06-23] MEDS: FAT EMULSION 20% 250 ML IV (18:43)
[2017-06-24] MEDS: morphine 2 MG INJ IV ×2 (00:15→11:12)
[2017-06-24] MEDS: ONDANSETRON 4 MG INJ IV ×4 (00:26→20:22)
[2017-06-24] MEDS: TPN 1,000 ML IV (04:38)
[2017-06-24 06:16] LABS: ADD MAN DIFF? NO
[2017-06-24 06:21] LABS: WHITE BLOOD COUNT 8.6 10^3/ul (4.8-10.8)
[2017-06-24 06:21] LABS: BASOPHILS % 0.2 % (0.0-2.0); EOSINOPHILS # 0.1 10^3/ul (0.0-0.5); EOSINOPHILS % 1.2 % (0.0-7.0); HEMATOCRIT 25.1 % (42.0-52.0); HEMOGLOBIN 8.1 g/dl (14.0-18.0); LYMPHOCYTES # 1.1 10^3/ul (0.8-2.9); LYMPHOCYTES % 12.8 % (15.0-51.0); MEAN CORPUSCULAR HGB CONC 32.3 g/dl (32.0-37.0); MEAN PLATELET VOLUME 9.8 fl (7.4-10.4); MONOCYTE # 0.8 10^3/ul (0.3-0.9); MONOCYTES % 8.9 % (0.0-11.0); NEUTROPHIL # 6.5 10^3/ul (1.6-7.5); NEUTROPHILS % 76.1 % (39.0-77.0); PLATELET COUNT 208 10^3/UL (140-415); RED CELL DISTRIBUTION WIDTH 14.9 % (11.5-14.5)
[2017-06-24 06:57] LABS: ANION GAP 12 (8-16); BLOOD UREA NITROGEN 65 mg/dl (7-20); CALCIUM 8.7 mg/dl (8.4-10.2); CARBON DIOXIDE 24 mmol/L (21-31); CHLORIDE 109 mmol/L (97-110); CREATININE 2.92 mg/dl (0.61-1.24); GLUCOSE 128 mg/dl (70-220); MAGNESIUM 1.7 mg/dl (1.7-2.5); PHOSPHORUS 4.5 mg/dl (2.5-4.9); SODIUM 141 mmol/L (135-144)
[2017-06-24 06:57] LABS: TRIGLYCERIDES 127 mg/dl (0-149)
[2017-06-24] MEDS ORDERED: AMIKACIN 300 MG in SOD CHLORIDE 0.9% 100 ML IVPB (13:00)
[2017-06-24] MEDS: HYDROCODONE/APAP (5/325) TAB NGT (16:09)
[2017-06-24] MEDS ORDERED: morphine 2 MG INJ IV (17:00)
[2017-06-24] MEDS: FAT EMULSION 20% 250 ML IV (17:58)
[2017-06-24] MEDS: HYDROmorphONE 0.5 MG/0.5 ML SYG IV (20:19)
[2017-06-25] MEDS: HYDROmorphONE 0.5 MG/0.5 ML SYG IV ×6 (00:07→22:17)
[2017-06-25] MEDS: ONDANSETRON 4 MG INJ IV ×6 (00:10→22:17)
[2017-06-25] MEDS: TPN 1,000 ML IV ×2 (00:15→21:40)
[2017-06-25 05:47] LABS: ADD MAN DIFF? NO
[2017-06-25 05:51] LABS: WHITE BLOOD COUNT 8.5 10^3/ul (4.8-10.8)
[2017-06-25 05:51] LABS: BASOPHILS % 0.4 % (0.0-2.0); EOSINOPHILS # 0.2 10^3/ul (0.0-0.5); EOSINOPHILS % 1.9 % (0.0-7.0); HEMATOCRIT 25.6 % (42.0-52.0); HEMOGLOBIN 8.3 g/dl (14.0-18.0); LYMPHOCYTES # 1.3 10^3/ul (0.8-2.9); LYMPHOCYTES % 15.1 % (15.0-51.0); MEAN CORPUSCULAR HEMOGLOBIN 30.6 pg (29.0-33.0); MEAN CORPUSCULAR HGB CONC 32.4 g/dl (32.0-37.0); MEAN CORPUSCULAR VOLUME 94.5 fl (82.0-101.0); MEAN PLATELET VOLUME 9.8 fl (7.4-10.4); MONOCYTE # 0.8 10^3/ul (0.3-0.9); MONOCYTES % 9.9 % (0.0-11.0); NEUTROPHIL # 6.1 10^3/ul (1.6-7.5); NEUTROPHILS % 71.8 % (39.0-77.0); PLATELET COUNT 216 10^3/UL (140-415); RED BLOOD COUNT 2.71 10^6/ul (4.70-6.10); RED CELL DISTRIBUTION WIDTH 14.6 % (11.5-14.5)
[2017-06-25 06:08] LABS: ANION GAP 13 (8-16); BLOOD UREA NITROGEN 66 mg/dl (7-20); CALCIUM 8.9 mg/dl (8.4-10.2); CARBON DIOXIDE 21 mmol/L (21-31); CHLORIDE 106 mmol/L (97-110); CREATININE 3.05 mg/dl (0.61-1.24); GLUCOSE 151 mg/dl (70-220); MAGNESIUM 1.7 mg/dl (1.7-2.5); POTASSIUM 3.5 mmol/L (3.5-5.1); SODIUM 136 mmol/L (135-144)
[2017-06-25] MEDS: FAT EMULSION 20% 250 ML IV (18:19)
[2017-06-26] MEDS: HYDROmorphONE 0.5 MG/0.5 ML SYG IV ×4 (02:24→16:23)
[2017-06-26] MEDS: ONDANSETRON 4 MG INJ IV ×5 (02:24→22:10)
[2017-06-26] MEDS: SOD CHLORIDE 0.9% 500 ML IV (02:49)
[2017-06-26 06:11] LABS: ADD MAN DIFF? NO
[2017-06-26 06:15] LABS: BASOPHILS % 0.4 % (0.0-2.0); EOSINOPHILS # 0.1 10^3/ul (0.0-0.5); EOSINOPHILS % 1.4 % (0.0-7.0); HEMATOCRIT 26.2 % (42.0-52.0); HEMOGLOBIN 8.5 g/dl (14.0-18.0); LYMPHOCYTES # 1.5 10^3/ul (0.8-2.9); LYMPHOCYTES % 18.9 % (15.0-51.0); MEAN CORPUSCULAR HEMOGLOBIN 30.4 pg (29.0-33.0); MEAN CORPUSCULAR HGB CONC 32.4 g/dl (32.0-37.0); MEAN CORPUSCULAR VOLUME 93.6 fl (82.0-101.0); MEAN PLATELET VOLUME 9.6 fl (7.4-10.4); MONOCYTE # 0.8 10^3/ul (0.3-0.9); MONOCYTES % 10.3 % (0.0-11.0); NEUTROPHIL # 5.4 10^3/ul (1.6-7.5); NEUTROPHILS % 67.7 % (39.0-77.0); PLATELET COUNT 245 10^3/UL (140-415); RED CELL DISTRIBUTION WIDTH 13.9 % (11.5-14.5)
[2017-06-26 06:15] LABS: WHITE BLOOD COUNT 7.9 10^3/ul (4.8-10.8)
[2017-06-26 06:35] LABS: ANION GAP 15 (8-16); BLOOD UREA NITROGEN 73 mg/dl (7-20); CALCIUM 8.9 mg/dl (8.4-10.2); CARBON DIOXIDE 20 mmol/L (21-31); CHLORIDE 106 mmol/L (97-110); GLUCOSE 98 mg/dl (70-220); MAGNESIUM 1.8 mg/dl (1.7-2.5); PHOSPHORUS 4.3 mg/dl (2.5-4.9); POTASSIUM 3.6 mmol/L (3.5-5.1); SODIUM 137 mmol/L (135-144)
[2017-06-26] MEDS ORDERED: AMIKACIN 300 MG in SOD CHLORIDE 0.9% 100 ML IVPB (17:00)
[2017-06-26] MEDS: TPN 1,000 ML IV (19:47)
[2017-06-26] MEDS: FAT EMULSION 20% 250 ML IV (19:48)
[2017-06-26] MEDS: PEG/ELECTROLYTES 4L BTL PO (19:51)
[2017-06-26] MEDS: HYDROCODONE/APAP (5/325) TAB NGT (22:12)
[2017-06-27] MEDS: HYDROmorphONE 0.5 MG/0.5 ML SYG IV ×3 (01:17→17:27)
[2017-06-27] MEDS: ONDANSETRON 4 MG INJ IV ×3 (01:17→17:27)
[2017-06-27 06:23] LABS: ANION GAP 16 (8-16); BLOOD UREA NITROGEN 73 mg/dl (7-20); CALCIUM 8.8 mg/dl (8.4-10.2); CARBON DIOXIDE 20 mmol/L (21-31); CHLORIDE 104 mmol/L (97-110); CREATININE 3.08 mg/dl (0.61-1.24); GLUCOSE 105 mg/dl (70-220); MAGNESIUM 1.8 mg/dl (1.7-2.5); PHOSPHORUS 4.5 mg/dl (2.5-4.9); POTASSIUM 4.2 mmol/L (3.5-5.1); SODIUM 136 mmol/L (135-144); TRIGLYCERIDES 184 mg/dl (0-149)
[2017-06-27] MEDS: FAT EMULSION 20% 250 ML IV (17:14)
[2017-06-27] MEDS: TPN 1,000 ML IV (17:15)
[2017-06-27 19:05] LABS: INR 0.98; PROTIME 13.1 Sec (11.9-14.9)
[2017-06-28] MEDS: ONDANSETRON 4 MG INJ IV ×2 (01:31→08:54)
[2017-06-28] MEDS: HYDROmorphONE 0.5 MG/0.5 ML SYG IV ×2 (01:32→09:32)
[2017-06-28] MEDS: NACL 0.9% 3 ML SYG IV (01:33)
[2017-06-28 06:29] LABS: ANION GAP 16 (8-16); BLOOD UREA NITROGEN 79 mg/dl (7-20); CARBON DIOXIDE 24 mmol/L (21-31); CHLORIDE 101 mmol/L (97-110); CREATININE 3.04 mg/dl (0.61-1.24); GLUCOSE 121 mg/dl (70-220); PHOSPHORUS 4.8 mg/dl (2.5-4.9); POTASSIUM 4.2 mmol/L (3.5-5.1); SODIUM 137 mmol/L (135-144)
[2017-06-28] MEDS: TPN 1,000 ML IV ×2 (10:00→13:30)
[2017-06-28] MEDS ORDERED: BUPIVACAINE 0.25% (MPF) 30 ML INJ (15:27)
[2017-06-28] MEDS ORDERED: LIDOCAINE 1%/EPI 30 ML INJ (15:27)
[2017-06-28] MEDS ORDERED: PROPOFOL 0 ML (15:30)
[2017-06-28] MEDS ORDERED: ROCURONIUM 50 MG INJ ×3 (15:30→21:40)
[2017-06-28] MEDS ORDERED: MIDAZOLAM 1 MG/ML 2 ML INJ ×2 (15:30→20:54)
[2017-06-28] MEDS ORDERED: ONDANSETRON 4 MG INJ (15:30)
[2017-06-28] MEDS ORDERED: METOCLOPRAMIDE 10 MG INJ (15:30)
[2017-06-28] MEDS ORDERED: PHENYLephrine (100 MCG/ML) 5ML SYG ×2 (15:55→20:35)
[2017-06-28] MEDS ORDERED: ETOMIDATE 20 MG INJ (16:14)
[2017-06-28] MEDS ORDERED: CEFAZOLIN 1 GM INJ ×2 (16:27→21:17)
[2017-06-28] MEDS ORDERED: metroNIDAZOLE 500 MG/NS (PMX) 100 ML IVPB (16:27)
[2017-06-28] MEDS ORDERED: FENTAnyl 50 MCG/ML VIAL ×2 (16:36→20:25)
[2017-06-28] MEDS ORDERED: HYDROmorphONE 0.5 MG/0.5 ML SYG IV (17:00)
[2017-06-28] MEDS ORDERED: DIPHENHYDRAMINE 50 MG INJ IV (17:00)
[2017-06-28] MEDS ORDERED: HYDROmorphONE (0.2 MG/ML) 10ML SYG IV ×3 (17:00)
[2017-06-28] MEDS ORDERED: EPHEDrine SULFATE 50 MG/5 ML SYG IV (17:00)
[2017-06-28] MEDS ORDERED: NALOXONE (0.4 MG/ML) INJ IV (17:00)
[2017-06-28] MEDS ORDERED: ONDANSETRON 4 MG INJ IV ×2 (17:00)
[2017-06-28] MEDS ORDERED: MEPERIDINE 25 MG INJ IV (17:00)
[2017-06-28] MEDS ORDERED: METOPROLOL 5 MG INJ ×2 (17:12→21:42)
[2017-06-28] MEDS: FAT EMULSION 20% 250 ML IV (18:00)
[2017-06-28] MEDS ORDERED: NEOSTIGMINE 3 MG/3 ML SYRINGE (19:57)
[2017-06-28 20:36] LABS: AHG CROSSMATCH 1 3
[2017-06-28] MEDS ORDERED: EPHEDrine SULFATE 50 MG/5 ML SYG (20:38)
[2017-06-28] MEDS ORDERED: ALBUMIN HUMAN 25% 100 ML (21:17)
[2017-06-28] MEDS ORDERED: FUROSEMIDE 20 MG INJ (21:25)
[2017-06-28] MEDS: PROPOFOL 100 ML IV (22:24)
[2017-06-28 22:51] LABS: ABNORMAL IP MESSAGE 1; HEMATOCRIT 31.4 % (42.0-52.0); HEMOGLOBIN 10.5 g/dl (14.0-18.0); MEAN CORPUSCULAR HEMOGLOBIN 30.1 pg (29.0-33.0); MEAN CORPUSCULAR HGB CONC 33.4 g/dl (32.0-37.0); MEAN PLATELET VOLUME 9.3 fl (7.4-10.4); PLATELET COUNT 354 10^3/UL (140-415); POSITIVE DIFF @See below; RED BLOOD COUNT 3.49 10^6/ul (4.70-6.10); RED CELL DISTRIBUTION WIDTH 14.6 % (11.5-14.5)
[2017-06-28 22:51] LABS: WHITE BLOOD COUNT 31.1 10^3/ul (4.8-10.8)
[2017-06-28 22:54] LABS: ADD MAN DIFF? YES
[2017-06-28 23:03] LABS: ALANINE AMINOTRANSFERASE 28 IU/L (13-69); ALBUMIN 3.3 g/dl (3.3-4.9); ALBUMIN/GLOBULIN RATIO 0.94; ALKALINE PHOSPHATASE 272 IU/L (42-121); ANION GAP 17 (8-16); ASPARTATE AMINO TRANSFERASE 28 IU/L (15-46); BILIRUBIN,INDIRECT 0.1 mg/dl (0-1.1); BILIRUBIN,TOTAL 0.1 mg/dl (0.2-1.3); BLOOD UREA NITROGEN 69 mg/dl (7-20); CALCIUM 8.2 mg/dl (8.4-10.2); CARBON DIOXIDE 17 mmol/L (21-31); CHLORIDE 108 mmol/L (97-110); CREATININE 3.01 mg/dl (0.61-1.24); GLUCOSE 135 mg/dl (70-220); POTASSIUM 3.6 mmol/L (3.5-5.1); SODIUM 138 mmol/L (135-144); TOTAL PROTEIN 6.8 g/dl (6.1-8.1)
[2017-06-28 23:14] LABS: TROPONIN-I < 0.012 ng/ml (0.000-0.120)
[2017-06-28] MEDS ORDERED: CEFAZOLIN 2 GM/50 ML (PMX) 50 ML IVPB (23:30)
[2017-06-29 00:10] LABS: AADO2 Arterial 59.3 mmHg (7.0-24.0); Arterial Base Excess -11.3 mmol/L (-3.0-3); Arterial Blood Gas Oxygen Sat 99.1 mmHG (95.0-98.0); Arterial COHb 0.3 % (0.0-3.0); Arterial Fraction of Oxyhgb 98.3 % (93.0-99.0); Arterial HCO3 14.1 mmol/L (22.0-26.0); Arterial MetHb 0.5 % (0.0-1.5); Arterial Total Hemglobin 11.8 g/dl (12.0-18.0); Arterial pCO2 30.3 mmhg (35-45); MODE VENT - AC; Site A-Line
[2017-06-29 00:14] LABS: ANISOCYTOSIS 2+ (0-0); BAND NEUTROPHILS #M 6.8 10^3/ul (0.0-0.6); BAND NEUTROPHILS % (M) 22 % (0-4); GIANT THROMBO% (M) 1 % (0-0); LYMPHOCYTES #M 0.9 10^3/ul (0.8-2.9); LYMPHOCYTES % (M) 3 % (15-51); MICROCYTOSIS 2+ (0-0); MONOCYTE #M 0.3 10^3/ul (0.3-0.9); MONOCYTES % (M) 1 % (0-11); MYELOCYTES #M 0.3 10^3/ul (0.0-0.0); MYELOCYTES % (M) 1 % (0-0); PLATELET ESTIMATE NORMAL; POLYCHROMASIA 3+ (0-0); SEG NEUT #M 24.8 10^3/ul (1.6-7.5); SEGMENTED NEUTROPHILS (M) % 73 % (39-77)
[2017-06-29] MEDS: D5W-0.45 NACL + KCL 20 MEQ 1,000 ML IV ×4 (00:35→21:17)
[2017-06-29] MEDS: morphine 2 MG INJ IV (00:35)
[2017-06-29] MEDS: metroNIDAZOLE 500 MG/NS (PMX) 100 ML IVPB ×3 (00:35→13:50)
[2017-06-29] MEDS ORDERED: PIPER-TAZO 3.375 GM IV (PMX) 100 ML IVPB (02:00)
[2017-06-29 03:07] LABS: AADO2 Arterial 35.2 mmHg (7.0-24.0); Arterial Blood Gas Oxygen Sat 98.6 mmHG (95.0-98.0); Arterial COHb 0.3 % (0.0-3.0); Arterial Fraction of Oxyhgb 97.8 % (93.0-99.0); Arterial HCO3 12.8 mmol/L (22.0-26.0); Arterial MetHb 0.5 % (0.0-1.5); Arterial Total Hemglobin 12.3 g/dl (12.0-18.0); Arterial pCO2 26.4 mmhg (35-45); MODE VENT - AC; Site A-Line
[2017-06-29] MEDS ORDERED: NA BICARBONATE 8.4% 50 ML SYG (03:22)
[2017-06-29] MEDS: NA BICARBONATE 8.4% 50 ML SYG IV ×2 (03:37→03:39)
[2017-06-29] MEDS: HYDROmorphONE 0.5 MG/0.5 ML SYG IV ×6 (03:37→15:07)
[2017-06-29] MEDS: PIPER-TAZO 2.25 GM (PMX) 50 ML IVPB ×4 (03:37→21:16)
[2017-06-29] MEDS: PROPOFOL 100 ML IV ×2 (05:00→17:00)
[2017-06-29 05:54] LABS: ABNORMAL IP MESSAGE 1; HEMATOCRIT 30.8 % (42.0-52.0); HEMOGLOBIN 10.3 g/dl (14.0-18.0); MEAN CORPUSCULAR HEMOGLOBIN 29.7 pg (29.0-33.0); MEAN CORPUSCULAR HGB CONC 33.4 g/dl (32.0-37.0); MEAN CORPUSCULAR VOLUME 88.8 fl (82.0-101.0); MEAN PLATELET VOLUME 9.5 fl (7.4-10.4); PLATELET COUNT 250 10^3/UL (140-415); POSITIVE DIFF @See below; RED BLOOD COUNT 3.47 10^6/ul (4.70-6.10); RED CELL DISTRIBUTION WIDTH 15.3 % (11.5-14.5)
[2017-06-29 06:00] LABS: ADD MAN DIFF? YES
[2017-06-29] MEDS: SOD CHLORIDE 0.9% 1,000 ML IV (06:10)
[2017-06-29 06:19] LABS: ANION GAP 20 (8-16); BLOOD UREA NITROGEN 68 mg/dl (7-20); CARBON DIOXIDE 19 mmol/L (21-31); CHLORIDE 108 mmol/L (97-110); CREATININE 3.05 mg/dl (0.61-1.24); GLUCOSE 151 mg/dl (70-220); MAGNESIUM 1.5 mg/dl (1.7-2.5); PHOSPHORUS 4.6 mg/dl (2.5-4.9); POTASSIUM 3.6 mmol/L (3.5-5.1); SODIUM 143 mmol/L (135-144)
[2017-06-29 06:29] LABS: ALANINE AMINOTRANSFERASE 22 IU/L (13-69); ALBUMIN 2.9 g/dl (3.3-4.9); ALKALINE PHOSPHATASE 235 IU/L (42-121); ASPARTATE AMINO TRANSFERASE 34 IU/L (15-46); BILIRUBIN,INDIRECT 0.1 mg/dl (0-1.1); BILIRUBIN,TOTAL 0.4 mg/dl (0.2-1.3); TOTAL PROTEIN 6.2 g/dl (6.1-8.1)
[2017-06-29] MEDS: PANTOPRAZOLE 40 MG INJ IV (06:53)
[2017-06-29 07:09] LABS: ANISOCYTOSIS 1+ (0-0); BAND NEUTROPHILS #M 9.6 10^3/ul (0.0-0.6); BAND NEUTROPHILS % (M) 46 % (0-4); LYMPHOCYTES #M 0.6 10^3/ul (0.8-2.9); LYMPHOCYTES % (M) 3 % (15-51); MICROCYTOSIS 1+ (0-0); MONOCYTE #M 0.4 10^3/ul (0.3-0.9); MONOCYTES % (M) 2 % (0-11); MYELOCYTES #M 0.2 10^3/ul (0.0-0.0); MYELOCYTES % (M) 1 % (0-0); PLATELET ESTIMATE NORMAL; POLYCHROMASIA 1+ (0-0); SEG NEUT #M 12.1 10^3/ul (1.6-7.5); SEGMENTED NEUTROPHILS (M) % 48 % (39-77); SMUDGE%M 2 % (0-0)
[2017-06-29] MEDS: FENTAnyl 2MCG/ML-ROPIV 0.2% 100 ML BAG EPI ×2 (07:57→15:30)
[2017-06-29 09:43] LABS: Arterial Base Excess -8.1 mmol/L (-3.0-3); Arterial Blood Gas Oxygen Sat 98.3 mmHG (95.0-98.0); Arterial COHb 0.2 % (0.0-3.0); Arterial Fraction of Oxyhgb 97.6 % (93.0-99.0); Arterial HCO3 16.2 mmol/L (22.0-26.0); Arterial MetHb 0.5 % (0.0-1.5); Arterial Total Hemglobin 11.3 g/dl (12.0-18.0); Arterial pCO2 29.3 mmhg (35-45); Blood Gas PS 10; MODE VENT - CPAP; Site A-Line
[2017-06-29] MEDS: DIPHENHYDRAMINE 50 MG INJ IV (12:03)
[2017-06-29] MEDS ORDERED: HYDROmorphONE 0.5 MG/0.5 ML SYG IV (13:00)
[2017-06-29] MEDS ORDERED: NALOXONE (0.4 MG/ML) INJ IV (13:00)
[2017-06-29] MEDS: ACETAMINOPHEN 1000MG/100ML IV 100 ML IVPB ×2 (13:50→17:14)
[2017-06-29] MEDS: HYDROmorphONE 0.2 MG/ML PCA IV (16:48)
[2017-06-29] MEDS: SOD CHLORIDE 0.9% 500 ML IV (18:52)
[2017-06-30] MEDS: ACETAMINOPHEN 1000MG/100ML IV 100 ML IVPB ×5 (01:00→23:15)
[2017-06-30] MEDS: ONDANSETRON 4 MG INJ IV ×4 (01:00→19:49)
[2017-06-30] MEDS: PROPOFOL 100 ML IV ×2 (01:53→17:00)
[2017-06-30] MEDS: FENTAnyl 2MCG/ML-ROPIV 0.2% 100 ML BAG EPI ×3 (02:53→19:11)
[2017-06-30 05:47] LABS: WHITE BLOOD COUNT 12.9 10^3/ul (4.8-10.8)
[2017-06-30 05:47] LABS: ABNORMAL IP MESSAGE 1; HEMATOCRIT 23.6 % (42.0-52.0); HEMOGLOBIN 7.6 g/dl (14.0-18.0); MEAN CORPUSCULAR HEMOGLOBIN 29.6 pg (29.0-33.0); MEAN CORPUSCULAR HGB CONC 32.2 g/dl (32.0-37.0); MEAN CORPUSCULAR VOLUME 91.8 fl (82.0-101.0); MEAN PLATELET VOLUME 10.2 fl (7.4-10.4); PLATELET COUNT 185 10^3/UL (140-415); POSITIVE DIFF @See below; RED BLOOD COUNT 2.57 10^6/ul (4.70-6.10); RED CELL DISTRIBUTION WIDTH 16.3 % (11.5-14.5)
[2017-06-30] MEDS: PANTOPRAZOLE 40 MG INJ IV (05:58)
[2017-06-30 05:59] LABS: ADD MAN DIFF? YES
[2017-06-30] MEDS: PIPER-TAZO 2.25 GM (PMX) 50 ML IVPB ×3 (05:59→21:23)
[2017-06-30 06:16] LABS: ANION GAP 15 (8-16); BLOOD UREA NITROGEN 56 mg/dl (7-20); CALCIUM 7.3 mg/dl (8.4-10.2); CARBON DIOXIDE 18 mmol/L (21-31); CHLORIDE 109 mmol/L (97-110); CREATININE 2.94 mg/dl (0.61-1.24); MAGNESIUM 1.3 mg/dl (1.7-2.5); PHOSPHORUS 3.9 mg/dl (2.5-4.9); SODIUM 135 mmol/L (135-144)
[2017-06-30 06:22] LABS: GLUCOSE 456 mg/dl (70-220)
[2017-06-30] MEDS: D5W-0.45 NACL + KCL 20 MEQ 1,000 ML IV (06:39)
[2017-06-30 07:03] LABS: ANION GAP 25 (8-16); BLOOD UREA NITROGEN 53 mg/dl (7-20); CALCIUM 6.8 mg/dl (8.4-10.2); CARBON DIOXIDE 17 mmol/L (21-31); CHLORIDE 114 mmol/L (97-110); CREATININE 2.75 mg/dl (0.61-1.24); GLUCOSE 97 mg/dl (70-220); POTASSIUM 4.7 mmol/L (3.5-5.1); SODIUM 151 mmol/L (135-144)
[2017-06-30 07:33] LABS: ANISOCYTOSIS 1+ (0-0); BAND NEUTROPHILS #M 2.3 10^3/ul (0.0-0.6); BAND NEUTROPHILS % (M) 18 % (0-4); LYMPHOCYTES #M 1.5 10^3/ul (0.8-2.9); LYMPHOCYTES % (M) 12 % (15-51); MICROCYTOSIS 1+ (0-0); MONOCYTE #M 0.1 10^3/ul (0.3-0.9); MONOCYTES % (M) 1 % (0-11); PLATELET ESTIMATE NORMAL; SEG NEUT #M 9.2 10^3/ul (1.6-7.5); SEGMENTED NEUTROPHILS (M) % 69 % (39-77); SMUDGE%M 5 % (0-0)
[2017-06-30] MEDS: DEXTROSE 5%-0.45% NACL 1,000 ML IV ×2 (09:29→19:11)
[2017-06-30] MEDS: MAGNESIUM SULFATE 4 GM/100 ML 100 ML IVPB (10:48)
[2017-06-30] MEDS: HYDROmorphONE 0.5 MG/0.5 ML SYG IV (11:09)
[2017-06-30] MEDS: HYDROmorphONE 0.2 MG/ML PCA IV (11:14)
[2017-06-30] MEDS: SOD CHLORIDE 0.9% 500 ML IV (20:28)
[2017-06-30] MEDS: NORepinephrine 8MG/250 ML (PMX 250 ML IV (20:30)
[2017-07-01] MEDS: DIPHENHYDRAMINE 50 MG INJ IV ×2 (01:52→09:47)
[2017-07-01] MEDS: FENTAnyl 2MCG/ML-ROPIV 0.2% 100 ML BAG EPI ×3 (03:06→18:13)
[2017-07-01] MEDS: DEXTROSE 5%-0.45% NACL 1,000 ML IV (03:07)
[2017-07-01] MEDS: PROPOFOL 100 ML IV ×2 (03:07→16:20)
[2017-07-01 05:18] LABS: WHITE BLOOD COUNT 14.6 10^3/ul (4.8-10.8)
[2017-07-01 05:18] LABS: HEMATOCRIT 23.6 % (42.0-52.0); HEMOGLOBIN 7.4 g/dl (14.0-18.0); MEAN CORPUSCULAR HEMOGLOBIN 29.5 pg (29.0-33.0); MEAN CORPUSCULAR HGB CONC 31.4 g/dl (32.0-37.0); PLATELET COUNT 269 10^3/UL (140-415); POSITIVE DIFF @See below; RED BLOOD COUNT 2.51 10^6/ul (4.70-6.10); RED CELL DISTRIBUTION WIDTH 15.9 % (11.5-14.5)
[2017-07-01 05:19] LABS: ADD MAN DIFF? YES
[2017-07-01] MEDS: PANTOPRAZOLE 40 MG INJ IV (05:28)
[2017-07-01] MEDS: PIPER-TAZO 2.25 GM (PMX) 50 ML IVPB ×3 (05:28→21:39)
[2017-07-01] MEDS: ACETAMINOPHEN 1000MG/100ML IV 100 ML IVPB ×4 (05:29→23:33)
[2017-07-01 05:35] LABS: ANION GAP 13 (8-16); BLOOD UREA NITROGEN 48 mg/dl (7-20); CALCIUM 7.4 mg/dl (8.4-10.2); CARBON DIOXIDE 17 mmol/L (21-31); CHLORIDE 109 mmol/L (97-110); CREATININE 2.87 mg/dl (0.61-1.24); MAGNESIUM 2.3 mg/dl (1.7-2.5); PHOSPHORUS 4.1 mg/dl (2.5-4.9); POTASSIUM 4.2 mmol/L (3.5-5.1); SODIUM 135 mmol/L (135-144)
[2017-07-01 05:44] LABS: GLUCOSE 417 mg/dl (70-220)
[2017-07-01 07:14] LABS: ANISOCYTOSIS 1+ (0-0); BAND NEUTROPHILS #M 1.4 10^3/ul (0.0-0.6); BAND NEUTROPHILS % (M) 10 % (0-4); BURR CELLS 3+ (0-0); EOSINOPHILS % (M) 1 % (0-7); LYMPHOCYTES #M 1.3 10^3/ul (0.8-2.9); LYMPHOCYTES % (M) 9 % (15-51); MICROCYTOSIS 1+ (0-0); MONOCYTE #M 0.1 10^3/ul (0.3-0.9); MONOCYTES % (M) 1 % (0-11); MYELOCYTES #M 0.1 10^3/ul (0.0-0.0); MYELOCYTES % (M) 1 % (0-0); PLATELET ESTIMATE NORMAL; POIKILOCYTOSIS 1+ (0-0); PROMYELOCYTES #M 0.1 10^3/ul (0-0); PROMYELOCYTES % (M) 1 % (0-0); SEG NEUT #M 11.4 10^3/ul (1.6-7.5); SEGMENTED NEUTROPHILS (M) % 77 % (39-77)
[2017-07-01] MEDS: HYDROmorphONE 0.5 MG/0.5 ML SYG IV (08:04)
[2017-07-01] MEDS: SOD CHLORIDE 0.9% 1,000 ML IV ×2 (08:15→18:30)
[2017-07-01] MEDS: HYDROmorphONE 0.2 MG/ML PCA IV (10:03)
[2017-07-01 10:50] LABS: HEMATOCRIT 31.3 % (42.0-52.0); HEMOGLOBIN 9.8 g/dl (14.0-18.0)
[2017-07-01 17:50] LABS: HEMATOCRIT 27.8 % (42.0-52.0); HEMOGLOBIN 8.7 g/dl (14.0-18.0)
[2017-07-01 18:08] LABS: ANION GAP 17 (8-16); BLOOD UREA NITROGEN 49 mg/dl (7-20); CALCIUM 8.4 mg/dl (8.4-10.2); CARBON DIOXIDE 15 mmol/L (21-31); CHLORIDE 114 mmol/L (97-110); CREATININE 3.12 mg/dl (0.61-1.24); POTASSIUM 4.6 mmol/L (3.5-5.1); SODIUM 141 mmol/L (135-144)
[2017-07-01 18:13] LABS: GLUCOSE 44 mg/dl (70-220)
[2017-07-01] MEDS ORDERED: DEXTROSE 50% 50 ML SYRINGE (18:14)
[2017-07-01] MEDS ORDERED: DEXTROSE 50% 50 ML SYRINGE IV (18:28)
[2017-07-01] MEDS: DEXTROSE 50% 50 ML SYRINGE IV (18:29)
[2017-07-01] MEDS: DEXTROSE 5%-0.9% NACL 1,000 ML IV (18:43)
[2017-07-01] MEDS: ACCU-CHEK XX ×2 (20:00→21:38)
[2017-07-01 20:20] LABS: TRIGLYCERIDES 97 mg/dl (0-149)
[2017-07-01 20:27] LABS: PREALBUMIN 10.6 mg/dl (17.6-36.0)
[2017-07-01] MEDS: FAT EMULSION 20% 250 ML IV (21:39)
[2017-07-01] MEDS: TPN 1,000 ML IV (21:39)
[2017-07-02] MEDS: DIPHENHYDRAMINE 50 MG INJ IV (00:38)
[2017-07-02] MEDS: ACCU-CHEK XX ×5 (00:39→17:00)
[2017-07-02 00:53] LABS: HEMATOCRIT 27.2 % (42.0-52.0); HEMOGLOBIN 8.6 g/dl (14.0-18.0)
[2017-07-02] MEDS: FENTAnyl 2MCG/ML-ROPIV 0.2% 100 ML BAG EPI ×3 (01:41→17:27)
[2017-07-02] MEDS: HYDROmorphONE 0.2 MG/ML PCA IV (03:13)
[2017-07-02] MEDS: PROPOFOL 100 ML IV ×2 (05:00→17:00)
[2017-07-02] MEDS: PANTOPRAZOLE 40 MG INJ IV (05:08)
[2017-07-02] MEDS: PIPER-TAZO 2.25 GM (PMX) 50 ML IVPB ×3 (05:08→22:12)
[2017-07-02] MEDS: ACETAMINOPHEN 1000MG/100ML IV 100 ML IVPB ×3 (05:09→18:19)
[2017-07-02] MEDS: DEXTROSE 5%-0.9% NACL 1,000 ML IV (05:10)
[2017-07-02 06:03] LABS: ADD MAN DIFF? NO
[2017-07-02 06:15] LABS: BASOPHILS % 0.2 % (0.0-2.0); EOSINOPHILS # 0.3 10^3/ul (0.0-0.5); EOSINOPHILS % 2.2 % (0.0-7.0); HEMATOCRIT 26.6 % (42.0-52.0); HEMOGLOBIN 8.3 g/dl (14.0-18.0); LYMPHOCYTES # 0.7 10^3/ul (0.8-2.9); LYMPHOCYTES % 5.4 % (15.0-51.0); MEAN CORPUSCULAR HEMOGLOBIN 29.4 pg (29.0-33.0); MEAN CORPUSCULAR HGB CONC 31.2 g/dl (32.0-37.0); MEAN CORPUSCULAR VOLUME 94.3 fl (82.0-101.0); MEAN PLATELET VOLUME 9.5 fl (7.4-10.4); MONOCYTE # 0.4 10^3/ul (0.3-0.9); MONOCYTES % 3.6 % (0.0-11.0); NEUTROPHIL # 10.5 10^3/ul (1.6-7.5); NEUTROPHILS % 87.8 % (39.0-77.0); PLATELET COUNT 248 10^3/UL (140-415); RED BLOOD COUNT 2.82 10^6/ul (4.70-6.10); RED CELL DISTRIBUTION WIDTH 15.8 % (11.5-14.5)
[2017-07-02 06:49] LABS: ALANINE AMINOTRANSFERASE 14 IU/L (13-69); ALBUMIN 2.3 g/dl (3.3-4.9); ALBUMIN/GLOBULIN RATIO 0.71; ALKALINE PHOSPHATASE 120 IU/L (42-121); ANION GAP 15 (8-16); ASPARTATE AMINO TRANSFERASE 13 IU/L (15-46); BLOOD UREA NITROGEN 47 mg/dl (7-20); CALCIUM 8.4 mg/dl (8.4-10.2); CARBON DIOXIDE 15 mmol/L (21-31); CHLORIDE 115 mmol/L (97-110); CREATININE 3.13 mg/dl (0.61-1.24); GLUCOSE 80 mg/dl (70-220); POTASSIUM 4.3 mmol/L (3.5-5.1); SODIUM 141 mmol/L (135-144); TOTAL PROTEIN 5.5 g/dl (6.1-8.1)
[2017-07-02 07:01] LABS: MAGNESIUM 2.1 mg/dl (1.7-2.5)
[2017-07-02 07:01] LABS: PHOSPHORUS 4.1 mg/dl (2.5-4.9)
[2017-07-02] MEDS: ONDANSETRON 4 MG INJ IV ×3 (09:19→20:47)
[2017-07-02] MEDS: *CONTINUE SAME TPN IV (11:00)
[2017-07-02] MEDS: TPN 1,000 ML IV ×2 (14:36→16:22)
[2017-07-02] MEDS: FAT EMULSION 20% 250 ML IV (17:28)
[2017-07-03] MEDS: HYDROmorphONE 0.2 MG/ML PCA IV (00:10)
[2017-07-03] MEDS: ACETAMINOPHEN 1000MG/100ML IV 100 ML IVPB ×4 (00:53→18:01)
[2017-07-03] MEDS: FENTAnyl 2MCG/ML-ROPIV 0.2% 100 ML BAG EPI ×4 (00:54→22:54)
[2017-07-03] MEDS: ONDANSETRON 4 MG INJ IV (03:43)
[2017-07-03] MEDS: PROPOFOL 100 ML IV (05:00)
[2017-07-03] MEDS: TPN 1,000 ML IV ×2 (05:40→20:12)
[2017-07-03] MEDS: PANTOPRAZOLE 40 MG INJ IV (05:40)
[2017-07-03] MEDS: PIPER-TAZO 2.25 GM (PMX) 50 ML IVPB ×3 (05:41→22:47)
[2017-07-03 05:48] LABS: ADD MAN DIFF? NO
[2017-07-03 06:00] LABS: WHITE BLOOD COUNT 13.2 10^3/ul (4.8-10.8)
[2017-07-03 06:00] LABS: BASOPHILS % 0.2 % (0.0-2.0); EOSINOPHILS % 0.3 % (0.0-7.0); HEMATOCRIT 31.1 % (42.0-52.0); HEMOGLOBIN 9.9 g/dl (14.0-18.0); LYMPHOCYTES # 0.6 10^3/ul (0.8-2.9); LYMPHOCYTES % 4.8 % (15.0-51.0); MEAN CORPUSCULAR HEMOGLOBIN 30.2 pg (29.0-33.0); MEAN CORPUSCULAR HGB CONC 31.8 g/dl (32.0-37.0); MEAN CORPUSCULAR VOLUME 94.8 fl (82.0-101.0); MONOCYTE # 0.5 10^3/ul (0.3-0.9); MONOCYTES % 3.7 % (0.0-11.0); NEUTROPHIL # 11.8 10^3/ul (1.6-7.5); NEUTROPHILS % 89.9 % (39.0-77.0); PLATELET COUNT 292 10^3/UL (140-415); POSITIVE DIFF @See below; RED BLOOD COUNT 3.28 10^6/ul (4.70-6.10); RED CELL DISTRIBUTION WIDTH 15.8 % (11.5-14.5)
[2017-07-03 06:13] LABS: PARTIAL THROMBOPLASTIN TIME 31.9 Sec (25.0-35.0)
[2017-07-03 06:29] LABS: ANION GAP 14 (8-16); BLOOD UREA NITROGEN 54 mg/dl (7-20); CALCIUM 8.9 mg/dl (8.4-10.2); CARBON DIOXIDE 18 mmol/L (21-31); CHLORIDE 116 mmol/L (97-110); CREATININE 3.11 mg/dl (0.61-1.24); GLUCOSE 126 mg/dl (70-220); MAGNESIUM 2.2 mg/dl (1.7-2.5); POTASSIUM 5.4 mmol/L (3.5-5.1); SODIUM 143 mmol/L (135-144)
[2017-07-03] MEDS: SOD CHLORIDE 0.9% 1,000 ML IV (06:31)
[2017-07-03 10:10] LABS: ANISOCYTOSIS 1+ (0-0); BAND NEUTROPHILS #M 1.3 10^3/ul (0.0-0.6); BAND NEUTROPHILS % (M) 10 % (0-4); LYMPHOCYTES #M 1.5 10^3/ul (0.8-2.9); LYMPHOCYTES % (M) 12 % (15-51); MICROCYTOSIS 1+ (0-0); MONOCYTE #M 0.3 10^3/ul (0.3-0.9); MONOCYTES % (M) 3 % (0-11); PLATELET ESTIMATE NORMAL; POLYCHROMASIA 1+ (0-0); PROMYELOCYTES #M 0.1 10^3/ul (0-0); PROMYELOCYTES % (M) 1 % (0-0); SEG NEUT #M 9.9 10^3/ul (1.6-7.5); SEGMENTED NEUTROPHILS (M) % 74 % (39-77); SMUDGE%M 1 % (0-0)
[2017-07-03] MEDS: *CONTINUE SAME TPN IV (11:00)
[2017-07-03 11:14] LABS: CREATININE 3.14 mg/dl (0.61-1.24)
[2017-07-03] MEDS: MUPIROCIN 2% 22 GM OINT TOP ×2 (11:25→21:09)
[2017-07-03] MEDS: DOXYCYCLINE 100 MG in SOD CHLORIDE 0.9% 250 ML IVPB ×2 (11:25→21:06)
[2017-07-03] MEDS: ACCU-CHEK XX ×2 (11:50→18:00)
[2017-07-03] MEDS: FAT EMULSION 20% 250 ML IV (18:04)
[2017-07-04] MEDS: ACETAMINOPHEN 1000MG/100ML IV 100 ML IVPB ×4 (00:51→17:48)
[2017-07-04] MEDS: FENTAnyl 2MCG/ML-ROPIV 0.2% 100 ML BAG EPI ×3 (05:39→20:24)
[2017-07-04 05:56] LABS: WHITE BLOOD COUNT 17.8 10^3/ul (4.8-10.8)
[2017-07-04 05:56] LABS: HEMATOCRIT 26.5 % (42.0-52.0); HEMOGLOBIN 8.1 g/dl (14.0-18.0); MEAN CORPUSCULAR HEMOGLOBIN 29.5 pg (29.0-33.0); MEAN CORPUSCULAR HGB CONC 30.6 g/dl (32.0-37.0); MEAN CORPUSCULAR VOLUME 96.4 fl (82.0-101.0); PLATELET COUNT 276 10^3/UL (140-415); POSITIVE DIFF @See below; RED BLOOD COUNT 2.75 10^6/ul (4.70-6.10); RED CELL DISTRIBUTION WIDTH 15.9 % (11.5-14.5)
[2017-07-04] MEDS: PANTOPRAZOLE 40 MG INJ IV (06:09)
[2017-07-04] MEDS: PIPER-TAZO 2.25 GM (PMX) 50 ML IVPB ×2 (06:09→14:00)
[2017-07-04] MEDS: SOD CHLORIDE 0.9% 1,000 ML IV ×2 (06:09→22:48)
[2017-07-04 06:22] LABS: ANION GAP 11 (8-16); BLOOD UREA NITROGEN 53 mg/dl (7-20); CALCIUM 8.8 mg/dl (8.4-10.2); CARBON DIOXIDE 18 mmol/L (21-31); CHLORIDE 118 mmol/L (97-110); CREATININE 3.09 mg/dl (0.61-1.24); GLUCOSE 126 mg/dl (70-220); PHOSPHORUS 1.6 mg/dl (2.5-4.9); SODIUM 143 mmol/L (135-144)
[2017-07-04] MEDS: ACCU-CHEK XX ×4 (06:25→18:06)
[2017-07-04 06:33] LABS: ADD MAN DIFF? YES
[2017-07-04] MEDS: TPN 1,000 ML IV ×2 (09:02→22:47)
[2017-07-04] MEDS: POTASSIUM PHOSPHATE 20 MEQ in SOD CHLORIDE 0.9% 250 ML IVPB (09:13)
[2017-07-04] MEDS: MUPIROCIN 2% 22 GM OINT TOP ×2 (09:14→21:38)
[2017-07-04] MEDS: DOXYCYCLINE 100 MG in SOD CHLORIDE 0.9% 250 ML IVPB (09:26)
[2017-07-04 09:57] LABS: ANISOCYTOSIS 1+ (0-0); BAND NEUTROPHILS #M 0.8 10^3/ul (0.0-0.6); BAND NEUTROPHILS % (M) 5 % (0-4); EOSINOPHILS % (M) 2 % (0-7); GIANT THROMBO% (M) 1 % (0-0); LYMPHOCYTES #M 1.4 10^3/ul (0.8-2.9); LYMPHOCYTES % (M) 8 % (15-51); MICROCYTOSIS 1+ (0-0); MONOCYTE #M 0.3 10^3/ul (0.3-0.9); MONOCYTES % (M) 2 % (0-11); PLATELET ESTIMATE NORMAL; SEG NEUT #M 14.9 10^3/ul (1.6-7.5); SEGMENTED NEUTROPHILS (M) % 83 % (39-77); SMUDGE%M 2 % (0-0)
[2017-07-04] MEDS: FAT EMULSION 20% 250 ML IV (17:48)
[2017-07-04] MEDS: TIGECYCLINE 100 MG in SOD CHLORIDE 0.9% 100 ML IVPB (18:48)
[2017-07-04] MEDS: ONDANSETRON 4 MG INJ IV (21:41)
[2017-07-05] MEDS: ACETAMINOPHEN 1000MG/100ML IV 100 ML IVPB ×4 (00:27→17:56)
[2017-07-05] MEDS: FENTAnyl 2MCG/ML-ROPIV 0.2% 100 ML BAG EPI ×3 (03:35→18:22)
[2017-07-05 05:52] LABS: ADD MAN DIFF? NO
[2017-07-05 06:00] LABS: ABNORMAL IP MESSAGE 1; BASOPHILS % 0.2 % (0.0-2.0); EOSINOPHILS # 0.3 10^3/ul (0.0-0.5); EOSINOPHILS % 1.8 % (0.0-7.0); HEMATOCRIT 28.1 % (42.0-52.0); HEMOGLOBIN 8.6 g/dl (14.0-18.0); LYMPHOCYTES % 10.7 % (15.0-51.0); MEAN CORPUSCULAR HEMOGLOBIN 29.8 pg (29.0-33.0); MEAN CORPUSCULAR HGB CONC 30.6 g/dl (32.0-37.0); MEAN CORPUSCULAR VOLUME 97.2 fl (82.0-101.0); MEAN PLATELET VOLUME 9.9 fl (7.4-10.4); MONOCYTE # 1.3 10^3/ul (0.3-0.9); MONOCYTES % 6.6 % (0.0-11.0); NEUTROPHIL # 13.2 10^3/ul (1.6-7.5); NEUTROPHILS % 69.1 % (39.0-77.0); NUCLEATED RED BLOOD CELLS% 0.1 /100WBC (0.0-0.0); PLATELET COUNT 302 10^3/UL (140-415); POSITIVE DIFF @See below; RED BLOOD COUNT 2.89 10^6/ul (4.70-6.10); RED CELL DISTRIBUTION WIDTH 15.9 % (11.5-14.5)
[2017-07-05] MEDS: PANTOPRAZOLE 40 MG INJ IV (06:17)
[2017-07-05] MEDS: ONDANSETRON 4 MG INJ IV ×2 (06:17→21:27)
[2017-07-05] MEDS: ACCU-CHEK XX ×4 (06:28→18:00)
[2017-07-05 06:38] LABS: ANION GAP 12 (8-16); BLOOD UREA NITROGEN 56 mg/dl (7-20); CALCIUM 8.5 mg/dl (8.4-10.2); CARBON DIOXIDE 16 mmol/L (21-31); CHLORIDE 118 mmol/L (97-110); CREATININE 2.37 mg/dl (0.61-1.24); GLUCOSE 118 mg/dl (70-220); MAGNESIUM 1.8 mg/dl (1.7-2.5); PHOSPHORUS 2.5 mg/dl (2.5-4.9); POTASSIUM 3.9 mmol/L (3.5-5.1); SODIUM 142 mmol/L (135-144)
[2017-07-05 07:27] LABS: ANISOCYTOSIS 1+ (0-0); BAND NEUTROPHILS #M 0.5 10^3/ul (0.0-0.6); BAND NEUTROPHILS % (M) 3 % (0-4); EOSINOPHILS % (M) 3 % (0-7); GIANT THROMBO% (M) 1 % (0-0); LYMPHOCYTES #M 2.8 10^3/ul (0.8-2.9); LYMPHOCYTES % (M) 15 % (15-51); MICROCYTOSIS 1+ (0-0); MONOCYTE #M 1.3 10^3/ul (0.3-0.9); MONOCYTES % (M) 7 % (0-11); MYELOCYTES #M 0.5 10^3/ul (0.0-0.0); MYELOCYTES % (M) 3 % (0-0); PLATELET ESTIMATE NORMAL; POLYCHROMASIA 2+ (0-0); SEG NEUT #M 13.2 10^3/ul (1.6-7.5); SEGMENTED NEUTROPHILS (M) % 69 % (39-77); SMUDGE%M 14 % (0-0)
[2017-07-05] MEDS: MUPIROCIN 2% 22 GM OINT TOP ×2 (08:58→21:05)
[2017-07-05] MEDS: TIGECYCLINE 50 MG in DEXTROSE 5% 100 ML IVPB (08:58)
[2017-07-05 12:02] LABS: ADD UMIC YES; UR ASCORBIC ACID NEGATIVE (NEGATIVE); UR BILIRUBIN (Dip) NEGATIVE (NEGATIVE); UR BLOOD (Dip) 3+ mg/dL (NEGATIVE); UR CLARITY CLOUDY (CLEAR); UR COLOR RED (YELLOW); UR GLUCOSE (Dip) NEGATIVE (NEGATIVE); UR KETONES (Dip) NEGATIVE (NEGATIVE); UR LEUKOCYTE ESTERASE (Dip) 3+ Leu/ul (NEGATIVE); UR NITRITE (Dip) NEGATIVE (NEGATIVE); UR NONSQUAMOUS EPITHELIAL CELL 6 /HPF (NONE SEEN); UR RBC > 182 /HPF (0-5); UR SPECIFIC GRAVITY (Dip) 1.014 (1.003-1.030); UR TOTAL PROTEIN (Dip) 2+ mg/dl (NEGATIVE); UR UROBILINOGEN (Dip) NEGATIVE (NEGATIVE); UR WBC > 182 /HPF (0-5)
[2017-07-05] MEDS: TPN 1,000 ML IV (13:11)
[2017-07-05 13:40] LABS: ADD UMIC YES; UR AMORPHOUS CRYSTAL FEW /HPF (NONE SEEN); UR ASCORBIC ACID NEGATIVE (NEGATIVE); UR BACTERIA FEW /HPF (NONE SEEN); UR BILIRUBIN (Dip) NEGATIVE (NEGATIVE); UR BLOOD (Dip) 3+ mg/dL (NEGATIVE); UR CLARITY CLOUDY (CLEAR); UR COLOR YELLOW (YELLOW); UR GLUCOSE (Dip) NEGATIVE (NEGATIVE); UR KETONES (Dip) NEGATIVE (NEGATIVE); UR LEUKOCYTE ESTERASE (Dip) 3+ Leu/ul (NEGATIVE); UR NITRITE (Dip) NEGATIVE (NEGATIVE); UR RBC > 182 /HPF (0-5); UR SPECIFIC GRAVITY (Dip) 1.013 (1.003-1.030); UR TOTAL PROTEIN (Dip) 1+ mg/dl (NEGATIVE); UR UROBILINOGEN (Dip) NEGATIVE (NEGATIVE); UR WBC > 182 /HPF (0-5)
[2017-07-05] MEDS: FAT EMULSION 20% 250 ML IV (17:57)
[2017-07-05] MEDS ORDERED: TIGECYCLINE 50 MG in SOD CHLORIDE 0.9% 100 ML IVPB (21:00)
[2017-07-05] MEDS: TIGECYCLINE 50 MG in SOD CHLORIDE 0.9% 100 ML IVPB (21:05)
[2017-07-05] MEDS: HYDROmorphONE 0.2 MG/ML PCA IV (22:40)
[2017-07-06] MEDS: ACETAMINOPHEN 1000MG/100ML IV 100 ML IVPB ×4 (00:09→17:30)
[2017-07-06] MEDS: FENTAnyl 2MCG/ML-ROPIV 0.2% 100 ML BAG EPI ×2 (00:21→08:17)
[2017-07-06] MEDS: ACCU-CHEK XX ×4 (00:22→17:31)
[2017-07-06] MEDS: TPN 1,000 ML IV ×2 (04:16→17:42)
[2017-07-06] MEDS: ONDANSETRON 4 MG INJ IV ×4 (04:33→21:30)
[2017-07-06 05:33] LABS: ABNORMAL IP MESSAGE 1; HEMATOCRIT 27.8 % (42.0-52.0); HEMOGLOBIN 8.6 g/dl (14.0-18.0); MEAN CORPUSCULAR HEMOGLOBIN 29.2 pg (29.0-33.0); MEAN CORPUSCULAR HGB CONC 30.9 g/dl (32.0-37.0); MEAN CORPUSCULAR VOLUME 94.2 fl (82.0-101.0); MEAN PLATELET VOLUME 9.7 fl (7.4-10.4); NUCLEATED RED BLOOD CELLS% 0.1 /100WBC (0.0-0.0); PLATELET COUNT 373 10^3/UL (140-415); RED BLOOD COUNT 2.95 10^6/ul (4.70-6.10); RED CELL DISTRIBUTION WIDTH 15.5 % (11.5-14.5)
[2017-07-06 05:33] LABS: WHITE BLOOD COUNT 21.6 10^3/ul (4.8-10.8)
[2017-07-06 06:02] LABS: ANION GAP 13 (8-16); BLOOD UREA NITROGEN 67 mg/dl (7-20); CALCIUM 8.2 mg/dl (8.4-10.2); CARBON DIOXIDE 17 mmol/L (21-31); CHLORIDE 113 mmol/L (97-110); CREATININE 1.92 mg/dl (0.61-1.24); GLUCOSE 81 mg/dl (70-220); MAGNESIUM 1.6 mg/dl (1.7-2.5); PHOSPHORUS 3.8 mg/dl (2.5-4.9); POTASSIUM 4.1 mmol/L (3.5-5.1); SODIUM 139 mmol/L (135-144)
[2017-07-06 06:04] LABS: ADD MAN DIFF? YES
[2017-07-06] MEDS: PANTOPRAZOLE 40 MG INJ IV (06:14)
[2017-07-06] MEDS: MAGNESIUM SULFATE 2 GM/50 ML 50 ML IVPB (07:54)
[2017-07-06] MEDS: TIGECYCLINE 50 MG in SOD CHLORIDE 0.9% 100 ML IVPB (08:03)
[2017-07-06] MEDS: MUPIROCIN 2% 22 GM OINT TOP ×2 (08:08→21:29)
[2017-07-06] MEDS: MEROPENEM 500MG/50 ML (PMX) 50 ML IVPB ×2 (10:36→21:29)
[2017-07-06 11:05] LABS: BAND NEUTROPHILS #M 3.2 10^3/ul (0.0-0.6); BAND NEUTROPHILS % (M) 15 % (0-4); EOSINOPHILS # 0.6 10^3/ul (0.0-0.5); EOSINOPHILS % (M) 3 % (0.0-7.0); LYMPHOCYTES # 3.2 10^3/ul (0.8-2.9); LYMPHOCYTES #M 3.2 10^3/ul (0.8-2.9); LYMPHOCYTES % (M) 15 % (15-51); METAMYELOCYTES #M 0.4 10^3/ul (0.0-0.0); METAMYELOCYTES %M 2 % (0-0); MONOCYTE # 1.7 10^3/ul (0.3-0.9); MONOCYTE #M 1.7 10^3/ul (0.3-0.9); MONOCYTES % (M) 8 % (0-11); MYELOCYTES #M 0.2 10^3/ul (0.0-0.0); MYELOCYTES % (M) 1 % (0-0); SEG NEUT #M 12.8 10^3/ul (1.7-7.5); SEGMENTED NEUTROPHILS (M) % 56 % (39-77)
[2017-07-06 11:06] LABS: BURR CELLS FEW
[2017-07-06 11:07] LABS: ANISOCYTOSIS 1+ (0-0); POLYCHROMASIA FEW (0-0)
[2017-07-06] MEDS ORDERED: FLUCONAZOLE 100 MG/NS (PMX) 50 ML IVPB (14:30)
[2017-07-06] MEDS: FLUCONAZOLE 100 MG/NS (PMX) 50 ML IVPB (15:31)
[2017-07-06] MEDS: FAT EMULSION 20% 250 ML IV (17:40)
[2017-07-06] MEDS: IOHEXOL 14.3 MG(I)/ML (ADULT) BTL PO (17:52)
[2017-07-06] MEDS: LINEZOLID 600 MG/D5W (PMX) 300 ML IVPB (21:37)
[2017-07-07] MEDS: ACCU-CHEK XX ×4 (00:59→17:29)
[2017-07-07] MEDS: ACETAMINOPHEN 1000MG/100ML IV 100 ML IVPB ×4 (00:59→17:14)
[2017-07-07] MEDS: ONDANSETRON 4 MG INJ IV ×6 (01:32→23:11)
[2017-07-07 05:14] LABS: ADD MAN DIFF? NO
[2017-07-07 05:39] LABS: ANION GAP 10 (8-16); BLOOD UREA NITROGEN 71 mg/dl (7-20); CARBON DIOXIDE 20 mmol/L (21-31); CHLORIDE 112 mmol/L (97-110); CREATININE 1.92 mg/dl (0.61-1.24); GLUCOSE 96 mg/dl (70-220); MAGNESIUM 2.2 mg/dl (1.7-2.5); PHOSPHORUS 3.4 mg/dl (2.5-4.9); POTASSIUM 3.4 mmol/L (3.5-5.1); SODIUM 139 mmol/L (135-144)
[2017-07-07 06:08] LABS: WHITE BLOOD COUNT 18.7 10^3/ul (4.8-10.8)
[2017-07-07 06:08] LABS: ABNORMAL IP MESSAGE 1; BASOPHIL # 0.1 10^3/ul (0.0-0.1); BASOPHILS % 0.4 % (0.0-2.0); EOSINOPHILS # 0.5 10^3/ul (0.0-0.5); EOSINOPHILS % 2.4 % (0.0-7.0); HEMATOCRIT 25.3 % (42.0-52.0); HEMOGLOBIN 8.1 g/dl (14.0-18.0); LYMPHOCYTES # 1.9 10^3/ul (0.8-2.9); LYMPHOCYTES % 10.3 % (15.0-51.0); MEAN CORPUSCULAR HEMOGLOBIN 29.9 pg (29.0-33.0); MEAN CORPUSCULAR VOLUME 93.4 fl (82.0-101.0); MEAN PLATELET VOLUME 9.9 fl (7.4-10.4); MONOCYTE # 1.4 10^3/ul (0.3-0.9); MONOCYTES % 7.2 % (0.0-11.0); NEUTROPHIL # 13.2 10^3/ul (1.6-7.5); NEUTROPHILS % 70.6 % (39.0-77.0); PLATELET COUNT 398 10^3/UL (140-415); POSITIVE DIFF @See below; RED BLOOD COUNT 2.71 10^6/ul (4.70-6.10); RED CELL DISTRIBUTION WIDTH 15.4 % (11.5-14.5)
[2017-07-07] MEDS: PANTOPRAZOLE 40 MG INJ IV (06:12)
[2017-07-07] MEDS: TPN 1,000 ML IV ×2 (08:00→22:32)
[2017-07-07] MEDS: LINEZOLID 600 MG/D5W (PMX) 300 ML IVPB ×2 (08:00→23:33)
[2017-07-07] MEDS: MEROPENEM 500MG/50 ML (PMX) 50 ML IVPB ×2 (08:00→20:54)
[2017-07-07] MEDS: MUPIROCIN 2% 22 GM OINT TOP ×2 (08:01→21:26)
[2017-07-07] MEDS ORDERED: CALCIUM CARBONATE 500 MG CHEW TAB PO (12:30)
[2017-07-07] MEDS: BALSAM PERU/CASTOR OIL 60 GM TUBE TOP ×2 (13:57→21:26)
[2017-07-07] MEDS: FLUCONAZOLE 100 MG/NS (PMX) 50 ML IVPB (14:51)
[2017-07-07] MEDS: FUROSEMIDE 20 MG INJ IV (17:14)
[2017-07-07] MEDS: FAT EMULSION 20% 250 ML IV (17:15)
[2017-07-07] MEDS: oxyCODONE (CR) 10 MG TAB [oxyCONTIN] PO ×2 (21:00)
[2017-07-08] MEDS: ACETAMINOPHEN 1000MG/100ML IV 100 ML IVPB ×5 (01:01→23:26)
[2017-07-08] MEDS: PANTOPRAZOLE 40 MG INJ IV (06:01)
[2017-07-08] MEDS: ACCU-CHEK XX ×5 (06:01→23:27)
[2017-07-08] MEDS: ONDANSETRON 4 MG INJ IV ×2 (06:07→12:23)
[2017-07-08 06:49] LABS: ANION GAP 11 (8-16); BLOOD UREA NITROGEN 71 mg/dl (7-20); CALCIUM 7.9 mg/dl (8.4-10.2); CARBON DIOXIDE 23 mmol/L (21-31); CHLORIDE 109 mmol/L (97-110); CREATININE 1.91 mg/dl (0.61-1.24); GLUCOSE 94 mg/dl (70-220); MAGNESIUM 2.1 mg/dl (1.7-2.5); PHOSPHORUS 3.3 mg/dl (2.5-4.9); POTASSIUM 3.6 mmol/L (3.5-5.1); SODIUM 139 mmol/L (135-144)
[2017-07-08 06:52] LABS: PREALBUMIN 11.1 mg/dl (17.6-36.0)
[2017-07-08] MEDS: oxyCODONE (CR) 10 MG TAB [oxyCONTIN] PO ×3 (09:00→20:21)
[2017-07-08] MEDS: FUROSEMIDE 20 MG INJ IV ×2 (09:12→18:40)
[2017-07-08] MEDS: MUPIROCIN 2% 22 GM OINT TOP ×2 (09:13→20:22)
[2017-07-08] MEDS: LINEZOLID 600 MG/D5W (PMX) 300 ML IVPB (09:13)
[2017-07-08] MEDS: BALSAM PERU/CASTOR OIL 60 GM TUBE TOP ×2 (09:13→20:22)
[2017-07-08] MEDS: MEROPENEM 500MG/50 ML (PMX) 50 ML IVPB (09:13)
[2017-07-08] MEDS: HYDROmorphONE 0.5 MG/0.5 ML SYG IV ×2 (09:30→17:09)
[2017-07-08] MEDS: TPN 1,000 ML IV (12:46)
[2017-07-08] MEDS: FLUCONAZOLE 100 MG/NS (PMX) 50 ML IVPB (14:51)
[2017-07-08] MEDS: FAT EMULSION 20% 250 ML IV (17:12)
[2017-07-09] MEDS: HYDROmorphONE 0.5 MG/0.5 ML SYG IV ×3 (00:57→18:02)
[2017-07-09] MEDS: ONDANSETRON 4 MG INJ IV ×3 (01:02→18:10)
[2017-07-09] MEDS: TPN 1,000 ML IV (02:08)
[2017-07-09] MEDS: PANTOPRAZOLE 40 MG INJ IV (05:10)
[2017-07-09] MEDS: ACETAMINOPHEN 1000MG/100ML IV 100 ML IVPB ×2 (05:10→12:29)
[2017-07-09] MEDS: FUROSEMIDE 20 MG INJ IV ×2 (05:11→18:03)
[2017-07-09] MEDS: ACCU-CHEK XX ×2 (05:15→08:30)
[2017-07-09 06:20] LABS: ALANINE AMINOTRANSFERASE 15 IU/L (13-69); ALBUMIN/GLOBULIN RATIO 0.66; ALKALINE PHOSPHATASE 246 IU/L (42-121); ANION GAP 13 (8-16); ASPARTATE AMINO TRANSFERASE 16 IU/L (15-46); BLOOD UREA NITROGEN 63 mg/dl (7-20); CALCIUM 7.6 mg/dl (8.4-10.2); CARBON DIOXIDE 27 mmol/L (21-31); CHLORIDE 98 mmol/L (97-110); CREATININE 2.01 mg/dl (0.61-1.24); MAGNESIUM 2.4 mg/dl (1.7-2.5); PHOSPHORUS 3.4 mg/dl (2.5-4.9); POTASSIUM 5.1 mmol/L (3.5-5.1); SODIUM 133 mmol/L (135-144); TRIGLYCERIDES 99 mg/dl (0-149)
[2017-07-09 06:29] LABS: GLUCOSE 448 mg/dl (70-220)
[2017-07-09] MEDS: BALSAM PERU/CASTOR OIL 60 GM TUBE TOP ×2 (08:30→21:33)
[2017-07-09] MEDS: MUPIROCIN 2% 22 GM OINT TOP ×2 (08:30→21:32)
[2017-07-09] MEDS: oxyCODONE (CR) 10 MG TAB [oxyCONTIN] PO ×2 (08:30→21:32)
[2017-07-09 12:53] LABS: ADD MAN DIFF? NO
[2017-07-09 12:54] LABS: ABNORMAL IP MESSAGE 1; BASOPHILS % 0.3 % (0.0-2.0); EOSINOPHILS # 0.4 10^3/ul (0.0-0.5); EOSINOPHILS % 2.6 % (0.0-7.0); HEMATOCRIT 24.8 % (42.0-52.0); HEMOGLOBIN 7.6 g/dl (14.0-18.0); LYMPHOCYTES # 2.2 10^3/ul (0.8-2.9); LYMPHOCYTES % 15.2 % (15.0-51.0); MEAN CORPUSCULAR HEMOGLOBIN 29.6 pg (29.0-33.0); MEAN CORPUSCULAR HGB CONC 30.6 g/dl (32.0-37.0); MEAN CORPUSCULAR VOLUME 96.5 fl (82.0-101.0); MEAN PLATELET VOLUME 10.3 fl (7.4-10.4); MONOCYTE # 1.1 10^3/ul (0.3-0.9); MONOCYTES % 7.6 % (0.0-11.0); NEUTROPHIL # 9.8 10^3/ul (1.6-7.5); NEUTROPHILS % 68.3 % (39.0-77.0); PLATELET COUNT 422 10^3/UL (140-415); POSITIVE DIFF @See below; RED BLOOD COUNT 2.57 10^6/ul (4.70-6.10); RED CELL DISTRIBUTION WIDTH 15.7 % (11.5-14.5)
[2017-07-09 12:54] LABS: WHITE BLOOD COUNT 14.4 10^3/ul (4.8-10.8)
[2017-07-09] MEDS: FLUCONAZOLE 100 MG/NS (PMX) 50 ML IVPB (15:26)
[2017-07-10] MEDS: HYDROmorphONE 0.5 MG/0.5 ML SYG IV ×3 (01:54→18:48)
[2017-07-10] MEDS: ONDANSETRON 4 MG INJ IV (01:54)
[2017-07-10] MEDS: FUROSEMIDE 20 MG INJ IV ×2 (06:00→18:00)
[2017-07-10 07:00] LABS: ANION GAP 10 (8-16); BLOOD UREA NITROGEN 60 mg/dl (7-20); CALCIUM 8.1 mg/dl (8.4-10.2); CARBON DIOXIDE 31 mmol/L (21-31); CHLORIDE 103 mmol/L (97-110); CREATININE 1.91 mg/dl (0.61-1.24); GLUCOSE 93 mg/dl (70-220); MAGNESIUM 1.8 mg/dl (1.7-2.5); PHOSPHORUS 3.9 mg/dl (2.5-4.9); SODIUM 140 mmol/L (135-144)
[2017-07-10] MEDS: BALSAM PERU/CASTOR OIL 60 GM TUBE TOP ×2 (09:25→21:23)
[2017-07-10] MEDS: oxyCODONE (CR) 10 MG TAB [oxyCONTIN] PO ×2 (09:26→21:22)
[2017-07-10] MEDS: FLUCONAZOLE 100 MG/NS (PMX) 50 ML IVPB (14:05)
[2017-07-10] MEDS: MUPIROCIN 2% 22 GM OINT TOP ×2 (14:05→21:23)
[2017-07-11] MEDS: ONDANSETRON 4 MG INJ IV ×3 (02:04→22:53)
[2017-07-11] MEDS: HYDROmorphONE 0.5 MG/0.5 ML SYG IV ×4 (02:35→22:45)
[2017-07-11] MEDS: FUROSEMIDE 20 MG INJ IV (05:55)
[2017-07-11] MEDS: oxyCODONE (CR) 10 MG TAB [oxyCONTIN] PO ×2 (08:54→21:35)
[2017-07-11] MEDS: MUPIROCIN 2% 22 GM OINT TOP ×2 (08:54→21:36)
[2017-07-11] MEDS: BALSAM PERU/CASTOR OIL 60 GM TUBE TOP ×2 (08:54→21:36)
[2017-07-11] MEDS: FLUCONAZOLE 100 MG/NS (PMX) 50 ML IVPB (14:42)
[2017-07-11] MEDS: LIDOCAINE 5% 35 GM OINT TOP (16:35)
[2017-07-12] MEDS: HYDROmorphONE 0.5 MG/0.5 ML SYG IV ×4 (05:15→23:11)
[2017-07-12] MEDS: ONDANSETRON 4 MG INJ IV ×4 (05:15→23:12)
[2017-07-12 06:06] LABS: ADD MAN DIFF? NO
[2017-07-12 06:14] LABS: BASOPHILS % 0.3 % (0.0-2.0); EOSINOPHILS # 0.2 10^3/ul (0.0-0.5); EOSINOPHILS % 1.9 % (0.0-7.0); HEMOGLOBIN 7.5 g/dl (14.0-18.0); LYMPHOCYTES # 1.9 10^3/ul (0.8-2.9); LYMPHOCYTES % 15.2 % (15.0-51.0); MEAN CORPUSCULAR HEMOGLOBIN 30.1 pg (29.0-33.0); MEAN CORPUSCULAR HGB CONC 31.3 g/dl (32.0-37.0); MEAN CORPUSCULAR VOLUME 96.4 fl (82.0-101.0); MEAN PLATELET VOLUME 9.5 fl (7.4-10.4); MONOCYTE # 1.1 10^3/ul (0.3-0.9); MONOCYTES % 8.8 % (0.0-11.0); NEUTROPHIL # 9.3 10^3/ul (1.6-7.5); NEUTROPHILS % 72.7 % (39.0-77.0); PLATELET COUNT 416 10^3/UL (140-415); RED BLOOD COUNT 2.49 10^6/ul (4.70-6.10); RED CELL DISTRIBUTION WIDTH 15.9 % (11.5-14.5)
[2017-07-12 06:14] LABS: WHITE BLOOD COUNT 12.7 10^3/ul (4.8-10.8)
[2017-07-12 06:52] LABS: ALANINE AMINOTRANSFERASE 19 IU/L (13-69); ALBUMIN 2.4 g/dl (3.3-4.9); ALBUMIN/GLOBULIN RATIO 0.66; ALKALINE PHOSPHATASE 320 IU/L (42-121); ANION GAP 10 (8-16); ASPARTATE AMINO TRANSFERASE 17 IU/L (15-46); BLOOD UREA NITROGEN 44 mg/dl (7-20); CALCIUM 8.3 mg/dl (8.4-10.2); CARBON DIOXIDE 28 mmol/L (21-31); CHLORIDE 108 mmol/L (97-110); CREATININE 2.15 mg/dl (0.61-1.24); GLUCOSE 80 mg/dl (70-220); POTASSIUM 3.9 mmol/L (3.5-5.1); SODIUM 142 mmol/L (135-144)
[2017-07-12] MEDS: oxyCODONE (CR) 10 MG TAB [oxyCONTIN] PO ×2 (08:28→21:24)
[2017-07-12] MEDS: MUPIROCIN 2% 22 GM OINT TOP ×2 (08:30→21:24)
[2017-07-12] MEDS: BALSAM PERU/CASTOR OIL 60 GM TUBE TOP ×2 (08:30→21:24)
[2017-07-12] MEDS: FLUCONAZOLE 100 MG/NS (PMX) 50 ML IVPB (15:02)
[2017-07-13] MEDS: ONDANSETRON 4 MG INJ IV ×3 (05:10→22:54)
[2017-07-13] MEDS: HYDROmorphONE 0.5 MG/0.5 ML SYG IV ×4 (05:10→22:54)
[2017-07-13 06:12] LABS: ADD MAN DIFF? NO
[2017-07-13 06:16] LABS: WHITE BLOOD COUNT 19.2 10^3/ul (4.8-10.8)
[2017-07-13 06:16] LABS: BASOPHIL # 0.1 10^3/ul (0.0-0.1); BASOPHILS % 0.3 % (0.0-2.0); EOSINOPHILS # 0.2 10^3/ul (0.0-0.5); EOSINOPHILS % 1.1 % (0.0-7.0); LYMPHOCYTES # 1.9 10^3/ul (0.8-2.9); LYMPHOCYTES % 10.1 % (15.0-51.0); MEAN CORPUSCULAR HEMOGLOBIN 29.5 pg (29.0-33.0); MEAN CORPUSCULAR HGB CONC 30.8 g/dl (32.0-37.0); MEAN CORPUSCULAR VOLUME 95.9 fl (82.0-101.0); MEAN PLATELET VOLUME 9.3 fl (7.4-10.4); MONOCYTE # 1.2 10^3/ul (0.3-0.9); MONOCYTES % 6.5 % (0.0-11.0); NEUTROPHIL # 15.6 10^3/ul (1.6-7.5); NEUTROPHILS % 81.3 % (39.0-77.0); PLATELET COUNT 440 10^3/UL (140-415); RED BLOOD COUNT 2.71 10^6/ul (4.70-6.10); RED CELL DISTRIBUTION WIDTH 15.9 % (11.5-14.5)
[2017-07-13 06:36] LABS: ANION GAP 12 (8-16); BLOOD UREA NITROGEN 39 mg/dl (7-20); CALCIUM 8.4 mg/dl (8.4-10.2); CARBON DIOXIDE 25 mmol/L (21-31); CHLORIDE 110 mmol/L (97-110); CREATININE 2.31 mg/dl (0.61-1.24); GLUCOSE 114 mg/dl (70-220); MAGNESIUM 1.6 mg/dl (1.7-2.5); POTASSIUM 4.1 mmol/L (3.5-5.1); SODIUM 143 mmol/L (135-144)
[2017-07-13] MEDS: SOD CHLORIDE 0.9% 1,000 ML IV (08:39)
[2017-07-13] MEDS: oxyCODONE (CR) 10 MG TAB [oxyCONTIN] PO ×2 (08:39→20:33)
[2017-07-13] MEDS: BALSAM PERU/CASTOR OIL 60 GM TUBE TOP ×2 (08:40→20:32)
[2017-07-13] MEDS: MUPIROCIN 2% 22 GM OINT TOP ×2 (08:40→20:32)
[2017-07-13] MEDS: MAGNESIUM SULFATE 1 GM/D5W 100 ML IVPB (09:47)
[2017-07-13] MEDS: FLUCONAZOLE 100 MG TAB PO (14:49)
[2017-07-14] MEDS: ONDANSETRON 4 MG INJ IV ×4 (04:48→23:16)
[2017-07-14] MEDS: HYDROmorphONE 0.5 MG/0.5 ML SYG IV ×4 (04:48→23:11)
[2017-07-14] MEDS: SOD CHLORIDE 0.9% 1,000 ML IV (04:49)
[2017-07-14 05:52] LABS: ADD MAN DIFF? NO
[2017-07-14 05:53] LABS: WHITE BLOOD COUNT 13.3 10^3/ul (4.8-10.8)
[2017-07-14 05:53] LABS: BASOPHIL # 0.1 10^3/ul (0.0-0.1); BASOPHILS % 0.5 % (0.0-2.0); EOSINOPHILS # 0.2 10^3/ul (0.0-0.5); EOSINOPHILS % 1.6 % (0.0-7.0); HEMATOCRIT 23.7 % (42.0-52.0); HEMOGLOBIN 7.3 g/dl (14.0-18.0); LYMPHOCYTES # 1.9 10^3/ul (0.8-2.9); MEAN CORPUSCULAR HEMOGLOBIN 29.9 pg (29.0-33.0); MEAN CORPUSCULAR HGB CONC 30.8 g/dl (32.0-37.0); MEAN CORPUSCULAR VOLUME 97.1 fl (82.0-101.0); MEAN PLATELET VOLUME 9.4 fl (7.4-10.4); MONOCYTES % 7.3 % (0.0-11.0); NEUTROPHIL # 10.1 10^3/ul (1.6-7.5); PLATELET COUNT 384 10^3/UL (140-415); RED BLOOD COUNT 2.44 10^6/ul (4.70-6.10); RED CELL DISTRIBUTION WIDTH 15.5 % (11.5-14.5)
[2017-07-14 06:36] LABS: ANION GAP 10 (8-16); BLOOD UREA NITROGEN 36 mg/dl (7-20); CALCIUM 8.4 mg/dl (8.4-10.2); CARBON DIOXIDE 22 mmol/L (21-31); CHLORIDE 113 mmol/L (97-110); CREATININE 2.36 mg/dl (0.61-1.24); GLUCOSE 93 mg/dl (70-220); MAGNESIUM 1.8 mg/dl (1.7-2.5); POTASSIUM 3.9 mmol/L (3.5-5.1); SODIUM 141 mmol/L (135-144)
[2017-07-14] MEDS: BALSAM PERU/CASTOR OIL 60 GM TUBE TOP ×2 (08:48→20:54)
[2017-07-14] MEDS: oxyCODONE (CR) 10 MG TAB [oxyCONTIN] PO ×2 (08:48→20:53)
[2017-07-14] MEDS: MUPIROCIN 2% 22 GM OINT TOP ×2 (08:49→20:54)
[2017-07-14] MEDS: FLUCONAZOLE 100 MG TAB PO (15:05)
[2017-07-14] MEDS: IOHEXOL 14.3 MG(I)/ML (ADULT) BTL PO ×4 (16:00→20:53)
[2017-07-14] MEDS ORDERED: HYDROmorphONE 2 MG TAB PO (17:00)
[2017-07-14] MEDS ORDERED: NACL 0.9% 3 ML SYG IV (19:30)
[2017-07-15] MEDS: SOD CHLORIDE 0.9% 1,000 ML IV ×3 (00:30→20:30)
[2017-07-15 01:09] LABS: AHG CROSSMATCH 1 2
[2017-07-15] MEDS: ONDANSETRON 4 MG INJ IV ×3 (05:50→18:26)
[2017-07-15] MEDS: HYDROmorphONE 0.5 MG/0.5 ML SYG IV ×3 (05:50→18:26)
[2017-07-15 06:03] LABS: ADD MAN DIFF? NO
[2017-07-15 06:07] LABS: BASOPHIL # 0.1 10^3/ul (0.0-0.1); BASOPHILS % 0.5 % (0.0-2.0); EOSINOPHILS # 0.2 10^3/ul (0.0-0.5); EOSINOPHILS % 1.6 % (0.0-7.0); HEMATOCRIT 30.3 % (42.0-52.0); HEMOGLOBIN 9.7 g/dl (14.0-18.0); LYMPHOCYTES % 16.3 % (15.0-51.0); MEAN CORPUSCULAR HEMOGLOBIN 28.4 pg (29.0-33.0); MEAN CORPUSCULAR VOLUME 88.9 fl (82.0-101.0); MEAN PLATELET VOLUME 9.4 fl (7.4-10.4); MONOCYTES % 8.7 % (0.0-11.0); NEUTROPHIL # 8.7 10^3/ul (1.6-7.5); NEUTROPHILS % 72.2 % (39.0-77.0); PLATELET COUNT 344 10^3/UL (140-415); RED BLOOD COUNT 3.41 10^6/ul (4.70-6.10); RED CELL DISTRIBUTION WIDTH 17.9 % (11.5-14.5)
[2017-07-15 06:34] LABS: ANION GAP 12 (8-16); BLOOD UREA NITROGEN 29 mg/dl (7-20); CALCIUM 8.3 mg/dl (8.4-10.2); CARBON DIOXIDE 19 mmol/L (21-31); CHLORIDE 114 mmol/L (97-110); CREATININE 2.22 mg/dl (0.61-1.24); GLUCOSE 88 mg/dl (70-220); MAGNESIUM 1.6 mg/dl (1.7-2.5); PHOSPHORUS 4.1 mg/dl (2.5-4.9); POTASSIUM 3.8 mmol/L (3.5-5.1); SODIUM 141 mmol/L (135-144)
[2017-07-15] MEDS: oxyCODONE (CR) 10 MG TAB [oxyCONTIN] PO ×2 (09:40→21:00)
[2017-07-15] MEDS: BALSAM PERU/CASTOR OIL 60 GM TUBE TOP ×2 (09:41→21:01)
[2017-07-15] MEDS: MUPIROCIN 2% 22 GM OINT TOP ×2 (09:41→21:01)
[2017-07-15] MEDS: MAGNESIUM SULFATE 2 GM/50 ML 50 ML IVPB (09:41)
[2017-07-15] MEDS: MEROPENEM 500MG/50 ML (PMX) 50 ML IVPB ×2 (13:18→21:00)
[2017-07-15] MEDS: FLUCONAZOLE 100 MG TAB PO (16:39)
[2017-07-16] MEDS: ONDANSETRON 4 MG INJ IV ×5 (00:10→23:55)
[2017-07-16] MEDS: HYDROmorphONE 0.5 MG/0.5 ML SYG IV ×5 (00:10→23:55)
[2017-07-16] MEDS: ACETAMINOPHEN 325 MG TAB PO (02:44)
[2017-07-16 05:38] LABS: ADD MAN DIFF? NO
[2017-07-16 05:44] LABS: BASOPHIL # 0.1 10^3/ul (0.0-0.1); BASOPHILS % 0.7 % (0.0-2.0); EOSINOPHILS # 0.2 10^3/ul (0.0-0.5); EOSINOPHILS % 1.8 % (0.0-7.0); HEMATOCRIT 28.8 % (42.0-52.0); HEMOGLOBIN 9.1 g/dl (14.0-18.0); LYMPHOCYTES # 1.6 10^3/ul (0.8-2.9); LYMPHOCYTES % 13.6 % (15.0-51.0); MEAN CORPUSCULAR HEMOGLOBIN 28.3 pg (29.0-33.0); MEAN CORPUSCULAR HGB CONC 31.6 g/dl (32.0-37.0); MEAN CORPUSCULAR VOLUME 89.7 fl (82.0-101.0); MEAN PLATELET VOLUME 9.2 fl (7.4-10.4); MONOCYTE # 1.1 10^3/ul (0.3-0.9); NEUTROPHIL # 8.4 10^3/ul (1.6-7.5); NEUTROPHILS % 73.3 % (39.0-77.0); PLATELET COUNT 328 10^3/UL (140-415); RED BLOOD COUNT 3.21 10^6/ul (4.70-6.10); RED CELL DISTRIBUTION WIDTH 17.7 % (11.5-14.5)
[2017-07-16 05:44] LABS: WHITE BLOOD COUNT 11.5 10^3/ul (4.8-10.8)
[2017-07-16 06:10] LABS: ANION GAP 11 (8-16); BLOOD UREA NITROGEN 26 mg/dl (7-20); CALCIUM 8.2 mg/dl (8.4-10.2); CARBON DIOXIDE 19 mmol/L (21-31); CHLORIDE 118 mmol/L (97-110); CREATININE 2.28 mg/dl (0.61-1.24); GLUCOSE 91 mg/dl (70-220); MAGNESIUM 1.9 mg/dl (1.7-2.5); PHOSPHORUS 3.6 mg/dl (2.5-4.9); POTASSIUM 3.7 mmol/L (3.5-5.1); SODIUM 144 mmol/L (135-144)
[2017-07-16] MEDS: oxyCODONE (CR) 10 MG TAB [oxyCONTIN] PO ×2 (08:20→20:34)
[2017-07-16] MEDS: BALSAM PERU/CASTOR OIL 60 GM TUBE TOP ×2 (08:21→20:35)
[2017-07-16] MEDS: MUPIROCIN 2% 22 GM OINT TOP ×2 (08:21→20:34)
[2017-07-16] MEDS: MEROPENEM 500MG/50 ML (PMX) 50 ML IVPB ×2 (12:43→20:34)
[2017-07-16] MEDS: ZYVOX 600 MG TAB PO ×2 (12:48→20:34)
[2017-07-16] MEDS: FLUCONAZOLE 100 MG TAB PO (14:20)
[2017-07-16] MEDS: SOD CHLORIDE 0.9% 1,000 ML IV (16:17)
[2017-07-17 05:46] LABS: ADD MAN DIFF? NO; BASOPHIL # 0.1 10^3/ul (0.0-0.1); BASOPHILS % 0.7 % (0.0-2.0); EOSINOPHILS # 0.1 10^3/ul (0.0-0.5); EOSINOPHILS % 1.6 % (0.0-7.0); HEMATOCRIT 31.9 % (42.0-52.0); HEMOGLOBIN 9.8 g/dl (14.0-18.0); LYMPHOCYTES # 1.4 10^3/ul (0.8-2.9); LYMPHOCYTES % 15.3 % (15.0-51.0); MEAN CORPUSCULAR HEMOGLOBIN 28.4 pg (29.0-33.0); MEAN CORPUSCULAR HGB CONC 30.7 g/dl (32.0-37.0); MEAN CORPUSCULAR VOLUME 92.5 fl (82.0-101.0); MEAN PLATELET VOLUME 9.1 fl (7.4-10.4); MONOCYTE # 0.8 10^3/ul (0.3-0.9); MONOCYTES % 8.9 % (0.0-11.0); NEUTROPHIL # 6.5 10^3/ul (1.6-7.5); NEUTROPHILS % 72.8 % (39.0-77.0); PLATELET COUNT 337 10^3/UL (140-415); RED BLOOD COUNT 3.45 10^6/ul (4.70-6.10); RED CELL DISTRIBUTION WIDTH 17.4 % (11.5-14.5)
[2017-07-17 05:46] LABS: WHITE BLOOD COUNT 8.9 10^3/ul (4.8-10.8)
[2017-07-17] MEDS: HYDROmorphONE 0.5 MG/0.5 ML SYG IV ×5 (06:08→23:58)
[2017-07-17] MEDS: ONDANSETRON 4 MG INJ IV ×3 (06:08→18:09)
[2017-07-17 06:21] LABS: ANION GAP 10 (8-16); BLOOD UREA NITROGEN 23 mg/dl (7-20); CALCIUM 8.3 mg/dl (8.4-10.2); CARBON DIOXIDE 17 mmol/L (21-31); CHLORIDE 118 mmol/L (97-110); CREATININE 2.38 mg/dl (0.61-1.24); GLUCOSE 101 mg/dl (70-220); MAGNESIUM 1.6 mg/dl (1.7-2.5); PHOSPHORUS 4.2 mg/dl (2.5-4.9); SODIUM 141 mmol/L (135-144)
[2017-07-17] MEDS: oxyCODONE (CR) 10 MG TAB [oxyCONTIN] PO (09:12)
[2017-07-17] MEDS: MEROPENEM 500MG/50 ML (PMX) 50 ML IVPB ×2 (09:12→21:16)
[2017-07-17] MEDS: BALSAM PERU/CASTOR OIL 60 GM TUBE TOP ×2 (09:12→21:17)
[2017-07-17] MEDS: MUPIROCIN 2% 22 GM OINT TOP ×2 (09:12→21:16)
[2017-07-17] MEDS: ZYVOX 600 MG TAB PO ×2 (09:12→21:16)
[2017-07-17] MEDS ORDERED: MAGNESIUM SULFATE 3 GM in DEXTROSE 5% 100 ML IVPB (10:00)
[2017-07-17] MEDS: SOD CHLORIDE 0.9% 1,000 ML IV ×2 (12:30→18:21)
[2017-07-17] MEDS: MAGNESIUM SULFATE 1 GM/D5W 100 ML IVPB ×3 (12:52→15:19)
[2017-07-17] MEDS: FLUCONAZOLE 100 MG TAB PO (15:19)
[2017-07-17] MEDS: oxyCODONE (CR) 15 MG TAB [oxyCONTIN] PO (21:16)
[2017-07-18] MEDS: ONDANSETRON 4 MG INJ IV ×5 (00:02→23:58)
[2017-07-18 06:09] LABS: ADD MAN DIFF? NO
[2017-07-18] MEDS: HYDROmorphONE 0.5 MG/0.5 ML SYG IV ×4 (06:13→23:59)
[2017-07-18 06:23] LABS: BASOPHIL # 0.1 10^3/ul (0.0-0.1); BASOPHILS % 0.8 % (0.0-2.0); EOSINOPHILS # 0.2 10^3/ul (0.0-0.5); EOSINOPHILS % 2.2 % (0.0-7.0); HEMATOCRIT 30.6 % (42.0-52.0); HEMOGLOBIN 9.5 g/dl (14.0-18.0); LYMPHOCYTES # 1.7 10^3/ul (0.8-2.9); LYMPHOCYTES % 22.4 % (15.0-51.0); MEAN CORPUSCULAR HEMOGLOBIN 28.4 pg (29.0-33.0); MEAN CORPUSCULAR VOLUME 91.6 fl (82.0-101.0); MONOCYTE # 0.8 10^3/ul (0.3-0.9); MONOCYTES % 10.3 % (0.0-11.0); NEUTROPHIL # 4.8 10^3/ul (1.6-7.5); NEUTROPHILS % 63.8 % (39.0-77.0); PLATELET COUNT 338 10^3/UL (140-415); RED BLOOD COUNT 3.34 10^6/ul (4.70-6.10); RED CELL DISTRIBUTION WIDTH 17.1 % (11.5-14.5)
[2017-07-18 06:23] LABS: WHITE BLOOD COUNT 7.6 10^3/ul (4.8-10.8)
[2017-07-18 06:32] LABS: ANION GAP 11 (8-16); BLOOD UREA NITROGEN 21 mg/dl (7-20); CALCIUM 8.4 mg/dl (8.4-10.2); CARBON DIOXIDE 14 mmol/L (21-31); CHLORIDE 120 mmol/L (97-110); CREATININE 2.52 mg/dl (0.61-1.24); GLUCOSE 84 mg/dl (70-220); MAGNESIUM 2.2 mg/dl (1.7-2.5); POTASSIUM 3.7 mmol/L (3.5-5.1); SODIUM 141 mmol/L (135-144)
[2017-07-18] MEDS: MEROPENEM 500MG/50 ML (PMX) 50 ML IVPB ×2 (08:27→20:43)
[2017-07-18] MEDS: ZYVOX 600 MG TAB PO ×2 (08:28→20:44)
[2017-07-18] MEDS: BALSAM PERU/CASTOR OIL 60 GM TUBE TOP ×2 (08:28→20:46)
[2017-07-18] MEDS: MUPIROCIN 2% 22 GM OINT TOP ×2 (08:28→20:45)
[2017-07-18] MEDS: oxyCODONE (CR) 15 MG TAB [oxyCONTIN] PO ×2 (08:28→20:45)
[2017-07-18] MEDS: SOD CHLORIDE 0.9% 1,000 ML IV ×2 (08:30→16:26)
[2017-07-18] MEDS: FLUCONAZOLE 100 MG TAB PO (16:25)
[2017-07-19] MEDS: SOD CHLORIDE 0.9% 1,000 ML IV ×2 (04:30→15:24)
[2017-07-19 06:24] LABS: ADD MAN DIFF? NO
[2017-07-19 06:35] LABS: WHITE BLOOD COUNT 6.9 10^3/ul (4.8-10.8)
[2017-07-19 06:35] LABS: BASOPHIL # 0.1 10^3/ul (0.0-0.1); EOSINOPHILS # 0.1 10^3/ul (0.0-0.5); EOSINOPHILS % 1.3 % (0.0-7.0); HEMATOCRIT 29.1 % (42.0-52.0); LYMPHOCYTES # 1.6 10^3/ul (0.8-2.9); LYMPHOCYTES % 23.2 % (15.0-51.0); MEAN CORPUSCULAR HEMOGLOBIN 28.1 pg (29.0-33.0); MEAN CORPUSCULAR HGB CONC 30.9 g/dl (32.0-37.0); MEAN CORPUSCULAR VOLUME 90.9 fl (82.0-101.0); MEAN PLATELET VOLUME 9.2 fl (7.4-10.4); MONOCYTE # 0.7 10^3/ul (0.3-0.9); MONOCYTES % 9.6 % (0.0-11.0); NEUTROPHIL # 4.4 10^3/ul (1.6-7.5); NEUTROPHILS % 64.5 % (39.0-77.0); PLATELET COUNT 340 10^3/UL (140-415); RED CELL DISTRIBUTION WIDTH 17.1 % (11.5-14.5)
[2017-07-19 06:58] LABS: ANION GAP 11 (8-16); BLOOD UREA NITROGEN 19 mg/dl (7-20); CARBON DIOXIDE 13 mmol/L (21-31); CHLORIDE 121 mmol/L (97-110); CREATININE 2.64 mg/dl (0.61-1.24); GLUCOSE 83 mg/dl (70-220); MAGNESIUM 1.8 mg/dl (1.7-2.5); PHOSPHORUS 4.2 mg/dl (2.5-4.9); POTASSIUM 3.5 mmol/L (3.5-5.1); SODIUM 141 mmol/L (135-144)
[2017-07-19] MEDS: HYDROmorphONE 0.5 MG/0.5 ML SYG IV ×3 (07:04→18:56)
[2017-07-19] MEDS: ONDANSETRON 4 MG INJ IV ×3 (07:08→18:56)
[2017-07-19] MEDS: MUPIROCIN 2% 22 GM OINT TOP ×2 (08:23→20:32)
[2017-07-19] MEDS: BALSAM PERU/CASTOR OIL 60 GM TUBE TOP ×2 (08:23→20:32)
[2017-07-19] MEDS: ZYVOX 600 MG TAB PO ×2 (08:24→20:31)
[2017-07-19] MEDS: oxyCODONE (CR) 15 MG TAB [oxyCONTIN] PO ×2 (08:24→20:32)
[2017-07-19] MEDS: MEROPENEM 500MG/50 ML (PMX) 50 ML IVPB ×2 (08:24→20:31)
[2017-07-19] MEDS: FLUCONAZOLE 100 MG TAB PO (15:52)
[2017-07-20] MEDS: HYDROmorphONE 0.5 MG/0.5 ML SYG IV ×4 (00:07→18:33)
[2017-07-20] MEDS: ONDANSETRON 4 MG INJ IV ×4 (00:07→18:33)
[2017-07-20 06:46] LABS: ADD MAN DIFF? NO
[2017-07-20 06:52] LABS: BASOPHIL # 0.1 10^3/ul (0.0-0.1); BASOPHILS % 0.7 % (0.0-2.0); EOSINOPHILS # 0.1 10^3/ul (0.0-0.5); HEMATOCRIT 30.4 % (42.0-52.0); HEMOGLOBIN 9.6 g/dl (14.0-18.0); LYMPHOCYTES # 1.9 10^3/ul (0.8-2.9); LYMPHOCYTES % 28.6 % (15.0-51.0); MEAN CORPUSCULAR HEMOGLOBIN 28.2 pg (29.0-33.0); MEAN CORPUSCULAR HGB CONC 31.6 g/dl (32.0-37.0); MEAN CORPUSCULAR VOLUME 89.1 fl (82.0-101.0); MONOCYTE # 0.6 10^3/ul (0.3-0.9); MONOCYTES % 9.5 % (0.0-11.0); NEUTROPHILS % 59.6 % (39.0-77.0); PLATELET COUNT 312 10^3/UL (140-415); RED BLOOD COUNT 3.41 10^6/ul (4.70-6.10); RED CELL DISTRIBUTION WIDTH 17.2 % (11.5-14.5)
[2017-07-20 06:52] LABS: WHITE BLOOD COUNT 6.7 10^3/ul (4.8-10.8)
[2017-07-20 07:14] LABS: ANION GAP 9 (8-16); BLOOD UREA NITROGEN 18 mg/dl (7-20); CALCIUM 8.4 mg/dl (8.4-10.2); CARBON DIOXIDE 13 mmol/L (21-31); CHLORIDE 124 mmol/L (97-110); CREATININE 2.76 mg/dl (0.61-1.24); GLUCOSE 83 mg/dl (70-220); MAGNESIUM 1.5 mg/dl (1.7-2.5); PHOSPHORUS 4.5 mg/dl (2.5-4.9); POTASSIUM 3.5 mmol/L (3.5-5.1); SODIUM 142 mmol/L (135-144)
[2017-07-20] MEDS: MEROPENEM 500MG/50 ML (PMX) 50 ML IVPB ×2 (09:12→20:41)
[2017-07-20] MEDS: oxyCODONE (CR) 15 MG TAB [oxyCONTIN] PO ×2 (09:16→20:38)
[2017-07-20] MEDS: ZYVOX 600 MG TAB PO ×2 (09:16→20:38)
[2017-07-20] MEDS: CITRIC ACID/SODIUM CITRATE 15 ML CUP PO ×2 (09:42→20:38)
[2017-07-20] MEDS: BALSAM PERU/CASTOR OIL 60 GM TUBE TOP ×2 (09:43→20:39)
[2017-07-20] MEDS: MUPIROCIN 2% 22 GM OINT TOP ×2 (09:43→20:38)
[2017-07-20] MEDS: MAGNESIUM SULFATE 2 GM/50 ML 50 ML IVPB (09:52)
[2017-07-20] MEDS: SOD CHLORIDE 0.9% 1,000 ML IV ×2 (10:14→20:30)
[2017-07-20] MEDS: FLUCONAZOLE 100 MG TAB PO (15:36)
[2017-07-21] MEDS: HYDROmorphONE 0.5 MG/0.5 ML SYG IV ×4 (00:25→18:22)
[2017-07-21] MEDS: ONDANSETRON 4 MG INJ IV ×4 (00:25→18:21)
[2017-07-21 06:28] LABS: ADD MAN DIFF? NO
[2017-07-21] MEDS: SOD CHLORIDE 0.9% 1,000 ML IV ×2 (06:32→18:26)
[2017-07-21 06:42] LABS: BASOPHIL # 0.1 10^3/ul (0.0-0.1); EOSINOPHILS # 0.1 10^3/ul (0.0-0.5); EOSINOPHILS % 1.5 % (0.0-7.0); HEMATOCRIT 31.4 % (42.0-52.0); HEMOGLOBIN 9.7 g/dl (14.0-18.0); LYMPHOCYTES # 1.7 10^3/ul (0.8-2.9); MEAN CORPUSCULAR HGB CONC 30.9 g/dl (32.0-37.0); MEAN CORPUSCULAR VOLUME 90.8 fl (82.0-101.0); MEAN PLATELET VOLUME 8.8 fl (7.4-10.4); MONOCYTE # 0.6 10^3/ul (0.3-0.9); MONOCYTES % 9.3 % (0.0-11.0); NEUTROPHIL # 4.3 10^3/ul (1.6-7.5); NEUTROPHILS % 62.9 % (39.0-77.0); PLATELET COUNT 284 10^3/UL (140-415); RED BLOOD COUNT 3.46 10^6/ul (4.70-6.10); RED CELL DISTRIBUTION WIDTH 17.4 % (11.5-14.5)
[2017-07-21 06:42] LABS: WHITE BLOOD COUNT 6.8 10^3/ul (4.8-10.8)
[2017-07-21 06:59] LABS: ANION GAP 10 (8-16); BLOOD UREA NITROGEN 16 mg/dl (7-20); CALCIUM 8.4 mg/dl (8.4-10.2); CARBON DIOXIDE 13 mmol/L (21-31); CHLORIDE 125 mmol/L (97-110); CREATININE 2.67 mg/dl (0.61-1.24); GLUCOSE 126 mg/dl (70-220); MAGNESIUM 1.8 mg/dl (1.7-2.5); PHOSPHORUS 3.9 mg/dl (2.5-4.9); POTASSIUM 3.1 mmol/L (3.5-5.1); SODIUM 145 mmol/L (135-144)
[2017-07-21] MEDS: CITRIC ACID/SODIUM CITRATE 15 ML CUP PO ×3 (09:03→21:28)
[2017-07-21] MEDS: ZYVOX 600 MG TAB PO ×2 (09:03→21:27)
[2017-07-21] MEDS: oxyCODONE (CR) 15 MG TAB [oxyCONTIN] PO ×2 (09:04→21:28)
[2017-07-21] MEDS: MEROPENEM 500MG/50 ML (PMX) 50 ML IVPB ×2 (09:05→21:29)
[2017-07-21] MEDS: MUPIROCIN 2% 22 GM OINT TOP ×2 (09:06→21:29)
[2017-07-21] MEDS: BALSAM PERU/CASTOR OIL 60 GM TUBE TOP (09:06)
[2017-07-21] MEDS: POTASSIUM CHLORIDE (SR) 20 MEQ TAB PO (09:11)
[2017-07-21] MEDS: LIDOCAINE 2%/EPI (MDV) 20ML INJ INJ (14:57)
[2017-07-21] MEDS: FLUCONAZOLE 100 MG TAB PO (15:02)
[2017-07-22] MEDS: HYDROmorphONE 0.5 MG/0.5 ML SYG IV ×4 (00:17→18:29)
[2017-07-22] MEDS: ONDANSETRON 4 MG INJ IV ×4 (00:21→18:29)
[2017-07-22 06:51] LABS: ANION GAP 10 (8-16); BLOOD UREA NITROGEN 14 mg/dl (7-20); CALCIUM 8.3 mg/dl (8.4-10.2); CARBON DIOXIDE 17 mmol/L (21-31); CHLORIDE 123 mmol/L (97-110); CREATININE 2.48 mg/dl (0.61-1.24); GLUCOSE 79 mg/dl (70-220); MAGNESIUM 1.6 mg/dl (1.7-2.5); PHOSPHORUS 3.4 mg/dl (2.5-4.9); POTASSIUM 3.5 mmol/L (3.5-5.1); SODIUM 146 mmol/L (135-144)
[2017-07-22] MEDS: oxyCODONE (CR) 15 MG TAB [oxyCONTIN] PO ×2 (09:44→22:27)
[2017-07-22] MEDS: MEROPENEM 500MG/50 ML (PMX) 50 ML IVPB ×2 (09:44→22:27)
[2017-07-22] MEDS: ZYVOX 600 MG TAB PO ×2 (09:44→22:27)
[2017-07-22] MEDS: CITRIC ACID/SODIUM CITRATE 15 ML CUP PO ×3 (09:44→22:28)
[2017-07-22] MEDS: MUPIROCIN 2% 22 GM OINT TOP ×2 (09:45→22:28)
[2017-07-22] MEDS: MAGNESIUM SULFATE 2 GM/50 ML 50 ML IVPB (11:21)
[2017-07-22] MEDS: FLUCONAZOLE 100 MG TAB PO (14:05)
[2017-07-23] MEDS: ONDANSETRON 4 MG INJ IV ×4 (00:31→17:33)
[2017-07-23] MEDS: HYDROmorphONE 0.5 MG/0.5 ML SYG IV ×4 (00:32→19:19)
[2017-07-23 05:51] LABS: WHITE BLOOD COUNT 5.7 10^3/ul (4.8-10.8)
[2017-07-23 05:51] LABS: ADD MAN DIFF? NO; BASOPHILS % 0.5 % (0.0-2.0); EOSINOPHILS # 0.1 10^3/ul (0.0-0.5); EOSINOPHILS % 1.2 % (0.0-7.0); HEMATOCRIT 28.5 % (42.0-52.0); LYMPHOCYTES # 1.6 10^3/ul (0.8-2.9); LYMPHOCYTES % 27.9 % (15.0-51.0); MEAN CORPUSCULAR HEMOGLOBIN 27.8 pg (29.0-33.0); MEAN CORPUSCULAR HGB CONC 31.6 g/dl (32.0-37.0); MEAN PLATELET VOLUME 9.1 fl (7.4-10.4); MONOCYTE # 0.4 10^3/ul (0.3-0.9); MONOCYTES % 6.6 % (0.0-11.0); NEUTROPHIL # 3.6 10^3/ul (1.6-7.5); NEUTROPHILS % 63.5 % (39.0-77.0); PLATELET COUNT 215 10^3/UL (140-415); RED BLOOD COUNT 3.24 10^6/ul (4.70-6.10); RED CELL DISTRIBUTION WIDTH 16.9 % (11.5-14.5)
[2017-07-23 06:20] LABS: ANION GAP 6 (8-16); BLOOD UREA NITROGEN 17 mg/dl (7-20); CALCIUM 8.3 mg/dl (8.4-10.2); CARBON DIOXIDE 18 mmol/L (21-31); CHLORIDE 123 mmol/L (97-110); CREATININE 2.24 mg/dl (0.61-1.24); GLUCOSE 88 mg/dl (70-220); MAGNESIUM 1.9 mg/dl (1.7-2.5); PHOSPHORUS 3.3 mg/dl (2.5-4.9); POTASSIUM 3.3 mmol/L (3.5-5.1); SODIUM 144 mmol/L (135-144)
[2017-07-23] MEDS: ZYVOX 600 MG TAB PO ×2 (08:13→22:03)
[2017-07-23] MEDS: POTASSIUM CHLORIDE (SR) 20 MEQ TAB PO (08:13)
[2017-07-23] MEDS: oxyCODONE (CR) 15 MG TAB [oxyCONTIN] PO ×2 (08:13→22:03)
[2017-07-23] MEDS: CITRIC ACID/SODIUM CITRATE 15 ML CUP PO ×3 (08:13→22:02)
[2017-07-23] MEDS: MEROPENEM 500MG/50 ML (PMX) 50 ML IVPB ×2 (08:14→22:02)
[2017-07-23] MEDS: MUPIROCIN 2% 22 GM OINT TOP ×2 (08:15→22:04)
[2017-07-23] MEDS: SODIUM HYPOCHLORITE 1/40% 1L IRRIG IRR (08:22)
[2017-07-23] MEDS: FLUCONAZOLE 100 MG TAB PO (17:33)
[2017-07-24] MEDS: ONDANSETRON 4 MG INJ IV ×4 (01:00→19:59)
[2017-07-24] MEDS: HYDROmorphONE 0.5 MG/0.5 ML SYG IV ×4 (01:00→19:50)
[2017-07-24 07:09] LABS: ANION GAP 6 (8-16); BLOOD UREA NITROGEN 18 mg/dl (7-20); CARBON DIOXIDE 19 mmol/L (21-31); CHLORIDE 121 mmol/L (97-110); GLUCOSE 75 mg/dl (70-220); MAGNESIUM 1.5 mg/dl (1.7-2.5); PHOSPHORUS 2.7 mg/dl (2.5-4.9); POTASSIUM 3.5 mmol/L (3.5-5.1); SODIUM 142 mmol/L (135-144)
[2017-07-24] MEDS: CITRIC ACID/SODIUM CITRATE 15 ML CUP PO ×3 (08:50→21:22)
[2017-07-24] MEDS: SODIUM HYPOCHLORITE 1/40% 1L IRRIG IRR (08:50)
[2017-07-24] MEDS: MEROPENEM 500MG/50 ML (PMX) 50 ML IVPB ×2 (08:50→21:22)
[2017-07-24] MEDS: oxyCODONE (CR) 15 MG TAB [oxyCONTIN] PO ×2 (08:50→21:22)
[2017-07-24] MEDS: ZYVOX 600 MG TAB PO ×2 (08:51→21:22)
[2017-07-24] MEDS: MUPIROCIN 2% 22 GM OINT TOP ×2 (08:51→21:24)
[2017-07-24] MEDS: MAGNESIUM SULFATE 2 GM/50 ML 50 ML IVPB (09:33)
[2017-07-24] MEDS: FLUCONAZOLE 100 MG TAB PO (15:56)
[2017-07-24] MEDS: ZOLPIDEM 5 MG TAB PO (21:22)
[2017-07-25] MEDS: HYDROmorphONE 0.5 MG/0.5 ML SYG IV ×5 (01:50→20:40)
[2017-07-25] MEDS: ONDANSETRON 4 MG INJ IV ×4 (02:23→20:40)
[2017-07-25 07:03] LABS: ANION GAP 7 (8-16); BLOOD UREA NITROGEN 19 mg/dl (7-20); CARBON DIOXIDE 20 mmol/L (21-31); CHLORIDE 119 mmol/L (97-110); CREATININE 2.07 mg/dl (0.61-1.24); GLUCOSE 82 mg/dl (70-220); PHOSPHORUS 2.4 mg/dl (2.5-4.9); POTASSIUM 3.2 mmol/L (3.5-5.1); SODIUM 143 mmol/L (135-144)
[2017-07-25] MEDS: oxyCODONE (CR) 15 MG TAB [oxyCONTIN] PO ×2 (08:48→20:39)
[2017-07-25] MEDS: ZYVOX 600 MG TAB PO ×2 (08:48→20:39)
[2017-07-25] MEDS: CITRIC ACID/SODIUM CITRATE 15 ML CUP PO ×3 (08:48→20:39)
[2017-07-25] MEDS: MEROPENEM 500MG/50 ML (PMX) 50 ML IVPB ×2 (08:48→20:40)
[2017-07-25] MEDS: MUPIROCIN 2% 22 GM OINT TOP ×2 (08:49→20:41)
[2017-07-25] MEDS: SODIUM HYPOCHLORITE 1/40% 1L IRRIG IRR (08:49)
[2017-07-25] MEDS: POTASSIUM PHOSPHATE 20 MEQ in SOD CHLORIDE 0.9% 250 ML IVPB (09:25)
[2017-07-25] MEDS: ACETAMINOPHEN 325 MG TAB PO (13:25)
[2017-07-25] MEDS: FLUCONAZOLE 100 MG TAB PO (16:48)
[2017-07-25] MEDS: ZOLPIDEM 5 MG TAB PO (22:55)
[2017-07-26] MEDS: HYDROmorphONE 0.5 MG/0.5 ML SYG IV ×4 (02:18→21:16)
[2017-07-26] MEDS: ONDANSETRON 4 MG INJ IV ×4 (02:18→21:54)
[2017-07-26 06:46] LABS: ANION GAP 8 (8-16); BLOOD UREA NITROGEN 20 mg/dl (7-20); CALCIUM 8.1 mg/dl (8.4-10.2); CARBON DIOXIDE 20 mmol/L (21-31); CHLORIDE 118 mmol/L (97-110); CREATININE 2.01 mg/dl (0.61-1.24); GLUCOSE 78 mg/dl (70-220); MAGNESIUM 1.7 mg/dl (1.7-2.5); PHOSPHORUS 3.6 mg/dl (2.5-4.9); POTASSIUM 3.2 mmol/L (3.5-5.1); SODIUM 143 mmol/L (135-144)
[2017-07-26] MEDS: ZYVOX 600 MG TAB PO ×2 (08:15→21:16)
[2017-07-26] MEDS: CITRIC ACID/SODIUM CITRATE 15 ML CUP PO ×3 (08:16→21:16)
[2017-07-26] MEDS: MEROPENEM 500MG/50 ML (PMX) 50 ML IVPB ×2 (08:16→21:16)
[2017-07-26] MEDS: oxyCODONE (CR) 15 MG TAB [oxyCONTIN] PO (08:16)
[2017-07-26] MEDS: SODIUM HYPOCHLORITE 1/40% 1L IRRIG IRR (08:25)
[2017-07-26] MEDS: POTASSIUM CHLORIDE (SR) 20 MEQ TAB PO (08:25)
[2017-07-26] MEDS: MUPIROCIN 2% 22 GM OINT TOP ×2 (08:26→21:17)
[2017-07-26] MEDS: FLUCONAZOLE 100 MG TAB PO (15:01)
[2017-07-26] MEDS: oxyCODONE (CR) 10 MG TAB [oxyCONTIN] PO (21:54)
[2017-07-27] MEDS: HYDROmorphONE 0.5 MG/0.5 ML SYG IV (03:02)
[2017-07-27] MEDS: ONDANSETRON 4 MG INJ IV ×3 (03:02→22:09)
[2017-07-27 06:57] LABS: ANION GAP 5 (8-16); BLOOD UREA NITROGEN 21 mg/dl (7-20); CALCIUM 8.3 mg/dl (8.4-10.2); CARBON DIOXIDE 23 mmol/L (21-31); CHLORIDE 116 mmol/L (97-110); CREATININE 1.91 mg/dl (0.61-1.24); GLUCOSE 89 mg/dl (70-220); MAGNESIUM 1.5 mg/dl (1.7-2.5); PHOSPHORUS 3.3 mg/dl (2.5-4.9); POTASSIUM 3.6 mmol/L (3.5-5.1); SODIUM 140 mmol/L (135-144)
[2017-07-27] MEDS ORDERED: MAGNESIUM SULFATE 4 GM/100 ML 100 ML IVPB (09:30)
[2017-07-27] MEDS: oxyCODONE (CR) 10 MG TAB [oxyCONTIN] PO ×2 (09:43→22:10)
[2017-07-27] MEDS: CITRIC ACID/SODIUM CITRATE 15 ML CUP PO ×3 (09:43→22:10)
[2017-07-27] MEDS: ZYVOX 600 MG TAB PO ×2 (09:45→22:10)
[2017-07-27] MEDS: MEROPENEM 500MG/50 ML (PMX) 50 ML IVPB ×2 (09:47→22:10)
[2017-07-27] MEDS: MUPIROCIN 2% 22 GM OINT TOP ×2 (10:23→22:10)
[2017-07-27] MEDS: MAGNESIUM SULFATE 2 GM/50 ML 50 ML IVPB ×2 (10:47→13:09)
[2017-07-27] MEDS: SODIUM HYPOCHLORITE 1/40% 1L IRRIG IRR (13:09)
[2017-07-27] MEDS: FLUCONAZOLE 100 MG TAB PO (15:33)
[2017-07-28 06:53] LABS: ANION GAP 8 (8-16); BLOOD UREA NITROGEN 23 mg/dl (7-20); CALCIUM 8.2 mg/dl (8.4-10.2); CARBON DIOXIDE 22 mmol/L (21-31); CHLORIDE 114 mmol/L (97-110); CREATININE 2.13 mg/dl (0.61-1.24); GLUCOSE 99 mg/dl (70-220); MAGNESIUM 2.6 mg/dl (1.7-2.5); POTASSIUM 3.6 mmol/L (3.5-5.1); SODIUM 140 mmol/L (135-144)
[2017-07-28] MEDS: ZYVOX 600 MG TAB PO ×2 (08:55→22:16)
[2017-07-28] MEDS: oxyCODONE (CR) 10 MG TAB [oxyCONTIN] PO ×2 (08:56→22:16)
[2017-07-28] MEDS: CITRIC ACID/SODIUM CITRATE 15 ML CUP PO ×3 (08:56→22:15)
[2017-07-28] MEDS: MEROPENEM 500MG/50 ML (PMX) 50 ML IVPB ×2 (08:57→22:15)
[2017-07-28] MEDS: MUPIROCIN 2% 22 GM OINT TOP ×2 (08:58→22:16)
[2017-07-28] MEDS: SODIUM HYPOCHLORITE 1/40% 1L IRRIG IRR (09:00)
[2017-07-28] MEDS: ONDANSETRON 4 MG INJ IV (12:23)
[2017-07-28] MEDS: FLUCONAZOLE 100 MG TAB PO (15:55)
[2017-07-29 05:41] LABS: ADD MAN DIFF? NO
[2017-07-29 05:49] LABS: WHITE BLOOD COUNT 7.2 10^3/ul (4.8-10.8)
[2017-07-29 05:49] LABS: BASOPHILS % 0.4 % (0.0-2.0); EOSINOPHILS # 0.1 10^3/ul (0.0-0.5); EOSINOPHILS % 1.7 % (0.0-7.0); HEMATOCRIT 26.9 % (42.0-52.0); HEMOGLOBIN 8.5 g/dl (14.0-18.0); LYMPHOCYTES # 1.8 10^3/ul (0.8-2.9); MEAN CORPUSCULAR HEMOGLOBIN 27.8 pg (29.0-33.0); MEAN CORPUSCULAR HGB CONC 31.6 g/dl (32.0-37.0); MEAN CORPUSCULAR VOLUME 87.9 fl (82.0-101.0); MEAN PLATELET VOLUME 9.7 fl (7.4-10.4); MONOCYTE # 0.3 10^3/ul (0.3-0.9); MONOCYTES % 4.7 % (0.0-11.0); NEUTROPHIL # 4.9 10^3/ul (1.6-7.5); NEUTROPHILS % 67.8 % (39.0-77.0); PLATELET COUNT 105 10^3/UL (140-415); RED BLOOD COUNT 3.06 10^6/ul (4.70-6.10); RED CELL DISTRIBUTION WIDTH 16.4 % (11.5-14.5)
[2017-07-29] MEDS: ONDANSETRON 4 MG INJ IV (05:52)
[2017-07-29 06:25] LABS: ANION GAP 8 (8-16); BLOOD UREA NITROGEN 25 mg/dl (7-20); CALCIUM 8.2 mg/dl (8.4-10.2); CARBON DIOXIDE 26 mmol/L (21-31); CHLORIDE 112 mmol/L (97-110); CREATININE 2.03 mg/dl (0.61-1.24); GLUCOSE 87 mg/dl (70-220); MAGNESIUM 2.1 mg/dl (1.7-2.5); PHOSPHORUS 3.1 mg/dl (2.5-4.9); POTASSIUM 3.5 mmol/L (3.5-5.1); SODIUM 142 mmol/L (135-144)
[2017-07-29] MEDS: MEROPENEM 500MG/50 ML (PMX) 50 ML IVPB (09:13)
[2017-07-29] MEDS: CITRIC ACID/SODIUM CITRATE 15 ML CUP PO ×3 (09:14→21:06)
[2017-07-29] MEDS: MUPIROCIN 2% 22 GM OINT TOP ×2 (09:14→21:08)
[2017-07-29] MEDS: ZYVOX 600 MG TAB PO (09:14)
[2017-07-29] MEDS: oxyCODONE (CR) 10 MG TAB [oxyCONTIN] PO ×2 (09:15→21:08)
[2017-07-29] MEDS: SODIUM HYPOCHLORITE 1/40% 1L IRRIG IRR (09:16)
[2017-07-29] MEDS ORDERED: ARTIFICIAL TEARS 15 ML OPH BOTH EYES (22:30)
[2017-07-30] MEDS: CITRIC ACID/SODIUM CITRATE 15 ML CUP PO ×3 (09:44→20:31)
[2017-07-30] MEDS: MUPIROCIN 2% 22 GM OINT TOP ×2 (09:45→20:35)
[2017-07-30] MEDS: oxyCODONE (CR) 10 MG TAB [oxyCONTIN] PO ×2 (09:45→20:35)
[2017-07-30] MEDS: SODIUM HYPOCHLORITE 1/40% 1L IRRIG IRR (09:46)
[2017-07-30] MEDS: HYDROmorphONE 0.5 MG/0.5 ML SYG IV (14:23)
[2017-07-31 06:05] LABS: ADD MAN DIFF? NO
[2017-07-31 06:25] LABS: BASOPHILS % 0.5 % (0.0-2.0); EOSINOPHILS # 0.2 10^3/ul (0.0-0.5); EOSINOPHILS % 2.6 % (0.0-7.0); HEMATOCRIT 26.5 % (42.0-52.0); HEMOGLOBIN 8.2 g/dl (14.0-18.0); LYMPHOCYTES # 1.8 10^3/ul (0.8-2.9); LYMPHOCYTES % 27.5 % (15.0-51.0); MEAN CORPUSCULAR HEMOGLOBIN 27.7 pg (29.0-33.0); MEAN CORPUSCULAR HGB CONC 30.9 g/dl (32.0-37.0); MEAN CORPUSCULAR VOLUME 89.5 fl (82.0-101.0); MEAN PLATELET VOLUME 10.6 fl (7.4-10.4); MONOCYTE # 0.5 10^3/ul (0.3-0.9); MONOCYTES % 6.9 % (0.0-11.0); NEUTROPHIL # 4.1 10^3/ul (1.6-7.5); NEUTROPHILS % 62.3 % (39.0-77.0); PLATELET COUNT 107 10^3/UL (140-415); RED BLOOD COUNT 2.96 10^6/ul (4.70-6.10); RED CELL DISTRIBUTION WIDTH 15.9 % (11.5-14.5)
[2017-07-31 06:25] LABS: WHITE BLOOD COUNT 6.6 10^3/ul (4.8-10.8)
[2017-07-31 06:38] LABS: ANION GAP 9 (8-16); BLOOD UREA NITROGEN 28 mg/dl (7-20); CARBON DIOXIDE 25 mmol/L (21-31); CHLORIDE 111 mmol/L (97-110); CREATININE 1.87 mg/dl (0.61-1.24); GLUCOSE 94 mg/dl (70-220); POTASSIUM 3.1 mmol/L (3.5-5.1); SODIUM 142 mmol/L (135-144)
[2017-07-31] MEDS: CITRIC ACID/SODIUM CITRATE 15 ML CUP PO ×3 (08:16→20:30)
[2017-07-31] MEDS: oxyCODONE (CR) 10 MG TAB [oxyCONTIN] PO ×2 (08:17→20:30)
[2017-07-31] MEDS: MUPIROCIN 2% 22 GM OINT TOP ×2 (08:17→20:29)
[2017-07-31] MEDS: SODIUM HYPOCHLORITE 1/40% 1L IRRIG IRR (08:17)
[2017-07-31] MEDS: PYRIDOXINE 50 MG TAB PO (14:02)
[2017-07-31] MEDS: CIPROFLOXACIN 200 MG/D5W IVPB 100 ML IVPB (14:54)
[2017-07-31] MEDS: POTASSIUM CHLORIDE (SR) 20 MEQ TAB PO ×2 (18:06→20:39)
[2017-07-31] MEDS: HYDROmorphONE 0.5 MG/0.5 ML SYG IV (18:06)
[2017-08-01] MEDS: CIPROFLOXACIN 200 MG/D5W IVPB 100 ML IVPB ×2 (00:04→09:39)
[2017-08-01] MEDS: HYDROmorphONE 0.5 MG/0.5 ML SYG IV ×3 (00:04→12:34)
[2017-08-01] MEDS: ONDANSETRON 4 MG INJ IV ×3 (00:05→12:34)
[2017-08-01 06:00] LABS: ADD MAN DIFF? NO
[2017-08-01 06:11] LABS: BASOPHILS % 0.4 % (0.0-2.0); EOSINOPHILS # 0.2 10^3/ul (0.0-0.5); EOSINOPHILS % 3.4 % (0.0-7.0); HEMATOCRIT 23.3 % (42.0-52.0); HEMOGLOBIN 7.2 g/dl (14.0-18.0); LYMPHOCYTES # 1.7 10^3/ul (0.8-2.9); LYMPHOCYTES % 25.3 % (15.0-51.0); MEAN CORPUSCULAR HEMOGLOBIN 27.6 pg (29.0-33.0); MEAN CORPUSCULAR HGB CONC 30.9 g/dl (32.0-37.0); MEAN CORPUSCULAR VOLUME 89.3 fl (82.0-101.0); MEAN PLATELET VOLUME 11.1 fl (7.4-10.4); MONOCYTE # 0.6 10^3/ul (0.3-0.9); MONOCYTES % 9.6 % (0.0-11.0); NEUTROPHIL # 4.1 10^3/ul (1.6-7.5); NEUTROPHILS % 61.2 % (39.0-77.0); PLATELET COUNT 101 10^3/UL (140-415); RED BLOOD COUNT 2.61 10^6/ul (4.70-6.10)
[2017-08-01 06:11] LABS: WHITE BLOOD COUNT 6.7 10^3/ul (4.8-10.8)
[2017-08-01 06:36] LABS: ANION GAP 11 (8-16); BLOOD UREA NITROGEN 27 mg/dl (7-20); CALCIUM 8.1 mg/dl (8.4-10.2); CARBON DIOXIDE 25 mmol/L (21-31); CHLORIDE 111 mmol/L (97-110); CREATININE 1.69 mg/dl (0.61-1.24); GLUCOSE 90 mg/dl (70-220); MAGNESIUM 1.5 mg/dl (1.7-2.5); PHOSPHORUS 2.4 mg/dl (2.5-4.9); POTASSIUM 3.9 mmol/L (3.5-5.1); SODIUM 143 mmol/L (135-144)
[2017-08-01] MEDS: oxyCODONE (CR) 10 MG TAB [oxyCONTIN] PO (09:38)
[2017-08-01] MEDS: MUPIROCIN 2% 22 GM OINT TOP (09:38)
[2017-08-01] MEDS: PYRIDOXINE 50 MG TAB PO (09:38)
[2017-08-01] MEDS ORDERED: MAGNESIUM SULFATE 4 GM/100 ML 100 ML IVPB (10:30)
[2017-08-01] MEDS: MAGNESIUM OXIDE 400 MG TAB PO (10:41)
[2017-08-01] MEDS: CITRIC ACID/SODIUM CITRATE 15 ML CUP PO ×2 (10:42→12:35)
[2017-08-01] MEDS: MAG SULFATE 2GM IN 50 ML IVPB ×2 (10:43→14:19)
[2017-08-01] MEDS: SODIUM HYPOCHLORITE 1/40% 1L IRRIG IRR (10:48)
== END 2017-08-01 17:40 | disposition home health service (06) | DRG 853 ==
LOC: MS2 06-15 00:31 → ICU 06-28 22:12 → E/R 11:59 → MS2 07-07 19:23 → PP2 14:59
PROC: 0D1B0ZH Bypass Ileum to Cecum, Open Approach (ICD-10-PCS; principal; 2017-06-28 14:00)
PROC: 0DTJ0ZZ Resection of Appendix, Open Approach (ICD-10-PCS; 2017-06-28 14:00)
PROC: 0DT80ZZ Resection of Small Intestine, Open Approach (ICD-10-PCS; 2017-06-28 14:00)
PROC: 0WQFXZ2 Repair Abdominal Wall, Stoma, External Approach (ICD-10-PCS; 2017-06-28 14:00)
PROC: 0DNW0ZZ Release Peritoneum, Open Approach (ICD-10-PCS; 2017-06-28 14:00)
PROC: 0DQB0ZZ Repair Ileum, Open Approach (ICD-10-PCS; 2017-06-28 14:00)
PROC: 0WUF0KZ Supplement Abdominal Wall with Nonautologous Tissue Substitute, Open Approach (ICD-10-PCS; 2017-06-28 14:00)
DX: A41.9 Sepsis, unspecified organism (principal); E43 Unspecified severe protein-calorie malnutrition; K65.1 Peritoneal abscess; R57.8 Other shock; N39.0 Urinary tract infection, site not specified; N17.9 Acute kidney failure, unspecified; N13.30 Unspecified hydronephrosis; E87.2 Acidosis; R64 Cachexia; N18.4 Chronic kidney disease, stage 4 (severe); K91.89 Other postprocedural complications and disorders of digestive system; K63.2 Fistula of intestine; K94.09 Other complications of colostomy; B37.49 Other urogenital candidiasis; J90 Pleural effusion, not elsewhere classified; T81.32XA Disruption of internal operation (surgical) wound, not elsewhere classified, initial encounter; B96.89 Other specified bacterial agents as the cause of diseases classified elsewhere; E86.0 Dehydration; E87.6 Hypokalemia; E83.9 Disorder of mineral metabolism, unspecified; E83.42 Hypomagnesemia; E83.39 Other disorders of phosphorus metabolism; B96.20 Unspecified Escherichia coli [E. coli] as the cause of diseases classified elsewhere; B96.5 Pseudomonas (aeruginosa) (mallei) (pseudomallei) as the cause of diseases classified elsewhere; E87.5 Hyperkalemia; E87.70 Fluid overload, unspecified; D63.1 Anemia in chronic kidney disease; K66.0 Peritoneal adhesions (postprocedural) (postinfection); Y83.2 Surgical operation with anastomosis, bypass or graft as the cause of abnormal reaction of the patient, or of later complication, without mention of misadventure at the time of the procedure; Y83.8 Other surgical procedures as the cause of abnormal reaction of the patient, or of later complication, without mention of misadventure at the time of the procedure; N99.528 Other complication of incontinent external stoma of urinary tract; R65.20 Severe sepsis without septic shock; Y92.238 Other place in hospital as the place of occurrence of the external cause; Z85.51 Personal history of malignant neoplasm of bladder; Z16.24 Resistance to multiple antibiotics; Z68.20 Body mass index [BMI] 20.0-20.9, adult
CPT/HCPCS: 36430; 36600; 71045; 74176; 76775; 80048; 80053; 80076; 80150; 81001; 81003; 82043; 82565; 82803; 82962; 83605; 83735; 84100; 84134; 84155; 84300; 84478; 84484; 85014; 85018; 85025; 85610; 85730; 86644; 86850; 86900; 86901; 86920; 86945; 87040; 87045; 87070; 87075; 87081; 87086; 88304; 92610; 93005; 93970; 94002; 94003; 94770; 96374; 96375; 97110; 97116; 97163; 97530; 99285-25

== ENCOUNTER 2017-08-12 14:52 | Inpatient (IN) | payer BC ==
[2017-08-12] MEDS: CEFEPIME 2GM/50 ML (PMX) 50 ML IVPB (15:23)
[2017-08-12 15:24] LABS: ADD MAN DIFF? NO
[2017-08-12] MEDS: SODIUM CHLORIDE 0.9% 1L BAG IV* (15:24)
[2017-08-12 15:28] LABS: BASOPHIL # 0.1 10^3/ul (0.0-0.1); BASOPHILS % 0.6 % (0.0-2.0); EOSINOPHILS # 0.1 10^3/ul (0.0-0.5); EOSINOPHILS % 0.7 % (0.0-7.0); HEMATOCRIT 31.7 % (42.0-52.0); LYMPHOCYTES # 2.3 10^3/ul (0.8-2.9); LYMPHOCYTES % 19.4 % (15.0-51.0); MEAN CORPUSCULAR HEMOGLOBIN 27.3 pg (29.0-33.0); MEAN CORPUSCULAR HGB CONC 31.5 g/dl (32.0-37.0); MEAN CORPUSCULAR VOLUME 86.6 fl (82.0-101.0); MEAN PLATELET VOLUME 8.8 fl (7.4-10.4); MONOCYTE # 0.7 10^3/ul (0.3-0.9); MONOCYTES % 5.7 % (0.0-11.0); NEUTROPHIL # 8.5 10^3/ul (1.6-7.5); NEUTROPHILS % 73.1 % (39.0-77.0); PLATELET COUNT 650 10^3/UL (140-415); RED BLOOD COUNT 3.66 10^6/ul (4.70-6.10); RED CELL DISTRIBUTION WIDTH 16.6 % (11.5-14.5)
[2017-08-12 15:28] LABS: WHITE BLOOD COUNT 11.6 10^3/ul (4.8-10.8)
[2017-08-12 15:37] LABS: ADD UMIC YES; UR ASCORBIC ACID NEGATIVE (NEGATIVE); UR BACTERIA FEW /HPF (NONE SEEN); UR BILIRUBIN (Dip) NEGATIVE (NEGATIVE); UR BLOOD (Dip) 3+ mg/dL (NEGATIVE); UR CLARITY TURBID (CLEAR); UR COLOR YELLOW (YELLOW); UR GLUCOSE (Dip) NEGATIVE (NEGATIVE); UR KETONES (Dip) NEGATIVE (NEGATIVE); UR LEUKOCYTE ESTERASE (Dip) 3+ Leu/ul (NEGATIVE); UR NITRITE (Dip) NEGATIVE (NEGATIVE); UR RBC > 182 /HPF (0-5); UR TOTAL PROTEIN (Dip) 2+ mg/dl (NEGATIVE); UR UROBILINOGEN (Dip) NEGATIVE (NEGATIVE); UR WBC > 182 /HPF (0-5)
[2017-08-12 15:44] LABS: ALANINE AMINOTRANSFERASE 21 IU/L (13-69); ALBUMIN 3.2 g/dl (3.3-4.9); ALBUMIN/GLOBULIN RATIO 0.72; ALKALINE PHOSPHATASE 113 IU/L (42-121); ANION GAP 11 (8-16); ASPARTATE AMINO TRANSFERASE 12 IU/L (15-46); BILIRUBIN,INDIRECT 0.2 mg/dl (0-1.1); BILIRUBIN,TOTAL 0.2 mg/dl (0.2-1.3); BLOOD UREA NITROGEN 24 mg/dl (7-20); CARBON DIOXIDE 14 mmol/L (21-31); CHLORIDE 120 mmol/L (97-110); CREATININE 2.82 mg/dl (0.61-1.24); GLUCOSE 119 mg/dl (70-220); POTASSIUM 3.2 mmol/L (3.5-5.1); SODIUM 142 mmol/L (135-144); TOTAL PROTEIN 7.6 g/dl (6.1-8.1)
[2017-08-12 15:45] LABS: LACTIC ACID 1.7 mmol/L (0.5-2.0)
[2017-08-12 15:53] LABS: INR 0.93; PROTIME 12.6 Sec (11.9-14.9)
[2017-08-12 15:54] LABS: PARTIAL THROMBOPLASTIN TIME 33.7 Sec (25.0-35.0)
[2017-08-12 15:55] LABS: TROPONIN-I < 0.010 ng/ml (0.000-0.120)
[2017-08-12] MEDS: VANCOMYCIN 1 GM (PMX) 250 ML IVPB (15:58)
[2017-08-12] MEDS: ONDANSETRON 4 MG INJ IV (16:35)
[2017-08-12] MEDS: morphine 4 MG/ML VIAL IV (16:36)
[2017-08-12] MEDS ORDERED: ONDANSETRON 4 MG INJ IV (17:00)
[2017-08-12] MEDS ORDERED: ACETAMINOPHEN 325 MG TAB PO (17:00)
[2017-08-12] MEDS ORDERED: NACL 0.9% 3 ML SYG IV (19:30)
[2017-08-12] MEDS ORDERED: DOCUSATE SODIUM 100 MG CAP PO (19:30)
[2017-08-12 20:31] LABS: LACTIC ACID 1.2 mmol/L (0.5-2.0)
[2017-08-12] MEDS: MAGNESIUM OXIDE 400 MG TAB PO (20:59)
[2017-08-12] MEDS: SOD CHLORIDE 0.9% 1,000 ML IV (21:00)
[2017-08-12] MEDS: oxyCODONE (CR) 10 MG TAB [oxyCONTIN] PO (21:00)
[2017-08-12] MEDS ORDERED: CEFEPIME 2GM/50 ML (PMX) 50 ML IVPB (21:00)
[2017-08-12 23:20] LABS: LACTIC ACID 1.4 mmol/L (0.5-2.0)
[2017-08-13] MEDS: morphine 2 MG INJ IV ×2 (05:18→10:51)
[2017-08-13] MEDS: ONDANSETRON 4 MG INJ IV ×2 (05:18→10:51)
[2017-08-13] MEDS: SOD CHLORIDE 0.9% 1,000 ML IV ×3 (05:24→16:00)
[2017-08-13 06:10] LABS: ADD MAN DIFF? NO
[2017-08-13 06:15] LABS: BASOPHILS % 0.3 % (0.0-2.0); EOSINOPHILS # 0.1 10^3/ul (0.0-0.5); EOSINOPHILS % 1.1 % (0.0-7.0); HEMATOCRIT 25.2 % (42.0-52.0); HEMOGLOBIN 7.9 g/dl (14.0-18.0); LYMPHOCYTES # 1.6 10^3/ul (0.8-2.9); LYMPHOCYTES % 15.4 % (15.0-51.0); MEAN CORPUSCULAR HGB CONC 31.3 g/dl (32.0-37.0); MEAN CORPUSCULAR VOLUME 89.4 fl (82.0-101.0); MEAN PLATELET VOLUME 8.8 fl (7.4-10.4); MONOCYTE # 0.6 10^3/ul (0.3-0.9); NEUTROPHIL # 7.9 10^3/ul (1.6-7.5); NEUTROPHILS % 76.5 % (39.0-77.0); PLATELET COUNT 455 10^3/UL (140-415); RED BLOOD COUNT 2.82 10^6/ul (4.70-6.10); RED CELL DISTRIBUTION WIDTH 16.6 % (11.5-14.5)
[2017-08-13 06:15] LABS: WHITE BLOOD COUNT 10.3 10^3/ul (4.8-10.8)
[2017-08-13 06:57] LABS: ANION GAP 11 (8-16); BLOOD UREA NITROGEN 23 mg/dl (7-20); CARBON DIOXIDE 14 mmol/L (21-31); CHLORIDE 119 mmol/L (97-110); CREATININE 2.45 mg/dl (0.61-1.24); GLUCOSE 84 mg/dl (70-220); MAGNESIUM 1.4 mg/dl (1.7-2.5); PHOSPHORUS 4.7 mg/dl (2.5-4.9); SODIUM 141 mmol/L (135-144)
[2017-08-13 07:05] LABS: HEMOGLOBIN A1C 5.3 % (0-5.9)
[2017-08-13] MEDS: oxyCODONE (CR) 10 MG TAB [oxyCONTIN] PO ×2 (09:10→20:58)
[2017-08-13] MEDS: MAGNESIUM OXIDE 400 MG TAB PO ×2 (09:12→20:59)
[2017-08-13] MEDS: POTASSIUM CHLORIDE (SR) 20 MEQ TAB PO ×2 (10:31→14:47)
[2017-08-13] MEDS: MAGNESIUM SULFATE 2 GM/50 ML 50 ML IVPB ×2 (10:37→12:28)
[2017-08-13] MEDS: CEFEPIME 1GM/50 ML IVPB (14:48)
[2017-08-13] MEDS: morphine LIQ (10 MG/5 ML) CUP PO (18:36)
[2017-08-13] MEDS: SOD CHLORIDE 0.9% 500 ML IV (20:59)
[2017-08-14] MEDS: SOD CHLORIDE 0.9% 1,000 ML IV ×4 (02:03→21:58)
[2017-08-14 06:19] LABS: ADD MAN DIFF? NO
[2017-08-14 06:35] LABS: BASOPHILS % 0.3 % (0.0-2.0); EOSINOPHILS # 0.1 10^3/ul (0.0-0.5); EOSINOPHILS % 1.1 % (0.0-7.0); HEMOGLOBIN 8.4 g/dl (14.0-18.0); LYMPHOCYTES # 1.9 10^3/ul (0.8-2.9); LYMPHOCYTES % 19.9 % (15.0-51.0); MEAN CORPUSCULAR HEMOGLOBIN 26.9 pg (29.0-33.0); MEAN CORPUSCULAR VOLUME 89.7 fl (82.0-101.0); MEAN PLATELET VOLUME 9.1 fl (7.4-10.4); MONOCYTE # 0.7 10^3/ul (0.3-0.9); MONOCYTES % 6.8 % (0.0-11.0); NEUTROPHIL # 6.9 10^3/ul (1.6-7.5); NEUTROPHILS % 71.4 % (39.0-77.0); PLATELET COUNT 457 10^3/UL (140-415); RED BLOOD COUNT 3.12 10^6/ul (4.70-6.10); RED CELL DISTRIBUTION WIDTH 17.1 % (11.5-14.5)
[2017-08-14 06:35] LABS: WHITE BLOOD COUNT 9.7 10^3/ul (4.8-10.8)
[2017-08-14 07:17] LABS: ANION GAP 8 (8-16); BLOOD UREA NITROGEN 20 mg/dl (7-20); CALCIUM 8.3 mg/dl (8.4-10.2); CARBON DIOXIDE 13 mmol/L (21-31); CHLORIDE 126 mmol/L (97-110); CREATININE 2.62 mg/dl (0.61-1.24); GLUCOSE 79 mg/dl (70-220); MAGNESIUM 2.6 mg/dl (1.7-2.5); PHOSPHORUS 4.1 mg/dl (2.5-4.9); POTASSIUM 4.2 mmol/L (3.5-5.1); SODIUM 143 mmol/L (135-144)
[2017-08-14] MEDS: COLLAGENASE 5 GM (UD JAR) TOP (08:11)
[2017-08-14] MEDS: MAGNESIUM OXIDE 400 MG TAB PO ×2 (08:14→21:50)
[2017-08-14] MEDS: oxyCODONE (CR) 10 MG TAB [oxyCONTIN] PO ×2 (08:14→21:49)
[2017-08-14] MEDS: CEFEPIME 1GM/50 ML IVPB (14:54)
[2017-08-14] MEDS: morphine LIQ (10 MG/5 ML) CUP PO (18:57)
[2017-08-15] MEDS: SOD CHLORIDE 0.9% 1,000 ML IV ×3 (02:49→18:00)
[2017-08-15 06:10] LABS: ADD MAN DIFF? NO
[2017-08-15 06:23] LABS: BASOPHILS % 0.3 % (0.0-2.0); EOSINOPHILS # 0.1 10^3/ul (0.0-0.5); EOSINOPHILS % 1.2 % (0.0-7.0); HEMATOCRIT 27.3 % (42.0-52.0); HEMOGLOBIN 8.3 g/dl (14.0-18.0); LYMPHOCYTES # 1.6 10^3/ul (0.8-2.9); LYMPHOCYTES % 15.5 % (15.0-51.0); MEAN CORPUSCULAR HEMOGLOBIN 27.4 pg (29.0-33.0); MEAN CORPUSCULAR HGB CONC 30.4 g/dl (32.0-37.0); MEAN CORPUSCULAR VOLUME 90.1 fl (82.0-101.0); MEAN PLATELET VOLUME 9.4 fl (7.4-10.4); MONOCYTE # 0.7 10^3/ul (0.3-0.9); MONOCYTES % 6.8 % (0.0-11.0); NEUTROPHIL # 7.8 10^3/ul (1.6-7.5); NEUTROPHILS % 75.4 % (39.0-77.0); PLATELET COUNT 379 10^3/UL (140-415); RED BLOOD COUNT 3.03 10^6/ul (4.70-6.10); RED CELL DISTRIBUTION WIDTH 17.4 % (11.5-14.5)
[2017-08-15 06:23] LABS: WHITE BLOOD COUNT 10.3 10^3/ul (4.8-10.8)
[2017-08-15 07:07] LABS: ANION GAP 10 (8-16); BLOOD UREA NITROGEN 20 mg/dl (7-20); CALCIUM 8.3 mg/dl (8.4-10.2); CARBON DIOXIDE 13 mmol/L (21-31); CHLORIDE 123 mmol/L (97-110); CREATININE 2.36 mg/dl (0.61-1.24); GLUCOSE 65 mg/dl (70-220); POTASSIUM 4.2 mmol/L (3.5-5.1); SODIUM 142 mmol/L (135-144)
[2017-08-15] MEDS: oxyCODONE (CR) 10 MG TAB [oxyCONTIN] PO ×2 (09:07→21:04)
[2017-08-15] MEDS: COLLAGENASE 5 GM (UD JAR) TOP (09:07)
[2017-08-15] MEDS: MAGNESIUM OXIDE 400 MG TAB PO ×2 (09:07→21:03)
[2017-08-15 09:08] LABS: IRON 21 ug/dl (35-150)
[2017-08-15 09:53] LABS: % IRON SATURATION 11 % SAT (22-52); TOTAL IRON BINDING CAPACITY 189 ug/dl (241-421)
[2017-08-15] MEDS: HYDROCODONE/APAP (5/325) TAB PO (10:42)
[2017-08-15] MEDS: EPOETIN ALFA (NESRD) 3,000 UNITS/ML VIAL SC (10:45)
[2017-08-15] MEDS: morphine LIQ (10 MG/5 ML) CUP PO (13:54)
[2017-08-15] MEDS: CEFEPIME 1GM/50 ML IVPB (16:23)
[2017-08-15 17:51] LABS: SODIUM,URINE RANDOM 114 mmol/L (30-90)
[2017-08-15 17:51] LABS: CREATININE,URINE RANDOM 28.28 mg/dl (20-370)
[2017-08-16] MEDS: SOD CHLORIDE 0.9% 1,000 ML IV ×2 (04:00→06:24)
[2017-08-16 07:13] LABS: ADD MAN DIFF? NO
[2017-08-16 07:16] LABS: BASOPHILS % 0.5 % (0.0-2.0); EOSINOPHILS # 0.1 10^3/ul (0.0-0.5); EOSINOPHILS % 1.4 % (0.0-7.0); HEMATOCRIT 27.5 % (42.0-52.0); HEMOGLOBIN 8.3 g/dl (14.0-18.0); LYMPHOCYTES # 1.9 10^3/ul (0.8-2.9); MEAN CORPUSCULAR HEMOGLOBIN 27.2 pg (29.0-33.0); MEAN CORPUSCULAR HGB CONC 30.2 g/dl (32.0-37.0); MEAN CORPUSCULAR VOLUME 90.2 fl (82.0-101.0); MEAN PLATELET VOLUME 8.9 fl (7.4-10.4); MONOCYTE # 0.6 10^3/ul (0.3-0.9); MONOCYTES % 6.8 % (0.0-11.0); NEUTROPHIL # 5.7 10^3/ul (1.6-7.5); NEUTROPHILS % 67.7 % (39.0-77.0); PLATELET COUNT 381 10^3/UL (140-415); RED BLOOD COUNT 3.05 10^6/ul (4.70-6.10); RED CELL DISTRIBUTION WIDTH 17.5 % (11.5-14.5)
[2017-08-16 07:16] LABS: WHITE BLOOD COUNT 8.4 10^3/ul (4.8-10.8)
[2017-08-16 07:32] LABS: ANION GAP 7 (8-16); BLOOD UREA NITROGEN 19 mg/dl (7-20); CALCIUM 8.4 mg/dl (8.4-10.2); CARBON DIOXIDE 12 mmol/L (21-31); CHLORIDE 128 mmol/L (97-110); GLUCOSE 92 mg/dl (70-220); MAGNESIUM 1.9 mg/dl (1.7-2.5); PHOSPHORUS 3.8 mg/dl (2.5-4.9); POTASSIUM 4.1 mmol/L (3.5-5.1); SODIUM 143 mmol/L (135-144)
[2017-08-16] MEDS: MAGNESIUM OXIDE 400 MG TAB PO ×2 (08:30→21:20)
[2017-08-16] MEDS: oxyCODONE (CR) 10 MG TAB [oxyCONTIN] PO ×2 (08:30→21:20)
[2017-08-16] MEDS: COLLAGENASE 5 GM (UD JAR) TOP (08:30)
[2017-08-16] MEDS: SODIUM BICARBONATE (IV ADD) 75 MEQ in SOD CHLORIDE 0.45% 1,000 ML IV (11:15)
[2017-08-16] MEDS: ERTAPENEM SODIUM 1 GM in SOD CHLORIDE 0.9% 100 ML IVPB (17:50)
[2017-08-16] MEDS: ZOLPIDEM 5 MG TAB PO (21:19)
[2017-08-16] MEDS: NYSTATIN SUSP 5 ML CUP PO (21:20)
[2017-08-17 07:28] LABS: ADD MAN DIFF? NO
[2017-08-17 07:45] LABS: WHITE BLOOD COUNT 6.7 10^3/ul (4.8-10.8)
[2017-08-17 07:45] LABS: BASOPHILS % 0.4 % (0.0-2.0); EOSINOPHILS # 0.1 10^3/ul (0.0-0.5); EOSINOPHILS % 1.6 % (0.0-7.0); HEMATOCRIT 27.9 % (42.0-52.0); HEMOGLOBIN 8.5 g/dl (14.0-18.0); LYMPHOCYTES # 1.5 10^3/ul (0.8-2.9); LYMPHOCYTES % 22.6 % (15.0-51.0); MEAN CORPUSCULAR HGB CONC 30.5 g/dl (32.0-37.0); MEAN CORPUSCULAR VOLUME 88.6 fl (82.0-101.0); MEAN PLATELET VOLUME 9.3 fl (7.4-10.4); MONOCYTE # 0.5 10^3/ul (0.3-0.9); MONOCYTES % 7.3 % (0.0-11.0); NEUTROPHIL # 4.5 10^3/ul (1.6-7.5); NEUTROPHILS % 67.5 % (39.0-77.0); PLATELET COUNT 406 10^3/UL (140-415); RED BLOOD COUNT 3.15 10^6/ul (4.70-6.10); RED CELL DISTRIBUTION WIDTH 17.6 % (11.5-14.5)
[2017-08-17 08:21] LABS: ANION GAP 9 (8-16); BLOOD UREA NITROGEN 19 mg/dl (7-20); CARBON DIOXIDE 16 mmol/L (21-31); CHLORIDE 123 mmol/L (97-110); CREATININE 2.19 mg/dl (0.61-1.24); GLUCOSE 81 mg/dl (70-220); MAGNESIUM 1.9 mg/dl (1.7-2.5); PHOSPHORUS 3.3 mg/dl (2.5-4.9); POTASSIUM 4.1 mmol/L (3.5-5.1); SODIUM 144 mmol/L (135-144)
[2017-08-17] MEDS: oxyCODONE (CR) 10 MG TAB [oxyCONTIN] PO ×2 (08:42→20:51)
[2017-08-17] MEDS: SODIUM BICARBONATE (IV ADD) 75 MEQ in SOD CHLORIDE 0.45% 1,000 ML IV (08:42)
[2017-08-17] MEDS: NYSTATIN SUSP 5 ML CUP PO ×4 (08:42→20:50)
[2017-08-17] MEDS: MAGNESIUM OXIDE 400 MG TAB PO ×2 (08:43→20:50)
[2017-08-17] MEDS: COLLAGENASE 5 GM (UD JAR) TOP (08:43)
[2017-08-17] MEDS: morphine LIQ (10 MG/5 ML) CUP PO (10:46)
[2017-08-17] MEDS: IOHEXOL 14.3 MG(I)/ML (ADULT) BTL PO (14:30)
[2017-08-17] MEDS: ERTAPENEM SODIUM 1 GM in SOD CHLORIDE 0.9% 100 ML IVPB (17:34)
[2017-08-17] MEDS: ONDANSETRON 4 MG INJ IV (19:41)
[2017-08-18 06:15] LABS: ADD MAN DIFF? NO
[2017-08-18] MEDS: SODIUM BICARBONATE (IV ADD) 75 MEQ in SOD CHLORIDE 0.45% 1,000 ML IV (06:20)
[2017-08-18 06:24] LABS: WHITE BLOOD COUNT 5.8 10^3/ul (4.8-10.8)
[2017-08-18 06:24] LABS: BASOPHILS % 0.7 % (0.0-2.0); EOSINOPHILS # 0.1 10^3/ul (0.0-0.5); EOSINOPHILS % 1.7 % (0.0-7.0); HEMATOCRIT 26.2 % (42.0-52.0); HEMOGLOBIN 8.3 g/dl (14.0-18.0); LYMPHOCYTES # 1.5 10^3/ul (0.8-2.9); LYMPHOCYTES % 25.4 % (15.0-51.0); MEAN CORPUSCULAR HEMOGLOBIN 27.4 pg (29.0-33.0); MEAN CORPUSCULAR HGB CONC 31.7 g/dl (32.0-37.0); MEAN CORPUSCULAR VOLUME 86.5 fl (82.0-101.0); MEAN PLATELET VOLUME 9.3 fl (7.4-10.4); MONOCYTE # 0.5 10^3/ul (0.3-0.9); NEUTROPHIL # 3.6 10^3/ul (1.6-7.5); NEUTROPHILS % 62.5 % (39.0-77.0); PLATELET COUNT 327 10^3/UL (140-415); RED BLOOD COUNT 3.03 10^6/ul (4.70-6.10); RED CELL DISTRIBUTION WIDTH 17.4 % (11.5-14.5)
[2017-08-18 06:58] LABS: CALCIUM 8.8 mg/dl (8.4-10.2); CARBON DIOXIDE 19 mmol/L (21-31); CREATININE 1.92 mg/dl (0.61-1.24); GLUCOSE 79 mg/dl (70-220); MAGNESIUM 1.9 mg/dl (1.7-2.5); POTASSIUM 3.3 mmol/L (3.5-5.1); SODIUM 144 mmol/L (135-144)
[2017-08-18 07:13] LABS: PHOSPHORUS 3.1 mg/dl (2.5-4.9)
[2017-08-18 08:16] LABS: ANION GAP 6 (8-16); BLOOD UREA NITROGEN 18 mg/dl (7-20); CHLORIDE 122 mmol/L (97-110)
[2017-08-18] MEDS: MAGNESIUM OXIDE 400 MG TAB PO ×2 (08:32→20:53)
[2017-08-18] MEDS: oxyCODONE (CR) 10 MG TAB [oxyCONTIN] PO ×2 (08:32→20:53)
[2017-08-18] MEDS: NYSTATIN SUSP 5 ML CUP PO ×4 (08:32→20:49)
[2017-08-18] MEDS: COLLAGENASE 5 GM (UD JAR) TOP (08:33)
[2017-08-18] MEDS: CITRIC ACID/SODIUM CITRATE 15 ML CUP PO ×2 (09:05→20:53)
[2017-08-18] MEDS: morphine LIQ (10 MG/5 ML) CUP PO ×2 (11:56→17:10)
[2017-08-18] MEDS: ERTAPENEM SODIUM 1 GM in SOD CHLORIDE 0.9% 100 ML IVPB (16:55)
[2017-08-18] MEDS: ONDANSETRON 4 MG INJ IV (20:49)
[2017-08-19 05:46] LABS: ADD MAN DIFF? NO
[2017-08-19 06:00] LABS: WHITE BLOOD COUNT 6.9 10^3/ul (4.8-10.8)
[2017-08-19 06:00] LABS: BASOPHILS % 0.6 % (0.0-2.0); EOSINOPHILS # 0.1 10^3/ul (0.0-0.5); EOSINOPHILS % 1.7 % (0.0-7.0); HEMATOCRIT 25.8 % (42.0-52.0); HEMOGLOBIN 8.1 g/dl (14.0-18.0); LYMPHOCYTES # 1.6 10^3/ul (0.8-2.9); LYMPHOCYTES % 22.6 % (15.0-51.0); MEAN CORPUSCULAR HEMOGLOBIN 27.3 pg (29.0-33.0); MEAN CORPUSCULAR HGB CONC 31.4 g/dl (32.0-37.0); MEAN CORPUSCULAR VOLUME 86.9 fl (82.0-101.0); MEAN PLATELET VOLUME 9.2 fl (7.4-10.4); MONOCYTE # 0.5 10^3/ul (0.3-0.9); MONOCYTES % 7.9 % (0.0-11.0); NEUTROPHIL # 4.6 10^3/ul (1.6-7.5); NEUTROPHILS % 66.8 % (39.0-77.0); PLATELET COUNT 340 10^3/UL (140-415); RED BLOOD COUNT 2.97 10^6/ul (4.70-6.10); RED CELL DISTRIBUTION WIDTH 17.9 % (11.5-14.5)
[2017-08-19 06:30] LABS: ANION GAP 9 (8-16); BLOOD UREA NITROGEN 16 mg/dl (7-20); CALCIUM 8.8 mg/dl (8.4-10.2); CARBON DIOXIDE 20 mmol/L (21-31); CHLORIDE 121 mmol/L (97-110); CREATININE 1.99 mg/dl (0.61-1.24); GLUCOSE 100 mg/dl (70-220); MAGNESIUM 1.8 mg/dl (1.7-2.5); PHOSPHORUS 2.9 mg/dl (2.5-4.9); SODIUM 147 mmol/L (135-144)
[2017-08-19] MEDS: NYSTATIN SUSP 5 ML CUP PO ×4 (09:13→21:08)
[2017-08-19] MEDS: POTASSIUM CHLORIDE (SR) 20 MEQ TAB PO (09:13)
[2017-08-19] MEDS: CITRIC ACID/SODIUM CITRATE 15 ML CUP PO ×2 (09:13→21:08)
[2017-08-19] MEDS: MAGNESIUM OXIDE 400 MG TAB PO (09:13)
[2017-08-19] MEDS: COLLAGENASE 5 GM (UD JAR) TOP (09:14)
[2017-08-19] MEDS: oxyCODONE (CR) 10 MG TAB [oxyCONTIN] PO ×2 (09:14→21:08)
[2017-08-19] MEDS: morphine LIQ (10 MG/5 ML) CUP PO (16:34)
[2017-08-19] MEDS: ONDANSETRON 4 MG INJ IV (16:34)
[2017-08-19] MEDS: CEFTAZIDIME 1GM/50 ML (PMX) 50 ML IVPB (16:35)
[2017-08-19] MEDS: ERTAPENEM SODIUM 1 GM in SOD CHLORIDE 0.9% 100 ML IVPB (18:14)
[2017-08-19] MEDS: L ACIDOPHIL/B LACTIS/B LONGUM CAPSULE PO (21:08)
[2017-08-19] MEDS: ZYVOX 600 MG TAB PO (21:08)
[2017-08-19] MEDS ORDERED: CEFTAZIDIME 1GM/50 ML (PMX) 50 ML IVPB (22:00)
[2017-08-20 06:31] LABS: ANION GAP 8 (8-16); BLOOD UREA NITROGEN 14 mg/dl (7-20); CALCIUM 8.6 mg/dl (8.4-10.2); CARBON DIOXIDE 21 mmol/L (21-31); CHLORIDE 120 mmol/L (97-110); CREATININE 1.87 mg/dl (0.61-1.24); GLUCOSE 102 mg/dl (70-220); MAGNESIUM 1.7 mg/dl (1.7-2.5); PHOSPHORUS 2.7 mg/dl (2.5-4.9); SODIUM 146 mmol/L (135-144)
[2017-08-20] MEDS: L ACIDOPHIL/B LACTIS/B LONGUM CAPSULE PO ×2 (09:36→23:34)
[2017-08-20] MEDS: ZYVOX 600 MG TAB PO ×2 (09:36→21:45)
[2017-08-20] MEDS: COLLAGENASE 5 GM (UD JAR) TOP (09:36)
[2017-08-20] MEDS: FENTAnyl PATCH 12 MCG/HR TRANSDERM (09:36)
[2017-08-20] MEDS: CITRIC ACID/SODIUM CITRATE 15 ML CUP PO ×2 (09:36→21:45)
[2017-08-20] MEDS: NYSTATIN SUSP 5 ML CUP PO ×4 (09:36→21:44)
[2017-08-20] MEDS: POTASSIUM CHLORIDE (SR) 20 MEQ TAB PO (09:38)
[2017-08-20] MEDS: ONDANSETRON 4 MG INJ IV ×2 (09:38→15:25)
[2017-08-20] MEDS: morphine LIQ (10 MG/5 ML) CUP PO ×3 (09:45→21:43)
[2017-08-20] MEDS: morphine 2 MG INJ IV (11:45)
[2017-08-20] MEDS: SOD CHLORIDE 0.9% 1,000 ML IV (15:24)
[2017-08-20] MEDS: CEFTAZIDIME 1GM/50 ML (PMX) 50 ML IVPB (16:23)
[2017-08-20] MEDS: ERTAPENEM SODIUM 1 GM in SOD CHLORIDE 0.9% 100 ML IVPB (16:24)
[2017-08-21] MEDS: morphine LIQ (10 MG/5 ML) CUP PO ×2 (01:34→20:00)
[2017-08-21] MEDS: SOD CHLORIDE 0.9% 1,000 ML IV ×3 (04:42→17:29)
[2017-08-21 07:08] LABS: ANION GAP 10 (8-16); BLOOD UREA NITROGEN 13 mg/dl (7-20); CALCIUM 8.3 mg/dl (8.4-10.2); CARBON DIOXIDE 17 mmol/L (21-31); CHLORIDE 122 mmol/L (97-110); CREATININE 1.77 mg/dl (0.61-1.24); GLUCOSE 87 mg/dl (70-220); MAGNESIUM 1.6 mg/dl (1.7-2.5); PHOSPHORUS 2.6 mg/dl (2.5-4.9); POTASSIUM 3.2 mmol/L (3.5-5.1); SODIUM 146 mmol/L (135-144)
[2017-08-21] MEDS: ZYVOX 600 MG TAB PO ×2 (08:40→20:50)
[2017-08-21] MEDS: L ACIDOPHIL/B LACTIS/B LONGUM CAPSULE PO ×2 (08:40→20:50)
[2017-08-21] MEDS: CITRIC ACID/SODIUM CITRATE 15 ML CUP PO ×2 (08:40→20:50)
[2017-08-21] MEDS: NYSTATIN SUSP 5 ML CUP PO ×4 (08:40→20:50)
[2017-08-21] MEDS: COLLAGENASE 5 GM (UD JAR) TOP (08:41)
[2017-08-21] MEDS: MAGNESIUM SULFATE 2 GM/50 ML 50 ML IVPB (13:08)
[2017-08-21] MEDS: POTASSIUM CHLORIDE (SR) 20 MEQ TAB PO (13:10)
[2017-08-21] MEDS: ACETYLCYSTEINE 600 MG CAP PO ×2 (13:15→20:54)
[2017-08-21] MEDS: CEFTAZIDIME 1GM/50 ML (PMX) 50 ML IVPB (17:28)
[2017-08-21] MEDS: ONDANSETRON 4 MG INJ IV (21:44)
[2017-08-22] MEDS: SOD CHLORIDE 0.9% 1,000 ML IV ×3 (05:30→16:31)
[2017-08-22 05:52] LABS: ADD MAN DIFF? NO
[2017-08-22 05:56] LABS: BASOPHILS % 0.2 % (0.0-2.0); EOSINOPHILS # 0.1 10^3/ul (0.0-0.5); EOSINOPHILS % 1.4 % (0.0-7.0); HEMATOCRIT 26.2 % (42.0-52.0); HEMOGLOBIN 8.3 g/dl (14.0-18.0); LYMPHOCYTES # 1.6 10^3/ul (0.8-2.9); LYMPHOCYTES % 19.3 % (15.0-51.0); MEAN CORPUSCULAR HEMOGLOBIN 28.2 pg (29.0-33.0); MEAN CORPUSCULAR HGB CONC 31.7 g/dl (32.0-37.0); MEAN CORPUSCULAR VOLUME 89.1 fl (82.0-101.0); MEAN PLATELET VOLUME 9.2 fl (7.4-10.4); MONOCYTE # 0.5 10^3/ul (0.3-0.9); MONOCYTES % 6.1 % (0.0-11.0); NEUTROPHIL # 5.8 10^3/ul (1.6-7.5); NEUTROPHILS % 72.5 % (39.0-77.0); PLATELET COUNT 263 10^3/UL (140-415); RED BLOOD COUNT 2.94 10^6/ul (4.70-6.10); RED CELL DISTRIBUTION WIDTH 18.7 % (11.5-14.5)
[2017-08-22 07:25] LABS: ANION GAP 6 (8-16); BLOOD UREA NITROGEN 11 mg/dl (7-20); CALCIUM 8.5 mg/dl (8.4-10.2); CARBON DIOXIDE 20 mmol/L (21-31); CHLORIDE 122 mmol/L (97-110); CREATININE 1.76 mg/dl (0.61-1.24); GLUCOSE 89 mg/dl (70-220); PHOSPHORUS 2.8 mg/dl (2.5-4.9); POTASSIUM 3.1 mmol/L (3.5-5.1); SODIUM 145 mmol/L (135-144)
[2017-08-22] MEDS: POTASSIUM CHLORIDE (SR) 20 MEQ TAB PO (09:01)
[2017-08-22] MEDS: CITRIC ACID/SODIUM CITRATE 15 ML CUP PO ×2 (09:02→21:00)
[2017-08-22] MEDS: L ACIDOPHIL/B LACTIS/B LONGUM CAPSULE PO ×2 (09:02→21:13)
[2017-08-22] MEDS: COLLAGENASE 5 GM (UD JAR) TOP (09:02)
[2017-08-22] MEDS: ZYVOX 600 MG TAB PO ×2 (09:02→21:13)
[2017-08-22] MEDS: NYSTATIN SUSP 5 ML CUP PO ×4 (09:02→21:13)
[2017-08-22] MEDS: ACETYLCYSTEINE 600 MG CAP PO ×2 (09:02→21:13)
[2017-08-22] MEDS: morphine LIQ (10 MG/5 ML) CUP PO ×2 (11:48→21:19)
[2017-08-22] MEDS ORDERED: GENTAMICIN IV PER PHARMACY XX (13:00)
[2017-08-22] MEDS: IODIXANOL LOCM 100 ML BTL (15:30)
[2017-08-22] MEDS: SOD CHLORIDE 0.9% 100 ML (15:30)
[2017-08-22] MEDS: GENTAMICIN 80 MG/NS (PMX) 50 ML IVPB (15:58)
[2017-08-22] MEDS: ONDANSETRON 4 MG INJ IV (21:20)
[2017-08-23] MEDS: SOD CHLORIDE 0.9% 1,000 ML IV ×3 (01:30→14:51)
[2017-08-23] MEDS: morphine LIQ (10 MG/5 ML) CUP PO (06:29)
[2017-08-23] MEDS: ZYVOX 600 MG TAB PO ×2 (09:31→20:30)
[2017-08-23] MEDS: ACETYLCYSTEINE 600 MG CAP PO ×2 (09:31→20:29)
[2017-08-23] MEDS: CITRIC ACID/SODIUM CITRATE 15 ML CUP PO ×2 (09:31→20:29)
[2017-08-23] MEDS: NYSTATIN SUSP 5 ML CUP PO ×4 (09:32→20:29)
[2017-08-23] MEDS: COLLAGENASE 5 GM (UD JAR) TOP (09:32)
[2017-08-23] MEDS: L ACIDOPHIL/B LACTIS/B LONGUM CAPSULE PO ×2 (10:34→20:29)
[2017-08-23] MEDS: POTASSIUM CHLORIDE (SR) 20 MEQ TAB PO (10:34)
[2017-08-23] MEDS: FENTAnyl PATCH 12 MCG/HR TRANSDERM (11:38)
[2017-08-23] MEDS: ACETAMINOPHEN 325 MG TAB PO (14:56)
[2017-08-23] MEDS: GENTAMICIN 80 MG/NS (PMX) 50 ML IVPB (15:05)
[2017-08-24] MEDS: SOD CHLORIDE 0.9% 1,000 ML IV ×3 (04:40→20:39)
[2017-08-24] MEDS: ZYVOX 600 MG TAB PO ×2 (08:19→20:39)
[2017-08-24] MEDS: ACETYLCYSTEINE 600 MG CAP PO ×2 (08:19→20:39)
[2017-08-24] MEDS: L ACIDOPHIL/B LACTIS/B LONGUM CAPSULE PO ×2 (08:19→20:39)
[2017-08-24] MEDS: COLLAGENASE 5 GM (UD JAR) TOP (08:20)
[2017-08-24] MEDS: NYSTATIN SUSP 5 ML CUP PO ×4 (08:20→20:39)
[2017-08-24] MEDS: CITRIC ACID/SODIUM CITRATE 15 ML CUP PO ×2 (10:12→20:39)
[2017-08-24 10:58] LABS: ANION GAP 8 (8-16); BLOOD UREA NITROGEN 9 mg/dl (7-20); CALCIUM 8.5 mg/dl (8.4-10.2); CARBON DIOXIDE 16 mmol/L (21-31); CHLORIDE 126 mmol/L (97-110); CREATININE 1.66 mg/dl (0.61-1.24); GLUCOSE 93 mg/dl (70-220); MAGNESIUM 1.5 mg/dl (1.7-2.5); PHOSPHORUS 2.9 mg/dl (2.5-4.9); POTASSIUM 4.2 mmol/L (3.5-5.1); SODIUM 146 mmol/L (135-144)
[2017-08-24] MEDS: morphine LIQ (10 MG/5 ML) CUP PO (12:24)
[2017-08-24 15:12] LABS: ADD MAN DIFF? NO
[2017-08-24 15:15] LABS: BASOPHILS % 0.3 % (0.0-2.0); EOSINOPHILS # 0.2 10^3/ul (0.0-0.5); EOSINOPHILS % 1.8 % (0.0-7.0); HEMATOCRIT 30.1 % (42.0-52.0); HEMOGLOBIN 8.9 g/dl (14.0-18.0); LYMPHOCYTES # 1.7 10^3/ul (0.8-2.9); LYMPHOCYTES % 19.1 % (15.0-51.0); MEAN CORPUSCULAR HEMOGLOBIN 26.9 pg (29.0-33.0); MEAN CORPUSCULAR HGB CONC 29.6 g/dl (32.0-37.0); MEAN CORPUSCULAR VOLUME 90.9 fl (82.0-101.0); MEAN PLATELET VOLUME 9.8 fl (7.4-10.4); MONOCYTE # 0.4 10^3/ul (0.3-0.9); MONOCYTES % 4.5 % (0.0-11.0); NEUTROPHIL # 6.4 10^3/ul (1.6-7.5); NEUTROPHILS % 74.1 % (39.0-77.0); PLATELET COUNT 226 10^3/UL (140-415); RED BLOOD COUNT 3.31 10^6/ul (4.70-6.10); RED CELL DISTRIBUTION WIDTH 18.7 % (11.5-14.5)
[2017-08-24 15:15] LABS: WHITE BLOOD COUNT 8.7 10^3/ul (4.8-10.8)
[2017-08-24 16:14] LABS: GENTAMICIN,TROUGH 2.5 ug/ml (1.0-2.0)
[2017-08-24] MEDS: MAGNESIUM SULFATE 4 GM/100 ML 100 ML IVPB (19:19)
[2017-08-24] MEDS: MAGNESIUM OXIDE 400 MG TAB PO (20:39)
[2017-08-25] MEDS: NYSTATIN SUSP 5 ML CUP PO ×4 (09:00→20:25)
[2017-08-25] MEDS: CITRIC ACID/SODIUM CITRATE 15 ML CUP PO ×2 (12:21→20:25)
[2017-08-25] MEDS: ACETYLCYSTEINE 600 MG CAP PO ×2 (12:21→20:25)
[2017-08-25] MEDS: MAGNESIUM OXIDE 400 MG TAB PO ×2 (12:22→20:25)
[2017-08-25] MEDS: ZYVOX 600 MG TAB PO ×2 (12:22→20:25)
[2017-08-25] MEDS: L ACIDOPHIL/B LACTIS/B LONGUM CAPSULE PO ×2 (12:22→20:25)
[2017-08-25] MEDS: morphine LIQ (10 MG/5 ML) CUP PO ×2 (13:14→17:28)
[2017-08-25 15:24] LABS: ADD MAN DIFF? NO
[2017-08-25 15:28] LABS: BASOPHILS % 0.4 % (0.0-2.0); EOSINOPHILS # 0.1 10^3/ul (0.0-0.5); EOSINOPHILS % 0.9 % (0.0-7.0); HEMATOCRIT 30.5 % (42.0-52.0); HEMOGLOBIN 9.4 g/dl (14.0-18.0); LYMPHOCYTES # 1.5 10^3/ul (0.8-2.9); LYMPHOCYTES % 14.2 % (15.0-51.0); MEAN CORPUSCULAR HEMOGLOBIN 27.9 pg (29.0-33.0); MEAN CORPUSCULAR HGB CONC 30.8 g/dl (32.0-37.0); MEAN CORPUSCULAR VOLUME 90.5 fl (82.0-101.0); MEAN PLATELET VOLUME 9.9 fl (7.4-10.4); MONOCYTE # 0.4 10^3/ul (0.3-0.9); MONOCYTES % 4.2 % (0.0-11.0); NEUTROPHIL # 8.4 10^3/ul (1.6-7.5); NEUTROPHILS % 79.9 % (39.0-77.0); PLATELET COUNT 244 10^3/UL (140-415); RED BLOOD COUNT 3.37 10^6/ul (4.70-6.10); RED CELL DISTRIBUTION WIDTH 18.3 % (11.5-14.5)
[2017-08-25 15:28] LABS: WHITE BLOOD COUNT 10.4 10^3/ul (4.8-10.8)
[2017-08-25 15:41] LABS: ANION GAP 9 (8-16); BLOOD UREA NITROGEN 10 mg/dl (7-20); CALCIUM 8.5 mg/dl (8.4-10.2); CARBON DIOXIDE 19 mmol/L (21-31); CHLORIDE 122 mmol/L (97-110); CREATININE 1.93 mg/dl (0.61-1.24); GLUCOSE 95 mg/dl (70-220); MAGNESIUM 2.4 mg/dl (1.7-2.5); POTASSIUM 3.8 mmol/L (3.5-5.1); SODIUM 146 mmol/L (135-144)
[2017-08-25] MEDS: GENTAMICIN 80 MG/NS (PMX) 50 ML IVPB (16:28)
[2017-08-25] MEDS ORDERED: morphine 2 MG INJ IV (17:00)
[2017-08-26] MEDS: LORAZEPAM 2 MG INJ IV (03:37)
[2017-08-26] MEDS: SOD CHLORIDE 0.9% 1,000 ML IV ×2 (03:41→08:00)
[2017-08-26] MEDS: LIDOCAINE 1% (MDV) 10 ML INJ (07:43)
[2017-08-26] MEDS: FENTAnyl 50 MCG/ML VIAL (07:44)
[2017-08-26] MEDS: SOD CHLORIDE 0.9% 100 ML (07:44)
[2017-08-26] MEDS: ZYVOX 600 MG TAB PO ×2 (09:00→20:59)
[2017-08-26] MEDS: ACETYLCYSTEINE 600 MG CAP PO ×2 (09:00→21:00)
[2017-08-26] MEDS: NYSTATIN SUSP 5 ML CUP PO ×4 (09:00→21:00)
[2017-08-26] MEDS: CITRIC ACID/SODIUM CITRATE 15 ML CUP PO ×2 (09:00→21:00)
[2017-08-26] MEDS: MAGNESIUM OXIDE 400 MG TAB PO ×2 (09:00→20:59)
[2017-08-26] MEDS: L ACIDOPHIL/B LACTIS/B LONGUM CAPSULE PO ×2 (09:00→20:59)
[2017-08-26 10:48] LABS: ADD MAN DIFF? NO
[2017-08-26 10:53] LABS: WHITE BLOOD COUNT 9.8 10^3/ul (4.8-10.8)
[2017-08-26 10:53] LABS: BASOPHILS % 0.4 % (0.0-2.0); EOSINOPHILS # 0.1 10^3/ul (0.0-0.5); EOSINOPHILS % 0.6 % (0.0-7.0); HEMATOCRIT 28.3 % (42.0-52.0); HEMOGLOBIN 8.9 g/dl (14.0-18.0); LYMPHOCYTES # 1.3 10^3/ul (0.8-2.9); LYMPHOCYTES % 13.2 % (15.0-51.0); MEAN CORPUSCULAR HEMOGLOBIN 27.6 pg (29.0-33.0); MEAN CORPUSCULAR HGB CONC 31.4 g/dl (32.0-37.0); MEAN CORPUSCULAR VOLUME 87.9 fl (82.0-101.0); MEAN PLATELET VOLUME 9.9 fl (7.4-10.4); MONOCYTE # 0.4 10^3/ul (0.3-0.9); MONOCYTES % 3.7 % (0.0-11.0); NEUTROPHILS % 81.8 % (39.0-77.0); PLATELET COUNT 248 10^3/UL (140-415); RED BLOOD COUNT 3.22 10^6/ul (4.70-6.10); RED CELL DISTRIBUTION WIDTH 18.1 % (11.5-14.5)
[2017-08-26 16:59] LABS: CREATININE,URINE RANDOM 69.41 mg/dl (20-370)
[2017-08-26 17:27] LABS: ANION GAP 11 (8-16); BLOOD UREA NITROGEN 12 mg/dl (7-20); CALCIUM 8.6 mg/dl (8.4-10.2); CARBON DIOXIDE 18 mmol/L (21-31); CHLORIDE 122 mmol/L (97-110); CREATININE 1.96 mg/dl (0.61-1.24); GLUCOSE 89 mg/dl (70-220); POTASSIUM 3.7 mmol/L (3.5-5.1); SODIUM 147 mmol/L (135-144)
[2017-08-27 08:07] LABS: ADD MAN DIFF? NO
[2017-08-27 08:19] LABS: WHITE BLOOD COUNT 8.7 10^3/ul (4.8-10.8)
[2017-08-27 08:19] LABS: BASOPHILS % 0.3 % (0.0-2.0); EOSINOPHILS # 0.1 10^3/ul (0.0-0.5); EOSINOPHILS % 0.8 % (0.0-7.0); HEMATOCRIT 32.8 % (42.0-52.0); HEMOGLOBIN 9.7 g/dl (14.0-18.0); LYMPHOCYTES # 1.4 10^3/ul (0.8-2.9); LYMPHOCYTES % 16.1 % (15.0-51.0); MEAN CORPUSCULAR HGB CONC 29.6 g/dl (32.0-37.0); MEAN CORPUSCULAR VOLUME 91.4 fl (82.0-101.0); MONOCYTE # 0.3 10^3/ul (0.3-0.9); MONOCYTES % 3.1 % (0.0-11.0); NEUTROPHIL # 6.9 10^3/ul (1.6-7.5); NEUTROPHILS % 79.5 % (39.0-77.0); PLATELET COUNT 235 10^3/UL (140-415); RED BLOOD COUNT 3.59 10^6/ul (4.70-6.10); RED CELL DISTRIBUTION WIDTH 17.9 % (11.5-14.5)
[2017-08-27] MEDS: NYSTATIN SUSP 5 ML CUP PO ×4 (08:53→20:25)
[2017-08-27] MEDS: L ACIDOPHIL/B LACTIS/B LONGUM CAPSULE PO ×2 (08:53→20:25)
[2017-08-27] MEDS: ACETYLCYSTEINE 600 MG CAP PO ×2 (08:53→20:25)
[2017-08-27] MEDS: ZYVOX 600 MG TAB PO ×2 (08:53→20:25)
[2017-08-27] MEDS: MAGNESIUM OXIDE 400 MG TAB PO ×2 (08:53→20:25)
[2017-08-27] MEDS: CITRIC ACID/SODIUM CITRATE 15 ML CUP PO ×2 (08:54→20:25)
[2017-08-27 08:55] LABS: ANION GAP 10 (8-16); BLOOD UREA NITROGEN 14 mg/dl (7-20); CALCIUM 8.6 mg/dl (8.4-10.2); CARBON DIOXIDE 16 mmol/L (21-31); CHLORIDE 122 mmol/L (97-110); CREATININE 2.04 mg/dl (0.61-1.24); GLUCOSE 85 mg/dl (70-220); MAGNESIUM 2.2 mg/dl (1.7-2.5); PHOSPHORUS 3.5 mg/dl (2.5-4.9); POTASSIUM 3.3 mmol/L (3.5-5.1); SODIUM 145 mmol/L (135-144)
[2017-08-27] MEDS ORDERED: POTASSIUM CHLORIDE 100 ML IVPB (10:00)
[2017-08-27] MEDS: DEXTROSE 5% 1,000 ML IV (10:02)
[2017-08-27] MEDS: ONDANSETRON 4 MG INJ IV (11:12)
[2017-08-27] MEDS: POTASSIUM CHLORIDE (SR) 20 MEQ TAB PO (11:13)
[2017-08-27] MEDS: ACETAMINOPHEN 325 MG TAB PO (11:13)
[2017-08-28 05:57] LABS: ADD MAN DIFF? NO
[2017-08-28 06:07] LABS: BASOPHILS % 0.4 % (0.0-2.0); EOSINOPHILS # 0.1 10^3/ul (0.0-0.5); EOSINOPHILS % 0.8 % (0.0-7.0); HEMATOCRIT 33.5 % (42.0-52.0); LYMPHOCYTES # 1.4 10^3/ul (0.8-2.9); LYMPHOCYTES % 16.3 % (15.0-51.0); MEAN CORPUSCULAR HEMOGLOBIN 27.5 pg (29.0-33.0); MEAN CORPUSCULAR HGB CONC 29.9 g/dl (32.0-37.0); MEAN CORPUSCULAR VOLUME 92.3 fl (82.0-101.0); MONOCYTE # 0.3 10^3/ul (0.3-0.9); NEUTROPHIL # 6.8 10^3/ul (1.6-7.5); NEUTROPHILS % 79.1 % (39.0-77.0); PLATELET COUNT 230 10^3/UL (140-415); RED BLOOD COUNT 3.63 10^6/ul (4.70-6.10); RED CELL DISTRIBUTION WIDTH 17.8 % (11.5-14.5)
[2017-08-28 06:07] LABS: WHITE BLOOD COUNT 8.5 10^3/ul (4.8-10.8)
[2017-08-28 06:37] LABS: ANION GAP 10 (8-16); BLOOD UREA NITROGEN 15 mg/dl (7-20); CALCIUM 8.7 mg/dl (8.4-10.2); CARBON DIOXIDE 17 mmol/L (21-31); CHLORIDE 124 mmol/L (97-110); CREATININE 2.12 mg/dl (0.61-1.24); GLUCOSE 99 mg/dl (70-220); MAGNESIUM 2.1 mg/dl (1.7-2.5); PHOSPHORUS 3.4 mg/dl (2.5-4.9); POTASSIUM 3.6 mmol/L (3.5-5.1); SODIUM 147 mmol/L (135-144)
[2017-08-28] MEDS: MAGNESIUM OXIDE 400 MG TAB PO ×2 (08:53→21:06)
[2017-08-28] MEDS: L ACIDOPHIL/B LACTIS/B LONGUM CAPSULE PO ×2 (08:53→21:06)
[2017-08-28] MEDS: NYSTATIN SUSP 5 ML CUP PO ×4 (08:53→21:00)
[2017-08-28] MEDS: ACETYLCYSTEINE 600 MG CAP PO ×2 (08:53→21:06)
[2017-08-28] MEDS: ZYVOX 600 MG TAB PO ×2 (08:53→21:06)
[2017-08-28] MEDS: CITRIC ACID/SODIUM CITRATE 15 ML CUP PO ×2 (08:54→21:06)
[2017-08-28] MEDS: SOD CHLORIDE 0.45% 1,000 ML IV (10:16)
[2017-08-28] MEDS: GENTAMICIN 80 MG/NS (PMX) 50 ML IVPB (16:31)
[2017-08-28] MEDS: metroNIDAZOLE 500 MG/NS (PMX) 100 ML IVPB (21:13)
[2017-08-29] MEDS: metroNIDAZOLE 500 MG/NS (PMX) 100 ML IVPB ×3 (05:56→20:42)
[2017-08-29] MEDS: SOD CHLORIDE 0.45% 1,000 ML IV (06:42)
[2017-08-29 06:58] LABS: ANION GAP 9 (8-16); BLOOD UREA NITROGEN 16 mg/dl (7-20); CALCIUM 8.6 mg/dl (8.4-10.2); CARBON DIOXIDE 16 mmol/L (21-31); CHLORIDE 125 mmol/L (97-110); CREATININE 2.18 mg/dl (0.61-1.24); GLUCOSE 100 mg/dl (70-220); PHOSPHORUS 3.3 mg/dl (2.5-4.9); POTASSIUM 3.5 mmol/L (3.5-5.1); SODIUM 146 mmol/L (135-144)
[2017-08-29] MEDS: CITRIC ACID/SODIUM CITRATE 15 ML CUP PO ×3 (09:48→22:06)
[2017-08-29] MEDS: NYSTATIN SUSP 5 ML CUP PO ×4 (09:48→20:42)
[2017-08-29] MEDS: L ACIDOPHIL/B LACTIS/B LONGUM CAPSULE PO ×2 (09:49→20:42)
[2017-08-29] MEDS: ZYVOX 600 MG TAB PO ×2 (09:49→20:42)
[2017-08-29] MEDS: ACETYLCYSTEINE 600 MG CAP PO ×2 (09:49→20:42)
[2017-08-29] MEDS: MAGNESIUM OXIDE 400 MG TAB PO ×2 (09:49→20:42)
[2017-08-29] MEDS: DEXTROSE 5% 1,000 ML IV (09:50)
[2017-08-30] MEDS: DEXTROSE 5% 1,000 ML IV ×2 (05:30→12:28)
[2017-08-30] MEDS: metroNIDAZOLE 500 MG/NS (PMX) 100 ML IVPB ×3 (05:47→21:24)
[2017-08-30 06:01] LABS: ADD MAN DIFF? NO
[2017-08-30 06:06] LABS: BASOPHIL # 0.1 10^3/ul (0.0-0.1); BASOPHILS % 0.6 % (0.0-2.0); EOSINOPHILS % 0.5 % (0.0-7.0); HEMATOCRIT 33.4 % (42.0-52.0); HEMOGLOBIN 10.3 g/dl (14.0-18.0); LYMPHOCYTES # 1.6 10^3/ul (0.8-2.9); LYMPHOCYTES % 18.6 % (15.0-51.0); MEAN CORPUSCULAR HGB CONC 30.8 g/dl (32.0-37.0); MEAN CORPUSCULAR VOLUME 87.7 fl (82.0-101.0); MEAN PLATELET VOLUME 9.9 fl (7.4-10.4); MONOCYTE # 0.4 10^3/ul (0.3-0.9); MONOCYTES % 4.2 % (0.0-11.0); NEUTROPHIL # 6.7 10^3/ul (1.6-7.5); NEUTROPHILS % 75.8 % (39.0-77.0); PLATELET COUNT 221 10^3/UL (140-415); RED BLOOD COUNT 3.81 10^6/ul (4.70-6.10); RED CELL DISTRIBUTION WIDTH 17.6 % (11.5-14.5)
[2017-08-30 06:06] LABS: WHITE BLOOD COUNT 8.8 10^3/ul (4.8-10.8)
[2017-08-30 06:29] LABS: ANION GAP 12 (8-16); BLOOD UREA NITROGEN 16 mg/dl (7-20); CALCIUM 8.6 mg/dl (8.4-10.2); CARBON DIOXIDE 16 mmol/L (21-31); CHLORIDE 120 mmol/L (97-110); CREATININE 2.41 mg/dl (0.61-1.24); GLUCOSE 106 mg/dl (70-220); MAGNESIUM 1.9 mg/dl (1.7-2.5); POTASSIUM 3.1 mmol/L (3.5-5.1); SODIUM 145 mmol/L (135-144)
[2017-08-30] MEDS: POTASSIUM CHLORIDE (SR) 20 MEQ TAB PO ×2 (08:31→08:58)
[2017-08-30] MEDS: L ACIDOPHIL/B LACTIS/B LONGUM CAPSULE PO ×2 (08:49→21:23)
[2017-08-30] MEDS: ACETYLCYSTEINE 600 MG CAP PO ×2 (08:49→21:23)
[2017-08-30] MEDS: ACETAMINOPHEN 325 MG TAB PO (08:49)
[2017-08-30] MEDS: NYSTATIN SUSP 5 ML CUP PO ×4 (08:49→21:23)
[2017-08-30] MEDS: ZYVOX 600 MG TAB PO ×2 (08:49→21:24)
[2017-08-30] MEDS: CITRIC ACID/SODIUM CITRATE 15 ML CUP PO ×3 (08:49→21:23)
[2017-08-30] MEDS: MAGNESIUM OXIDE 400 MG TAB PO ×2 (08:49→21:24)
[2017-08-30] MEDS: ONDANSETRON 4 MG INJ IV (08:50)
[2017-08-30] MEDS: POTASSIUM CHLORIDE 100 ML IVPB ×2 (12:28→15:44)
[2017-08-31 06:07] LABS: ADD MAN DIFF? NO
[2017-08-31 06:14] LABS: BASOPHIL # 0.1 10^3/ul (0.0-0.1); BASOPHILS % 0.4 % (0.0-2.0); EOSINOPHILS # 0.1 10^3/ul (0.0-0.5); EOSINOPHILS % 0.4 % (0.0-7.0); HEMATOCRIT 35.2 % (42.0-52.0); HEMOGLOBIN 10.8 g/dl (14.0-18.0); LYMPHOCYTES # 2.3 10^3/ul (0.8-2.9); LYMPHOCYTES % 17.7 % (15.0-51.0); MEAN CORPUSCULAR HEMOGLOBIN 27.7 pg (29.0-33.0); MEAN CORPUSCULAR HGB CONC 30.7 g/dl (32.0-37.0); MEAN CORPUSCULAR VOLUME 90.3 fl (82.0-101.0); MEAN PLATELET VOLUME 9.9 fl (7.4-10.4); MONOCYTE # 0.5 10^3/ul (0.3-0.9); MONOCYTES % 3.5 % (0.0-11.0); NEUTROPHIL # 10.1 10^3/ul (1.6-7.5); NEUTROPHILS % 77.6 % (39.0-77.0); PLATELET COUNT 208 10^3/UL (140-415); RED CELL DISTRIBUTION WIDTH 17.6 % (11.5-14.5)
[2017-08-31] MEDS: metroNIDAZOLE 500 MG/NS (PMX) 100 ML IVPB ×2 (06:16→14:03)
[2017-08-31] MEDS: DEXTROSE 5% 1,000 ML IV (06:16)
[2017-08-31 06:40] LABS: GENTAMICIN,RANDOM 0.9 ug/ml
[2017-08-31 07:02] LABS: ANION GAP 10 (8-16); BLOOD UREA NITROGEN 15 mg/dl (7-20); CALCIUM 8.9 mg/dl (8.4-10.2); CARBON DIOXIDE 13 mmol/L (21-31); CHLORIDE 124 mmol/L (97-110); GLUCOSE 107 mg/dl (70-220); MAGNESIUM 1.9 mg/dl (1.7-2.5); PHOSPHORUS 3.2 mg/dl (2.5-4.9); POTASSIUM 3.2 mmol/L (3.5-5.1); SODIUM 144 mmol/L (135-144)
[2017-08-31] MEDS: NYSTATIN SUSP 5 ML CUP PO ×4 (09:22→21:28)
[2017-08-31] MEDS: CITRIC ACID/SODIUM CITRATE 15 ML CUP PO ×3 (09:22→21:28)
[2017-08-31] MEDS: ZYVOX 600 MG TAB PO (09:22)
[2017-08-31] MEDS: MAGNESIUM OXIDE 400 MG TAB PO ×2 (09:22→21:29)
[2017-08-31] MEDS: ACETYLCYSTEINE 600 MG CAP PO (09:22)
[2017-08-31] MEDS: L ACIDOPHIL/B LACTIS/B LONGUM CAPSULE PO ×2 (09:22→21:29)
[2017-08-31] MEDS: SODIUM BICARBONATE (IV ADD) 150 MEQ in DEXTROSE 5% 1,000 ML IV (10:27)
[2017-08-31] MEDS ORDERED: GENTAMICIN 80 MG/NS (PMX) 50 ML IVPB (17:00)
[2017-09-01] MEDS: SODIUM BICARBONATE (IV ADD) 150 MEQ in DEXTROSE 5% 1,000 ML IV (02:49)
[2017-09-01 06:41] LABS: ADD MAN DIFF? NO
[2017-09-01 06:43] LABS: BASOPHIL # 0.1 10^3/ul (0.0-0.1); BASOPHILS % 0.4 % (0.0-2.0); EOSINOPHILS % 0.2 % (0.0-7.0); HEMATOCRIT 36.1 % (42.0-52.0); HEMOGLOBIN 11.2 g/dl (14.0-18.0); LYMPHOCYTES # 1.6 10^3/ul (0.8-2.9); LYMPHOCYTES % 13.7 % (15.0-51.0); MEAN CORPUSCULAR HEMOGLOBIN 27.1 pg (29.0-33.0); MEAN CORPUSCULAR VOLUME 87.2 fl (82.0-101.0); MONOCYTE # 0.5 10^3/ul (0.3-0.9); MONOCYTES % 3.9 % (0.0-11.0); NEUTROPHIL # 9.4 10^3/ul (1.6-7.5); NEUTROPHILS % 81.4 % (39.0-77.0); PLATELET COUNT 181 10^3/UL (140-415); RED BLOOD COUNT 4.14 10^6/ul (4.70-6.10); RED CELL DISTRIBUTION WIDTH 17.3 % (11.5-14.5)
[2017-09-01 06:43] LABS: WHITE BLOOD COUNT 11.6 10^3/ul (4.8-10.8)
[2017-09-01 07:07] LABS: ANION GAP 11 (8-16); BLOOD UREA NITROGEN 17 mg/dl (7-20); CALCIUM 8.7 mg/dl (8.4-10.2); CARBON DIOXIDE 18 mmol/L (21-31); CHLORIDE 116 mmol/L (97-110); CREATININE 2.87 mg/dl (0.61-1.24); GLUCOSE 110 mg/dl (70-220); MAGNESIUM 1.9 mg/dl (1.7-2.5); PHOSPHORUS 2.9 mg/dl (2.5-4.9); SODIUM 142 mmol/L (135-144)
[2017-09-01 07:11] LABS: POTASSIUM 2.7 mmol/L (3.5-5.1)
[2017-09-01] MEDS: ONDANSETRON 4 MG INJ IV (09:06)
[2017-09-01] MEDS: NYSTATIN SUSP 5 ML CUP PO ×4 (09:06→21:00)
[2017-09-01] MEDS: CITRIC ACID/SODIUM CITRATE 15 ML CUP PO ×3 (09:06→21:16)
[2017-09-01] MEDS: L ACIDOPHIL/B LACTIS/B LONGUM CAPSULE PO ×2 (09:06→21:16)
[2017-09-01] MEDS: SOD CHLORIDE 0.9% 1,000 ML IV ×2 (09:07→17:30)
[2017-09-01] MEDS: MAGNESIUM OXIDE 400 MG TAB PO ×2 (09:07→21:16)
[2017-09-01] MEDS: POTASSIUM CHLORIDE (SR) 20 MEQ TAB PO (09:07)
[2017-09-01 09:09] LABS: Arterial Base Excess -4.4 mmol/L (-3.0-3); Arterial Blood Gas Oxygen Sat 97.5 mmHG (95.0-98.0); Arterial COHb 0.3 % (0.0-3.0); Arterial HCO3 19.1 mmol/L (22.0-26.0); Arterial MetHb 0.2 % (0.0-1.5); Arterial Total Hemglobin 11.5 g/dl (12.0-18.0); Arterial pCO2 30.4 mmhg (35-45); MODE ROOM AIR; Site Right Brachial
[2017-09-01] MEDS: POTASSIUM CHLORIDE 100 ML IVPB ×2 (10:07→12:24)
[2017-09-01 15:24] LABS: ANION GAP 15 (8-16); BLOOD UREA NITROGEN 18 mg/dl (7-20); CALCIUM 8.7 mg/dl (8.4-10.2); CARBON DIOXIDE 16 mmol/L (21-31); CHLORIDE 115 mmol/L (97-110); CREATININE 2.77 mg/dl (0.61-1.24); GLUCOSE 129 mg/dl (70-220); POTASSIUM 3.9 mmol/L (3.5-5.1); SODIUM 142 mmol/L (135-144)
[2017-09-01 18:36] LABS: ADD UMIC YES; UR ASCORBIC ACID NEGATIVE (NEGATIVE); UR BACTERIA MANY /HPF (NONE SEEN); UR BILIRUBIN (Dip) NEGATIVE (NEGATIVE); UR BLOOD (Dip) 3+ mg/dL (NEGATIVE); UR CLARITY TURBID (CLEAR); UR COLOR AMBER (YELLOW); UR GLUCOSE (Dip) NEGATIVE (NEGATIVE); UR KETONES (Dip) NEGATIVE (NEGATIVE); UR LEUKOCYTE ESTERASE (Dip) 2+ Leu/ul (NEGATIVE); UR NITRITE (Dip) NEGATIVE (NEGATIVE); UR RBC > 182 /HPF (0-5); UR SPECIFIC GRAVITY (Dip) 1.015 (1.003-1.030); UR TOTAL PROTEIN (Dip) 3+ mg/dl (NEGATIVE); UR UROBILINOGEN (Dip) NEGATIVE (NEGATIVE); UR WBC > 182 /HPF (0-5)
[2017-09-01 18:37] LABS: SODIUM,URINE RANDOM 116 mmol/L (30-90)
[2017-09-01 18:37] LABS: CREATININE,URINE RANDOM 106.44 mg/dl (20-370)
[2017-09-02] MEDS: SOD CHLORIDE 0.9% 1,000 ML IV ×2 (04:30→06:24)
[2017-09-02 05:30] LABS: ADD MAN DIFF? NO
[2017-09-02 06:02] LABS: BASOPHIL # 0.1 10^3/ul (0.0-0.1); BASOPHILS % 0.5 % (0.0-2.0); EOSINOPHILS # 0.1 10^3/ul (0.0-0.5); EOSINOPHILS % 0.6 % (0.0-7.0); HEMATOCRIT 34.7 % (42.0-52.0); HEMOGLOBIN 10.6 g/dl (14.0-18.0); LYMPHOCYTES # 2.1 10^3/ul (0.8-2.9); LYMPHOCYTES % 21.7 % (15.0-51.0); MEAN CORPUSCULAR HEMOGLOBIN 27.3 pg (29.0-33.0); MEAN CORPUSCULAR HGB CONC 30.5 g/dl (32.0-37.0); MEAN CORPUSCULAR VOLUME 89.4 fl (82.0-101.0); MEAN PLATELET VOLUME 10.1 fl (7.4-10.4); MONOCYTE # 0.4 10^3/ul (0.3-0.9); MONOCYTES % 3.7 % (0.0-11.0); NEUTROPHIL # 7.2 10^3/ul (1.6-7.5); NEUTROPHILS % 73.1 % (39.0-77.0); PLATELET COUNT 156 10^3/UL (140-415); RED BLOOD COUNT 3.88 10^6/ul (4.70-6.10); RED CELL DISTRIBUTION WIDTH 17.8 % (11.5-14.5)
[2017-09-02 06:02] LABS: WHITE BLOOD COUNT 9.8 10^3/ul (4.8-10.8)
[2017-09-02 06:09] LABS: ANION GAP 11 (8-16); BLOOD UREA NITROGEN 19 mg/dl (7-20); CALCIUM 8.6 mg/dl (8.4-10.2); CARBON DIOXIDE 18 mmol/L (21-31); CHLORIDE 124 mmol/L (97-110); CREATININE 2.57 mg/dl (0.61-1.24); GLUCOSE 94 mg/dl (70-220); MAGNESIUM 2.1 mg/dl (1.7-2.5); PHOSPHORUS 2.4 mg/dl (2.5-4.9); POTASSIUM 3.7 mmol/L (3.5-5.1); SODIUM 149 mmol/L (135-144)
[2017-09-02] MEDS: CITRIC ACID/SODIUM CITRATE 15 ML CUP PO ×3 (08:38→21:01)
[2017-09-02] MEDS: NYSTATIN SUSP 5 ML CUP PO ×4 (08:38→21:03)
[2017-09-02] MEDS: L ACIDOPHIL/B LACTIS/B LONGUM CAPSULE PO ×2 (08:39→21:00)
[2017-09-02] MEDS: MAGNESIUM OXIDE 400 MG TAB PO ×2 (08:39→21:00)
[2017-09-02] MEDS: SOD CHLORIDE 0.45% 1,000 ML IV ×3 (10:56→22:59)
[2017-09-02] MEDS: POTASSIUM PHOSPHATE 20 MEQ in SOD CHLORIDE 0.9% 250 ML IVPB (10:56)
[2017-09-02] MEDS: ONDANSETRON 4 MG INJ IV (13:27)
[2017-09-03 06:10] LABS: ADD MAN DIFF? NO
[2017-09-03 06:13] LABS: BASOPHILS % 0.4 % (0.0-2.0); EOSINOPHILS # 0.1 10^3/ul (0.0-0.5); EOSINOPHILS % 0.7 % (0.0-7.0); HEMATOCRIT 27.3 % (42.0-52.0); HEMOGLOBIN 8.4 g/dl (14.0-18.0); LYMPHOCYTES # 2.5 10^3/ul (0.8-2.9); LYMPHOCYTES % 26.1 % (15.0-51.0); MEAN CORPUSCULAR HEMOGLOBIN 27.6 pg (29.0-33.0); MEAN CORPUSCULAR HGB CONC 30.8 g/dl (32.0-37.0); MEAN CORPUSCULAR VOLUME 89.8 fl (82.0-101.0); MEAN PLATELET VOLUME 10.8 fl (7.4-10.4); MONOCYTE # 0.7 10^3/ul (0.3-0.9); NEUTROPHIL # 6.4 10^3/ul (1.6-7.5); NEUTROPHILS % 65.5 % (39.0-77.0); PLATELET COUNT 118 10^3/UL (140-415); RED BLOOD COUNT 3.04 10^6/ul (4.70-6.10); RED CELL DISTRIBUTION WIDTH 18.2 % (11.5-14.5)
[2017-09-03 06:13] LABS: WHITE BLOOD COUNT 9.7 10^3/ul (4.8-10.8)
[2017-09-03 06:43] LABS: ANION GAP 9 (8-16); BLOOD UREA NITROGEN 15 mg/dl (7-20); CALCIUM 8.1 mg/dl (8.4-10.2); CARBON DIOXIDE 17 mmol/L (21-31); CHLORIDE 124 mmol/L (97-110); CREATININE 2.25 mg/dl (0.61-1.24); GLUCOSE 82 mg/dl (70-220); MAGNESIUM 1.7 mg/dl (1.7-2.5); PHOSPHORUS 2.5 mg/dl (2.5-4.9); SODIUM 147 mmol/L (135-144)
[2017-09-03 06:48] LABS: POTASSIUM 2.8 mmol/L (3.5-5.1)
[2017-09-03] MEDS ORDERED: POTASSIUM CHLORIDE (SR) 10 MEQ TAB PO (07:00)
[2017-09-03] MEDS: SOD CHLORIDE 0.45% 1,000 ML IV ×4 (07:25→23:13)
[2017-09-03] MEDS: MAGNESIUM OXIDE 400 MG TAB PO ×2 (08:32→21:22)
[2017-09-03] MEDS: NYSTATIN SUSP 5 ML CUP PO ×4 (08:32→21:22)
[2017-09-03] MEDS: L ACIDOPHIL/B LACTIS/B LONGUM CAPSULE PO ×2 (08:32→21:22)
[2017-09-03] MEDS: POTASSIUM CHLORIDE (SR) 20 MEQ TAB PO ×2 (08:32→17:19)
[2017-09-03] MEDS: CITRIC ACID/SODIUM CITRATE 15 ML CUP PO ×3 (08:32→21:22)
[2017-09-03] MEDS: POTASSIUM CHLORIDE 100 ML IVPB ×3 (09:42→11:43)
[2017-09-03 15:12] LABS: ANION GAP 12 (8-16); BLOOD UREA NITROGEN 15 mg/dl (7-20); CALCIUM 8.6 mg/dl (8.4-10.2); CARBON DIOXIDE 17 mmol/L (21-31); CHLORIDE 123 mmol/L (97-110); CREATININE 2.24 mg/dl (0.61-1.24); GLUCOSE 102 mg/dl (70-220); POTASSIUM 3.7 mmol/L (3.5-5.1); SODIUM 148 mmol/L (135-144)
[2017-09-04] MEDS: SOD CHLORIDE 0.45% 1,000 ML IV ×3 (05:45→22:02)
[2017-09-04 05:49] LABS: ADD MAN DIFF? NO
[2017-09-04 05:50] LABS: BASOPHILS % 0.5 % (0.0-2.0); EOSINOPHILS # 0.1 10^3/ul (0.0-0.5); EOSINOPHILS % 0.9 % (0.0-7.0); HEMATOCRIT 27.7 % (42.0-52.0); HEMOGLOBIN 8.6 g/dl (14.0-18.0); LYMPHOCYTES % 26.2 % (15.0-51.0); MEAN CORPUSCULAR VOLUME 90.2 fl (82.0-101.0); MEAN PLATELET VOLUME 11.6 fl (7.4-10.4); MONOCYTE # 0.7 10^3/ul (0.3-0.9); MONOCYTES % 9.7 % (0.0-11.0); NEUTROPHIL # 4.7 10^3/ul (1.6-7.5); NEUTROPHILS % 62.3 % (39.0-77.0); PLATELET COUNT 118 10^3/UL (140-415); RED BLOOD COUNT 3.07 10^6/ul (4.70-6.10)
[2017-09-04 05:50] LABS: WHITE BLOOD COUNT 7.5 10^3/ul (4.8-10.8)
[2017-09-04 06:23] LABS: ANION GAP 6 (8-16); BLOOD UREA NITROGEN 13 mg/dl (7-20); CALCIUM 8.2 mg/dl (8.4-10.2); CARBON DIOXIDE 17 mmol/L (21-31); CHLORIDE 125 mmol/L (97-110); CREATININE 1.91 mg/dl (0.61-1.24); GLUCOSE 89 mg/dl (70-220); MAGNESIUM 1.7 mg/dl (1.7-2.5); PHOSPHORUS 1.6 mg/dl (2.5-4.9); POTASSIUM 3.6 mmol/L (3.5-5.1); SODIUM 144 mmol/L (135-144)
[2017-09-04] MEDS: NYSTATIN SUSP 5 ML CUP PO ×4 (09:01→20:36)
[2017-09-04] MEDS: CITRIC ACID/SODIUM CITRATE 15 ML CUP PO ×3 (09:01→20:36)
[2017-09-04] MEDS: L ACIDOPHIL/B LACTIS/B LONGUM CAPSULE PO ×2 (09:01→20:35)
[2017-09-04] MEDS: MAGNESIUM OXIDE 400 MG TAB PO ×2 (09:01→20:35)
[2017-09-04] MEDS: POTASSIUM PHOSPHATE 40 MEQ in SOD CHLORIDE 0.9% 250 ML IVPB (10:53)
[2017-09-05] MEDS: SOD CHLORIDE 0.45% 1,000 ML IV ×2 (00:54→18:42)
[2017-09-05 05:48] LABS: ADD MAN DIFF? NO
[2017-09-05 05:50] LABS: BASOPHILS % 0.5 % (0.0-2.0); EOSINOPHILS # 0.1 10^3/ul (0.0-0.5); EOSINOPHILS % 1.2 % (0.0-7.0); HEMATOCRIT 26.1 % (42.0-52.0); HEMOGLOBIN 7.8 g/dl (14.0-18.0); LYMPHOCYTES # 2.2 10^3/ul (0.8-2.9); LYMPHOCYTES % 25.4 % (15.0-51.0); MEAN CORPUSCULAR HEMOGLOBIN 26.7 pg (29.0-33.0); MEAN CORPUSCULAR HGB CONC 29.9 g/dl (32.0-37.0); MEAN CORPUSCULAR VOLUME 89.4 fl (82.0-101.0); MEAN PLATELET VOLUME 11.7 fl (7.4-10.4); MONOCYTE # 0.7 10^3/ul (0.3-0.9); MONOCYTES % 8.3 % (0.0-11.0); NEUTROPHIL # 5.5 10^3/ul (1.6-7.5); NEUTROPHILS % 64.4 % (39.0-77.0); PLATELET COUNT 123 10^3/UL (140-415); RED BLOOD COUNT 2.92 10^6/ul (4.70-6.10); RED CELL DISTRIBUTION WIDTH 17.7 % (11.5-14.5)
[2017-09-05 05:50] LABS: WHITE BLOOD COUNT 8.5 10^3/ul (4.8-10.8)
[2017-09-05 06:27] LABS: ANION GAP 7 (8-16); BLOOD UREA NITROGEN 11 mg/dl (7-20); CALCIUM 8.1 mg/dl (8.4-10.2); CARBON DIOXIDE 14 mmol/L (21-31); CHLORIDE 125 mmol/L (97-110); CREATININE 1.76 mg/dl (0.61-1.24); GLUCOSE 85 mg/dl (70-220); MAGNESIUM 1.5 mg/dl (1.7-2.5); PHOSPHORUS 2.8 mg/dl (2.5-4.9); POTASSIUM 3.4 mmol/L (3.5-5.1); SODIUM 143 mmol/L (135-144)
[2017-09-05] MEDS: MAGNESIUM OXIDE 400 MG TAB PO ×2 (09:52→21:01)
[2017-09-05] MEDS: L ACIDOPHIL/B LACTIS/B LONGUM CAPSULE PO ×2 (09:52→21:01)
[2017-09-05] MEDS: CITRIC ACID/SODIUM CITRATE 15 ML CUP PO ×3 (09:52→21:01)
[2017-09-05] MEDS: POTASSIUM CHLORIDE (SR) 20 MEQ TAB PO (09:53)
[2017-09-05] MEDS: NYSTATIN SUSP 5 ML CUP PO ×4 (09:53→21:01)
[2017-09-05] MEDS: MAGNESIUM SULFATE 2 GM/50 ML 50 ML IVPB (10:58)
[2017-09-05] MEDS: SODIUM HYPOCHLORITE (1/40) 1 APPLIC BTL IRR (18:03)
[2017-09-05] MEDS: ONDANSETRON 4 MG INJ IV (21:07)
[2017-09-06 05:37] LABS: ADD MAN DIFF? NO
[2017-09-06 05:45] LABS: BASOPHILS % 0.4 % (0.0-2.0); EOSINOPHILS # 0.1 10^3/ul (0.0-0.5); EOSINOPHILS % 1.2 % (0.0-7.0); HEMATOCRIT 27.4 % (42.0-52.0); HEMOGLOBIN 8.3 g/dl (14.0-18.0); LYMPHOCYTES # 1.6 10^3/ul (0.8-2.9); LYMPHOCYTES % 17.6 % (15.0-51.0); MEAN CORPUSCULAR HEMOGLOBIN 26.9 pg (29.0-33.0); MEAN CORPUSCULAR HGB CONC 30.3 g/dl (32.0-37.0); MEAN CORPUSCULAR VOLUME 88.7 fl (82.0-101.0); MEAN PLATELET VOLUME 11.6 fl (7.4-10.4); MONOCYTE # 0.8 10^3/ul (0.3-0.9); MONOCYTES % 8.7 % (0.0-11.0); NEUTROPHIL # 6.6 10^3/ul (1.6-7.5); NEUTROPHILS % 71.7 % (39.0-77.0); PLATELET COUNT 157 10^3/UL (140-415); RED BLOOD COUNT 3.09 10^6/ul (4.70-6.10); RED CELL DISTRIBUTION WIDTH 17.5 % (11.5-14.5)
[2017-09-06 05:45] LABS: WHITE BLOOD COUNT 9.2 10^3/ul (4.8-10.8)
[2017-09-06 06:24] LABS: ANION GAP 9 (8-16); BLOOD UREA NITROGEN 13 mg/dl (7-20); CARBON DIOXIDE 14 mmol/L (21-31); CHLORIDE 123 mmol/L (97-110); CREATININE 1.85 mg/dl (0.61-1.24); GLUCOSE 111 mg/dl (70-220); MAGNESIUM 2.2 mg/dl (1.7-2.5); PHOSPHORUS 2.4 mg/dl (2.5-4.9); POTASSIUM 3.5 mmol/L (3.5-5.1); SODIUM 142 mmol/L (135-144)
[2017-09-06] MEDS: CITRIC ACID/SODIUM CITRATE 15 ML CUP PO ×4 (09:00→21:00)
[2017-09-06] MEDS: NYSTATIN SUSP 5 ML CUP PO ×5 (09:00→21:00)
[2017-09-06] MEDS: L ACIDOPHIL/B LACTIS/B LONGUM CAPSULE PO ×2 (10:01→21:54)
[2017-09-06] MEDS: MAGNESIUM OXIDE 400 MG TAB PO ×2 (10:02→21:53)
[2017-09-06] MEDS: SODIUM HYPOCHLORITE (1/40) 1 APPLIC BTL IRR (10:02)
[2017-09-06 10:07] LABS: AADO2 Arterial 13.7 mmHg (7.0-24.0); Allen Test ACCEPTAB; Arterial Base Excess -13.8 mmol/L (-3.0-3); Arterial Blood Gas Oxygen Sat 97.7 mmHG (95.0-98.0); Arterial COHb 0.2 % (0.0-3.0); Arterial Fraction of Oxyhgb 97.2 % (93.0-99.0); Arterial HCO3 11.2 mmol/L (22.0-26.0); Arterial MetHb 0.3 % (0.0-1.5); Arterial Total Hemglobin 9.8 g/dl (12.0-18.0); Arterial pCO2 23.7 mmhg (35-45); MODE ROOM AIR; Site Right Radial
[2017-09-06] MEDS: POTASSIUM PHOSPHATE 20 MEQ in SOD CHLORIDE 0.9% 250 ML IVPB (10:13)
[2017-09-06] MEDS: ONDANSETRON 4 MG INJ IV ×2 (10:13→21:54)
[2017-09-07 06:24] LABS: ANION GAP 8 (8-16); BLOOD UREA NITROGEN 14 mg/dl (7-20); CALCIUM 8.4 mg/dl (8.4-10.2); CARBON DIOXIDE 13 mmol/L (21-31); CHLORIDE 122 mmol/L (97-110); CREATININE 2.05 mg/dl (0.61-1.24); GLUCOSE 87 mg/dl (70-220); MAGNESIUM 2.1 mg/dl (1.7-2.5); PHOSPHORUS 3.1 mg/dl (2.5-4.9); POTASSIUM 3.2 mmol/L (3.5-5.1); SODIUM 140 mmol/L (135-144)
[2017-09-07] MEDS: POTASSIUM CHLORIDE (SR) 20 MEQ TAB PO (09:11)
[2017-09-07] MEDS: L ACIDOPHIL/B LACTIS/B LONGUM CAPSULE PO ×2 (09:11→20:13)
[2017-09-07] MEDS: MAGNESIUM OXIDE 400 MG TAB PO ×2 (09:11→20:13)
[2017-09-07] MEDS: NYSTATIN SUSP 5 ML CUP PO ×4 (09:11→20:13)
[2017-09-07] MEDS: CITRIC ACID/SODIUM CITRATE 15 ML CUP PO ×3 (09:11→20:13)
[2017-09-07] MEDS: SODIUM HYPOCHLORITE (1/40) 1 APPLIC BTL IRR (12:27)
[2017-09-07] MEDS: ONDANSETRON 4 MG INJ IV ×2 (12:33→20:15)
[2017-09-08 05:46] LABS: ADD MAN DIFF? NO
[2017-09-08 05:56] LABS: WHITE BLOOD COUNT 12.5 10^3/ul (4.8-10.8)
[2017-09-08 05:56] LABS: BASOPHILS % 0.3 % (0.0-2.0); EOSINOPHILS # 0.2 10^3/ul (0.0-0.5); EOSINOPHILS % 1.4 % (0.0-7.0); HEMATOCRIT 31.4 % (42.0-52.0); HEMOGLOBIN 9.7 g/dl (14.0-18.0); LYMPHOCYTES # 2.6 10^3/ul (0.8-2.9); LYMPHOCYTES % 20.6 % (15.0-51.0); MEAN CORPUSCULAR HEMOGLOBIN 27.1 pg (29.0-33.0); MEAN CORPUSCULAR HGB CONC 30.9 g/dl (32.0-37.0); MEAN CORPUSCULAR VOLUME 87.7 fl (82.0-101.0); MEAN PLATELET VOLUME 10.8 fl (7.4-10.4); MONOCYTE # 0.9 10^3/ul (0.3-0.9); MONOCYTES % 7.3 % (0.0-11.0); NEUTROPHIL # 8.7 10^3/ul (1.6-7.5); NEUTROPHILS % 69.8 % (39.0-77.0); PLATELET COUNT 406 10^3/UL (140-415); RED BLOOD COUNT 3.58 10^6/ul (4.70-6.10); RED CELL DISTRIBUTION WIDTH 17.7 % (11.5-14.5)
[2017-09-08 06:23] LABS: ANION GAP 10 (8-16); BLOOD UREA NITROGEN 16 mg/dl (7-20); CALCIUM 8.8 mg/dl (8.4-10.2); CARBON DIOXIDE 11 mmol/L (21-31); CHLORIDE 124 mmol/L (97-110); CREATININE 2.55 mg/dl (0.61-1.24); GLUCOSE 89 mg/dl (70-220); PHOSPHORUS 4.1 mg/dl (2.5-4.9); POTASSIUM 3.3 mmol/L (3.5-5.1); SODIUM 142 mmol/L (135-144)
[2017-09-08] MEDS: POTASSIUM CHLORIDE (SR) 20 MEQ TAB PO (08:33)
[2017-09-08] MEDS: SOD CHLORIDE 0.9% 1,000 ML IV (08:33)
[2017-09-08] MEDS: NYSTATIN SUSP 5 ML CUP PO (08:34)
[2017-09-08] MEDS: MAGNESIUM OXIDE 400 MG TAB PO (08:34)
[2017-09-08] MEDS: CITRIC ACID/SODIUM CITRATE 15 ML CUP PO ×2 (08:34→08:41)
[2017-09-08] MEDS: SODIUM HYPOCHLORITE (1/40) 1 APPLIC BTL IRR (08:34)
[2017-09-08] MEDS: L ACIDOPHIL/B LACTIS/B LONGUM CAPSULE PO (08:34)
[2017-09-19 14:04] LABS: CREATININE, RANDOM URINE 129 mg/dL (20-370); MICROALBUMIN 180.1 mg/dL; MICROALBUMIN/CREATININE RATIO 1396 (<30)
== END 2017-09-08 14:40 | disposition home health service (06) | DRG 871 ==
LOC: MS2 08-26 14:00 → E/R 14:52 → MS2 16:48
PROC: 0W2JX0Z Change Drainage Device in Pelvic Cavity, External Approach (ICD-10-PCS; principal; 2017-08-25)
DX: A41.51 Sepsis due to Escherichia coli [E. coli] (principal); N17.0 Acute kidney failure with tubular necrosis; E43 Unspecified severe protein-calorie malnutrition; G93.40 Encephalopathy, unspecified; K65.1 Peritoneal abscess; N39.0 Urinary tract infection, site not specified; I82.509 Chronic embolism and thrombosis of unspecified deep veins of unspecified lower extremity; T81.32XA Disruption of internal operation (surgical) wound, not elsewhere classified, initial encounter; E87.2 Acidosis; E87.0 Hyperosmolality and hypernatremia; N13.2 Hydronephrosis with renal and ureteral calculous obstruction; R65.20 Severe sepsis without septic shock; Z93.3 Colostomy status; Z96.0 Presence of urogenital implants; Z95.9 Presence of cardiac and vascular implant and graft, unspecified; D63.1 Anemia in chronic kidney disease; Z85.51 Personal history of malignant neoplasm of bladder; Z90.79 Acquired absence of other genital organ(s); Z90.6 Acquired absence of other parts of urinary tract; Z85.46 Personal history of malignant neoplasm of prostate; N18.3 Chronic kidney disease, stage 3 (moderate); E83.42 Hypomagnesemia; Z93.6 Other artificial openings of urinary tract status; Z92.21 Personal history of antineoplastic chemotherapy; Z92.3 Personal history of irradiation; D50.8 Other iron deficiency anemias; E83.9 Disorder of mineral metabolism, unspecified; Z87.891 Personal history of nicotine dependence; Z16.24 Resistance to multiple antibiotics; B96.5 Pseudomonas (aeruginosa) (mallei) (pseudomallei) as the cause of diseases classified elsewhere; B95.2 Enterococcus as the cause of diseases classified elsewhere; T85.9XXA Unspecified complication of internal prosthetic device, implant and graft, initial encounter; Y81.8 Miscellaneous general- and plastic-surgery devices associated with adverse incidents, not elsewhere classified; Y92.239 Unspecified place in hospital as the place of occurrence of the external cause
CPT/HCPCS: 36415; 36600; 71045; 74176; 74177; 75989; 76775; 77012; 80048; 80053; 80170; 81001; 81003; 82043; 82803; 83036; 83540; 83605; 83735; 84100; 84155; 84300; 84484; 85025; 85610; 85730; 87040; 87070; 87075; 87086; 93005; 96374; 96375; 97110; 97116; 97163; 97530; 99291-25

== ENCOUNTER 2017-09-15 08:18 | Inpatient (IN) | payer BC ==
[2017-09-15] MEDS ORDERED: NACL 0.9% 3 ML SYG IV (11:00)
[2017-09-15 12:35] LABS: ADD MAN DIFF? NO
[2017-09-15 12:42] LABS: WHITE BLOOD COUNT 14.4 10^3/ul (4.8-10.8)
[2017-09-15 12:42] LABS: BASOPHILS % 0.1 % (0.0-2.0); EOSINOPHILS % 0.1 % (0.0-7.0); HEMATOCRIT 26.7 % (42.0-52.0); HEMOGLOBIN 8.6 g/dl (14.0-18.0); LYMPHOCYTES # 0.7 10^3/ul (0.8-2.9); MEAN CORPUSCULAR HGB CONC 32.2 g/dl (32.0-37.0); MEAN PLATELET VOLUME 9.5 fl (7.4-10.4); MONOCYTE # 0.6 10^3/ul (0.3-0.9); MONOCYTES % 4.4 % (0.0-11.0); NEUTROPHIL # 12.9 10^3/ul (1.6-7.5); NEUTROPHILS % 89.8 % (39.0-77.0); NUCLEATED RED BLOOD CELLS% 0.1 /100WBC (0.0-0.0); PLATELET COUNT 447 10^3/UL (140-415); RED BLOOD COUNT 3.07 10^6/ul (4.70-6.10); RED CELL DISTRIBUTION WIDTH 18.8 % (11.5-14.5)
[2017-09-15 12:54] LABS: ANION GAP 12 (8-16); BLOOD UREA NITROGEN 43 mg/dl (7-20); CALCIUM 8.4 mg/dl (8.4-10.2); CHLORIDE 121 mmol/L (97-110); CREATININE 4.04 mg/dl (0.61-1.24); GLUCOSE 97 mg/dl (70-220); POTASSIUM 3.4 mmol/L (3.5-5.1); SODIUM 136 mmol/L (135-144)
[2017-09-15 13:01] LABS: CARBON DIOXIDE 6 mmol/L (21-31)
[2017-09-15] MEDS: SOD CHLORIDE 0.9% 1,000 ML IV ×4 (14:58→19:07)
[2017-09-15] MEDS: morphine 2 MG INJ IV ×2 (15:38→21:03)
[2017-09-15 16:00] LABS: CREATININE,URINE RANDOM 82.26 mg/dl (20-370)
[2017-09-15 16:00] LABS: SODIUM,URINE RANDOM 77 mmol/L (30-90)
[2017-09-15] MEDS: CITRIC ACID/SODIUM CITRATE 15 ML CUP PO (20:52)
[2017-09-15] MEDS: POTASSIUM CHLORIDE (SR) 20 MEQ TAB PO (20:52)
[2017-09-15] MEDS: MAGNESIUM OXIDE 400 MG TAB PO (20:52)
[2017-09-15] MEDS: MAGNESIUM SULFATE 2 GM/50 ML 50 ML IVPB (21:30)
[2017-09-15 22:14] LABS: HEMATOCRIT 24.1 % (42.0-52.0); HEMOGLOBIN 7.7 g/dl (14.0-18.0)
[2017-09-15 22:34] LABS: INR 1.02; PARTIAL THROMBOPLASTIN TIME 33.7 Sec (25.0-35.0); PROTIME 13.5 Sec (11.9-14.9); PT RATIO 1.1
[2017-09-16] MEDS: SOD CHLORIDE 0.9% 1,000 ML IV ×5 (00:03→17:57)
[2017-09-16] MEDS: DESMOPRESSIN IV (02:17)
[2017-09-16] MEDS: SOD CHLORIDE 0.9% IV (02:17)
[2017-09-16] MEDS: CALCIUM GLUCONATE 10% 2 GM in DEXTROSE 5% 100 ML IVPB (02:18)
[2017-09-16] MEDS: morphine 2 MG INJ IV ×4 (07:04→20:32)
[2017-09-16 08:57] LABS: ANION GAP 8 (8-16); BLOOD UREA NITROGEN 35 mg/dl (7-20); CALCIUM 7.1 mg/dl (8.4-10.2); CHLORIDE 127 mmol/L (97-110); CREATININE 3.14 mg/dl (0.61-1.24); GLUCOSE 75 mg/dl (70-220); POTASSIUM 3.1 mmol/L (3.5-5.1); SODIUM 139 mmol/L (135-144)
[2017-09-16 09:01] LABS: HEMATOCRIT 23.9 % (42.0-52.0); HEMOGLOBIN 7.6 g/dl (14.0-18.0)
[2017-09-16 09:12] LABS: CARBON DIOXIDE 7 mmol/L (21-31)
[2017-09-16] MEDS: CITRIC ACID/SODIUM CITRATE 15 ML CUP PO ×4 (10:36→20:26)
[2017-09-16] MEDS: POTASSIUM CHLORIDE (SR) 20 MEQ TAB PO ×3 (10:36→20:26)
[2017-09-16] MEDS: MAGNESIUM OXIDE 400 MG TAB PO ×2 (10:36→20:26)
[2017-09-16 14:55] LABS: HEMATOCRIT 21.7 % (42.0-52.0)
[2017-09-16 15:09] LABS: HEMOGLOBIN 6.9 g/dl (14.0-18.0)
[2017-09-16 19:52] LABS: POTASSIUM,URINE RANDOM 20.5 mmol/L (25-125)
[2017-09-16 20:09] LABS: RANDOM CHLORIDE URINE 71 mmol/L (18-209)
[2017-09-16 21:37] LABS: AHG CROSSMATCH 1 1
[2017-09-17] MEDS: morphine 2 MG INJ IV ×5 (00:19→17:00)
[2017-09-17] MEDS: SOD CHLORIDE 0.9% 1,000 ML IV ×3 (02:04→07:31)
[2017-09-17 07:13] LABS: ADD MAN DIFF? NO
[2017-09-17 07:18] LABS: WHITE BLOOD COUNT 11.6 10^3/ul (4.8-10.8)
[2017-09-17 07:18] LABS: BASOPHILS % 0.1 % (0.0-2.0); EOSINOPHILS % 0.1 % (0.0-7.0); HEMOGLOBIN 8.2 g/dl (14.0-18.0); LYMPHOCYTES # 0.6 10^3/ul (0.8-2.9); LYMPHOCYTES % 5.4 % (15.0-51.0); MEAN CORPUSCULAR HEMOGLOBIN 28.8 pg (29.0-33.0); MEAN CORPUSCULAR HGB CONC 31.5 g/dl (32.0-37.0); MEAN CORPUSCULAR VOLUME 91.2 fl (82.0-101.0); MEAN PLATELET VOLUME 9.4 fl (7.4-10.4); MONOCYTE # 0.8 10^3/ul (0.3-0.9); MONOCYTES % 6.6 % (0.0-11.0); NEUTROPHIL # 10.1 10^3/ul (1.6-7.5); NEUTROPHILS % 87.1 % (39.0-77.0); PLATELET COUNT 273 10^3/UL (140-415); RED BLOOD COUNT 2.85 10^6/ul (4.70-6.10); RED CELL DISTRIBUTION WIDTH 18.7 % (11.5-14.5)
[2017-09-17 07:35] LABS: ANION GAP 11 (8-16); BLOOD UREA NITROGEN 32 mg/dl (7-20); CHLORIDE 130 mmol/L (97-110); CREATININE 3.13 mg/dl (0.61-1.24); GLUCOSE 92 mg/dl (70-220); MAGNESIUM 1.9 mg/dl (1.7-2.5); PHOSPHORUS 4.3 mg/dl (2.5-4.9); POTASSIUM 3.7 mmol/L (3.5-5.1); SODIUM 143 mmol/L (135-144)
[2017-09-17 07:41] LABS: CARBON DIOXIDE 6 mmol/L (21-31)
[2017-09-17] MEDS: CITRIC ACID/SODIUM CITRATE 15 ML CUP PO ×3 (09:00→21:00)
[2017-09-17 09:33] LABS: IRON 45 ug/dl (35-150)
[2017-09-17 09:42] LABS: % IRON SATURATION 33 % SAT (22-52); TOTAL IRON BINDING CAPACITY 135 ug/dl (241-421)
[2017-09-17] MEDS: MAGNESIUM OXIDE 400 MG TAB PO ×2 (10:44→21:00)
[2017-09-17] MEDS: POTASSIUM CHLORIDE (SR) 20 MEQ TAB PO ×2 (10:44→21:00)
[2017-09-17] MEDS: EPOETIN 10000 UNITS/ML (NON ESRD/NON ONCOLOGY) SC (10:50)
[2017-09-17] MEDS ORDERED: SODIUM BICARBONATE (IV ADD) 50 MEQ in SOD CHLORIDE 0.45% 950 ML IV (12:00)
[2017-09-17] MEDS: SODIUM BICARBONATE (IV ADD) 50 MEQ in SOD CHLORIDE 0.45% 950 ML IV ×2 (12:12→13:15)
[2017-09-17] MEDS: NA BICARBONATE 650 MG TAB PO ×2 (13:00→21:00)
[2017-09-17] MEDS: ALBUTEROL/IPRATROPIUM (NEB) 3 ML AMP HHN ×2 (20:00→20:02)
[2017-09-17] MEDS: NYSTATIN SUSP 5 ML CUP PO (20:21)
[2017-09-18] MEDS: SODIUM BICARBONATE (IV ADD) 50 MEQ in SOD CHLORIDE 0.45% 950 ML IV ×2 (06:19→20:16)
[2017-09-18] MEDS: MAGNESIUM OXIDE 400 MG TAB PO ×2 (09:28→20:48)
[2017-09-18] MEDS: CITRIC ACID/SODIUM CITRATE 15 ML CUP PO ×3 (09:28→20:48)
[2017-09-18] MEDS: NYSTATIN SUSP 5 ML CUP PO (09:28)
[2017-09-18] MEDS: NA BICARBONATE 650 MG TAB PO ×3 (09:28→20:48)
[2017-09-18] MEDS: POTASSIUM CHLORIDE (SR) 20 MEQ TAB PO ×2 (09:28→20:48)
[2017-09-18 09:38] LABS: POTASSIUM,URINE RANDOM 20.3 mmol/L (25-125)
[2017-09-18 09:38] LABS: SODIUM,URINE RANDOM 109 mmol/L (30-90)
[2017-09-18 10:52] LABS: URINE EOSINOPHILS 0.5 % (0-1.9)
[2017-09-18] MEDS: LIDOCAINE 1% (MPF) 5 ML VIAL SC (12:15)
[2017-09-18] MEDS: CLOTRIMAZOLE 10 MG TROCHE MT ×4 (12:53→20:48)
[2017-09-19] MEDS: SODIUM BICARBONATE (IV ADD) 50 MEQ in SOD CHLORIDE 0.45% 950 ML IV ×2 (05:33→16:16)
[2017-09-19 06:26] LABS: ADD MAN DIFF? NO
[2017-09-19 06:36] LABS: BASOPHILS % 0.1 % (0.0-2.0); EOSINOPHILS % 0.1 % (0.0-7.0); HEMATOCRIT 26.8 % (42.0-52.0); HEMOGLOBIN 8.6 g/dl (14.0-18.0); IMMATURE GRANS #M 0.06 10^3/ul; IMMATURE GRANS % (M) 0.5 %; LYMPHOCYTES # 1.5 10^3/ul (0.8-2.9); LYMPHOCYTES % 12.5 % (15.0-51.0); MEAN CORPUSCULAR HEMOGLOBIN 28.4 pg (29.0-33.0); MEAN CORPUSCULAR HGB CONC 32.1 g/dl (32.0-37.0); MEAN CORPUSCULAR VOLUME 88.4 fl (82.0-101.0); MEAN PLATELET VOLUME 9.2 fl (7.4-10.4); MONOCYTE # 0.5 10^3/ul (0.3-0.9); MONOCYTES % 4.2 % (0.0-11.0); NEUTROPHIL # 9.8 10^3/ul (1.6-7.5); NEUTROPHILS % 82.6 % (39.0-77.0); PLATELET COUNT 246 10^3/UL (140-415); RED BLOOD COUNT 3.03 10^6/ul (4.70-6.10); RED CELL DISTRIBUTION WIDTH 18.7 % (11.5-14.5)
[2017-09-19 06:36] LABS: WHITE BLOOD COUNT 11.9 10^3/ul (4.8-10.8)
[2017-09-19 06:54] LABS: ANION GAP 10 (8-16); BLOOD UREA NITROGEN 39 mg/dl (7-20); CALCIUM 8.2 mg/dl (8.4-10.2); CARBON DIOXIDE 10 mmol/L (21-31); CHLORIDE 127 mmol/L (97-110); CREATININE 3.88 mg/dl (0.61-1.24); GLUCOSE 71 mg/dl (70-220); MAGNESIUM 2.1 mg/dl (1.7-2.5); PHOSPHORUS 4.3 mg/dl (2.5-4.9); POTASSIUM 3.9 mmol/L (3.5-5.1); SODIUM 143 mmol/L (135-144)
[2017-09-19] MEDS: SODIUM HYPOCHLORITE (1/40) 1 APPLIC BTL IRR (09:23)
[2017-09-19] MEDS: CLOTRIMAZOLE 10 MG TROCHE MT ×5 (09:23→20:20)
[2017-09-19] MEDS: NA BICARBONATE 650 MG TAB PO ×3 (09:24→20:19)
[2017-09-19] MEDS: CITRIC ACID/SODIUM CITRATE 15 ML CUP PO ×3 (09:24→20:20)
[2017-09-19] MEDS: MAGNESIUM OXIDE 400 MG TAB PO ×2 (09:24→20:19)
[2017-09-19] MEDS: POTASSIUM CHLORIDE (SR) 20 MEQ TAB PO ×2 (09:24→20:19)
[2017-09-19] MEDS: morphine 2 MG INJ IV ×3 (09:25→20:20)
[2017-09-20] MEDS: PIPER-TAZO 3.375 GM IV (PMX) 100 ML IVPB ×5 (00:15→23:36)
[2017-09-20] MEDS: SODIUM BICARBONATE (IV ADD) 50 MEQ in SOD CHLORIDE 0.45% 950 ML IV ×2 (00:16→12:16)
[2017-09-20] MEDS: morphine 2 MG INJ IV ×5 (02:07→21:34)
[2017-09-20 06:13] LABS: ADD MAN DIFF? NO
[2017-09-20 06:20] LABS: BASOPHILS % 0.1 % (0.0-2.0); EOSINOPHILS % 0.2 % (0.0-7.0); HEMATOCRIT 23.7 % (42.0-52.0); HEMOGLOBIN 7.6 g/dl (14.0-18.0); IMMATURE GRANS #M 0.05 10^3/ul; IMMATURE GRANS % (M) 0.5 %; LYMPHOCYTES # 1.2 10^3/ul (0.8-2.9); MEAN CORPUSCULAR HEMOGLOBIN 28.3 pg (29.0-33.0); MEAN CORPUSCULAR HGB CONC 32.1 g/dl (32.0-37.0); MEAN CORPUSCULAR VOLUME 88.1 fl (82.0-101.0); MONOCYTE # 0.6 10^3/ul (0.3-0.9); MONOCYTES % 5.5 % (0.0-11.0); NEUTROPHIL # 8.4 10^3/ul (1.6-7.5); NEUTROPHILS % 81.7 % (39.0-77.0); NUCLEATED RED BLOOD CELLS% 0.3 /100WBC (0.0-0.0); PLATELET COUNT 176 10^3/UL (140-415); RED BLOOD COUNT 2.69 10^6/ul (4.70-6.10); RED CELL DISTRIBUTION WIDTH 18.8 % (11.5-14.5)
[2017-09-20 06:20] LABS: WHITE BLOOD COUNT 10.3 10^3/ul (4.8-10.8)
[2017-09-20 06:57] LABS: ANION GAP 10 (8-16); BLOOD UREA NITROGEN 39 mg/dl (7-20); CALCIUM 7.7 mg/dl (8.4-10.2); CARBON DIOXIDE 13 mmol/L (21-31); CHLORIDE 121 mmol/L (97-110); CREATININE 3.69 mg/dl (0.61-1.24); GLUCOSE 80 mg/dl (70-220); MAGNESIUM 1.9 mg/dl (1.7-2.5); PHOSPHORUS 3.9 mg/dl (2.5-4.9); POTASSIUM 3.9 mmol/L (3.5-5.1); SODIUM 140 mmol/L (135-144)
[2017-09-20] MEDS: CITRIC ACID/SODIUM CITRATE 15 ML CUP PO ×4 (09:00→21:00)
[2017-09-20] MEDS: NA BICARBONATE 650 MG TAB PO ×3 (09:39→21:20)
[2017-09-20] MEDS: MAGNESIUM OXIDE 400 MG TAB PO ×2 (09:40→21:21)
[2017-09-20] MEDS: POTASSIUM CHLORIDE (SR) 20 MEQ TAB PO ×2 (09:40→21:21)
[2017-09-20] MEDS: SODIUM HYPOCHLORITE (1/40) 1 APPLIC BTL IRR (09:40)
[2017-09-20] MEDS: CLOTRIMAZOLE 10 MG TROCHE MT ×5 (10:55→21:29)
[2017-09-20] MEDS: morphine LIQ (10 MG/5 ML) CUP PO (21:20)
[2017-09-21] MEDS: SODIUM BICARBONATE (IV ADD) 50 MEQ in SOD CHLORIDE 0.45% 950 ML IV ×3 (01:50→22:40)
[2017-09-21] MEDS: morphine 2 MG INJ IV ×6 (03:01→20:57)
[2017-09-21] MEDS: PIPER-TAZO 3.375 GM IV (PMX) 100 ML IVPB (05:44)
[2017-09-21 06:08] LABS: ADD MAN DIFF? NO
[2017-09-21 06:13] LABS: BASOPHILS % 0.1 % (0.0-2.0); EOSINOPHILS % 0.4 % (0.0-7.0); HEMATOCRIT 23.9 % (42.0-52.0); HEMOGLOBIN 7.6 g/dl (14.0-18.0); IMMATURE GRANS #M 0.04 10^3/ul; IMMATURE GRANS % (M) 0.5 %; LYMPHOCYTES # 1.1 10^3/ul (0.8-2.9); LYMPHOCYTES % 13.4 % (15.0-51.0); MEAN CORPUSCULAR HEMOGLOBIN 28.1 pg (29.0-33.0); MEAN CORPUSCULAR HGB CONC 31.8 g/dl (32.0-37.0); MEAN CORPUSCULAR VOLUME 88.5 fl (82.0-101.0); MEAN PLATELET VOLUME 9.1 fl (7.4-10.4); MONOCYTE # 0.4 10^3/ul (0.3-0.9); MONOCYTES % 5.4 % (0.0-11.0); NEUTROPHIL # 6.4 10^3/ul (1.6-7.5); NEUTROPHILS % 80.2 % (39.0-77.0); NUCLEATED RED BLOOD CELLS% 0.2 /100WBC (0.0-0.0); PLATELET COUNT 154 10^3/UL (140-415); RED CELL DISTRIBUTION WIDTH 18.7 % (11.5-14.5)
[2017-09-21 08:03] LABS: ANION GAP 10 (8-16); BLOOD UREA NITROGEN 37 mg/dl (7-20); CALCIUM 7.6 mg/dl (8.4-10.2); CARBON DIOXIDE 14 mmol/L (21-31); CHLORIDE 121 mmol/L (97-110); CREATININE 3.31 mg/dl (0.61-1.24); GLUCOSE 70 mg/dl (70-220); MAGNESIUM 1.6 mg/dl (1.7-2.5); POTASSIUM 3.7 mmol/L (3.5-5.1); SODIUM 141 mmol/L (135-144)
[2017-09-21] MEDS: NA BICARBONATE 650 MG TAB PO ×3 (08:52→20:56)
[2017-09-21] MEDS: MAGNESIUM OXIDE 400 MG TAB PO ×2 (08:52→20:56)
[2017-09-21] MEDS: SODIUM HYPOCHLORITE (1/40) 1 APPLIC BTL IRR (08:53)
[2017-09-21] MEDS: POTASSIUM CHLORIDE (SR) 20 MEQ TAB PO ×2 (08:53→20:56)
[2017-09-21] MEDS: CITRIC ACID/SODIUM CITRATE 15 ML CUP PO ×3 (08:53→20:57)
[2017-09-21] MEDS: CLOTRIMAZOLE 10 MG TROCHE MT ×5 (08:53→21:01)
[2017-09-21] MEDS: PIPER-TAZO 2.25 GM (PMX) 50 ML IVPB ×2 (15:58→22:19)
[2017-09-22] MEDS: morphine 2 MG INJ IV ×4 (00:03→23:41)
[2017-09-22] MEDS: SODIUM BICARBONATE (IV ADD) 50 MEQ in SOD CHLORIDE 0.45% 950 ML IV (03:56)
[2017-09-22] MEDS: PIPER-TAZO 2.25 GM (PMX) 50 ML IVPB ×3 (05:33→21:10)
[2017-09-22] MEDS ORDERED: NEOSTIGMINE 3 MG/3 ML SYRINGE (06:23)
[2017-09-22] MEDS ORDERED: ROCURONIUM 50 MG INJ (06:23)
[2017-09-22] MEDS ORDERED: GLYCOPYRROLATE 0.4 MG INJ (06:23)
[2017-09-22] MEDS ORDERED: PROPOFOL 20 ML (06:23)
[2017-09-22] MEDS ORDERED: LIDOCAINE 2% (SDV) 5 ML INJ (06:23)
[2017-09-22] MEDS ORDERED: MIDAZOLAM 1 MG/ML 2 ML INJ (06:24)
[2017-09-22] MEDS ORDERED: FENTAnyl 50 MCG/ML VIAL (06:24)
[2017-09-22] MEDS ORDERED: DEXAMETHASONE 4 MG/ML 1 ML INJ (06:24)
[2017-09-22] MEDS ORDERED: ONDANSETRON 4 MG INJ (06:25)
[2017-09-22] MEDS ORDERED: morphine (1 MG/ML) 10ML SYRINGE IV ×3 (06:30)
[2017-09-22] MEDS ORDERED: HYDROmorphONE 1 MG/5 ML IV SYRINGE IV (06:30)
[2017-09-22] MEDS ORDERED: DIPHENHYDRAMINE 50 MG INJ IV (06:30)
[2017-09-22] MEDS ORDERED: ATROPINE 1 MG/10 ML SYRINGE IV (06:30)
[2017-09-22] MEDS ORDERED: MEPERIDINE 25 MG INJ IV (06:30)
[2017-09-22] MEDS ORDERED: FENTAnyl 50 MCG/ML VIAL IV ×2 (06:30)
[2017-09-22] MEDS ORDERED: hydrALAzine 20 MG INJ IV (06:30)
[2017-09-22] MEDS ORDERED: LABETALOL HCL 20MG INJ IV (06:30)
[2017-09-22] MEDS ORDERED: MIDAZOLAM 1 MG/ML 2 ML INJ IV (06:30)
[2017-09-22] MEDS ORDERED: OXYCODONE/ACETAMINOPHEN (5/325) TAB PO ×2 (06:30)
[2017-09-22] MEDS: ONDANSETRON 4 MG INJ IV (07:40)
[2017-09-22 08:10] LABS: ANION GAP 9 (8-16); BLOOD UREA NITROGEN 28 mg/dl (7-20); CARBON DIOXIDE 19 mmol/L (21-31); CHLORIDE 111 mmol/L (97-110); CREATININE 2.37 mg/dl (0.61-1.24); GLUCOSE 64 mg/dl (70-220); MAGNESIUM 1.1 mg/dl (1.7-2.5); SODIUM 136 mmol/L (135-144)
[2017-09-22 08:15] LABS: POTASSIUM 2.8 mmol/L (3.5-5.1)
[2017-09-22] MEDS ORDERED: FLUMAZENIL 0.5 MG INJ ×2 (08:26→09:52)
[2017-09-22] MEDS ORDERED: POTASSIUM CHLORIDE 50 ML (08:28)
[2017-09-22] MEDS: CLOTRIMAZOLE 10 MG TROCHE MT ×5 (09:00→22:44)
[2017-09-22] MEDS: SODIUM HYPOCHLORITE (1/40) 1 APPLIC BTL IRR (09:00)
[2017-09-22] MEDS: CITRIC ACID/SODIUM CITRATE 15 ML CUP PO ×3 (09:00→21:09)
[2017-09-22] MEDS: IOHEXOL 300MG/ML 30 ML BTL (09:01)
[2017-09-22] MEDS: NA BICARBONATE 650 MG TAB PO ×3 (10:19→22:44)
[2017-09-22 10:28] LABS: CALCIUM 5.9 mg/dl (8.4-10.2)
[2017-09-22] MEDS: HYDROmorphONE 1 MG/5 ML IV SYRINGE IV ×2 (10:39→10:47)
[2017-09-22] MEDS: EPHEDrine SULFATE 50 MG/5 ML SYG IV (10:47)
[2017-09-22] MEDS ORDERED: ALBUMIN HUMAN 5% 250 ML (11:08)
[2017-09-22] MEDS: SOD CHLORIDE 0.9% 250 ML IV (11:25)
[2017-09-22] MEDS: ALBUMIN HUMAN 5% 250 ML IV (11:25)
[2017-09-22] MEDS: POTASSIUM CHLORIDE (SR) 20 MEQ TAB PO ×3 (12:45→21:09)
[2017-09-22] MEDS: MAGNESIUM OXIDE 400 MG TAB PO ×2 (12:45→21:09)
[2017-09-22] MEDS: MAGNESIUM SULFATE 2 GM/50 ML 50 ML IVPB (12:48)
[2017-09-22] MEDS: CALCIUM GLUCONATE 10% 2 GM in DEXTROSE 5% 100 ML IVPB (15:48)
[2017-09-22] MEDS: POTASSIUM CHLORIDE IV (16:00)
[2017-09-22] MEDS: SOD CHLORIDE 0.45% IV (16:00)
[2017-09-22] MEDS: MAGNESIUM SULFATE 3 GM in DEXTROSE 5% 100 ML IVPB (17:27)
[2017-09-23 00:16] LABS: AHG CROSSMATCH 1 2
[2017-09-23] MEDS: PIPER-TAZO 2.25 GM (PMX) 50 ML IVPB ×3 (05:49→21:41)
[2017-09-23] MEDS: morphine 2 MG INJ IV ×5 (05:57→23:50)
[2017-09-23 06:09] LABS: ADD MAN DIFF? NO
[2017-09-23 06:15] LABS: WHITE BLOOD COUNT 13.7 10^3/ul (4.8-10.8)
[2017-09-23 06:15] LABS: BASOPHILS % 0.1 % (0.0-2.0); EOSINOPHILS % 0.1 % (0.0-7.0); HEMOGLOBIN 9.3 g/dl (14.0-18.0); LYMPHOCYTES % 7.5 % (15.0-51.0); MEAN CORPUSCULAR HEMOGLOBIN 28.5 pg (29.0-33.0); MEAN CORPUSCULAR HGB CONC 32.1 g/dl (32.0-37.0); MEAN PLATELET VOLUME 9.5 fl (7.4-10.4); MONOCYTE # 0.7 10^3/ul (0.3-0.9); MONOCYTES % 4.8 % (0.0-11.0); NEUTROPHIL # 11.9 10^3/ul (1.6-7.5); NEUTROPHILS % 86.9 % (39.0-77.0); NUCLEATED RED BLOOD CELLS% 0.1 /100WBC (0.0-0.0); PLATELET COUNT 140 10^3/UL (140-415); RED BLOOD COUNT 3.26 10^6/ul (4.70-6.10)
[2017-09-23 06:46] LABS: ANION GAP 12 (8-16); BLOOD UREA NITROGEN 28 mg/dl (7-20); CALCIUM 7.6 mg/dl (8.4-10.2); CARBON DIOXIDE 15 mmol/L (21-31); CHLORIDE 117 mmol/L (97-110); GLUCOSE 102 mg/dl (70-220); MAGNESIUM 2.6 mg/dl (1.7-2.5); PHOSPHORUS 3.4 mg/dl (2.5-4.9); POTASSIUM 4.7 mmol/L (3.5-5.1); SODIUM 139 mmol/L (135-144)
[2017-09-23] MEDS: CITRIC ACID/SODIUM CITRATE 15 ML CUP PO ×3 (08:13→20:54)
[2017-09-23] MEDS: POTASSIUM CHLORIDE (SR) 20 MEQ TAB PO ×2 (08:14→20:53)
[2017-09-23] MEDS: CLOTRIMAZOLE 10 MG TROCHE MT ×5 (08:14→20:53)
[2017-09-23] MEDS: NA BICARBONATE 650 MG TAB PO ×3 (08:14→20:53)
[2017-09-23] MEDS: SODIUM HYPOCHLORITE (1/40) 1 APPLIC BTL IRR (08:14)
[2017-09-23] MEDS: MAGNESIUM OXIDE 400 MG TAB PO ×2 (08:15→20:53)
[2017-09-23] MEDS: POTASSIUM CHLORIDE IV (13:51)
[2017-09-23] MEDS: [UNRECOGNIZED DRUG - OTHER] IV (13:51)
[2017-09-23] MEDS: SODIUM BICARBONATE IV (13:51)
[2017-09-23] MEDS: BALSAM PERU/CASTOR OIL 60 GM TUBE TOP (17:11)
[2017-09-23] MEDS ORDERED: BALSAM PERU/CASTOR OIL 60 GM TUBE TOP (21:00)
[2017-09-23] MEDS: ONDANSETRON 4 MG INJ IV (21:46)
[2017-09-24] MEDS: morphine 2 MG INJ IV ×7 (03:24→23:54)
[2017-09-24] MEDS: PIPER-TAZO 2.25 GM (PMX) 50 ML IVPB (06:08)
[2017-09-24] MEDS: NA BICARBONATE 650 MG TAB PO ×3 (08:37→21:14)
[2017-09-24] MEDS: POTASSIUM CHLORIDE (SR) 20 MEQ TAB PO (08:38)
[2017-09-24] MEDS: CITRIC ACID/SODIUM CITRATE 15 ML CUP PO ×4 (08:38→21:15)
[2017-09-24] MEDS: BALSAM PERU/CASTOR OIL 60 GM TUBE TOP ×2 (08:38→21:17)
[2017-09-24] MEDS: MAGNESIUM OXIDE 400 MG TAB PO ×2 (08:38→21:15)
[2017-09-24] MEDS: SODIUM HYPOCHLORITE (1/40) 1 APPLIC BTL IRR (08:39)
[2017-09-24] MEDS: POTASSIUM CHLORIDE IV (10:10)
[2017-09-24] MEDS: [UNRECOGNIZED DRUG - OTHER] IV (10:10)
[2017-09-24] MEDS: SODIUM BICARBONATE IV (10:10)
[2017-09-24] MEDS: CLOTRIMAZOLE 10 MG TROCHE MT ×5 (10:14→23:58)
[2017-09-24 10:35] LABS: ADD MAN DIFF? NO
[2017-09-24 10:37] LABS: WHITE BLOOD COUNT 10.8 10^3/ul (4.8-10.8)
[2017-09-24 10:37] LABS: BASOPHILS % 0.2 % (0.0-2.0); EOSINOPHILS # 0.1 10^3/ul (0.0-0.5); EOSINOPHILS % 0.5 % (0.0-7.0); HEMATOCRIT 31.6 % (42.0-52.0); LYMPHOCYTES # 0.9 10^3/ul (0.8-2.9); LYMPHOCYTES % 8.6 % (15.0-51.0); MEAN CORPUSCULAR HEMOGLOBIN 28.7 pg (29.0-33.0); MEAN CORPUSCULAR HGB CONC 31.6 g/dl (32.0-37.0); MEAN CORPUSCULAR VOLUME 90.8 fl (82.0-101.0); MEAN PLATELET VOLUME 9.4 fl (7.4-10.4); MONOCYTE # 0.6 10^3/ul (0.3-0.9); MONOCYTES % 5.9 % (0.0-11.0); NEUTROPHIL # 9.1 10^3/ul (1.6-7.5); NEUTROPHILS % 84.4 % (39.0-77.0); PLATELET COUNT 121 10^3/UL (140-415); RED BLOOD COUNT 3.48 10^6/ul (4.70-6.10)
[2017-09-24 10:56] LABS: ANION GAP 13 (8-16); BLOOD UREA NITROGEN 24 mg/dl (7-20); CALCIUM 7.4 mg/dl (8.4-10.2); CARBON DIOXIDE 17 mmol/L (21-31); CHLORIDE 115 mmol/L (97-110); CREATININE 2.62 mg/dl (0.61-1.24); GLUCOSE 98 mg/dl (70-220); PHOSPHORUS 3.4 mg/dl (2.5-4.9); POTASSIUM 5.8 mmol/L (3.5-5.1); SODIUM 139 mmol/L (135-144)
[2017-09-24] MEDS: FLUCONAZOLE 200 MG TAB PO (13:20)
[2017-09-24] MEDS: CEFTAZIDIME 1GM/50 ML (PMX) 50 ML IVPB (14:43)
[2017-09-24] MEDS: FUROSEMIDE 40 MG TAB PO (14:50)
[2017-09-24] MEDS: ZYVOX 600 MG TAB PO (21:15)
[2017-09-24] MEDS: ONDANSETRON 4 MG INJ IV (21:24)
[2017-09-24] MEDS: morphine LIQ (10 MG/5 ML) CUP PO (21:25)
[2017-09-25] MEDS: morphine 2 MG INJ IV ×6 (02:54→21:27)
[2017-09-25 06:37] LABS: ADD MAN DIFF? NO
[2017-09-25 06:39] LABS: WHITE BLOOD COUNT 10.8 10^3/ul (4.8-10.8)
[2017-09-25 06:39] LABS: BASOPHILS % 0.2 % (0.0-2.0); EOSINOPHILS # 0.1 10^3/ul (0.0-0.5); EOSINOPHILS % 0.7 % (0.0-7.0); HEMATOCRIT 34.4 % (42.0-52.0); HEMOGLOBIN 10.6 g/dl (14.0-18.0); LYMPHOCYTES # 1.3 10^3/ul (0.8-2.9); LYMPHOCYTES % 11.8 % (15.0-51.0); MEAN CORPUSCULAR HEMOGLOBIN 28.1 pg (29.0-33.0); MEAN CORPUSCULAR HGB CONC 30.8 g/dl (32.0-37.0); MEAN CORPUSCULAR VOLUME 91.2 fl (82.0-101.0); MEAN PLATELET VOLUME 10.4 fl (7.4-10.4); MONOCYTE # 0.6 10^3/ul (0.3-0.9); MONOCYTES % 5.9 % (0.0-11.0); NEUTROPHIL # 8.7 10^3/ul (1.6-7.5); NEUTROPHILS % 80.9 % (39.0-77.0); PLATELET COUNT 114 10^3/UL (140-415); RED BLOOD COUNT 3.77 10^6/ul (4.70-6.10); RED CELL DISTRIBUTION WIDTH 18.9 % (11.5-14.5)
[2017-09-25 07:21] LABS: PHOSPHORUS 3.3 mg/dl (2.5-4.9)
[2017-09-25 07:21] LABS: MAGNESIUM 1.6 mg/dl (1.7-2.5)
[2017-09-25 07:32] LABS: ALANINE AMINOTRANSFERASE 18 IU/L (13-69); ALBUMIN/GLOBULIN RATIO 0.62; ALKALINE PHOSPHATASE 95 IU/L (42-121); ANION GAP 12 (8-16); ASPARTATE AMINO TRANSFERASE 11 IU/L (15-46); BLOOD UREA NITROGEN 22 mg/dl (7-20); CALCIUM 7.5 mg/dl (8.4-10.2); CARBON DIOXIDE 17 mmol/L (21-31); CHLORIDE 113 mmol/L (97-110); CREATININE 2.41 mg/dl (0.61-1.24); GLUCOSE 115 mg/dl (70-220); POTASSIUM 5.3 mmol/L (3.5-5.1); SODIUM 137 mmol/L (135-144); TOTAL PROTEIN 5.2 g/dl (6.1-8.1)
[2017-09-25] MEDS: ZYVOX 600 MG TAB PO ×2 (10:22→21:24)
[2017-09-25] MEDS: NA BICARBONATE 650 MG TAB PO ×3 (10:22→21:24)
[2017-09-25] MEDS: CLOTRIMAZOLE 10 MG TROCHE MT (10:22)
[2017-09-25] MEDS: MAGNESIUM OXIDE 400 MG TAB PO ×2 (10:22→21:24)
[2017-09-25] MEDS: BALSAM PERU/CASTOR OIL 60 GM TUBE TOP ×2 (10:23→21:24)
[2017-09-25] MEDS: SODIUM HYPOCHLORITE (1/40) 1 APPLIC BTL IRR (10:23)
[2017-09-25] MEDS: CITRIC ACID/SODIUM CITRATE 15 ML CUP PO ×3 (10:23→21:00)
[2017-09-25] MEDS: CEFTAZIDIME 1GM/50 ML (PMX) 50 ML IVPB (13:12)
[2017-09-25] MEDS: ONDANSETRON 4 MG INJ IV (17:59)
[2017-09-25] MEDS: FLUCONAZOLE 200 MG (PMX) 100 ML IVPB (18:57)
[2017-09-25] MEDS: MEROPENEM 1 GM/50ML(PMX) 50 ML IVPB (21:27)
[2017-09-25] MEDS: CIPROFLOXACIN 200 MG/D5W IVPB 100 ML IVPB (21:28)
[2017-09-26] MEDS: morphine 2 MG INJ IV ×6 (03:34→21:44)
[2017-09-26 08:33] LABS: ADD MAN DIFF? NO
[2017-09-26 08:37] LABS: BASOPHILS % 0.2 % (0.0-2.0); EOSINOPHILS # 0.1 10^3/ul (0.0-0.5); EOSINOPHILS % 0.7 % (0.0-7.0); HEMOGLOBIN 11.8 g/dl (14.0-18.0); LYMPHOCYTES # 1.9 10^3/ul (0.8-2.9); LYMPHOCYTES % 16.6 % (15.0-51.0); MEAN CORPUSCULAR HEMOGLOBIN 28.8 pg (29.0-33.0); MEAN CORPUSCULAR HGB CONC 31.1 g/dl (32.0-37.0); MEAN CORPUSCULAR VOLUME 92.7 fl (82.0-101.0); MEAN PLATELET VOLUME 10.1 fl (7.4-10.4); MONOCYTE # 0.5 10^3/ul (0.3-0.9); MONOCYTES % 4.5 % (0.0-11.0); NEUTROPHIL # 8.7 10^3/ul (1.6-7.5); NEUTROPHILS % 77.5 % (39.0-77.0); PLATELET COUNT 121 10^3/UL (140-415); RED CELL DISTRIBUTION WIDTH 18.2 % (11.5-14.5)
[2017-09-26 08:37] LABS: WHITE BLOOD COUNT 11.2 10^3/ul (4.8-10.8)
[2017-09-26] MEDS: NA BICARBONATE 650 MG TAB PO ×3 (08:59→20:42)
[2017-09-26] MEDS: MAGNESIUM OXIDE 400 MG TAB PO ×2 (08:59→20:42)
[2017-09-26] MEDS: CITRIC ACID/SODIUM CITRATE 15 ML CUP PO ×3 (08:59→20:43)
[2017-09-26] MEDS: ZYVOX 600 MG TAB PO ×2 (08:59→20:42)
[2017-09-26] MEDS: SODIUM HYPOCHLORITE (1/40) 1 APPLIC BTL IRR ×2 (09:00)
[2017-09-26] MEDS: BALSAM PERU/CASTOR OIL 60 GM TUBE TOP ×2 (09:00→20:43)
[2017-09-26] MEDS: MEROPENEM 1 GM/50ML(PMX) 50 ML IVPB ×2 (09:06→20:42)
[2017-09-26 09:11] LABS: ANION GAP 13 (8-16); BLOOD UREA NITROGEN 22 mg/dl (7-20); CALCIUM 7.9 mg/dl (8.4-10.2); CARBON DIOXIDE 20 mmol/L (21-31); CHLORIDE 111 mmol/L (97-110); GLUCOSE 73 mg/dl (70-220); MAGNESIUM 1.5 mg/dl (1.7-2.5); POTASSIUM 5.4 mmol/L (3.5-5.1); SODIUM 139 mmol/L (135-144)
[2017-09-26] MEDS: NA POLYST SULFON 15 GM/60 ML BTL PO (12:36)
[2017-09-26] MEDS: ONDANSETRON 4 MG INJ IV ×2 (13:10→18:49)
[2017-09-26] MEDS: FLUCONAZOLE 100 MG/50 ML (PMX) 50 ML IVPB (17:00)
[2017-09-26] MEDS: CIPROFLOXACIN 200 MG/D5W IVPB 100 ML IVPB (20:42)
[2017-09-27] MEDS: morphine 2 MG INJ IV ×6 (00:57→21:07)
[2017-09-27] MEDS: MAGNESIUM SULFATE 1 GM/D5W 100 ML IVPB (00:58)
[2017-09-27] MEDS: MEROPENEM 1 GM/50ML(PMX) 50 ML IVPB ×2 (09:01→21:05)
[2017-09-27] MEDS: ZYVOX 600 MG TAB PO ×2 (09:05→21:05)
[2017-09-27] MEDS: NA BICARBONATE 650 MG TAB PO ×3 (09:05→21:05)
[2017-09-27] MEDS: MAGNESIUM OXIDE 400 MG TAB PO ×2 (09:05→21:05)
[2017-09-27] MEDS: CITRIC ACID/SODIUM CITRATE 15 ML CUP PO ×3 (09:05→21:00)
[2017-09-27] MEDS: SODIUM HYPOCHLORITE (1/40) 1 APPLIC BTL IRR (09:06)
[2017-09-27] MEDS: BALSAM PERU/CASTOR OIL 60 GM TUBE TOP ×2 (09:07→21:06)
[2017-09-27] MEDS: ONDANSETRON 4 MG INJ IV (09:25)
[2017-09-27 09:40] LABS: ADD MAN DIFF? NO
[2017-09-27 09:44] LABS: BASOPHILS % 0.2 % (0.0-2.0); EOSINOPHILS # 0.1 10^3/ul (0.0-0.5); EOSINOPHILS % 0.5 % (0.0-7.0); HEMATOCRIT 37.7 % (42.0-52.0); HEMOGLOBIN 11.4 g/dl (14.0-18.0); LYMPHOCYTES # 1.7 10^3/ul (0.8-2.9); LYMPHOCYTES % 15.6 % (15.0-51.0); MEAN CORPUSCULAR HGB CONC 30.2 g/dl (32.0-37.0); MEAN CORPUSCULAR VOLUME 92.6 fl (82.0-101.0); MEAN PLATELET VOLUME 10.5 fl (7.4-10.4); MONOCYTE # 0.6 10^3/ul (0.3-0.9); MONOCYTES % 5.2 % (0.0-11.0); NEUTROPHIL # 8.5 10^3/ul (1.6-7.5); NEUTROPHILS % 77.9 % (39.0-77.0); PLATELET COUNT 179 10^3/UL (140-415); RED BLOOD COUNT 4.07 10^6/ul (4.70-6.10); RED CELL DISTRIBUTION WIDTH 17.8 % (11.5-14.5)
[2017-09-27 09:44] LABS: WHITE BLOOD COUNT 10.8 10^3/ul (4.8-10.8)
[2017-09-27 10:08] LABS: ALANINE AMINOTRANSFERASE 17 IU/L (13-69); ALBUMIN 2.2 g/dl (3.3-4.9); ALBUMIN/GLOBULIN RATIO 0.61; ALKALINE PHOSPHATASE 113 IU/L (42-121); ANION GAP 13 (8-16); ASPARTATE AMINO TRANSFERASE 15 IU/L (15-46); BILIRUBIN,INDIRECT 0.1 mg/dl (0-1.1); BILIRUBIN,TOTAL 0.1 mg/dl (0.2-1.3); BLOOD UREA NITROGEN 20 mg/dl (7-20); CARBON DIOXIDE 23 mmol/L (21-31); CHLORIDE 110 mmol/L (97-110); CREATININE 2.25 mg/dl (0.61-1.24); GLUCOSE 83 mg/dl (70-220); POTASSIUM 4.8 mmol/L (3.5-5.1); SODIUM 141 mmol/L (135-144); TOTAL PROTEIN 5.8 g/dl (6.1-8.1)
[2017-09-27 10:17] LABS: MAGNESIUM 1.7 mg/dl (1.7-2.5)
[2017-09-27 10:17] LABS: PHOSPHORUS 3.7 mg/dl (2.5-4.9)
[2017-09-28] MEDS: morphine 2 MG INJ IV ×7 (00:27→21:14)
[2017-09-28] MEDS: CIPROFLOXACIN 250 MG TAB PO (05:35)
[2017-09-28] MEDS: SODIUM HYPOCHLORITE (1/40) 1 APPLIC BTL IRR (07:53)
[2017-09-28] MEDS: BALSAM PERU/CASTOR OIL 60 GM TUBE TOP ×2 (07:53→21:19)
[2017-09-28] MEDS: MAGNESIUM OXIDE 400 MG TAB PO ×2 (08:46→21:18)
[2017-09-28] MEDS: ZYVOX 600 MG TAB PO ×2 (08:46→21:18)
[2017-09-28] MEDS: FLUCONAZOLE 100 MG TAB PO (08:46)
[2017-09-28] MEDS: CITRIC ACID/SODIUM CITRATE 15 ML CUP PO ×3 (08:50→21:00)
[2017-09-28] MEDS: MEROPENEM 1 GM/50ML(PMX) 50 ML IVPB ×2 (08:51→21:14)
[2017-09-28] MEDS: NA BICARBONATE 650 MG TAB PO ×3 (08:55→21:18)
[2017-09-29] MEDS: morphine 2 MG INJ IV ×4 (00:27→18:48)
[2017-09-29] MEDS: CIPROFLOXACIN 250 MG TAB PO (06:03)
[2017-09-29] MEDS: CITRIC ACID/SODIUM CITRATE 15 ML CUP PO ×3 (08:57→22:12)
[2017-09-29] MEDS: BALSAM PERU/CASTOR OIL 60 GM TUBE TOP ×2 (08:57→20:39)
[2017-09-29] MEDS: MEROPENEM 1 GM/50ML(PMX) 50 ML IVPB ×2 (08:57→20:48)
[2017-09-29] MEDS: MAGNESIUM OXIDE 400 MG TAB PO ×2 (08:59→20:38)
[2017-09-29] MEDS: NA BICARBONATE 650 MG TAB PO ×3 (08:59→20:38)
[2017-09-29] MEDS: ZYVOX 600 MG TAB PO ×2 (08:59→20:39)
[2017-09-29] MEDS: FLUCONAZOLE 100 MG TAB PO (08:59)
[2017-09-29] MEDS: SODIUM HYPOCHLORITE (1/40) 1 APPLIC BTL IRR (09:00)
[2017-09-29] MEDS: HYDROCODONE/APAP (5/325) TAB PO (20:39)
[2017-09-30] MEDS: morphine LIQ (10 MG/5 ML) CUP PO ×3 (00:08→20:27)
[2017-09-30] MEDS: HYDROCODONE/APAP (5/325) TAB PO ×2 (05:02→12:45)
[2017-09-30] MEDS: CIPROFLOXACIN 250 MG TAB PO (05:05)
[2017-09-30 08:58] LABS: ADD MAN DIFF? NO
[2017-09-30] MEDS: NA BICARBONATE 650 MG TAB PO ×3 (09:09→20:26)
[2017-09-30] MEDS: FLUCONAZOLE 100 MG TAB PO (09:09)
[2017-09-30] MEDS: MEROPENEM 1 GM/50ML(PMX) 50 ML IVPB ×2 (09:09→20:26)
[2017-09-30] MEDS: CITRIC ACID/SODIUM CITRATE 15 ML CUP PO ×3 (09:09→20:32)
[2017-09-30] MEDS: ZYVOX 600 MG TAB PO ×2 (09:09→20:26)
[2017-09-30] MEDS: MAGNESIUM OXIDE 400 MG TAB PO ×3 (09:09→20:26)
[2017-09-30 09:10] LABS: WHITE BLOOD COUNT 10.6 10^3/ul (4.8-10.8)
[2017-09-30 09:10] LABS: BASOPHILS % 0.3 % (0.0-2.0); EOSINOPHILS # 0.1 10^3/ul (0.0-0.5); HEMATOCRIT 35.2 % (42.0-52.0); HEMOGLOBIN 10.5 g/dl (14.0-18.0); LYMPHOCYTES # 2.2 10^3/ul (0.8-2.9); LYMPHOCYTES % 20.4 % (15.0-51.0); MEAN CORPUSCULAR HEMOGLOBIN 27.9 pg (29.0-33.0); MEAN CORPUSCULAR HGB CONC 29.8 g/dl (32.0-37.0); MEAN CORPUSCULAR VOLUME 93.4 fl (82.0-101.0); MEAN PLATELET VOLUME 10.8 fl (7.4-10.4); MONOCYTE # 0.4 10^3/ul (0.3-0.9); MONOCYTES % 4.2 % (0.0-11.0); NEUTROPHIL # 7.8 10^3/ul (1.6-7.5); NEUTROPHILS % 73.6 % (39.0-77.0); PLATELET COUNT 177 10^3/UL (140-415); RED BLOOD COUNT 3.77 10^6/ul (4.70-6.10); RED CELL DISTRIBUTION WIDTH 17.1 % (11.5-14.5)
[2017-09-30] MEDS: BALSAM PERU/CASTOR OIL 60 GM TUBE TOP ×2 (09:10→20:29)
[2017-09-30] MEDS: SODIUM HYPOCHLORITE (1/40) 1 APPLIC BTL IRR (09:25)
[2017-09-30] MEDS: morphine 2 MG INJ IV ×2 (09:25→21:51)
[2017-09-30 09:34] LABS: ANION GAP 13 (8-16); BLOOD UREA NITROGEN 20 mg/dl (7-20); CALCIUM 7.7 mg/dl (8.4-10.2); CARBON DIOXIDE 21 mmol/L (21-31); CHLORIDE 114 mmol/L (97-110); GLUCOSE 73 mg/dl (70-220); MAGNESIUM 1.4 mg/dl (1.7-2.5); PHOSPHORUS 3.2 mg/dl (2.5-4.9); POTASSIUM 4.5 mmol/L (3.5-5.1); SODIUM 143 mmol/L (135-144)
[2017-10-01] MEDS: CIPROFLOXACIN 250 MG TAB PO (06:16)
[2017-10-01 08:35] LABS: ANION GAP 10 (8-16); BLOOD UREA NITROGEN 18 mg/dl (7-20); CALCIUM 7.3 mg/dl (8.4-10.2); CARBON DIOXIDE 18 mmol/L (21-31); CHLORIDE 114 mmol/L (97-110); CREATININE 1.71 mg/dl (0.61-1.24); GLUCOSE 92 mg/dl (70-220); MAGNESIUM 1.3 mg/dl (1.7-2.5); PHOSPHORUS 2.7 mg/dl (2.5-4.9); POTASSIUM 3.3 mmol/L (3.5-5.1); SODIUM 139 mmol/L (135-144)
[2017-10-01] MEDS: FLUCONAZOLE 100 MG TAB PO (09:27)
[2017-10-01] MEDS: MAGNESIUM OXIDE 400 MG TAB PO ×2 (09:27→20:37)
[2017-10-01] MEDS: MEROPENEM 1 GM/50ML(PMX) 50 ML IVPB ×2 (09:27→20:40)
[2017-10-01] MEDS: BALSAM PERU/CASTOR OIL 60 GM TUBE TOP ×2 (09:27→20:37)
[2017-10-01] MEDS: NA BICARBONATE 650 MG TAB PO ×3 (09:27→20:37)
[2017-10-01] MEDS: CITRIC ACID/SODIUM CITRATE 15 ML CUP PO ×3 (10:12→20:36)
[2017-10-01] MEDS: ZYVOX 600 MG TAB PO ×2 (10:12→20:37)
[2017-10-01] MEDS: morphine 2 MG INJ IV ×3 (10:37→23:22)
[2017-10-02] MEDS: CITRIC ACID/SODIUM CITRATE 15 ML CUP PO ×3 (08:54→20:46)
[2017-10-02] MEDS: NA BICARBONATE 650 MG TAB PO ×3 (08:54→20:45)
[2017-10-02] MEDS: MAGNESIUM OXIDE 400 MG TAB PO ×2 (08:54→20:45)
[2017-10-02] MEDS: SODIUM HYPOCHLORITE (1/40) 1 APPLIC BTL IRR (08:55)
[2017-10-02] MEDS: BALSAM PERU/CASTOR OIL 60 GM TUBE TOP ×2 (08:56→20:46)
[2017-10-02] MEDS: morphine 2 MG INJ IV (11:07)
[2017-10-02] MEDS: HYDROCODONE/APAP (10/325) TAB PO (16:06)
== END 2017-10-02 22:30 | disposition home health service (06) | DRG 698 ==
LOC: PP2 09-16 06:10 → TEL 08:18 → 2NE 09-28 15:15 → TEL 09-22 18:59
PROVIDERS: Family Medicine
PROC: 0TF38ZZ Fragmentation in Right Kidney Pelvis, Via Natural or Artificial Opening Endoscopic (ICD-10-PCS; 2017-09-22 07:30)
PROC: 0TF78ZZ Fragmentation in Left Ureter, Via Natural or Artificial Opening Endoscopic (ICD-10-PCS; 2017-09-22 07:30)
PROC: 0TP98DZ Removal of Intraluminal Device from Ureter, Via Natural or Artificial Opening Endoscopic (ICD-10-PCS; 2017-09-22 07:30)
PROC: 0T788DZ Dilation of Bilateral Ureters with Intraluminal Device, Via Natural or Artificial Opening Endoscopic (ICD-10-PCS; 2017-09-22 07:30)
PROC: BT14ZZZ Fluoroscopy of Kidneys, Ureters and Bladder (ICD-10-PCS; 2017-09-22 07:30)
PROC: 02HV33Z Insertion of Infusion Device into Superior Vena Cava, Percutaneous Approach (ICD-10-PCS; principal; 2017-09-22 07:49)
PROC: 30233N1 Transfusion of Nonautologous Red Blood Cells into Peripheral Vein, Percutaneous Approach (ICD-10-PCS; 2017-09-22 07:49)
DX: T83.89XA Other specified complication of genitourinary prosthetic devices, implants and grafts, initial encounter (principal); N17.0 Acute kidney failure with tubular necrosis; E43 Unspecified severe protein-calorie malnutrition; Z68.1 Body mass index [BMI] 19.9 or less, adult; N39.0 Urinary tract infection, site not specified; I82.B12 Acute embolism and thrombosis of left subclavian vein; I82.622 Acute embolism and thrombosis of deep veins of left upper extremity; E87.2 Acidosis; B37.0 Candidal stomatitis; N20.1 Calculus of ureter; I82.A12 Acute embolism and thrombosis of left axillary vein; R18.8 Other ascites; N13.39 Other hydronephrosis; N18.4 Chronic kidney disease, stage 4 (severe); E86.0 Dehydration; R53.81 Other malaise; D50.0 Iron deficiency anemia secondary to blood loss (chronic); R31.0 Gross hematuria; E87.6 Hypokalemia; E83.51 Hypocalcemia; N20.0 Calculus of kidney; L89.611 Pressure ulcer of right heel, stage 1; L89.150 Pressure ulcer of sacral region, unstageable; I12.9 Hypertensive chronic kidney disease with stage 1 through stage 4 chronic kidney disease, or unspecified chronic kidney disease; M62.89 Other specified disorders of muscle; Z93.3 Colostomy status; Z85.51 Personal history of malignant neoplasm of bladder; Z93.6 Other artificial openings of urinary tract status; Y83.9 Surgical procedure, unspecified as the cause of abnormal reaction of the patient, or of later complication, without mention of misadventure at the time of the procedure
CPT/HCPCS: 36430; 36569; 71045; 74176; 74430; 76775; 76937; 80048; 80053; 81003; 82040; 82306; 82436; 82540; 82652; 82962; 83540; 83735; 84100; 84133; 84155; 84300; 85014; 85018; 85025; 85610; 85730; 86850; 86900; 86901; 86920; 87070; 87081; 87086; 89190; 93971; 94664

== ENCOUNTER 2017-10-11 16:08 | Inpatient (IN) | payer BC ==
[2017-10-11] MEDS: LIDOCAINE/MYLANTA 40 ML BTL PO (17:16)
[2017-10-11] MEDS: FAMOTIDINE 20 MG INJ IV (17:16)
[2017-10-11] MEDS: ONDANSETRON 4 MG INJ IV ×2 (17:16→19:41)
[2017-10-11] MEDS: BELLADONNA/PHENOBARBITAL TAB PO (17:17)
[2017-10-11] MEDS: SOD CHLORIDE 0.9% 500 ML IV (17:17)
[2017-10-11 17:28] LABS: HEMATOCRIT 41.6 % (42.0-52.0); HEMOGLOBIN 12.4 g/dl (14.0-18.0); MEAN CORPUSCULAR HGB CONC 29.8 g/dl (32.0-37.0); MEAN CORPUSCULAR VOLUME 93.9 fl (82.0-101.0); PLATELET COUNT 341 10^3/UL (140-415); POSITIVE DIFF @See below; RED BLOOD COUNT 4.43 10^6/ul (4.70-6.10); RED CELL DISTRIBUTION WIDTH 16.7 % (11.5-14.5)
[2017-10-11 17:28] LABS: WHITE BLOOD COUNT 9.3 10^3/ul (4.8-10.8)
[2017-10-11 17:33] LABS: ADD MAN DIFF? YES
[2017-10-11 17:46] LABS: INR 0.97
[2017-10-11 17:51] LABS: ALBUMIN 2.8 g/dl (3.3-4.9); ALBUMIN/GLOBULIN RATIO 0.65; ALKALINE PHOSPHATASE 145 IU/L (42-121); ANION GAP 17 (8-16); ASPARTATE AMINO TRANSFERASE 14 IU/L (15-46); BLOOD UREA NITROGEN 28 mg/dl (7-20); CALCIUM 9.1 mg/dl (8.4-10.2); CARBON DIOXIDE 11 mmol/L (21-31); CHLORIDE 116 mmol/L (97-110); CREATININE 2.44 mg/dl (0.61-1.24); GLUCOSE 167 mg/dl (70-220); LIPASE 120 U/L (23-300); SODIUM 138 mmol/L (135-144); TOTAL PROTEIN 7.1 g/dl (6.1-8.1)
[2017-10-11 17:55] LABS: ALANINE AMINOTRANSFERASE < 6 IU/L (13-69)
[2017-10-11 17:56] LABS: POTASSIUM 5.8 mmol/L (3.5-5.1)
[2017-10-11 18:00] LABS: LACTIC ACID 4.4 mmol/L (0.5-2.0)
[2017-10-11 18:17] LABS: TROPONIN-I < 0.012 ng/ml (0.000-0.120)
[2017-10-11 18:19] LABS: ADD UMIC YES; UR ASCORBIC ACID NEGATIVE (NEGATIVE); UR BACTERIA MANY /HPF (NONE SEEN); UR BILIRUBIN (Dip) NEGATIVE (NEGATIVE); UR BLOOD (Dip) 3+ mg/dL (NEGATIVE); UR CLARITY TURBID (CLEAR); UR COLOR RED (YELLOW); UR GLUCOSE (Dip) NEGATIVE (NEGATIVE); UR KETONES (Dip) NEGATIVE (NEGATIVE); UR LEUKOCYTE ESTERASE (Dip) 2+ Leu/ul (NEGATIVE); UR NITRITE (Dip) NEGATIVE (NEGATIVE); UR RBC > 182 /HPF (0-5); UR SPECIFIC GRAVITY (Dip) 1.011 (1.003-1.030); UR TOTAL PROTEIN (Dip) 2+ mg/dl (NEGATIVE); UR UROBILINOGEN (Dip) NEGATIVE (NEGATIVE); UR WBC > 182 /HPF (0-5)
[2017-10-11 18:55] LABS: ANISOCYTOSIS 1+ (0-0); BAND NEUTROPHILS #M 3.2 10^3/ul (0.0-0.6); BAND NEUTROPHILS % (M) 35 % (0-4); BURR CELLS 2+ (0-0); EOSINOPHILS % (M) 2 % (0-7); GIANT THROMBO% (M) 2 % (0-0); LYMPHOCYTES #M 0.3 10^3/ul (0.8-2.9); LYMPHOCYTES % (M) 4 % (15-51); MONOCYTE #M 0.5 10^3/ul (0.3-0.9); MONOCYTES % (M) 6 % (0-11); PLATELET ESTIMATE NORMAL; POIKILOCYTOSIS 2+ (0-0); SEG NEUT #M 5.2 10^3/ul (1.6-7.5); SEGMENTED NEUTROPHILS (M) % 53 % (39-77); SMUDGE%M 12 % (0-0)
[2017-10-11] MEDS: CEFEPIME 1GM/50 ML (PMX) 50 ML IVPB (19:39)
[2017-10-11] MEDS: SODIUM CHLORIDE 0.9% 1L BAG IV* (19:41)
[2017-10-11] MEDS: morphine 4 MG/ML VIAL IV (19:42)
[2017-10-11] MEDS: VANCOMYCIN 1 GM (PMX) 250 ML IVPB (20:45)
[2017-10-11] MEDS ORDERED: ACETAMINOPHEN 325 MG TAB PO (21:00)
[2017-10-11] MEDS ORDERED: BISACODYL (EC) 5 MG TAB PO (21:30)
[2017-10-11] MEDS ORDERED: NACL 0.9% 3 ML SYG IV (21:30)
[2017-10-11] MEDS: HYDROmorphONE 0.5 MG/0.5 ML SYG IV (21:34)
[2017-10-11] MEDS ORDERED: CITRIC ACID/SODIUM CITRATE 15 ML CUP PO (22:00)
[2017-10-11] MEDS: SOD CHLORIDE 0.9% 1,000 ML IV (22:38)
[2017-10-11] MEDS: MEROPENEM 500MG/50 ML (PMX) 50 ML IVPB (23:14)
[2017-10-12 01:00] LABS: LACTIC ACID 3.5 mmol/L (0.5-2.0)
[2017-10-12] MEDS: HYDROmorphONE 1 MG/ML SYG IV ×4 (01:19→22:58)
[2017-10-12] MEDS ORDERED: PENDING SANTYL ORDER FOR WOUND CARE XX (05:30)
[2017-10-12 06:25] LABS: WHITE BLOOD COUNT 7.6 10^3/ul (4.8-10.8)
[2017-10-12 06:25] LABS: HEMATOCRIT 36.3 % (42.0-52.0); MEAN CORPUSCULAR HEMOGLOBIN 28.4 pg (29.0-33.0); MEAN CORPUSCULAR HGB CONC 30.3 g/dl (32.0-37.0); MEAN CORPUSCULAR VOLUME 93.8 fl (82.0-101.0); MEAN PLATELET VOLUME 10.3 fl (7.4-10.4); PLATELET COUNT 236 10^3/UL (140-415); POSITIVE DIFF @See below; RED BLOOD COUNT 3.87 10^6/ul (4.70-6.10); RED CELL DISTRIBUTION WIDTH 16.9 % (11.5-14.5)
[2017-10-12 06:26] LABS: ADD MAN DIFF? YES
[2017-10-12 06:42] LABS: LACTIC ACID 2.1 mmol/L (0.5-2.0)
[2017-10-12 06:44] LABS: ALANINE AMINOTRANSFERASE 11 IU/L (13-69); ALBUMIN 2.2 g/dl (3.3-4.9); ALBUMIN/GLOBULIN RATIO 0.56; ALKALINE PHOSPHATASE 121 IU/L (42-121); ANION GAP 10 (8-16); ASPARTATE AMINO TRANSFERASE 10 IU/L (15-46); BLOOD UREA NITROGEN 27 mg/dl (7-20); CALCIUM 8.5 mg/dl (8.4-10.2); CARBON DIOXIDE 13 mmol/L (21-31); CHLORIDE 120 mmol/L (97-110); CREATININE 2.29 mg/dl (0.61-1.24); GLUCOSE 82 mg/dl (70-220); POTASSIUM 5.3 mmol/L (3.5-5.1); SODIUM 138 mmol/L (135-144); TOTAL PROTEIN 6.1 g/dl (6.1-8.1)
[2017-10-12] MEDS ORDERED: VANCOMYCIN IV PER PHARMACY XX (07:00)
[2017-10-12 07:36] LABS: ANISOCYTOSIS 1+ (0-0); BAND NEUTROPHILS #M 3.8 10^3/ul (0.0-0.6); BAND NEUTROPHILS % (M) 51 % (0-4); BURR CELLS 1+ (0-0); LYMPHOCYTES #M 0.6 10^3/ul (0.8-2.9); LYMPHOCYTES % (M) 8 % (15-51); METAMYELOCYTES %M 1 % (0-0); MONOCYTE #M 0.3 10^3/ul (0.3-0.9); MONOCYTES % (M) 4 % (0-11); MYELOCYTES % (M) 1 % (0-0); PLATELET ESTIMATE NORMAL; POIKILOCYTOSIS 1+ (0-0); SCHISTOCYTES 1+ (0-0); SEG NEUT #M 2.9 10^3/ul (1.6-7.5); SEGMENTED NEUTROPHILS (M) % 35 % (39-77); SMUDGE%M 24 % (0-0)
[2017-10-12] MEDS: ONDANSETRON 4 MG INJ IV (07:38)
[2017-10-12] MEDS: SOD CHLORIDE 0.45% 1,000 ML IV ×2 (07:49→19:50)
[2017-10-12 08:13] LABS: HEMOGLOBIN A1C 4.8 % (0-5.9)
[2017-10-12] MEDS: MAGNESIUM OXIDE 400 MG TAB PO ×2 (08:42→21:51)
[2017-10-12] MEDS: SOD CHLORIDE 0.9% 500 ML IV (08:43)
[2017-10-12] MEDS: CITRIC ACID/SODIUM CITRATE 15 ML CUP PO ×3 (08:50→21:51)
[2017-10-12] MEDS: ALTEPLASE (CATHFLO) 2 MG INJ CATHETER (09:36)
[2017-10-12] MEDS: MEROPENEM 500MG/50 ML (PMX) 50 ML IVPB ×2 (09:36→21:50)
[2017-10-12 09:58] LABS: AADO2 Arterial 12.1 mmHg (7.0-24.0); Arterial Base Excess -16.8 mmol/L (-3.0-3); Arterial Blood Gas Oxygen Sat 97.5 mmHG (95.0-98.0); Arterial COHb 0.3 % (0.0-3.0); Arterial Fraction of Oxyhgb 96.9 % (93.0-99.0); Arterial HCO3 9.6 mmol/L (22.0-26.0); Arterial MetHb 0.3 % (0.0-1.5); Arterial Total Hemglobin 11.6 g/dl (12.0-18.0); Arterial pCO2 24.9 mmhg (35-45); MODE ROOM AIR; Site LB
[2017-10-12 13:18] LABS: HEMOGLOBIN 10.6 g/dl (14.0-18.0)
[2017-10-12 15:30] LABS: CREATININE,URINE RANDOM 96.05 mg/dl (20-370)
[2017-10-12 15:38] LABS: ADD UMIC YES; UR ASCORBIC ACID NEGATIVE (NEGATIVE); UR BACTERIA MODERATE /HPF (NONE SEEN); UR BILIRUBIN (Dip) NEGATIVE (NEGATIVE); UR BLOOD (Dip) 3+ mg/dL (NEGATIVE); UR CLARITY TURBID (CLEAR); UR COLOR RED (YELLOW); UR GLUCOSE (Dip) NEGATIVE (NEGATIVE); UR KETONES (Dip) NEGATIVE (NEGATIVE); UR LEUKOCYTE ESTERASE (Dip) 3+ Leu/ul (NEGATIVE); UR NITRITE (Dip) NEGATIVE (NEGATIVE); UR RBC > 182 /HPF (0-5); UR SPECIFIC GRAVITY (Dip) 1.016 (1.003-1.030); UR TOTAL PROTEIN (Dip) 3+ mg/dl (NEGATIVE); UR UROBILINOGEN (Dip) NEGATIVE (NEGATIVE); UR WBC > 182 /HPF (0-5)
[2017-10-12] MEDS: APIXABAN 5 MG TABLET PO (21:52)
[2017-10-13] MEDS: HYDROmorphONE 1 MG/ML SYG IV ×5 (06:03→23:11)
[2017-10-13 06:22] LABS: HEMATOCRIT 32.4 % (42.0-52.0); HEMOGLOBIN 9.8 g/dl (14.0-18.0); MEAN CORPUSCULAR HGB CONC 30.2 g/dl (32.0-37.0); MEAN CORPUSCULAR VOLUME 92.6 fl (82.0-101.0); MEAN PLATELET VOLUME 10.3 fl (7.4-10.4); PLATELET COUNT 172 10^3/UL (140-415); POSITIVE DIFF @See below; RED CELL DISTRIBUTION WIDTH 16.7 % (11.5-14.5)
[2017-10-13 06:22] LABS: WHITE BLOOD COUNT 8.3 10^3/ul (4.8-10.8)
[2017-10-13 06:33] LABS: ADD MAN DIFF? YES
[2017-10-13 07:02] LABS: ANION GAP 12 (8-16); BLOOD UREA NITROGEN 33 mg/dl (7-20); CALCIUM 8.2 mg/dl (8.4-10.2); CARBON DIOXIDE 11 mmol/L (21-31); CHLORIDE 119 mmol/L (97-110); CREATININE 2.44 mg/dl (0.61-1.24); GLUCOSE 51 mg/dl (70-220); MAGNESIUM 1.6 mg/dl (1.7-2.5); PHOSPHORUS 4.4 mg/dl (2.5-4.9); SODIUM 136 mmol/L (135-144)
[2017-10-13 07:12] LABS: POTASSIUM 5.5 mmol/L (3.5-5.1)
[2017-10-13] MEDS ORDERED: TOBRAMYCIN IV PER PHARMACY XX (08:00)
[2017-10-13] MEDS: MEROPENEM 500MG/50 ML (PMX) 50 ML IVPB ×2 (08:10→21:55)
[2017-10-13] MEDS: CITRIC ACID/SODIUM CITRATE 15 ML CUP PO ×3 (09:00→21:00)
[2017-10-13 09:20] LABS: ANISOCYTOSIS 1+ (0-0); BAND NEUTROPHILS #M 2.9 10^3/ul (0.0-0.6); BAND NEUTROPHILS % (M) 36 % (0-4); LYMPHOCYTES #M 0.5 10^3/ul (0.8-2.9); LYMPHOCYTES % (M) 7 % (15-51); MONOCYTE #M 0.2 10^3/ul (0.3-0.9); MONOCYTES % (M) 3 % (0-11); PLATELET ESTIMATE DECREASED; POIKILOCYTOSIS 1+ (0-0); POLYCHROMASIA 1+ (0-0); SEG NEUT #M 4.7 10^3/ul (1.6-7.5); SEGMENTED NEUTROPHILS (M) % 54 % (39-77); SMUDGE%M 6 % (0-0); TOXIC GRANULATION 1+ (0-0)
[2017-10-13] MEDS: APIXABAN 5 MG TABLET PO ×2 (09:43→21:54)
[2017-10-13] MEDS: ZYVOX 600 MG TAB PO ×2 (09:43→21:54)
[2017-10-13] MEDS: MAGNESIUM OXIDE 400 MG TAB PO ×2 (09:43→21:54)
[2017-10-13] MEDS: MAGNESIUM SULFATE 2 GM/50 ML 50 ML IVPB (11:11)
[2017-10-13] MEDS: TOBRAMYCIN 90 MG in SOD CHLORIDE 0.9% 50 ML IVPB (13:27)
[2017-10-13] MEDS: SODIUM BICARBONATE (IV ADD) 150 MEQ in DEXTROSE 5% 850 ML IV ×2 (14:27→20:30)
[2017-10-13 18:06] LABS: CREATININE, RANDOM URINE 119 mg/dL (20-370); MICROALBUMIN 193.4 mg/dL; MICROALBUMIN/CREATININE RATIO 1625 (<30)
[2017-10-13] MEDS: BALSAM PERU/CASTOR OIL 60 GM TUBE TOP (20:00)
[2017-10-13] MEDS: COLLAGENASE 5 GM (UD JAR) TOP (21:54)
[2017-10-14] MEDS: SODIUM BICARBONATE (IV ADD) 150 MEQ in DEXTROSE 5% 850 ML IV ×3 (03:20→17:52)
[2017-10-14] MEDS: HYDROmorphONE 1 MG/ML SYG IV ×4 (05:35→22:58)
[2017-10-14 06:48] LABS: ADD MAN DIFF? NO
[2017-10-14 07:04] LABS: BASOPHILS % 0.1 % (0.0-2.0); EOSINOPHILS % 0.4 % (0.0-7.0); HEMATOCRIT 32.1 % (42.0-52.0); MEAN CORPUSCULAR HEMOGLOBIN 28.1 pg (29.0-33.0); MEAN CORPUSCULAR HGB CONC 31.2 g/dl (32.0-37.0); MEAN CORPUSCULAR VOLUME 90.2 fl (82.0-101.0); MONOCYTE # 0.6 10^3/ul (0.3-0.9); MONOCYTES % 6.5 % (0.0-11.0); NEUTROPHIL # 7.3 10^3/ul (1.6-7.5); NEUTROPHILS % 81.3 % (39.0-77.0); PLATELET COUNT 168 10^3/UL (140-415); POSITIVE DIFF @See below; RED BLOOD COUNT 3.56 10^6/ul (4.70-6.10); RED CELL DISTRIBUTION WIDTH 16.5 % (11.5-14.5)
[2017-10-14 07:04] LABS: WHITE BLOOD COUNT 8.9 10^3/ul (4.8-10.8)
[2017-10-14 07:21] LABS: PHOSPHORUS 3.1 mg/dl (2.5-4.9)
[2017-10-14 07:22] LABS: ALANINE AMINOTRANSFERASE 22 IU/L (13-69); ALBUMIN 1.8 g/dl (3.3-4.9); ALBUMIN/GLOBULIN RATIO 0.54; ALKALINE PHOSPHATASE 105 IU/L (42-121); ANION GAP 12 (8-16); ASPARTATE AMINO TRANSFERASE 28 IU/L (15-46); BILIRUBIN,INDIRECT 0.1 mg/dl (0-1.1); BILIRUBIN,TOTAL 0.1 mg/dl (0.2-1.3); BLOOD UREA NITROGEN 34 mg/dl (7-20); CALCIUM 7.5 mg/dl (8.4-10.2); CARBON DIOXIDE 17 mmol/L (21-31); CHLORIDE 110 mmol/L (97-110); CREATININE 2.25 mg/dl (0.61-1.24); GLUCOSE 52 mg/dl (70-220); POTASSIUM 4.7 mmol/L (3.5-5.1); SODIUM 134 mmol/L (135-144); TOTAL PROTEIN 5.1 g/dl (6.1-8.1)
[2017-10-14] MEDS: COLLAGENASE 5 GM (UD JAR) TOP (08:56)
[2017-10-14] MEDS: ZYVOX 600 MG TAB PO ×2 (08:56→20:25)
[2017-10-14] MEDS: MAGNESIUM OXIDE 400 MG TAB PO ×2 (08:56→20:25)
[2017-10-14] MEDS: BALSAM PERU/CASTOR OIL 60 GM TUBE TOP (08:56)
[2017-10-14] MEDS: APIXABAN 5 MG TABLET PO ×2 (08:56→20:26)
[2017-10-14] MEDS: CITRIC ACID/SODIUM CITRATE 15 ML CUP PO ×4 (08:57→21:00)
[2017-10-14] MEDS: MEROPENEM 500MG/50 ML (PMX) 50 ML IVPB ×2 (09:10→20:26)
[2017-10-14] MEDS: oxyCODONE (CR) 15 MG TAB [oxyCONTIN] PO (18:19)
[2017-10-14] MEDS: ONDANSETRON 4 MG INJ IV (20:25)
[2017-10-14] MEDS: HYDROCODONE/APAP (5/325) TAB PO (20:26)
[2017-10-15] MEDS: SODIUM BICARBONATE (IV ADD) 150 MEQ in DEXTROSE 5% 850 ML IV ×2 (02:30→05:23)
[2017-10-15] MEDS: HYDROCODONE/APAP (5/325) TAB PO (04:25)
[2017-10-15 06:10] LABS: ADD MAN DIFF? NO
[2017-10-15 06:18] LABS: WHITE BLOOD COUNT 8.4 10^3/ul (4.8-10.8)
[2017-10-15 06:18] LABS: BASOPHILS % 0.1 % (0.0-2.0); EOSINOPHILS # 0.1 10^3/ul (0.0-0.5); EOSINOPHILS % 0.6 % (0.0-7.0); HEMATOCRIT 26.8 % (42.0-52.0); HEMOGLOBIN 8.7 g/dl (14.0-18.0); LYMPHOCYTES # 1.2 10^3/ul (0.8-2.9); LYMPHOCYTES % 14.1 % (15.0-51.0); MEAN CORPUSCULAR HEMOGLOBIN 28.7 pg (29.0-33.0); MEAN CORPUSCULAR HGB CONC 32.5 g/dl (32.0-37.0); MEAN CORPUSCULAR VOLUME 88.4 fl (82.0-101.0); MEAN PLATELET VOLUME 10.3 fl (7.4-10.4); MONOCYTE # 0.6 10^3/ul (0.3-0.9); MONOCYTES % 7.3 % (0.0-11.0); NEUTROPHIL # 6.5 10^3/ul (1.6-7.5); NEUTROPHILS % 76.9 % (39.0-77.0); PLATELET COUNT 202 10^3/UL (140-415); RED BLOOD COUNT 3.03 10^6/ul (4.70-6.10); RED CELL DISTRIBUTION WIDTH 15.9 % (11.5-14.5)
[2017-10-15 06:39] LABS: TOBRAMYCIN, RANDOM 1.3 ug/ml
[2017-10-15 06:50] LABS: ANION GAP 7 (8-16); BLOOD UREA NITROGEN 31 mg/dl (7-20); CALCIUM 7.2 mg/dl (8.4-10.2); CARBON DIOXIDE 28 mmol/L (21-31); CHLORIDE 105 mmol/L (97-110); CREATININE 1.79 mg/dl (0.61-1.24); GLUCOSE 92 mg/dl (70-220); MAGNESIUM 1.6 mg/dl (1.7-2.5); PHOSPHORUS 2.2 mg/dl (2.5-4.9); POTASSIUM 3.5 mmol/L (3.5-5.1); SODIUM 136 mmol/L (135-144)
[2017-10-15] MEDS: oxyCODONE (CR) 15 MG TAB [oxyCONTIN] PO ×3 (09:00→20:37)
[2017-10-15] MEDS: ZYVOX 600 MG TAB PO ×2 (09:00→20:37)
[2017-10-15] MEDS: APIXABAN 5 MG TABLET PO ×2 (09:00→20:37)
[2017-10-15] MEDS: CITRIC ACID/SODIUM CITRATE 15 ML CUP PO ×4 (09:00→20:37)
[2017-10-15] MEDS: MAGNESIUM OXIDE 400 MG TAB PO ×2 (09:00→20:37)
[2017-10-15] MEDS: COLLAGENASE 5 GM (UD JAR) TOP (09:10)
[2017-10-15] MEDS: MEROPENEM 500MG/50 ML (PMX) 50 ML IVPB ×2 (09:10→20:38)
[2017-10-15] MEDS: BALSAM PERU/CASTOR OIL 60 GM TUBE TOP (09:10)
[2017-10-15] MEDS: HYDROmorphONE 1 MG/ML SYG IV ×2 (09:22→17:33)
[2017-10-15 10:40] LABS: ADD UMIC YES; UR ASCORBIC ACID NEGATIVE (NEGATIVE); UR BACTERIA FEW /HPF (NONE SEEN); UR BILIRUBIN (Dip) NEGATIVE (NEGATIVE); UR BLOOD (Dip) 3+ mg/dL (NEGATIVE); UR CLARITY CLOUDY (CLEAR); UR COLOR RED (YELLOW); UR GLUCOSE (Dip) NEGATIVE (NEGATIVE); UR KETONES (Dip) NEGATIVE (NEGATIVE); UR LEUKOCYTE ESTERASE (Dip) 2+ Leu/ul (NEGATIVE); UR NITRITE (Dip) NEGATIVE (NEGATIVE); UR RBC > 182 /HPF (0-5); UR SPECIFIC GRAVITY (Dip) 1.011 (1.003-1.030); UR TOTAL PROTEIN (Dip) 2+ mg/dl (NEGATIVE); UR UROBILINOGEN (Dip) NEGATIVE (NEGATIVE); UR WBC > 182 /HPF (0-5)
[2017-10-15] MEDS: FENTAnyl 50 MCG/ML VIAL (12:00)
[2017-10-15] MEDS: MIDAZOLAM 1 MG/ML 2 ML INJ (12:00)
[2017-10-15] MEDS: LIDOCAINE 1% (MPF) 5 ML VIAL (12:05)
[2017-10-15] MEDS: MAGNESIUM SULFATE 1 GM/D5W 100 ML IVPB (13:28)
[2017-10-15] MEDS: POTASSIUM PHOSPHATE 15 MM in SOD CHLORIDE 0.9% 250 ML IVPB (15:40)
[2017-10-16] MEDS: HYDROmorphONE 1 MG/ML SYG IV (01:38)
[2017-10-16] MEDS: TOBRAMYCIN 70 MG in SOD CHLORIDE 0.9% 50 ML IVPB (05:23)
[2017-10-16 06:14] LABS: ADD MAN DIFF? NO
[2017-10-16 06:18] LABS: WHITE BLOOD COUNT 10.1 10^3/ul (4.8-10.8)
[2017-10-16 06:18] LABS: BASOPHILS % 0.2 % (0.0-2.0); EOSINOPHILS % 0.3 % (0.0-7.0); HEMATOCRIT 28.1 % (42.0-52.0); LYMPHOCYTES # 1.6 10^3/ul (0.8-2.9); LYMPHOCYTES % 15.7 % (15.0-51.0); MEAN CORPUSCULAR HEMOGLOBIN 28.8 pg (29.0-33.0); MEAN CORPUSCULAR VOLUME 89.8 fl (82.0-101.0); MEAN PLATELET VOLUME 9.5 fl (7.4-10.4); MONOCYTE # 0.8 10^3/ul (0.3-0.9); MONOCYTES % 7.8 % (0.0-11.0); NEUTROPHIL # 7.6 10^3/ul (1.6-7.5); NEUTROPHILS % 75.3 % (39.0-77.0); PLATELET COUNT 188 10^3/UL (140-415); RED BLOOD COUNT 3.13 10^6/ul (4.70-6.10); RED CELL DISTRIBUTION WIDTH 15.9 % (11.5-14.5)
[2017-10-16 07:08] LABS: ANION GAP 6 (8-16); BLOOD UREA NITROGEN 27 mg/dl (7-20); CALCIUM 7.1 mg/dl (8.4-10.2); CARBON DIOXIDE 27 mmol/L (21-31); CHLORIDE 106 mmol/L (97-110); CREATININE 1.51 mg/dl (0.61-1.24); GLUCOSE 100 mg/dl (70-220); POTASSIUM 3.7 mmol/L (3.5-5.1); SODIUM 135 mmol/L (135-144)
[2017-10-16] MEDS: HYDROCODONE/APAP (5/325) TAB PO (07:50)
[2017-10-16] MEDS: ZYVOX 600 MG TAB PO ×2 (08:43→21:12)
[2017-10-16] MEDS: APIXABAN 5 MG TABLET PO ×2 (08:43→21:12)
[2017-10-16] MEDS: MAGNESIUM OXIDE 400 MG TAB PO ×2 (08:43→21:12)
[2017-10-16] MEDS: oxyCODONE (CR) 15 MG TAB [oxyCONTIN] PO ×2 (08:44→21:13)
[2017-10-16] MEDS: BALSAM PERU/CASTOR OIL 60 GM TUBE TOP (08:45)
[2017-10-16] MEDS: COLLAGENASE 5 GM (UD JAR) TOP (08:45)
[2017-10-16] MEDS: MEROPENEM 500MG/50 ML (PMX) 50 ML IVPB ×2 (08:46→21:13)
[2017-10-16] MEDS: CITRIC ACID/SODIUM CITRATE 15 ML CUP PO ×3 (08:46→21:00)
[2017-10-17 06:15] LABS: WHITE BLOOD COUNT 11.5 10^3/ul (4.8-10.8)
[2017-10-17 06:15] LABS: ADD MAN DIFF? NO; BASOPHILS % 0.2 % (0.0-2.0); EOSINOPHILS % 0.3 % (0.0-7.0); HEMATOCRIT 29.1 % (42.0-52.0); HEMOGLOBIN 9.2 g/dl (14.0-18.0); LYMPHOCYTES # 1.5 10^3/ul (0.8-2.9); LYMPHOCYTES % 13.3 % (15.0-51.0); MEAN CORPUSCULAR HEMOGLOBIN 28.6 pg (29.0-33.0); MEAN CORPUSCULAR HGB CONC 31.6 g/dl (32.0-37.0); MEAN CORPUSCULAR VOLUME 90.4 fl (82.0-101.0); MONOCYTE # 0.6 10^3/ul (0.3-0.9); MONOCYTES % 4.8 % (0.0-11.0); NEUTROPHIL # 9.2 10^3/ul (1.6-7.5); NEUTROPHILS % 80.4 % (39.0-77.0); PLATELET COUNT 213 10^3/UL (140-415); RED BLOOD COUNT 3.22 10^6/ul (4.70-6.10); RED CELL DISTRIBUTION WIDTH 15.9 % (11.5-14.5)
[2017-10-17 06:57] LABS: ALANINE AMINOTRANSFERASE 16 IU/L (13-69); ALBUMIN 1.7 g/dl (3.3-4.9); ALKALINE PHOSPHATASE 103 IU/L (42-121); ANION GAP 7 (8-16); ASPARTATE AMINO TRANSFERASE 12 IU/L (15-46); BILIRUBIN,INDIRECT 0.2 mg/dl (0-1.1); BILIRUBIN,TOTAL 0.2 mg/dl (0.2-1.3); BLOOD UREA NITROGEN 27 mg/dl (7-20); CALCIUM 7.3 mg/dl (8.4-10.2); CARBON DIOXIDE 24 mmol/L (21-31); CHLORIDE 111 mmol/L (97-110); CREATININE 1.61 mg/dl (0.61-1.24); GLUCOSE 109 mg/dl (70-220); POTASSIUM 3.5 mmol/L (3.5-5.1); SODIUM 138 mmol/L (135-144); TOTAL PROTEIN 4.5 g/dl (6.1-8.1)
[2017-10-17] MEDS: CITRIC ACID/SODIUM CITRATE 15 ML CUP PO ×3 (09:00→21:00)
[2017-10-17] MEDS: MAGNESIUM OXIDE 400 MG TAB PO ×2 (09:49→21:07)
[2017-10-17] MEDS: COLLAGENASE 5 GM (UD JAR) TOP (09:49)
[2017-10-17] MEDS: oxyCODONE (CR) 15 MG TAB [oxyCONTIN] PO ×2 (09:50→21:06)
[2017-10-17] MEDS: BALSAM PERU/CASTOR OIL 60 GM TUBE TOP (09:50)
[2017-10-17] MEDS: APIXABAN 5 MG TABLET PO ×2 (09:50→21:07)
[2017-10-17] MEDS: ZYVOX 600 MG TAB PO ×2 (09:50→21:06)
[2017-10-17] MEDS: MEROPENEM 500MG/50 ML (PMX) 50 ML IVPB ×2 (10:05→21:06)
[2017-10-17 12:31] LABS: PROCALCITONIN 0.57 ng/mL (<0.10)
[2017-10-17] MEDS: ONDANSETRON 4 MG INJ IV ×2 (15:34→21:32)
[2017-10-18] MEDS: HYDROmorphONE 2 MG TAB PO (00:42)
[2017-10-18] MEDS: CITRIC ACID/SODIUM CITRATE 15 ML CUP PO ×3 (09:00→20:32)
[2017-10-18] MEDS: ZYVOX 600 MG TAB PO ×2 (09:04→20:31)
[2017-10-18] MEDS: MAGNESIUM OXIDE 400 MG TAB PO ×2 (09:04→20:31)
[2017-10-18] MEDS: oxyCODONE (CR) 15 MG TAB [oxyCONTIN] PO ×2 (09:04→20:31)
[2017-10-18] MEDS: APIXABAN 5 MG TABLET PO (09:04)
[2017-10-18] MEDS: COLLAGENASE 5 GM (UD JAR) TOP (09:05)
[2017-10-18] MEDS: BALSAM PERU/CASTOR OIL 60 GM TUBE TOP (09:05)
[2017-10-18] MEDS: ONDANSETRON 4 MG INJ IV ×2 (09:39→20:32)
[2017-10-18] MEDS: PIPER-TAZO 2.25 GM (PMX) 50 ML IVPB ×2 (13:21→17:55)
[2017-10-19] MEDS: PIPER-TAZO 2.25 GM (PMX) 50 ML IVPB ×4 (00:20→18:56)
[2017-10-19] MEDS: HYDROmorphONE 2 MG TAB PO (00:21)
[2017-10-19] MEDS: TOBRAMYCIN 70 MG in SOD CHLORIDE 0.9% 50 ML IVPB (05:22)
[2017-10-19] MEDS: ONDANSETRON 4 MG INJ IV (06:10)
[2017-10-19 07:40] LABS: ADD MAN DIFF? NO
[2017-10-19 07:50] LABS: BASOPHILS % 0.3 % (0.0-2.0); EOSINOPHILS # 0.1 10^3/ul (0.0-0.5); EOSINOPHILS % 0.9 % (0.0-7.0); HEMATOCRIT 29.1 % (42.0-52.0); HEMOGLOBIN 8.9 g/dl (14.0-18.0); LYMPHOCYTES # 1.2 10^3/ul (0.8-2.9); LYMPHOCYTES % 13.1 % (15.0-51.0); MEAN CORPUSCULAR HEMOGLOBIN 27.6 pg (29.0-33.0); MEAN CORPUSCULAR HGB CONC 30.6 g/dl (32.0-37.0); MEAN CORPUSCULAR VOLUME 90.1 fl (82.0-101.0); MEAN PLATELET VOLUME 10.1 fl (7.4-10.4); MONOCYTE # 0.4 10^3/ul (0.3-0.9); MONOCYTES % 4.1 % (0.0-11.0); NEUTROPHIL # 7.2 10^3/ul (1.6-7.5); NEUTROPHILS % 80.5 % (39.0-77.0); PLATELET COUNT 176 10^3/UL (140-415); RED BLOOD COUNT 3.23 10^6/ul (4.70-6.10); RED CELL DISTRIBUTION WIDTH 15.9 % (11.5-14.5)
[2017-10-19 08:27] LABS: ANION GAP 9 (8-16); BLOOD UREA NITROGEN 23 mg/dl (7-20); CARBON DIOXIDE 20 mmol/L (21-31); CHLORIDE 111 mmol/L (97-110); CREATININE 1.45 mg/dl (0.61-1.24); GLUCOSE 122 mg/dl (70-220); MAGNESIUM 1.4 mg/dl (1.7-2.5); PHOSPHORUS 2.2 mg/dl (2.5-4.9); POTASSIUM 3.3 mmol/L (3.5-5.1); SODIUM 137 mmol/L (135-144)
[2017-10-19] MEDS: MAGNESIUM OXIDE 400 MG TAB PO ×2 (09:06→20:31)
[2017-10-19] MEDS: ZYVOX 600 MG TAB PO ×2 (09:06→20:31)
[2017-10-19] MEDS: oxyCODONE (CR) 15 MG TAB [oxyCONTIN] PO ×2 (09:06→20:31)
[2017-10-19] MEDS: BALSAM PERU/CASTOR OIL 60 GM TUBE TOP (09:07)
[2017-10-19] MEDS: CITRIC ACID/SODIUM CITRATE 15 ML CUP PO ×3 (09:07→20:31)
[2017-10-19] MEDS: COLLAGENASE 5 GM (UD JAR) TOP (09:07)
[2017-10-19] MEDS: MAGNESIUM SULFATE 2 GM/50 ML 50 ML IVPB (10:30)
[2017-10-19] MEDS: POTASSIUM PHOSPHATE 40 MEQ in SOD CHLORIDE 0.9% 250 ML IVPB (11:00)
[2017-10-19 15:14] LABS: ALANINE AMINOTRANSFERASE 25 IU/L (13-69); ALBUMIN 1.8 g/dl (3.3-4.9); ALBUMIN/GLOBULIN RATIO 0.56; ALKALINE PHOSPHATASE 108 IU/L (42-121); ANION GAP 11 (8-16); ASPARTATE AMINO TRANSFERASE 14 IU/L (15-46); BILIRUBIN,INDIRECT 0.2 mg/dl (0-1.1); BILIRUBIN,TOTAL 0.2 mg/dl (0.2-1.3); BLOOD UREA NITROGEN 23 mg/dl (7-20); CALCIUM 7.2 mg/dl (8.4-10.2); CARBON DIOXIDE 21 mmol/L (21-31); CHLORIDE 110 mmol/L (97-110); CREATININE 1.47 mg/dl (0.61-1.24); GLUCOSE 132 mg/dl (70-220); POTASSIUM 3.5 mmol/L (3.5-5.1); SODIUM 138 mmol/L (135-144)
[2017-10-20] MEDS: PIPER-TAZO 2.25 GM (PMX) 50 ML IVPB ×5 (00:10→23:39)
[2017-10-20 07:04] LABS: ADD MAN DIFF? NO
[2017-10-20 07:15] LABS: BASOPHILS % 0.5 % (0.0-2.0); EOSINOPHILS # 0.1 10^3/ul (0.0-0.5); HEMATOCRIT 25.3 % (42.0-52.0); HEMOGLOBIN 8.1 g/dl (14.0-18.0); LYMPHOCYTES # 1.1 10^3/ul (0.8-2.9); LYMPHOCYTES % 12.5 % (15.0-51.0); MEAN CORPUSCULAR HEMOGLOBIN 28.4 pg (29.0-33.0); MEAN CORPUSCULAR VOLUME 88.8 fl (82.0-101.0); MEAN PLATELET VOLUME 10.2 fl (7.4-10.4); MONOCYTE # 0.3 10^3/ul (0.3-0.9); MONOCYTES % 3.5 % (0.0-11.0); NEUTROPHIL # 7.2 10^3/ul (1.6-7.5); NEUTROPHILS % 81.7 % (39.0-77.0); PLATELET COUNT 188 10^3/UL (140-415); RED BLOOD COUNT 2.85 10^6/ul (4.70-6.10)
[2017-10-20 07:15] LABS: WHITE BLOOD COUNT 8.8 10^3/ul (4.8-10.8)
[2017-10-20 07:46] LABS: ANION GAP 9 (8-16); BLOOD UREA NITROGEN 21 mg/dl (7-20); CARBON DIOXIDE 20 mmol/L (21-31); CHLORIDE 112 mmol/L (97-110); CREATININE 1.33 mg/dl (0.61-1.24); GLUCOSE 80 mg/dl (70-220); MAGNESIUM 1.7 mg/dl (1.7-2.5); PHOSPHORUS 3.5 mg/dl (2.5-4.9); POTASSIUM 3.5 mmol/L (3.5-5.1); SODIUM 137 mmol/L (135-144)
[2017-10-20] MEDS: COLLAGENASE 5 GM (UD JAR) TOP (08:24)
[2017-10-20] MEDS: CITRIC ACID/SODIUM CITRATE 15 ML CUP PO ×3 (08:24→20:43)
[2017-10-20] MEDS: ZYVOX 600 MG TAB PO ×2 (08:24→20:43)
[2017-10-20] MEDS: MAGNESIUM OXIDE 400 MG TAB PO ×2 (08:24→20:43)
[2017-10-20] MEDS: BALSAM PERU/CASTOR OIL 60 GM TUBE TOP (08:25)
[2017-10-20] MEDS: oxyCODONE (CR) 15 MG TAB [oxyCONTIN] PO ×2 (08:25→20:43)
[2017-10-20] MEDS: HYDROmorphONE 2 MG TAB PO (12:40)
[2017-10-20] MEDS: ONDANSETRON 4 MG INJ IV (14:24)
[2017-10-20] MEDS: L ACIDOPHIL/B LACTIS/B LONGUM CAPSULE PO (20:43)
[2017-10-21] MEDS: ONDANSETRON 4 MG INJ IV ×2 (03:22→12:18)
[2017-10-21] MEDS: PIPER-TAZO 2.25 GM (PMX) 50 ML IVPB ×4 (05:27→23:19)
[2017-10-21] MEDS: L ACIDOPHIL/B LACTIS/B LONGUM CAPSULE PO ×2 (09:09→20:26)
[2017-10-21] MEDS: ZYVOX 600 MG TAB PO ×2 (09:09→20:26)
[2017-10-21] MEDS: MAGNESIUM OXIDE 400 MG TAB PO ×2 (09:09→20:26)
[2017-10-21] MEDS: COLLAGENASE 5 GM (UD JAR) TOP (09:09)
[2017-10-21] MEDS: oxyCODONE (CR) 15 MG TAB [oxyCONTIN] PO ×2 (09:10→20:26)
[2017-10-21] MEDS: BALSAM PERU/CASTOR OIL 60 GM TUBE TOP (09:10)
[2017-10-21] MEDS: CITRIC ACID/SODIUM CITRATE 15 ML CUP PO ×3 (09:10→20:27)
[2017-10-21] MEDS: HYDROmorphONE 2 MG TAB PO (12:18)
[2017-10-21] MEDS ORDERED: LOPERAMIDE 2 MG CAP PO (17:30)
[2017-10-22] MEDS: TOB TROUGH AT XX (04:03)
[2017-10-22] MEDS: PIPER-TAZO 2.25 GM (PMX) 50 ML IVPB (05:17)
[2017-10-22] MEDS: ONDANSETRON 4 MG INJ IV ×4 (05:20→21:36)
[2017-10-22 05:40] LABS: ADD MAN DIFF? NO
[2017-10-22 05:41] LABS: BASOPHILS % 0.2 % (0.0-2.0); EOSINOPHILS # 0.1 10^3/ul (0.0-0.5); EOSINOPHILS % 0.8 % (0.0-7.0); HEMATOCRIT 24.8 % (42.0-52.0); HEMOGLOBIN 7.8 g/dl (14.0-18.0); LYMPHOCYTES # 1.5 10^3/ul (0.8-2.9); LYMPHOCYTES % 18.4 % (15.0-51.0); MEAN CORPUSCULAR HEMOGLOBIN 28.4 pg (29.0-33.0); MEAN CORPUSCULAR HGB CONC 31.5 g/dl (32.0-37.0); MEAN CORPUSCULAR VOLUME 90.2 fl (82.0-101.0); MEAN PLATELET VOLUME 9.9 fl (7.4-10.4); MONOCYTE # 0.2 10^3/ul (0.3-0.9); MONOCYTES % 2.9 % (0.0-11.0); NEUTROPHIL # 6.5 10^3/ul (1.6-7.5); NEUTROPHILS % 77.1 % (39.0-77.0); PLATELET COUNT 163 10^3/UL (140-415); RED BLOOD COUNT 2.75 10^6/ul (4.70-6.10); RED CELL DISTRIBUTION WIDTH 15.9 % (11.5-14.5)
[2017-10-22 05:41] LABS: WHITE BLOOD COUNT 8.4 10^3/ul (4.8-10.8)
[2017-10-22] MEDS: TOBRAMYCIN 70 MG in SOD CHLORIDE 0.9% 50 ML IVPB (06:00)
[2017-10-22] MEDS: [UNRECOGNIZED DRUG - OTHER] XX (06:01)
[2017-10-22 06:08] LABS: ANION GAP 7 (8-16); BLOOD UREA NITROGEN 20 mg/dl (7-20); CALCIUM 7.2 mg/dl (8.4-10.2); CARBON DIOXIDE 18 mmol/L (21-31); CHLORIDE 117 mmol/L (97-110); CREATININE 1.53 mg/dl (0.61-1.24); GLUCOSE 80 mg/dl (70-220); POTASSIUM 3.1 mmol/L (3.5-5.1); SODIUM 139 mmol/L (135-144)
[2017-10-22] MEDS: oxyCODONE (CR) 15 MG TAB [oxyCONTIN] PO ×2 (08:51→21:00)
[2017-10-22] MEDS: MAGNESIUM OXIDE 400 MG TAB PO ×2 (08:51→21:35)
[2017-10-22] MEDS: ZYVOX 600 MG TAB PO ×2 (08:51→21:35)
[2017-10-22] MEDS: CITRIC ACID/SODIUM CITRATE 15 ML CUP PO ×3 (08:51→22:36)
[2017-10-22] MEDS: L ACIDOPHIL/B LACTIS/B LONGUM CAPSULE PO ×2 (08:52→21:34)
[2017-10-22] MEDS: POTASSIUM CHLORIDE 20 MEQ POWDER FOR ORAL SOLN PO (08:53)
[2017-10-22] MEDS: COLLAGENASE 5 GM (UD JAR) TOP (09:03)
[2017-10-22] MEDS: BALSAM PERU/CASTOR OIL 60 GM TUBE TOP (09:03)
[2017-10-22] MEDS: HYDROmorphONE 2 MG TAB PO (10:54)
[2017-10-22] MEDS: morphine 2 MG INJ IV ×3 (12:02→21:39)
[2017-10-22] MEDS: SOD CHLORIDE 0.9% IVPB ×2 (14:19→22:36)
[2017-10-22] MEDS: CEFTAZIDIME IVPB ×2 (14:19→22:36)
[2017-10-22] MEDS: AVIBACTAM IVPB ×2 (14:19→22:36)
[2017-10-22] MEDS: LOPERAMIDE 2 MG CAP PO (21:35)
[2017-10-23] MEDS: morphine 2 MG INJ IV ×5 (02:40→23:31)
[2017-10-23] MEDS: ONDANSETRON 4 MG INJ IV ×4 (03:22→21:44)
[2017-10-23] MEDS: CEFTAZIDIME IVPB ×2 (06:05→14:23)
[2017-10-23] MEDS: AVIBACTAM IVPB ×2 (06:05→14:23)
[2017-10-23] MEDS: SOD CHLORIDE 0.9% IVPB ×2 (06:05→14:23)
[2017-10-23 06:53] LABS: ANION GAP 8 (8-16)
[2017-10-23 07:04] LABS: CHLORIDE 117 mmol/L (97-110); POTASSIUM 3.7 mmol/L (3.5-5.1); SODIUM 139 mmol/L (135-144)
[2017-10-23 07:05] LABS: BLOOD UREA NITROGEN 21 mg/dl (7-20); CALCIUM 7.6 mg/dl (8.4-10.2); CARBON DIOXIDE 18 mmol/L (21-31); CREATININE 1.63 mg/dl (0.61-1.24); GLUCOSE 80 mg/dl (70-220); MAGNESIUM 1.6 mg/dl (1.7-2.5)
[2017-10-23] MEDS: ZYVOX 600 MG TAB PO ×2 (08:32→21:42)
[2017-10-23] MEDS: LOPERAMIDE 2 MG CAP PO ×2 (08:32→21:42)
[2017-10-23] MEDS: MAGNESIUM OXIDE 400 MG TAB PO ×2 (08:32→21:42)
[2017-10-23] MEDS: L ACIDOPHIL/B LACTIS/B LONGUM CAPSULE PO ×2 (08:32→21:42)
[2017-10-23] MEDS: CITRIC ACID/SODIUM CITRATE 15 ML CUP PO ×2 (08:33→13:00)
[2017-10-23] MEDS: BALSAM PERU/CASTOR OIL 60 GM TUBE TOP (08:33)
[2017-10-23] MEDS: COLLAGENASE 5 GM (UD JAR) TOP (08:33)
[2017-10-23] MEDS: oxyCODONE (CR) 15 MG TAB [oxyCONTIN] PO ×3 (09:00→21:00)
[2017-10-23] MEDS: MAGNESIUM SULFATE 2 GM/50 ML 50 ML IVPB (09:27)
[2017-10-23] MEDS: METOCLOPRAMIDE 10 MG INJ IV (11:30)
[2017-10-23] MEDS: TOBRAMYCIN 100 MG in DEXTROSE 5% 100 ML IVPB (11:30)
[2017-10-23] MEDS: CITRIC ACID/NA CITRATE 30 ML CUP PO (21:00)
[2017-10-23 21:27] LABS: VITAMIN B1 (THIAMINE) 162 nmol/L (78-185)
[2017-10-24] MEDS: SOD CHLORIDE 0.9% IVPB ×2 (02:07→14:36)
[2017-10-24] MEDS: CEFTAZIDIME IVPB ×2 (02:07→14:36)
[2017-10-24] MEDS: AVIBACTAM IVPB ×2 (02:07→14:36)
[2017-10-24] MEDS: ONDANSETRON 4 MG INJ IV ×4 (04:29→21:05)
[2017-10-24] MEDS: morphine 2 MG INJ IV ×4 (04:29→19:47)
[2017-10-24 07:22] LABS: ANION GAP 10 (8-16); BLOOD UREA NITROGEN 20 mg/dl (7-20); CALCIUM 7.7 mg/dl (8.4-10.2); CARBON DIOXIDE 19 mmol/L (21-31); CHLORIDE 116 mmol/L (97-110); CREATININE 1.69 mg/dl (0.61-1.24); GLUCOSE 85 mg/dl (70-220); MAGNESIUM 2.1 mg/dl (1.7-2.5); POTASSIUM 3.2 mmol/L (3.5-5.1); SODIUM 142 mmol/L (135-144)
[2017-10-24] MEDS: CITRIC ACID/NA CITRATE 30 ML CUP PO ×3 (09:00→21:00)
[2017-10-24] MEDS: oxyCODONE (CR) 15 MG TAB [oxyCONTIN] PO ×2 (09:00→21:04)
[2017-10-24] MEDS: L ACIDOPHIL/B LACTIS/B LONGUM CAPSULE PO ×2 (09:03→21:05)
[2017-10-24] MEDS: COLLAGENASE 5 GM (UD JAR) TOP (09:04)
[2017-10-24] MEDS: MAGNESIUM OXIDE 400 MG TAB PO ×2 (09:04→21:04)
[2017-10-24] MEDS: POTASSIUM CHLORIDE (SR) 20 MEQ TAB PO (09:04)
[2017-10-24] MEDS: LOPERAMIDE 2 MG CAP PO ×2 (09:04→21:05)
[2017-10-24] MEDS: ZYVOX 600 MG TAB PO ×2 (09:04→21:04)
[2017-10-24] MEDS: BALSAM PERU/CASTOR OIL 60 GM TUBE TOP (09:05)
[2017-10-24] MEDS: RIFAXIMIN 550 MG TAB PO ×2 (13:03→21:05)
[2017-10-24] MEDS: DOCUSATE SODIUM 100 MG CAP PO (21:04)
[2017-10-25] MEDS: SOD CHLORIDE 0.9% IVPB ×2 (01:39→13:55)
[2017-10-25] MEDS: CEFTAZIDIME IVPB ×2 (01:39→13:55)
[2017-10-25] MEDS: AVIBACTAM IVPB ×2 (01:39→13:55)
[2017-10-25] MEDS: morphine 2 MG INJ IV ×6 (01:43→21:23)
[2017-10-25] MEDS: ONDANSETRON 4 MG INJ IV ×4 (03:14→21:17)
[2017-10-25 07:10] LABS: ANION GAP 11 (8-16); BLOOD UREA NITROGEN 19 mg/dl (7-20); CALCIUM 7.8 mg/dl (8.4-10.2); CARBON DIOXIDE 18 mmol/L (21-31); CHLORIDE 116 mmol/L (97-110); CREATININE 1.65 mg/dl (0.61-1.24); GLUCOSE 75 mg/dl (70-220); MAGNESIUM 1.9 mg/dl (1.7-2.5); PHOSPHORUS 2.3 mg/dl (2.5-4.9); POTASSIUM 3.5 mmol/L (3.5-5.1); SODIUM 141 mmol/L (135-144)
[2017-10-25] MEDS: MAGNESIUM OXIDE 400 MG TAB PO ×2 (08:28→21:17)
[2017-10-25] MEDS: NEUTRA-PHOS 250 MG PACKET PO ×2 (08:28→21:17)
[2017-10-25] MEDS: CHOLECALCIFEROL 1,000 UNIT TAB PO (08:28)
[2017-10-25] MEDS: COLLAGENASE 5 GM (UD JAR) TOP (08:28)
[2017-10-25] MEDS: L ACIDOPHIL/B LACTIS/B LONGUM CAPSULE PO ×2 (08:29→21:17)
[2017-10-25] MEDS: oxyCODONE (CR) 15 MG TAB [oxyCONTIN] PO ×3 (08:29→21:00)
[2017-10-25] MEDS: ZYVOX 600 MG TAB PO ×2 (08:29→21:17)
[2017-10-25] MEDS: LOPERAMIDE 2 MG CAP PO ×2 (08:29→21:17)
[2017-10-25] MEDS: RIFAXIMIN 550 MG TAB PO ×2 (08:29→21:17)
[2017-10-25] MEDS: BALSAM PERU/CASTOR OIL 60 GM TUBE TOP (08:30)
[2017-10-25] MEDS: CITRIC ACID/NA CITRATE 30 ML CUP PO ×3 (08:32→21:00)
[2017-10-26] MEDS: ONDANSETRON 4 MG INJ IV ×4 (02:13→20:37)
[2017-10-26] MEDS: CEFTAZIDIME IVPB ×2 (02:13→14:23)
[2017-10-26] MEDS: AVIBACTAM IVPB ×2 (02:13→14:23)
[2017-10-26] MEDS: SOD CHLORIDE 0.9% IVPB ×2 (02:13→14:23)
[2017-10-26] MEDS: morphine 2 MG INJ IV ×5 (02:19→17:31)
[2017-10-26] MEDS: METOCLOPRAMIDE 10 MG INJ IV (07:29)
[2017-10-26 08:20] LABS: ADD MAN DIFF? NO
[2017-10-26 08:32] LABS: WHITE BLOOD COUNT 22.2 10^3/ul (4.8-10.8)
[2017-10-26 08:32] LABS: BASOPHIL # 0.1 10^3/ul (0.0-0.1); BASOPHILS % 0.3 % (0.0-2.0); EOSINOPHILS % 0.1 % (0.0-7.0); HEMATOCRIT 25.9 % (42.0-52.0); HEMOGLOBIN 7.9 g/dl (14.0-18.0); LYMPHOCYTES # 1.6 10^3/ul (0.8-2.9); LYMPHOCYTES % 7.3 % (15.0-51.0); MEAN CORPUSCULAR HEMOGLOBIN 27.8 pg (29.0-33.0); MEAN CORPUSCULAR HGB CONC 30.5 g/dl (32.0-37.0); MEAN CORPUSCULAR VOLUME 91.2 fl (82.0-101.0); MEAN PLATELET VOLUME 11.6 fl (7.4-10.4); MONOCYTE # 0.4 10^3/ul (0.3-0.9); MONOCYTES % 1.6 % (0.0-11.0); NEUTROPHILS % 90.2 % (39.0-77.0); PLATELET COUNT 138 10^3/UL (140-415); RED BLOOD COUNT 2.84 10^6/ul (4.70-6.10); RED CELL DISTRIBUTION WIDTH 16.5 % (11.5-14.5)
[2017-10-26] MEDS: CITRIC ACID/NA CITRATE 30 ML CUP PO ×4 (08:52→20:37)
[2017-10-26] MEDS: L ACIDOPHIL/B LACTIS/B LONGUM CAPSULE PO ×2 (08:52→20:38)
[2017-10-26] MEDS: NEUTRA-PHOS 250 MG PACKET PO ×3 (08:52→20:37)
[2017-10-26] MEDS: MAGNESIUM OXIDE 400 MG TAB PO ×2 (08:52→20:38)
[2017-10-26] MEDS: LOPERAMIDE 2 MG CAP PO ×2 (08:52→20:38)
[2017-10-26] MEDS: oxyCODONE (CR) 15 MG TAB [oxyCONTIN] PO ×2 (08:53→20:37)
[2017-10-26] MEDS: ZYVOX 600 MG TAB PO ×2 (08:53→20:38)
[2017-10-26] MEDS: RIFAXIMIN 550 MG TAB PO ×2 (08:53→20:38)
[2017-10-26] MEDS: CHOLECALCIFEROL 1,000 UNIT TAB PO (08:53)
[2017-10-26 08:57] LABS: ANION GAP 10 (8-16); BLOOD UREA NITROGEN 19 mg/dl (7-20); CARBON DIOXIDE 18 mmol/L (21-31); CHLORIDE 115 mmol/L (97-110); CREATININE 1.75 mg/dl (0.61-1.24); GLUCOSE 92 mg/dl (70-220); POTASSIUM 3.7 mmol/L (3.5-5.1); SODIUM 139 mmol/L (135-144)
[2017-10-26] MEDS: TOBRAMYCIN 100 MG in DEXTROSE 5% 100 ML IVPB (10:39)
[2017-10-26] MEDS: ENOXAPARIN 30 MG/0.3 ML SYG SC (10:40)
[2017-10-26] MEDS: BALSAM PERU/CASTOR OIL 60 GM TUBE TOP (14:23)
[2017-10-26] MEDS: COLLAGENASE 5 GM (UD JAR) TOP (14:23)
[2017-10-26] MEDS: APIXABAN 5 MG TABLET PO (20:38)
[2017-10-27] MEDS: ONDANSETRON 4 MG INJ IV ×4 (02:26→20:59)
[2017-10-27] MEDS: AVIBACTAM IVPB ×2 (02:26→13:49)
[2017-10-27] MEDS: SOD CHLORIDE 0.9% IVPB ×2 (02:26→13:49)
[2017-10-27] MEDS: CEFTAZIDIME IVPB ×2 (02:26→13:49)
[2017-10-27] MEDS: morphine 2 MG INJ IV ×2 (04:17→12:23)
[2017-10-27 05:55] LABS: ADD MAN DIFF? NO
[2017-10-27 06:02] LABS: WHITE BLOOD COUNT 19.1 10^3/ul (4.8-10.8)
[2017-10-27 06:02] LABS: BASOPHILS % 0.2 % (0.0-2.0); HEMATOCRIT 24.1 % (42.0-52.0); HEMOGLOBIN 7.5 g/dl (14.0-18.0); LYMPHOCYTES # 0.9 10^3/ul (0.8-2.9); LYMPHOCYTES % 4.5 % (15.0-51.0); MEAN CORPUSCULAR HGB CONC 31.1 g/dl (32.0-37.0); MEAN CORPUSCULAR VOLUME 93.1 fl (82.0-101.0); MEAN PLATELET VOLUME 10.9 fl (7.4-10.4); MONOCYTE # 0.2 10^3/ul (0.3-0.9); MONOCYTES % 1.1 % (0.0-11.0); NEUTROPHIL # 17.8 10^3/ul (1.6-7.5); NEUTROPHILS % 93.4 % (39.0-77.0); PLATELET COUNT 100 10^3/UL (140-415); RED BLOOD COUNT 2.59 10^6/ul (4.70-6.10); RED CELL DISTRIBUTION WIDTH 16.3 % (11.5-14.5)
[2017-10-27 06:28] LABS: ANION GAP 12 (8-16); BLOOD UREA NITROGEN 22 mg/dl (7-20); CARBON DIOXIDE 15 mmol/L (21-31); CHLORIDE 117 mmol/L (97-110); CREATININE 1.88 mg/dl (0.61-1.24); GLUCOSE 164 mg/dl (70-220); MAGNESIUM 1.9 mg/dl (1.7-2.5); PHOSPHORUS 2.9 mg/dl (2.5-4.9); POTASSIUM 3.7 mmol/L (3.5-5.1); SODIUM 140 mmol/L (135-144)
[2017-10-27] MEDS: oxyCODONE (CR) 15 MG TAB [oxyCONTIN] PO ×2 (09:00→20:58)
[2017-10-27] MEDS: CITRIC ACID/NA CITRATE 30 ML CUP PO ×3 (09:00→20:57)
[2017-10-27] MEDS: L ACIDOPHIL/B LACTIS/B LONGUM CAPSULE PO ×2 (09:44→20:59)
[2017-10-27] MEDS: NEUTRA-PHOS 250 MG PACKET PO ×2 (09:44→20:59)
[2017-10-27] MEDS: CHOLECALCIFEROL 1,000 UNIT TAB PO (09:44)
[2017-10-27] MEDS: RIFAXIMIN 550 MG TAB PO ×2 (09:44→20:58)
[2017-10-27] MEDS: APIXABAN 5 MG TABLET PO ×2 (09:44→20:59)
[2017-10-27] MEDS: LOPERAMIDE 2 MG CAP PO ×2 (09:44→20:58)
[2017-10-27] MEDS: COLLAGENASE 5 GM (UD JAR) TOP (09:45)
[2017-10-27] MEDS: BALSAM PERU/CASTOR OIL 60 GM TUBE TOP (09:45)
[2017-10-27 16:01] LABS: ADD UMIC YES; UR ASCORBIC ACID NEGATIVE (NEGATIVE); UR BILIRUBIN (Dip) NEGATIVE (NEGATIVE); UR BLOOD (Dip) 3+ mg/dL (NEGATIVE); UR CLARITY CLOUDY (CLEAR); UR COLOR RED (YELLOW); UR GLUCOSE (Dip) NEGATIVE (NEGATIVE); UR KETONES (Dip) NEGATIVE (NEGATIVE); UR LEUKOCYTE ESTERASE (Dip) 3+ Leu/ul (NEGATIVE); UR MUCUS FEW /HPF (NONE SEEN); UR NITRITE (Dip) NEGATIVE (NEGATIVE); UR RBC > 182 /HPF (0-5); UR SPECIFIC GRAVITY (Dip) 1.012 (1.003-1.030); UR TOTAL PROTEIN (Dip) 2+ mg/dl (NEGATIVE); UR UROBILINOGEN (Dip) NEGATIVE (NEGATIVE); UR WBC > 182 /HPF (0-5)
[2017-10-27] MEDS: morphine LIQ (10 MG/5 ML) CUP PO (21:11)
[2017-10-28] MEDS: AVIBACTAM IVPB ×2 (01:24→14:07)
[2017-10-28] MEDS: SOD CHLORIDE 0.9% IVPB ×2 (01:24→14:07)
[2017-10-28] MEDS: CEFTAZIDIME IVPB ×2 (01:24→14:07)
[2017-10-28] MEDS: ONDANSETRON 4 MG INJ IV ×4 (03:52→22:26)
[2017-10-28 07:13] LABS: ADD MAN DIFF? NO
[2017-10-28 07:17] LABS: WHITE BLOOD COUNT 16.5 10^3/ul (4.8-10.8)
[2017-10-28 07:17] LABS: ABNORMAL IP MESSAGE 1; BASOPHILS % 0.2 % (0.0-2.0); EOSINOPHILS % 0.1 % (0.0-7.0); HEMATOCRIT 22.8 % (42.0-52.0); LYMPHOCYTES # 0.9 10^3/ul (0.8-2.9); LYMPHOCYTES % 5.4 % (15.0-51.0); MEAN CORPUSCULAR HEMOGLOBIN 27.9 pg (29.0-33.0); MEAN CORPUSCULAR HGB CONC 29.4 g/dl (32.0-37.0); MEAN PLATELET VOLUME 11.8 fl (7.4-10.4); MONOCYTE # 0.4 10^3/ul (0.3-0.9); MONOCYTES % 2.5 % (0.0-11.0); NEUTROPHIL # 15.1 10^3/ul (1.6-7.5); NEUTROPHILS % 91.1 % (39.0-77.0); PLATELET COUNT 97 10^3/UL (140-415); POSITIVE DIFF @See below; RED CELL DISTRIBUTION WIDTH 16.5 % (11.5-14.5)
[2017-10-28 07:24] LABS: HEMOGLOBIN 6.7 g/dl (14.0-18.0)
[2017-10-28 07:26] LABS: PATH REVIEW? YES
[2017-10-28 07:44] LABS: ANION GAP 8 (8-16); BLOOD UREA NITROGEN 23 mg/dl (7-20); CARBON DIOXIDE 14 mmol/L (21-31); CHLORIDE 121 mmol/L (97-110); CREATININE 1.74 mg/dl (0.61-1.24); GLUCOSE 83 mg/dl (70-220); MAGNESIUM 1.8 mg/dl (1.7-2.5); POTASSIUM 4.3 mmol/L (3.5-5.1); SODIUM 139 mmol/L (135-144)
[2017-10-28 08:13] LABS: PHOSPHORUS 2.6 mg/dl (2.5-4.9)
[2017-10-28 09:13] LABS: HEMATOCRIT 22.8 % (42.0-52.0)
[2017-10-28] MEDS: CITRIC ACID/NA CITRATE 30 ML CUP PO ×3 (09:15→21:00)
[2017-10-28] MEDS: LOPERAMIDE 2 MG CAP PO ×2 (09:16→22:24)
[2017-10-28] MEDS: L ACIDOPHIL/B LACTIS/B LONGUM CAPSULE PO ×2 (09:16→22:24)
[2017-10-28] MEDS: NEUTRA-PHOS 250 MG PACKET PO ×2 (09:16→22:24)
[2017-10-28] MEDS: RIFAXIMIN 550 MG TAB PO ×2 (09:16→22:25)
[2017-10-28] MEDS: BALSAM PERU/CASTOR OIL 60 GM TUBE TOP (09:16)
[2017-10-28] MEDS: CHOLECALCIFEROL 1,000 UNIT TAB PO (09:16)
[2017-10-28] MEDS: COLLAGENASE 5 GM (UD JAR) TOP (09:16)
[2017-10-28] MEDS: APIXABAN 5 MG TABLET PO ×2 (09:17→22:25)
[2017-10-28 09:30] LABS: ANISOCYTOSIS 1+ (0-0); BAND NEUTROPHILS #M 0.4 10^3/ul (0.0-0.6); BAND NEUTROPHILS % (M) 3 % (0-4); BURR CELLS 1+ (0-0); PLATELET ESTIMATE DECREASED; POIKILOCYTOSIS 1+ (0-0); SEG NEUT #M 16.1 10^3/ul (1.6-7.5); SEGMENTED NEUTROPHILS (M) % 97 % (39-77); SMUDGE%M 17 % (0-0)
[2017-10-28] MEDS: oxyCODONE (CR) 15 MG TAB [oxyCONTIN] PO ×2 (09:33→22:25)
[2017-10-28] MEDS: FLUCONAZOLE 200 MG TAB PO (13:03)
[2017-10-28] MEDS: metroNIDAZOLE 250 MG TAB PO ×2 (14:07→22:24)
[2017-10-29] MEDS: CEFTAZIDIME IVPB ×2 (01:56→20:58)
[2017-10-29] MEDS: SOD CHLORIDE 0.9% IVPB ×2 (01:56→20:58)
[2017-10-29] MEDS: AVIBACTAM IVPB ×2 (01:56→20:58)
[2017-10-29] MEDS: ONDANSETRON 4 MG INJ IV ×4 (03:39→21:03)
[2017-10-29] MEDS: metroNIDAZOLE 250 MG TAB PO ×3 (06:48→22:08)
[2017-10-29 06:55] LABS: ADD MAN DIFF? NO
[2017-10-29 07:04] LABS: WHITE BLOOD COUNT 14.8 10^3/ul (4.8-10.8)
[2017-10-29 07:04] LABS: ABNORMAL IP MESSAGE 1; BASOPHILS % 0.2 % (0.0-2.0); EOSINOPHILS % 0.1 % (0.0-7.0); HEMATOCRIT 20.3 % (42.0-52.0); LYMPHOCYTES # 0.8 10^3/ul (0.8-2.9); LYMPHOCYTES % 5.1 % (15.0-51.0); MEAN CORPUSCULAR HEMOGLOBIN 27.9 pg (29.0-33.0); MEAN CORPUSCULAR HGB CONC 31.5 g/dl (32.0-37.0); MEAN CORPUSCULAR VOLUME 88.6 fl (82.0-101.0); MEAN PLATELET VOLUME 11.8 fl (7.4-10.4); MONOCYTE # 0.7 10^3/ul (0.3-0.9); MONOCYTES % 4.6 % (0.0-11.0); NEUTROPHIL # 13.2 10^3/ul (1.6-7.5); NEUTROPHILS % 89.3 % (39.0-77.0); PLATELET COUNT 104 10^3/UL (140-415); POSITIVE DIFF @See below; RED BLOOD COUNT 2.29 10^6/ul (4.70-6.10); RED CELL DISTRIBUTION WIDTH 16.5 % (11.5-14.5)
[2017-10-29 07:21] LABS: HEMOGLOBIN 6.4 g/dl (14.0-18.0); PATH REVIEW? YES
[2017-10-29 07:30] LABS: ANION GAP 10 (8-16); BLOOD UREA NITROGEN 23 mg/dl (7-20); CALCIUM 8.1 mg/dl (8.4-10.2); CARBON DIOXIDE 15 mmol/L (21-31); CHLORIDE 117 mmol/L (97-110); CREATININE 1.72 mg/dl (0.61-1.24); GLUCOSE 92 mg/dl (70-220); MAGNESIUM 1.5 mg/dl (1.7-2.5); PHOSPHORUS 3.1 mg/dl (2.5-4.9); POTASSIUM 3.4 mmol/L (3.5-5.1); SODIUM 139 mmol/L (135-144)
[2017-10-29 08:27] LABS: ANISOCYTOSIS 1+ (0-0); BAND NEUTROPHILS #M 0.4 10^3/ul (0.0-0.6); BAND NEUTROPHILS % (M) 3 % (0-4); BASOPHIL #M 0.1 10^3/ul (0.0-0.0); BASOPHILS % (M) 1 % (0-2); BURR CELLS 2+ (0-0); GIANT THROMBO% (M) 3 % (0-0); LYMPHOCYTES #M 0.2 10^3/ul (0.8-2.9); LYMPHOCYTES % (M) 2 % (15-51); MONOCYTE #M 0.5 10^3/ul (0.3-0.9); MONOCYTES % (M) 4 % (0-11); OVALOCYTES 1+ (0-0); PLATELET ESTIMATE DECREASED; POIKILOCYTOSIS 1+ (0-0); SEG NEUT #M 13.4 10^3/ul (1.6-7.5); SEGMENTED NEUTROPHILS (M) % 90 % (39-77); SMUDGE%M 6 % (0-0)
[2017-10-29] MEDS: BALSAM PERU/CASTOR OIL 60 GM TUBE TOP (09:00)
[2017-10-29] MEDS: COLLAGENASE 5 GM (UD JAR) TOP (09:00)
[2017-10-29] MEDS: CITRIC ACID/NA CITRATE 30 ML CUP PO ×4 (09:00→21:00)
[2017-10-29] MEDS: POTASSIUM CHLORIDE (SR) 20 MEQ TAB PO (09:22)
[2017-10-29] MEDS: L ACIDOPHIL/B LACTIS/B LONGUM CAPSULE PO ×2 (09:23→21:02)
[2017-10-29] MEDS: MAGNESIUM SULFATE 2 GM/50 ML 50 ML IVPB (09:23)
[2017-10-29] MEDS: LOPERAMIDE 2 MG CAP PO ×2 (09:23→21:03)
[2017-10-29] MEDS: FLUCONAZOLE 200 MG TAB PO (09:23)
[2017-10-29] MEDS: NEUTRA-PHOS 250 MG PACKET PO ×2 (09:24→21:03)
[2017-10-29] MEDS: CHOLECALCIFEROL 1,000 UNIT TAB PO (09:24)
[2017-10-29] MEDS: oxyCODONE (CR) 15 MG TAB [oxyCONTIN] PO ×2 (09:24→21:03)
[2017-10-29] MEDS: RIFAXIMIN 550 MG TAB PO ×2 (09:24→21:02)
[2017-10-29 15:28] LABS: AHG CROSSMATCH 1 2
[2017-10-30] MEDS: ONDANSETRON 4 MG INJ IV ×4 (03:14→20:39)
[2017-10-30 05:17] LABS: ADD MAN DIFF? NO
[2017-10-30 05:25] LABS: WHITE BLOOD COUNT 15.8 10^3/ul (4.8-10.8)
[2017-10-30 05:25] LABS: ABNORMAL IP MESSAGE 1; BASOPHILS % 0.1 % (0.0-2.0); EOSINOPHILS % 0.1 % (0.0-7.0); HEMATOCRIT 34.6 % (42.0-52.0); HEMOGLOBIN 11.5 g/dl (14.0-18.0); LYMPHOCYTES # 1.1 10^3/ul (0.8-2.9); LYMPHOCYTES % 6.8 % (15.0-51.0); MEAN CORPUSCULAR HEMOGLOBIN 28.5 pg (29.0-33.0); MEAN CORPUSCULAR HGB CONC 33.2 g/dl (32.0-37.0); MEAN CORPUSCULAR VOLUME 85.6 fl (82.0-101.0); MEAN PLATELET VOLUME 12.6 fl (7.4-10.4); MONOCYTES % 6.2 % (0.0-11.0); NEUTROPHIL # 13.5 10^3/ul (1.6-7.5); NEUTROPHILS % 85.7 % (39.0-77.0); PLATELET COUNT 82 10^3/UL (140-415); POSITIVE DIFF @See below; RED BLOOD COUNT 4.04 10^6/ul (4.70-6.10); RED CELL DISTRIBUTION WIDTH 15.7 % (11.5-14.5)
[2017-10-30] MEDS: metroNIDAZOLE 250 MG TAB PO ×3 (05:33→22:20)
[2017-10-30 05:34] LABS: ANION GAP 10 (8-16); BLOOD UREA NITROGEN 22 mg/dl (7-20); CALCIUM 8.4 mg/dl (8.4-10.2); CARBON DIOXIDE 16 mmol/L (21-31); CHLORIDE 118 mmol/L (97-110); CREATININE 1.75 mg/dl (0.61-1.24); GLUCOSE 100 mg/dl (70-220); MAGNESIUM 1.9 mg/dl (1.7-2.5); PHOSPHORUS 2.8 mg/dl (2.5-4.9); POTASSIUM 4.2 mmol/L (3.5-5.1); SODIUM 140 mmol/L (135-144)
[2017-10-30] MEDS: RIFAXIMIN 550 MG TAB PO ×2 (08:36→20:39)
[2017-10-30] MEDS: oxyCODONE (CR) 15 MG TAB [oxyCONTIN] PO ×2 (08:36→20:39)
[2017-10-30] MEDS: FLUCONAZOLE 200 MG TAB PO (08:36)
[2017-10-30] MEDS: LOPERAMIDE 2 MG CAP PO ×2 (08:36→20:39)
[2017-10-30] MEDS: NEUTRA-PHOS 250 MG PACKET PO ×2 (08:37→20:39)
[2017-10-30] MEDS: CITRIC ACID/NA CITRATE 30 ML CUP PO ×3 (08:37→20:40)
[2017-10-30] MEDS: CHOLECALCIFEROL 1,000 UNIT TAB PO (08:37)
[2017-10-30] MEDS: CEFTAZIDIME IVPB ×2 (08:46→20:39)
[2017-10-30] MEDS: AVIBACTAM IVPB ×2 (08:46→20:39)
[2017-10-30] MEDS: SOD CHLORIDE 0.9% IVPB ×2 (08:46→20:39)
[2017-10-30] MEDS: COLLAGENASE 5 GM (UD JAR) TOP (09:00)
[2017-10-30] MEDS: BALSAM PERU/CASTOR OIL 60 GM TUBE TOP (09:00)
[2017-10-30] MEDS: L ACIDOPHIL/B LACTIS/B LONGUM CAPSULE PO ×2 (12:07→20:39)
[2017-10-31] MEDS: ONDANSETRON 4 MG INJ IV ×4 (02:44→20:47)
[2017-10-31] MEDS: metroNIDAZOLE 250 MG TAB PO ×3 (06:07→20:49)
[2017-10-31] MEDS: CEFTAZIDIME IVPB ×2 (08:21→20:51)
[2017-10-31] MEDS: AVIBACTAM IVPB ×2 (08:21→20:51)
[2017-10-31] MEDS: SOD CHLORIDE 0.9% IVPB ×2 (08:21→20:51)
[2017-10-31] MEDS: FLUCONAZOLE 200 MG TAB PO (08:23)
[2017-10-31] MEDS: L ACIDOPHIL/B LACTIS/B LONGUM CAPSULE PO ×2 (08:23→20:51)
[2017-10-31] MEDS: LOPERAMIDE 2 MG CAP PO ×2 (08:23→20:47)
[2017-10-31] MEDS: CHOLECALCIFEROL 1,000 UNIT TAB PO (08:23)
[2017-10-31] MEDS: oxyCODONE (CR) 15 MG TAB [oxyCONTIN] PO ×2 (08:23→20:47)
[2017-10-31] MEDS: CITRIC ACID/NA CITRATE 30 ML CUP PO ×3 (08:25→20:50)
[2017-10-31] MEDS: NEUTRA-PHOS 250 MG PACKET PO ×2 (08:25→20:47)
[2017-10-31] MEDS: BALSAM PERU/CASTOR OIL 60 GM TUBE TOP (09:00)
[2017-10-31] MEDS: COLLAGENASE 5 GM (UD JAR) TOP (09:00)
[2017-10-31] MEDS: RIFAXIMIN 550 MG TAB PO ×2 (09:00→20:47)
[2017-10-31 13:31] LABS: PROCALCITONIN 0.72 ng/mL (<0.10)
[2017-11-01] MEDS: ONDANSETRON 4 MG INJ IV ×4 (02:16→20:41)
[2017-11-01] MEDS: metroNIDAZOLE 250 MG TAB PO ×3 (05:26→21:28)
[2017-11-01 07:07] LABS: ADD MAN DIFF? NO
[2017-11-01 07:11] LABS: BASOPHILS % 0.1 % (0.0-2.0); EOSINOPHILS % 0.1 % (0.0-7.0); HEMATOCRIT 34.2 % (42.0-52.0); HEMOGLOBIN 10.8 g/dl (14.0-18.0); LYMPHOCYTES # 0.9 10^3/ul (0.8-2.9); LYMPHOCYTES % 6.9 % (15.0-51.0); MEAN CORPUSCULAR HEMOGLOBIN 28.7 pg (29.0-33.0); MEAN CORPUSCULAR HGB CONC 31.6 g/dl (32.0-37.0); MEAN PLATELET VOLUME 11.4 fl (7.4-10.4); MONOCYTE # 0.8 10^3/ul (0.3-0.9); MONOCYTES % 5.9 % (0.0-11.0); NEUTROPHIL # 11.1 10^3/ul (1.6-7.5); NEUTROPHILS % 84.3 % (39.0-77.0); PLATELET COUNT 168 10^3/UL (140-415); POSITIVE DIFF @See below; RED BLOOD COUNT 3.76 10^6/ul (4.70-6.10); RED CELL DISTRIBUTION WIDTH 16.4 % (11.5-14.5)
[2017-11-01 07:11] LABS: WHITE BLOOD COUNT 13.1 10^3/ul (4.8-10.8)
[2017-11-01] MEDS: [UNRECOGNIZED DRUG - MIXTURE] IV ×3 (07:27→21:29)
[2017-11-01 07:36] LABS: ANION GAP 12 (8-16); BLOOD UREA NITROGEN 26 mg/dl (7-20); CALCIUM 8.9 mg/dl (8.4-10.2); CARBON DIOXIDE 13 mmol/L (21-31); CHLORIDE 120 mmol/L (97-110); CREATININE 2.15 mg/dl (0.61-1.24); GLUCOSE 85 mg/dl (70-220); POTASSIUM 4.7 mmol/L (3.5-5.1); SODIUM 140 mmol/L (135-144)
[2017-11-01] MEDS: LOPERAMIDE 2 MG CAP PO ×2 (08:54→20:42)
[2017-11-01] MEDS: FLUCONAZOLE 200 MG TAB PO (08:54)
[2017-11-01] MEDS: NEUTRA-PHOS 250 MG PACKET PO ×2 (08:55→20:42)
[2017-11-01] MEDS: L ACIDOPHIL/B LACTIS/B LONGUM CAPSULE PO ×2 (08:55→20:41)
[2017-11-01] MEDS: RIFAXIMIN 550 MG TAB PO ×2 (08:55→20:42)
[2017-11-01] MEDS: oxyCODONE (CR) 15 MG TAB [oxyCONTIN] PO ×2 (08:56→20:42)
[2017-11-01] MEDS: CITRIC ACID/NA CITRATE 30 ML CUP PO ×4 (08:56→20:40)
[2017-11-01] MEDS: COLLAGENASE 5 GM (UD JAR) TOP (08:56)
[2017-11-01] MEDS: CHOLECALCIFEROL 1,000 UNIT TAB PO (08:57)
[2017-11-01 10:02] LABS: ANISOCYTOSIS 1+ (0-0); BAND NEUTROPHILS #M 1.7 10^3/ul (0.0-0.6); BAND NEUTROPHILS % (M) 13 % (0-4); BURR CELLS 3+ (0-0); LYMPHOCYTES #M 1.3 10^3/ul (0.8-2.9); LYMPHOCYTES % (M) 10 % (15-51); MONOCYTE #M 0.5 10^3/ul (0.3-0.9); MONOCYTES % (M) 4 % (0-11); PLATELET ESTIMATE NORMAL; POIKILOCYTOSIS 1+ (0-0); SEG NEUT #M 9.8 10^3/ul (1.6-7.5); SEGMENTED NEUTROPHILS (M) % 73 % (39-77); SMUDGE%M 23 % (0-0); SPHEROCYTES 1+ (0-0)
[2017-11-01] MEDS: SODIUM BICARBONATE (IV ADD) 150 MEQ in DEXTROSE 5% 850 ML IV (10:23)
[2017-11-01] MEDS: BALSAM PERU/CASTOR OIL 60 GM TUBE TOP (16:13)
[2017-11-02] MEDS: ONDANSETRON 4 MG INJ IV ×4 (02:05→20:52)
[2017-11-02] MEDS: SOD CHLORIDE 0.9% 500 ML IV ×2 (03:43→05:18)
[2017-11-02] MEDS: metroNIDAZOLE 250 MG TAB PO ×3 (05:17→20:59)
[2017-11-02] MEDS: SODIUM BICARBONATE (IV ADD) 150 MEQ in DEXTROSE 5% 850 ML IV ×2 (05:18→17:04)
[2017-11-02 06:10] LABS: WHITE BLOOD COUNT 9.9 10^3/ul (4.8-10.8)
[2017-11-02 06:10] LABS: HEMATOCRIT 29.5 % (42.0-52.0); HEMOGLOBIN 9.5 g/dl (14.0-18.0); MEAN CORPUSCULAR HGB CONC 32.2 g/dl (32.0-37.0); MEAN CORPUSCULAR VOLUME 89.9 fl (82.0-101.0); MEAN PLATELET VOLUME 11.2 fl (7.4-10.4); PLATELET COUNT 228 10^3/UL (140-415); POSITIVE DIFF @See below; RED BLOOD COUNT 3.28 10^6/ul (4.70-6.10); RED CELL DISTRIBUTION WIDTH 16.1 % (11.5-14.5)
[2017-11-02 06:14] LABS: ADD MAN DIFF? YES
[2017-11-02 06:48] LABS: ANISOCYTOSIS 1+ (0-0); BAND NEUTROPHILS % (M) 1 % (0-4); BURR CELLS 1+ (0-0); GIANT THROMBO% (M) 1 % (0-0); LYMPHOCYTES #M 0.1 10^3/ul (0.8-2.9); LYMPHOCYTES % (M) 2 % (15-51); MONOCYTE #M 0.4 10^3/ul (0.3-0.9); MONOCYTES % (M) 5 % (0-11); PLATELET ESTIMATE NORMAL; POIKILOCYTOSIS 1+ (0-0); SEG NEUT #M 9.1 10^3/ul (1.6-7.5); SEGMENTED NEUTROPHILS (M) % 92 % (39-77); SMUDGE%M 7 % (0-0)
[2017-11-02] MEDS: [UNRECOGNIZED DRUG - MIXTURE] IV ×3 (06:52→20:57)
[2017-11-02 07:14] LABS: ANION GAP 10 (8-16); BLOOD UREA NITROGEN 29 mg/dl (7-20); CALCIUM 7.8 mg/dl (8.4-10.2); CARBON DIOXIDE 17 mmol/L (21-31); CHLORIDE 115 mmol/L (97-110); CREATININE 2.46 mg/dl (0.61-1.24); GLUCOSE 85 mg/dl (70-220); MAGNESIUM 1.5 mg/dl (1.7-2.5); PHOSPHORUS 4.8 mg/dl (2.5-4.9); SODIUM 138 mmol/L (135-144)
[2017-11-02] MEDS: CITRIC ACID/NA CITRATE 30 ML CUP PO ×3 (08:36→21:00)
[2017-11-02] MEDS: LOPERAMIDE 2 MG CAP PO ×2 (08:49→20:52)
[2017-11-02] MEDS: FLUCONAZOLE 200 MG TAB PO (08:49)
[2017-11-02] MEDS: L ACIDOPHIL/B LACTIS/B LONGUM CAPSULE PO (08:49)
[2017-11-02] MEDS: CHOLECALCIFEROL 1,000 UNIT TAB PO (08:49)
[2017-11-02] MEDS: oxyCODONE (CR) 15 MG TAB [oxyCONTIN] PO ×2 (08:49→20:52)
[2017-11-02] MEDS: NEUTRA-PHOS 250 MG PACKET PO ×2 (08:49→20:52)
[2017-11-02] MEDS: RIFAXIMIN 550 MG TAB PO ×2 (08:49→20:52)
[2017-11-02] MEDS: BALSAM PERU/CASTOR OIL 60 GM TUBE TOP (08:50)
[2017-11-02] MEDS: COLLAGENASE 5 GM (UD JAR) TOP (08:50)
[2017-11-02] MEDS ORDERED: TPN 1,000 ML IV (14:33)
[2017-11-02 15:29] LABS: ADD UMIC YES; UR ASCORBIC ACID NEGATIVE (NEGATIVE); UR BILIRUBIN (Dip) NEGATIVE (NEGATIVE); UR BLOOD (Dip) 3+ mg/dL (NEGATIVE); UR CLARITY CLOUDY (CLEAR); UR COLOR RED (YELLOW); UR GLUCOSE (Dip) NEGATIVE (NEGATIVE); UR KETONES (Dip) NEGATIVE (NEGATIVE); UR LEUKOCYTE ESTERASE (Dip) 2+ Leu/ul (NEGATIVE); UR NITRITE (Dip) NEGATIVE (NEGATIVE); UR RBC > 182 /HPF (0-5); UR SPECIFIC GRAVITY (Dip) 1.015 (1.003-1.030); UR TOTAL PROTEIN (Dip) 2+ mg/dl (NEGATIVE); UR UROBILINOGEN (Dip) NEGATIVE (NEGATIVE); UR WBC > 182 /HPF (0-5)
[2017-11-02 15:30] LABS: ALANINE AMINOTRANSFERASE 20 IU/L (13-69); ALBUMIN 1.8 g/dl (3.3-4.9); ALBUMIN/GLOBULIN RATIO 0.51; ALKALINE PHOSPHATASE 106 IU/L (42-121); ANION GAP 13 (8-16); ASPARTATE AMINO TRANSFERASE 14 IU/L (15-46); BLOOD UREA NITROGEN 28 mg/dl (7-20); CALCIUM 8.3 mg/dl (8.4-10.2); CARBON DIOXIDE 15 mmol/L (21-31); CHLORIDE 115 mmol/L (97-110); CREATININE 2.51 mg/dl (0.61-1.24); GLUCOSE 79 mg/dl (70-220); POTASSIUM 3.8 mmol/L (3.5-5.1); SODIUM 139 mmol/L (135-144); TOTAL PROTEIN 5.3 g/dl (6.1-8.1); TRIGLYCERIDES 126 mg/dl (0-149)
[2017-11-02 15:56] LABS: PREALBUMIN 3.4 mg/dl (17.6-36.0)
[2017-11-02 16:02] LABS: CREATININE,URINE RANDOM 82.46 mg/dl (20-370)
[2017-11-02 16:02] LABS: SODIUM,URINE RANDOM 87 mmol/L (30-90)
[2017-11-02] MEDS ORDERED: ACCU-CHEK XX (17:00)
[2017-11-02] MEDS: HYDROCODONE/APAP (5/325) TAB PO (17:10)
[2017-11-02] MEDS: METOCLOPRAMIDE 5 MG TAB PO (17:10)
[2017-11-02] MEDS: NYSTATIN SUSP 5 ML CUP PO (20:52)
[2017-11-03] MEDS: ONDANSETRON 4 MG INJ IV ×4 (02:11→21:08)
[2017-11-03] MEDS: L ACIDOPHIL/B LACTIS/B LONGUM CAPSULE PO ×3 (02:11→21:09)
[2017-11-03 04:53] LABS: ADD MAN DIFF? NO
[2017-11-03 05:03] LABS: ABNORMAL IP MESSAGE 1; EOSINOPHILS # 0.1 10^3/ul (0.0-0.5); EOSINOPHILS % 0.6 % (0.0-7.0); HEMATOCRIT 27.2 % (42.0-52.0); HEMOGLOBIN 8.9 g/dl (14.0-18.0); LYMPHOCYTES # 0.7 10^3/ul (0.8-2.9); LYMPHOCYTES % 7.9 % (15.0-51.0); MEAN CORPUSCULAR HEMOGLOBIN 28.9 pg (29.0-33.0); MEAN CORPUSCULAR HGB CONC 32.7 g/dl (32.0-37.0); MEAN CORPUSCULAR VOLUME 88.3 fl (82.0-101.0); MEAN PLATELET VOLUME 10.1 fl (7.4-10.4); MONOCYTE # 0.7 10^3/ul (0.3-0.9); MONOCYTES % 7.9 % (0.0-11.0); PLATELET COUNT 249 10^3/UL (140-415); POSITIVE DIFF @See below; RED BLOOD COUNT 3.08 10^6/ul (4.70-6.10); RED CELL DISTRIBUTION WIDTH 16.1 % (11.5-14.5)
[2017-11-03 05:03] LABS: WHITE BLOOD COUNT 8.4 10^3/ul (4.8-10.8)
[2017-11-03] MEDS: metroNIDAZOLE 250 MG TAB PO ×3 (05:15→21:09)
[2017-11-03] MEDS: [UNRECOGNIZED DRUG - MIXTURE] IV ×3 (05:15→21:09)
[2017-11-03 05:24] LABS: ANION GAP 8 (8-16); BLOOD UREA NITROGEN 31 mg/dl (7-20); CALCIUM 7.5 mg/dl (8.4-10.2); CARBON DIOXIDE 19 mmol/L (21-31); CHLORIDE 116 mmol/L (97-110); GLUCOSE 85 mg/dl (70-220); MAGNESIUM 1.4 mg/dl (1.7-2.5); PHOSPHORUS 4.7 mg/dl (2.5-4.9); POTASSIUM 3.7 mmol/L (3.5-5.1); SODIUM 139 mmol/L (135-144)
[2017-11-03] MEDS: NYSTATIN SUSP 5 ML CUP PO ×4 (08:18→21:08)
[2017-11-03] MEDS: COLLAGENASE 5 GM (UD JAR) TOP (08:18)
[2017-11-03] MEDS: oxyCODONE (CR) 15 MG TAB [oxyCONTIN] PO ×2 (08:19→21:09)
[2017-11-03] MEDS: BALSAM PERU/CASTOR OIL 60 GM TUBE TOP (08:19)
[2017-11-03] MEDS: METOCLOPRAMIDE 5 MG TAB PO ×3 (08:19→17:38)
[2017-11-03] MEDS: CHOLECALCIFEROL 1,000 UNIT TAB PO (08:19)
[2017-11-03] MEDS: RIFAXIMIN 550 MG TAB PO ×2 (08:19→21:09)
[2017-11-03] MEDS: NEUTRA-PHOS 250 MG PACKET PO ×2 (08:20→21:09)
[2017-11-03] MEDS: LOPERAMIDE 2 MG CAP PO ×2 (08:20→21:09)
[2017-11-03] MEDS: CITRIC ACID/NA CITRATE 30 ML CUP PO ×3 (08:29→21:00)
[2017-11-03] MEDS: MAGNESIUM SULFATE 2 GM/50 ML 50 ML IVPB (11:05)
[2017-11-03] MEDS: FLUCONAZOLE 200 MG TAB PO (12:14)
[2017-11-03 13:20] LABS: ANISOCYTOSIS 1+ (0-0); BAND NEUTROPHILS % (M) 13 % (0-4); EOSINOPHILS % (M) 3 % (0-7); GIANT THROMBO% (M) 8 % (0-0); HYPOCHROMASIA 1+ (0-0); LYMPHOCYTES #M 0.4 10^3/ul (0.8-2.9); LYMPHOCYTES % (M) 5 % (15-51); MICROCYTOSIS 1+ (0-0); MONOCYTE #M 0.2 10^3/ul (0.3-0.9); MONOCYTES % (M) 3 % (0-11); PLATELET ESTIMATE NORMAL; SEG NEUT #M 6.5 10^3/ul (1.6-7.5); SEGMENTED NEUTROPHILS (M) % 76 % (39-77); SMUDGE%M 7 % (0-0)
[2017-11-03] MEDS: SODIUM BICARBONATE (IV ADD) 150 MEQ in DEXTROSE 5% 850 ML IV (14:20)
[2017-11-03] MEDS: ACCU-CHEK XX ×2 (17:00→21:09)
[2017-11-03] MEDS: TPN 1,000 ML IV (17:40)
[2017-11-04] MEDS: ACCU-CHEK XX ×6 (01:20→23:59)
[2017-11-04] MEDS: ONDANSETRON 4 MG INJ IV ×4 (04:52→21:21)
[2017-11-04] MEDS: [UNRECOGNIZED DRUG - MIXTURE] IV ×3 (06:31→22:45)
[2017-11-04] MEDS: metroNIDAZOLE 250 MG TAB PO ×3 (06:31→21:21)
[2017-11-04 07:44] LABS: ADD MAN DIFF? NO
[2017-11-04 07:51] LABS: ABNORMAL IP MESSAGE 1; BASOPHILS % 0.1 % (0.0-2.0); EOSINOPHILS # 0.1 10^3/ul (0.0-0.5); EOSINOPHILS % 0.7 % (0.0-7.0); HEMATOCRIT 28.8 % (42.0-52.0); HEMOGLOBIN 9.5 g/dl (14.0-18.0); LYMPHOCYTES % 8.6 % (15.0-51.0); MEAN CORPUSCULAR HEMOGLOBIN 28.4 pg (29.0-33.0); MEAN CORPUSCULAR VOLUME 86.2 fl (82.0-101.0); MEAN PLATELET VOLUME 10.6 fl (7.4-10.4); MONOCYTE # 0.9 10^3/ul (0.3-0.9); MONOCYTES % 7.7 % (0.0-11.0); NEUTROPHIL # 9.8 10^3/ul (1.6-7.5); NUCLEATED RED BLOOD CELLS% 0.3 /100WBC (0.0-0.0); PLATELET COUNT 251 10^3/UL (140-415); POSITIVE DIFF @See below; RED BLOOD COUNT 3.34 10^6/ul (4.70-6.10); RED CELL DISTRIBUTION WIDTH 16.2 % (11.5-14.5)
[2017-11-04 07:51] LABS: WHITE BLOOD COUNT 11.9 10^3/ul (4.8-10.8)
[2017-11-04] MEDS: L ACIDOPHIL/B LACTIS/B LONGUM CAPSULE PO ×2 (08:57→21:21)
[2017-11-04] MEDS: NYSTATIN SUSP 5 ML CUP PO ×4 (08:57→21:00)
[2017-11-04] MEDS: NEUTRA-PHOS 250 MG PACKET PO ×2 (08:57→21:21)
[2017-11-04] MEDS: CITRIC ACID/NA CITRATE 30 ML CUP PO ×4 (08:57→21:00)
[2017-11-04] MEDS: COLLAGENASE 5 GM (UD JAR) TOP (08:57)
[2017-11-04] MEDS: RIFAXIMIN 550 MG TAB PO ×2 (08:57→21:20)
[2017-11-04] MEDS: CHOLECALCIFEROL 1,000 UNIT TAB PO (08:58)
[2017-11-04] MEDS: oxyCODONE (CR) 15 MG TAB [oxyCONTIN] PO ×2 (08:58→21:00)
[2017-11-04] MEDS: LOPERAMIDE 2 MG CAP PO ×2 (08:58→21:20)
[2017-11-04] MEDS: BALSAM PERU/CASTOR OIL 60 GM TUBE TOP (08:58)
[2017-11-04] MEDS: METOCLOPRAMIDE 5 MG TAB PO ×3 (08:58→18:01)
[2017-11-04] MEDS: FLUCONAZOLE 200 MG TAB PO (08:59)
[2017-11-04 09:07] LABS: ANION GAP 12 (8-16); CALCIUM 8.3 mg/dl (8.4-10.2); CARBON DIOXIDE 14 mmol/L (21-31); CHLORIDE 118 mmol/L (97-110); CREATININE 2.55 mg/dl (0.61-1.24); GLUCOSE 118 mg/dl (70-220); MAGNESIUM 1.8 mg/dl (1.7-2.5); POTASSIUM 3.8 mmol/L (3.5-5.1); SODIUM 140 mmol/L (135-144)
[2017-11-04] MEDS: TPN 1,000 ML IV (09:14)
[2017-11-04 09:19] LABS: BLOOD UREA NITROGEN 36 mg/dl (7-20)
[2017-11-04 09:50] LABS: BAND NEUTROPHILS #M 1.3 10^3/ul (0.0-0.6); BAND NEUTROPHILS % (M) 11 % (0-4); BURR CELLS 3+ (0-0); HYPOCHROMASIA 2+ (0-0); LYMPHOCYTES #M 0.8 10^3/ul (0.8-2.9); LYMPHOCYTES % (M) 7 % (15-51); MONOCYTE #M 0.3 10^3/ul (0.3-0.9); MONOCYTES % (M) 3 % (0-11); PLATELET ESTIMATE NORMAL; POIKILOCYTOSIS 2+ (0-0); POLYCHROMASIA 1+ (0-0); REACTIVE LYMPHOCYTES #M 0.1 10^3/ul (0.0-0.0); REACTIVE LYMPHOCYTES% (M) 1 % (0-0); SEG NEUT #M 9.4 10^3/ul (1.6-7.5); SEGMENTED NEUTROPHILS (M) % 78 % (39-77); SMUDGE%M 4 % (0-0); SPHEROCYTES 1+ (0-0); TOXIC GRANULATION 1+ (0-0)
[2017-11-04 16:01] LABS: CREATININE, RANDOM URINE 84 mg/dL (20-320); MICROALBUMIN 36.4 mg/dL; MICROALBUMIN/CREATININE RATIO 433 (<30)
[2017-11-04] MEDS: SOD CHLORIDE 0.9% 500 ML IV (21:21)
[2017-11-05] MEDS: TPN 1,000 ML IV ×2 (01:14→17:38)
[2017-11-05] MEDS: ONDANSETRON 4 MG INJ IV ×4 (03:04→21:12)
[2017-11-05] MEDS: [UNRECOGNIZED DRUG - MIXTURE] IV (06:06)
[2017-11-05] MEDS: ACCU-CHEK XX ×4 (06:06→23:54)
[2017-11-05 07:44] LABS: ADD MAN DIFF? NO
[2017-11-05 07:52] LABS: WHITE BLOOD COUNT 13.4 10^3/ul (4.8-10.8)
[2017-11-05 07:52] LABS: BASOPHILS % 0.1 % (0.0-2.0); EOSINOPHILS # 0.1 10^3/ul (0.0-0.5); EOSINOPHILS % 0.4 % (0.0-7.0); LYMPHOCYTES # 1.1 10^3/ul (0.8-2.9); LYMPHOCYTES % 7.9 % (15.0-51.0); MEAN CORPUSCULAR HEMOGLOBIN 28.2 pg (29.0-33.0); MEAN PLATELET VOLUME 9.9 fl (7.4-10.4); MONOCYTES % 7.3 % (0.0-11.0); NEUTROPHIL # 11.1 10^3/ul (1.6-7.5); NEUTROPHILS % 82.7 % (39.0-77.0); PLATELET COUNT 246 10^3/UL (140-415); POSITIVE DIFF @See below; RED BLOOD COUNT 2.84 10^6/ul (4.70-6.10); RED CELL DISTRIBUTION WIDTH 16.1 % (11.5-14.5)
[2017-11-05 08:13] LABS: ANION GAP 7 (8-16); BLOOD UREA NITROGEN 35 mg/dl (7-20); CALCIUM 7.5 mg/dl (8.4-10.2); CARBON DIOXIDE 17 mmol/L (21-31); CHLORIDE 113 mmol/L (97-110); CREATININE 2.16 mg/dl (0.61-1.24); GLUCOSE 112 mg/dl (70-220); MAGNESIUM 1.8 mg/dl (1.7-2.5); PHOSPHORUS 2.1 mg/dl (2.5-4.9); SODIUM 134 mmol/L (135-144)
[2017-11-05 08:18] LABS: POTASSIUM 2.9 mmol/L (3.5-5.1)
[2017-11-05] MEDS: NYSTATIN SUSP 5 ML CUP PO ×4 (08:22→21:12)
[2017-11-05] MEDS: NEUTRA-PHOS 250 MG PACKET PO ×2 (08:22→21:12)
[2017-11-05] MEDS: L ACIDOPHIL/B LACTIS/B LONGUM CAPSULE PO ×2 (08:22→21:20)
[2017-11-05] MEDS: COLLAGENASE 5 GM (UD JAR) TOP (08:22)
[2017-11-05] MEDS: LOPERAMIDE 2 MG CAP PO ×2 (08:23→21:12)
[2017-11-05] MEDS: CHOLECALCIFEROL 1,000 UNIT TAB PO (08:23)
[2017-11-05] MEDS: RIFAXIMIN 550 MG TAB PO ×2 (08:23→21:12)
[2017-11-05] MEDS: CITRIC ACID/NA CITRATE 30 ML CUP PO ×3 (08:23→21:00)
[2017-11-05] MEDS: oxyCODONE (CR) 15 MG TAB [oxyCONTIN] PO ×2 (08:23→21:22)
[2017-11-05] MEDS: METOCLOPRAMIDE 5 MG TAB PO ×3 (08:23→18:03)
[2017-11-05] MEDS: BALSAM PERU/CASTOR OIL 60 GM TUBE TOP (08:24)
[2017-11-05 10:16] LABS: ANISOCYTOSIS 1+ (0-0); BAND NEUTROPHILS % (M) 8 % (0-4); BURR CELLS 1+ (0-0); HYPOCHROMASIA 1+ (0-0); LYMPHOCYTES #M 0.8 10^3/ul (0.8-2.9); LYMPHOCYTES % (M) 6 % (15-51); MONOCYTE #M 0.6 10^3/ul (0.3-0.9); MONOCYTES % (M) 5 % (0-11); MYELOCYTES #M 0.1 10^3/ul (0.0-0.0); MYELOCYTES % (M) 1 % (0-0); PLATELET ESTIMATE NORMAL; POIKILOCYTOSIS 1+ (0-0); POLYCHROMASIA 2+ (0-0); SEG NEUT #M 10.9 10^3/ul (1.6-7.5); SEGMENTED NEUTROPHILS (M) % 80 % (39-77); SMUDGE%M 2 % (0-0)
[2017-11-05] MEDS: POTASSIUM CHLORIDE 100 ML IVPB ×2 (10:30→12:56)
[2017-11-05] MEDS: ACETAMINOPHEN 325 MG TAB PO (14:59)
[2017-11-05] MEDS: SOD CHLORIDE IV (15:00)
[2017-11-05] MEDS: POTASSIUM PHOSPHATE IV (15:00)
[2017-11-05] MEDS: FAT EMULSION 20% 250 ML IV (17:39)
[2017-11-06] MEDS: ONDANSETRON 4 MG INJ IV ×4 (02:32→21:23)
[2017-11-06 06:13] LABS: HEMATOCRIT 30.1 % (42.0-52.0); HEMOGLOBIN 9.8 g/dl (14.0-18.0); MEAN CORPUSCULAR HEMOGLOBIN 28.7 pg (29.0-33.0); MEAN CORPUSCULAR HGB CONC 32.6 g/dl (32.0-37.0); MEAN CORPUSCULAR VOLUME 88.3 fl (82.0-101.0); MEAN PLATELET VOLUME 10.3 fl (7.4-10.4); PLATELET COUNT 306 10^3/UL (140-415); POSITIVE DIFF @See below; RED BLOOD COUNT 3.41 10^6/ul (4.70-6.10); RED CELL DISTRIBUTION WIDTH 16.5 % (11.5-14.5)
[2017-11-06 06:13] LABS: WHITE BLOOD COUNT 23.9 10^3/ul (4.8-10.8)
[2017-11-06] MEDS: ACCU-CHEK XX ×3 (06:17→21:00)
[2017-11-06 06:21] LABS: ADD MAN DIFF? YES
[2017-11-06 06:34] LABS: ANION GAP 10 (8-16); BLOOD UREA NITROGEN 36 mg/dl (7-20); CALCIUM 7.9 mg/dl (8.4-10.2); CARBON DIOXIDE 17 mmol/L (21-31); CHLORIDE 111 mmol/L (97-110); CREATININE 2.09 mg/dl (0.61-1.24); GLUCOSE 117 mg/dl (70-220); MAGNESIUM 1.8 mg/dl (1.7-2.5); PHOSPHORUS 2.1 mg/dl (2.5-4.9); POTASSIUM 3.5 mmol/L (3.5-5.1); SODIUM 134 mmol/L (135-144)
[2017-11-06 07:23] LABS: ANISOCYTOSIS 1+ (0-0); BURR CELLS 1+ (0-0); LYMPHOCYTES #M 2.1 10^3/ul (0.8-2.9); LYMPHOCYTES % (M) 9 % (15-51); MONOCYTE #M 1.4 10^3/ul (0.3-0.9); MONOCYTES % (M) 6 % (0-11); PLATELET ESTIMATE NORMAL; POIKILOCYTOSIS 1+ (0-0); SEGMENTED NEUTROPHILS (M) % 85 % (39-77); SMUDGE%M 34 % (0-0)
[2017-11-06] MEDS: METOCLOPRAMIDE 5 MG TAB PO ×3 (08:40→17:44)
[2017-11-06] MEDS: NYSTATIN SUSP 5 ML CUP PO ×4 (08:40→21:26)
[2017-11-06] MEDS: oxyCODONE (CR) 15 MG TAB [oxyCONTIN] PO ×2 (08:40→21:24)
[2017-11-06] MEDS: NEUTRA-PHOS 250 MG PACKET PO ×2 (08:40→21:23)
[2017-11-06] MEDS: RIFAXIMIN 550 MG TAB PO ×2 (08:40→21:23)
[2017-11-06] MEDS: L ACIDOPHIL/B LACTIS/B LONGUM CAPSULE PO ×2 (08:40→21:23)
[2017-11-06] MEDS: CHOLECALCIFEROL 1,000 UNIT TAB PO (08:40)
[2017-11-06] MEDS: LOPERAMIDE 2 MG CAP PO ×2 (08:40→23:02)
[2017-11-06] MEDS: CITRIC ACID/NA CITRATE 30 ML CUP PO ×3 (08:41→21:00)
[2017-11-06] MEDS: COLLAGENASE 5 GM (UD JAR) TOP (08:41)
[2017-11-06] MEDS: BALSAM PERU/CASTOR OIL 60 GM TUBE TOP (08:41)
[2017-11-06] MEDS: TPN 1,000 ML IV (10:14)
[2017-11-06] MEDS: FAT EMULSION 20% 250 ML IV (15:31)
[2017-11-07] MEDS: TPN 1,000 ML IV ×2 (01:58→20:00)
[2017-11-07] MEDS: ONDANSETRON 4 MG INJ IV ×4 (03:28→22:07)
[2017-11-07 05:55] LABS: ADD MAN DIFF? NO
[2017-11-07 06:01] LABS: WHITE BLOOD COUNT 24.7 10^3/ul (4.8-10.8)
[2017-11-07 06:01] LABS: ABNORMAL IP MESSAGE 1; BASOPHIL # 0.1 10^3/ul (0.0-0.1); BASOPHILS % 0.2 % (0.0-2.0); EOSINOPHILS # 0.1 10^3/ul (0.0-0.5); EOSINOPHILS % 0.6 % (0.0-7.0); HEMATOCRIT 26.2 % (42.0-52.0); HEMOGLOBIN 8.4 g/dl (14.0-18.0); LYMPHOCYTES # 1.2 10^3/ul (0.8-2.9); MEAN CORPUSCULAR HEMOGLOBIN 28.1 pg (29.0-33.0); MEAN CORPUSCULAR HGB CONC 32.1 g/dl (32.0-37.0); MEAN CORPUSCULAR VOLUME 87.6 fl (82.0-101.0); MEAN PLATELET VOLUME 9.9 fl (7.4-10.4); MONOCYTE # 1.1 10^3/ul (0.3-0.9); MONOCYTES % 4.6 % (0.0-11.0); NEUTROPHIL # 21.5 10^3/ul (1.6-7.5); PLATELET COUNT 248 10^3/UL (140-415); POSITIVE DIFF @See below; RED BLOOD COUNT 2.99 10^6/ul (4.70-6.10); RED CELL DISTRIBUTION WIDTH 16.8 % (11.5-14.5)
[2017-11-07 06:17] LABS: TRIGLYCERIDES 206 mg/dl (0-149)
[2017-11-07 06:19] LABS: ANION GAP 9 (8-16); BLOOD UREA NITROGEN 37 mg/dl (7-20); CALCIUM 7.9 mg/dl (8.4-10.2); CARBON DIOXIDE 21 mmol/L (21-31); CHLORIDE 107 mmol/L (97-110); CREATININE 1.82 mg/dl (0.61-1.24); GLUCOSE 145 mg/dl (70-220); MAGNESIUM 1.8 mg/dl (1.7-2.5); PHOSPHORUS 2.2 mg/dl (2.5-4.9); POTASSIUM 3.5 mmol/L (3.5-5.1); SODIUM 133 mmol/L (135-144)
[2017-11-07] MEDS: CITRIC ACID/NA CITRATE 30 ML CUP PO ×3 (09:00→22:07)
[2017-11-07] MEDS: BALSAM PERU/CASTOR OIL 60 GM TUBE TOP (09:10)
[2017-11-07] MEDS: COLLAGENASE 5 GM (UD JAR) TOP (09:10)
[2017-11-07] MEDS: NYSTATIN SUSP 5 ML CUP PO ×4 (09:11→22:07)
[2017-11-07] MEDS: NEUTRA-PHOS 250 MG PACKET PO ×2 (09:11→22:07)
[2017-11-07] MEDS: LOPERAMIDE 2 MG CAP PO ×2 (09:12→22:06)
[2017-11-07] MEDS: RIFAXIMIN 550 MG TAB PO ×2 (09:12→23:43)
[2017-11-07] MEDS: METOCLOPRAMIDE 5 MG TAB PO ×3 (09:12→17:43)
[2017-11-07] MEDS: CHOLECALCIFEROL 1,000 UNIT TAB PO (09:12)
[2017-11-07] MEDS: oxyCODONE (CR) 15 MG TAB [oxyCONTIN] PO ×2 (09:12→22:08)
[2017-11-07] MEDS: L ACIDOPHIL/B LACTIS/B LONGUM CAPSULE PO ×2 (09:12→22:06)
[2017-11-07] MEDS: ACCU-CHEK XX ×2 (09:13→22:13)
[2017-11-07 10:36] LABS: ANISOCYTOSIS 1+ (0-0); BAND NEUTROPHILS #M 1.4 10^3/ul (0.0-0.6); BAND NEUTROPHILS % (M) 6 % (0-4); BURR CELLS 1+ (0-0); LYMPHOCYTES #M 1.7 10^3/ul (0.8-2.9); LYMPHOCYTES % (M) 7 % (15-51); MONOCYTE #M 0.4 10^3/ul (0.3-0.9); MONOCYTES % (M) 2 % (0-11); PLATELET ESTIMATE NORMAL; POIKILOCYTOSIS 2+ (0-0); SEG NEUT #M 21.3 10^3/ul (1.6-7.5); SEGMENTED NEUTROPHILS (M) % 85 % (39-77)
[2017-11-07] MEDS ORDERED: IOHEXOL 14.3 MG(I)/ML (ADULT) BTL PO (15:00)
[2017-11-07] MEDS: FAT EMULSION 20% 250 ML IV (16:02)
[2017-11-07] MEDS: DOCUSATE SODIUM 100 MG CAP PO (22:06)
[2017-11-08] MEDS: ONDANSETRON 4 MG INJ IV ×4 (03:30→20:50)
[2017-11-08 07:25] LABS: ANION GAP 8 (8-16); BLOOD UREA NITROGEN 38 mg/dl (7-20); CALCIUM 7.8 mg/dl (8.4-10.2); CARBON DIOXIDE 23 mmol/L (21-31); CHLORIDE 106 mmol/L (97-110); CREATININE 1.78 mg/dl (0.61-1.24); GLUCOSE 115 mg/dl (70-220); PHOSPHORUS 3.4 mg/dl (2.5-4.9); POTASSIUM 4.3 mmol/L (3.5-5.1); SODIUM 133 mmol/L (135-144)
[2017-11-08] MEDS: L ACIDOPHIL/B LACTIS/B LONGUM CAPSULE PO (09:00)
[2017-11-08] MEDS: ACCU-CHEK XX ×2 (09:00→20:52)
[2017-11-08] MEDS: CITRIC ACID/NA CITRATE 30 ML CUP PO ×4 (09:30→21:00)
[2017-11-08] MEDS: oxyCODONE (CR) 15 MG TAB [oxyCONTIN] PO ×2 (09:31→20:52)
[2017-11-08] MEDS: NYSTATIN SUSP 5 ML CUP PO ×3 (09:32→16:14)
[2017-11-08] MEDS: METOCLOPRAMIDE 5 MG TAB PO ×2 (09:32→15:34)
[2017-11-08] MEDS: NEUTRA-PHOS 250 MG PACKET PO ×3 (09:32→21:00)
[2017-11-08] MEDS: LOPERAMIDE 2 MG CAP PO (09:32)
[2017-11-08] MEDS: CHOLECALCIFEROL 1,000 UNIT TAB PO (09:32)
[2017-11-08] MEDS: TPN 1,000 ML IV (13:00)
[2017-11-08] MEDS: COLLAGENASE 5 GM (UD JAR) TOP (15:34)
[2017-11-08] MEDS: BALSAM PERU/CASTOR OIL 60 GM TUBE TOP (15:34)
[2017-11-08] MEDS: FAT EMULSION 20% 250 ML IV (17:30)
[2017-11-08] MEDS: ACETAMINOPHEN 325 MG TAB PO (20:51)
[2017-11-08] MEDS: GUAIFENESIN/DM 5ML CUP PO (20:51)
[2017-11-09] MEDS: ONDANSETRON 4 MG INJ IV ×4 (03:54→21:02)
[2017-11-09] MEDS: TPN 1,000 ML IV ×2 (05:29→21:37)
[2017-11-09 07:26] LABS: ABNORMAL IP MESSAGE 1; HEMATOCRIT 26.3 % (42.0-52.0); HEMOGLOBIN 8.3 g/dl (14.0-18.0); MEAN CORPUSCULAR HGB CONC 31.6 g/dl (32.0-37.0); MEAN CORPUSCULAR VOLUME 88.9 fl (82.0-101.0); MEAN PLATELET VOLUME 10.2 fl (7.4-10.4); PLATELET COUNT 245 10^3/UL (140-415); POSITIVE DIFF @See below; RED BLOOD COUNT 2.96 10^6/ul (4.70-6.10); RED CELL DISTRIBUTION WIDTH 16.7 % (11.5-14.5)
[2017-11-09 07:35] LABS: ADD MAN DIFF? YES
[2017-11-09 07:44] LABS: INR 1.08; PROTIME 14.1 Sec (11.9-14.9); PT RATIO 1.1
[2017-11-09 07:48] LABS: ANION GAP 11 (8-16); BLOOD UREA NITROGEN 44 mg/dl (7-20); CALCIUM 7.9 mg/dl (8.4-10.2); CARBON DIOXIDE 29 mmol/L (21-31); CHLORIDE 102 mmol/L (97-110); GLUCOSE 100 mg/dl (70-220); MAGNESIUM 2.2 mg/dl (1.7-2.5); PHOSPHORUS 4.5 mg/dl (2.5-4.9); POTASSIUM 4.7 mmol/L (3.5-5.1); SODIUM 137 mmol/L (135-144)
[2017-11-09 07:50] LABS: LIPASE 49 U/L (23-300)
[2017-11-09 07:52] LABS: ALANINE AMINOTRANSFERASE 19 IU/L (13-69); ALBUMIN 1.4 g/dl (3.3-4.9); ALBUMIN/GLOBULIN RATIO 0.53; ALKALINE PHOSPHATASE 199 IU/L (42-121); ANION GAP 12 (8-16); ASPARTATE AMINO TRANSFERASE 14 IU/L (15-46); BLOOD UREA NITROGEN 44 mg/dl (7-20); CALCIUM 7.7 mg/dl (8.4-10.2); CARBON DIOXIDE 28 mmol/L (21-31); CHLORIDE 103 mmol/L (97-110); CREATININE 1.71 mg/dl (0.61-1.24); GLUCOSE 97 mg/dl (70-220); MAGNESIUM 2.1 mg/dl (1.7-2.5); PHOSPHORUS 4.4 mg/dl (2.5-4.9); SODIUM 138 mmol/L (135-144)
[2017-11-09 08:04] LABS: PREALBUMIN < 3.0 mg/dl (17.6-36.0)
[2017-11-09 08:19] LABS: ANISOCYTOSIS 1+ (0-0); DIMORPHIC RBC 1+ (0-0); HYPOCHROMASIA 1+ (0-0); LYMPHOCYTES #M 0.2 10^3/ul (0.8-2.9); LYMPHOCYTES % (M) 1 % (15-51); PLATELET ESTIMATE NORMAL; POLYCHROMASIA 1+ (0-0); SEGMENTED NEUTROPHILS (M) % 99 % (39-77); SMUDGE%M 7 % (0-0)
[2017-11-09] MEDS: ACCU-CHEK XX ×2 (09:00→21:00)
[2017-11-09] MEDS: COLLAGENASE 5 GM (UD JAR) TOP (09:56)
[2017-11-09] MEDS: oxyCODONE (CR) 15 MG TAB [oxyCONTIN] PO ×2 (09:56→21:02)
[2017-11-09] MEDS: CITRIC ACID/NA CITRATE 30 ML CUP PO ×3 (09:56→21:02)
[2017-11-09] MEDS: FAMOTIDINE 20 MG TAB PO (09:56)
[2017-11-09] MEDS: BALSAM PERU/CASTOR OIL 60 GM TUBE TOP (09:57)
[2017-11-09] MEDS: NEUTRA-PHOS 250 MG PACKET PO ×2 (10:04→21:02)
[2017-11-09] MEDS: FAT EMULSION 20% 250 ML IV (16:32)
[2017-11-09 20:40] LABS: LACTIC ACID 1.8 mmol/L (0.5-2.0)
[2017-11-09] MEDS: FLUCONAZOLE 200 MG TAB PO (21:06)
[2017-11-09] MEDS: GUAIFENESIN/DM 5ML CUP PO (21:12)
[2017-11-09] MEDS: CEFTAZIDIME IVPB (21:57)
[2017-11-09] MEDS: AVIBACTAM IVPB (21:57)
[2017-11-09] MEDS: SOD CHLORIDE 0.9% IVPB (21:57)
[2017-11-10] MEDS: ONDANSETRON 4 MG INJ IV ×4 (02:26→21:27)
[2017-11-10 05:29] LABS: ADD MAN DIFF? NO
[2017-11-10 05:35] LABS: ABNORMAL IP MESSAGE 1; BASOPHIL # 0.1 10^3/ul (0.0-0.1); BASOPHILS % 0.3 % (0.0-2.0); EOSINOPHILS # 0.2 10^3/ul (0.0-0.5); EOSINOPHILS % 0.5 % (0.0-7.0); HEMATOCRIT 26.3 % (42.0-52.0); HEMOGLOBIN 8.3 g/dl (14.0-18.0); LYMPHOCYTES # 1.2 10^3/ul (0.8-2.9); LYMPHOCYTES % 3.8 % (15.0-51.0); MEAN CORPUSCULAR HEMOGLOBIN 28.4 pg (29.0-33.0); MEAN CORPUSCULAR HGB CONC 31.6 g/dl (32.0-37.0); MEAN CORPUSCULAR VOLUME 90.1 fl (82.0-101.0); MEAN PLATELET VOLUME 10.8 fl (7.4-10.4); MONOCYTE # 1.3 10^3/ul (0.3-0.9); MONOCYTES % 4.4 % (0.0-11.0); NEUTROPHIL # 27.3 10^3/ul (1.6-7.5); PLATELET COUNT 297 10^3/UL (140-415); POSITIVE DIFF @See below; RED BLOOD COUNT 2.92 10^6/ul (4.70-6.10); RED CELL DISTRIBUTION WIDTH 16.2 % (11.5-14.5)
[2017-11-10 06:03] LABS: ANION GAP 7 (8-16); BLOOD UREA NITROGEN 49 mg/dl (7-20); CALCIUM 7.6 mg/dl (8.4-10.2); CARBON DIOXIDE 31 mmol/L (21-31); CHLORIDE 102 mmol/L (97-110); CREATININE 1.75 mg/dl (0.61-1.24); GLUCOSE 115 mg/dl (70-220); MAGNESIUM 2.4 mg/dl (1.7-2.5); PHOSPHORUS 4.5 mg/dl (2.5-4.9); POTASSIUM 4.3 mmol/L (3.5-5.1); SODIUM 136 mmol/L (135-144)
[2017-11-10 06:04] LABS: WHITE BLOOD COUNT 30.6 10^3/ul (4.8-10.8)
[2017-11-10] MEDS: ACCU-CHEK XX ×2 (09:00→21:00)
[2017-11-10] MEDS: CITRIC ACID/NA CITRATE 30 ML CUP PO ×3 (10:05→21:00)
[2017-11-10] MEDS: NEUTRA-PHOS 250 MG PACKET PO ×2 (10:05→21:28)
[2017-11-10] MEDS: FLUCONAZOLE 200 MG TAB PO (10:06)
[2017-11-10] MEDS: COLLAGENASE 5 GM (UD JAR) TOP (10:07)
[2017-11-10] MEDS: oxyCODONE (CR) 15 MG TAB [oxyCONTIN] PO ×2 (10:07→21:28)
[2017-11-10] MEDS: FAMOTIDINE 20 MG TAB PO (10:07)
[2017-11-10] MEDS: BALSAM PERU/CASTOR OIL 60 GM TUBE TOP (10:08)
[2017-11-10] MEDS: AVIBACTAM IVPB (10:20)
[2017-11-10] MEDS: CEFTAZIDIME IVPB (10:20)
[2017-11-10] MEDS: SOD CHLORIDE 0.9% IVPB (10:20)
[2017-11-10] MEDS: TPN 1,000 ML IV (13:48)
[2017-11-10] MEDS: ACETAMINOPHEN 325 MG TAB PO (15:18)
[2017-11-10] MEDS ORDERED: GENTAMICIN IV PER PHARMACY XX (15:30)
[2017-11-10 17:27] LABS: LACTIC ACID 2.1 mmol/L (0.5-2.0)
[2017-11-10] MEDS: FAT EMULSION 20% 250 ML IV (18:13)
[2017-11-10] MEDS: LINEZOLID 600 MG/D5W (PMX) 300 ML IVPB (18:13)
[2017-11-10] MEDS: GENTAMICIN 100 MG/50 ML NS IVPB (20:59)
[2017-11-10] MEDS ORDERED: SOD CHLORIDE 0.9% IVPB (21:00)
[2017-11-10] MEDS ORDERED: CASPOFUNGIN IVPB (21:00)
[2017-11-10] MEDS: SOD CHLORIDE 0.9% 1,000 ML IV (21:31)
[2017-11-10 22:56] LABS: ADD UMIC YES; UR ASCORBIC ACID NEGATIVE (NEGATIVE); UR BILIRUBIN (Dip) NEGATIVE (NEGATIVE); UR BLOOD (Dip) 2+ mg/dL (NEGATIVE); UR CLARITY CLEAR (CLEAR); UR COLOR YELLOW (YELLOW); UR GLUCOSE (Dip) NEGATIVE (NEGATIVE); UR KETONES (Dip) NEGATIVE (NEGATIVE); UR LEUKOCYTE ESTERASE (Dip) TRACE Leu/ul (NEGATIVE); UR MUCUS FEW /HPF (NONE SEEN); UR NITRITE (Dip) NEGATIVE (NEGATIVE); UR RBC 5 /HPF (0-5); UR SPECIFIC GRAVITY (Dip) 1.009 (1.003-1.030); UR TOTAL PROTEIN (Dip) 3+ mg/dl (NEGATIVE); UR UROBILINOGEN (Dip) NEGATIVE (NEGATIVE); UR WBC 4 /HPF (0-5)
[2017-11-10 23:21] LABS: LACTIC ACID 2.4 mmol/L (0.5-2.0)
[2017-11-11] MEDS: CASPOFUNGIN 70 MG in SOD CHLORIDE 0.9% 250 ML IVPB (00:48)
[2017-11-11] MEDS: CEFTAZIDIME IVPB ×2 (02:33→09:44)
[2017-11-11] MEDS: AVIBACTAM IVPB ×2 (02:33→09:44)
[2017-11-11] MEDS: SOD CHLORIDE 0.9% IVPB ×4 (02:33→22:19)
[2017-11-11] MEDS: ONDANSETRON 4 MG INJ IV ×4 (03:10→20:33)
[2017-11-11 06:04] LABS: ANION GAP 11 (8-16); BLOOD UREA NITROGEN 50 mg/dl (7-20); CALCIUM 7.1 mg/dl (8.4-10.2); CARBON DIOXIDE 28 mmol/L (21-31); CHLORIDE 102 mmol/L (97-110); CREATININE 1.65 mg/dl (0.61-1.24); GLUCOSE 109 mg/dl (70-220); MAGNESIUM 2.3 mg/dl (1.7-2.5); PHOSPHORUS 4.2 mg/dl (2.5-4.9); POTASSIUM 3.9 mmol/L (3.5-5.1); SODIUM 137 mmol/L (135-144)
[2017-11-11 06:05] LABS: LACTIC ACID 1.9 mmol/L (0.5-2.0)
[2017-11-11 06:57] LABS: ADD UMIC YES; UR ASCORBIC ACID NEGATIVE (NEGATIVE); UR BACTERIA FEW /HPF (NONE SEEN); UR BILIRUBIN (Dip) NEGATIVE (NEGATIVE); UR BLOOD (Dip) 3+ mg/dL (NEGATIVE); UR CLARITY CLOUDY (CLEAR); UR COLOR RED (YELLOW); UR GLUCOSE (Dip) NEGATIVE (NEGATIVE); UR KETONES (Dip) NEGATIVE (NEGATIVE); UR LEUKOCYTE ESTERASE (Dip) 3+ Leu/ul (NEGATIVE); UR NITRITE (Dip) NEGATIVE (NEGATIVE); UR RBC > 182 /HPF (0-5); UR SPECIFIC GRAVITY (Dip) 1.013 (1.003-1.030); UR TOTAL PROTEIN (Dip) 2+ mg/dl (NEGATIVE); UR UROBILINOGEN (Dip) NEGATIVE (NEGATIVE); UR WBC > 182 /HPF (0-5)
[2017-11-11] MEDS: COLLAGENASE 5 GM (UD JAR) TOP (08:13)
[2017-11-11] MEDS: LINEZOLID 600 MG/D5W (PMX) 300 ML IVPB ×2 (08:13→20:34)
[2017-11-11] MEDS: oxyCODONE (CR) 15 MG TAB [oxyCONTIN] PO ×2 (08:14→20:34)
[2017-11-11] MEDS: FAMOTIDINE 20 MG TAB PO (08:14)
[2017-11-11] MEDS: NEUTRA-PHOS 250 MG PACKET PO ×2 (08:14→20:33)
[2017-11-11] MEDS: BALSAM PERU/CASTOR OIL 60 GM TUBE TOP (08:15)
[2017-11-11] MEDS: ACCU-CHEK XX ×2 (08:15→20:35)
[2017-11-11] MEDS: CITRIC ACID/NA CITRATE 30 ML CUP PO ×3 (09:44→20:32)
[2017-11-11] MEDS: TPN 1,000 ML IV (09:44)
[2017-11-11] MEDS: POTASSIUM CHLORIDE 50 ML IVPB (13:28)
[2017-11-11] MEDS: Metronidazole 500 MG in NS 100 ML IVPB ×2 (14:39→23:11)
[2017-11-11] MEDS: TAZOBACTAM IVPB ×2 (15:52→22:19)
[2017-11-11] MEDS: CEFTOLOZANE IVPB ×2 (15:52→22:19)
[2017-11-11] MEDS: FAT EMULSION 20% 250 ML IV (15:53)
[2017-11-11 16:32] LABS: ANION GAP 11 (8-16); BLOOD UREA NITROGEN 51 mg/dl (7-20); CALCIUM 7.4 mg/dl (8.4-10.2); CARBON DIOXIDE 28 mmol/L (21-31); CHLORIDE 101 mmol/L (97-110); CREATININE 1.74 mg/dl (0.61-1.24); GLUCOSE 102 mg/dl (70-220); POTASSIUM 4.3 mmol/L (3.5-5.1); SODIUM 136 mmol/L (135-144)
[2017-11-11 16:54] LABS: ABNORMAL IP MESSAGE 1; HEMATOCRIT 23.6 % (42.0-52.0); HEMOGLOBIN 7.4 g/dl (14.0-18.0); MEAN CORPUSCULAR HEMOGLOBIN 28.4 pg (29.0-33.0); MEAN CORPUSCULAR HGB CONC 31.4 g/dl (32.0-37.0); MEAN CORPUSCULAR VOLUME 90.4 fl (82.0-101.0); MEAN PLATELET VOLUME 10.5 fl (7.4-10.4); PLATELET COUNT 273 10^3/UL (140-415); POSITIVE DIFF @See below; RED BLOOD COUNT 2.61 10^6/ul (4.70-6.10); RED CELL DISTRIBUTION WIDTH 15.9 % (11.5-14.5)
[2017-11-11 17:01] LABS: ADD MAN DIFF? YES
[2017-11-11 17:26] LABS: BAND NEUTROPHILS #M 0.6 10^3/ul (0.0-0.6); BAND NEUTROPHILS % (M) 2 % (0-4); GIANT THROMBO% (M) 1 % (0-0); LYMPHOCYTES #M 0.3 10^3/ul (0.8-2.9); LYMPHOCYTES % (M) 1 % (15-51); MONOCYTE #M 0.3 10^3/ul (0.3-0.9); MONOCYTES % (M) 1 % (0-11); PLATELET ESTIMATE NORMAL; POLYCHROMASIA 1+ (0-0); REACTIVE LYMPHOCYTES #M 0.9 10^3/ul (0.0-0.0); REACTIVE LYMPHOCYTES% (M) 3 % (0-0); SEG NEUT #M 30.9 10^3/ul (1.6-7.5); SEGMENTED NEUTROPHILS (M) % 93 % (39-77); SMUDGE%M 4 % (0-0)
[2017-11-12] MEDS: CASPOFUNGIN 50 MG in SOD CHLORIDE 0.9% 250 ML IVPB (00:36)
[2017-11-12] MEDS: TPN 1,000 ML IV ×2 (00:38→16:40)
[2017-11-12] MEDS: Metronidazole 500 MG in NS 100 ML IVPB ×3 (04:17→23:47)
[2017-11-12] MEDS: ACETAMINOPHEN 325 MG TAB PO (04:17)
[2017-11-12] MEDS: ONDANSETRON 4 MG INJ IV ×4 (04:18→21:23)
[2017-11-12] MEDS: CEFTOLOZANE IVPB ×3 (05:41→22:50)
[2017-11-12] MEDS: TAZOBACTAM IVPB ×3 (05:41→22:50)
[2017-11-12] MEDS: SOD CHLORIDE 0.9% IVPB ×3 (05:41→22:50)
[2017-11-12 05:43] LABS: ADD MAN DIFF? NO
[2017-11-12 05:49] LABS: WHITE BLOOD COUNT 30.1 10^3/ul (4.8-10.8)
[2017-11-12 05:49] LABS: ABNORMAL IP MESSAGE 1; BASOPHIL # 0.1 10^3/ul (0.0-0.1); BASOPHILS % 0.2 % (0.0-2.0); EOSINOPHILS # 0.3 10^3/ul (0.0-0.5); EOSINOPHILS % 0.9 % (0.0-7.0); HEMATOCRIT 23.6 % (42.0-52.0); HEMOGLOBIN 7.3 g/dl (14.0-18.0); LYMPHOCYTES # 1.5 10^3/ul (0.8-2.9); LYMPHOCYTES % 5.1 % (15.0-51.0); MEAN CORPUSCULAR HEMOGLOBIN 28.3 pg (29.0-33.0); MEAN CORPUSCULAR HGB CONC 30.9 g/dl (32.0-37.0); MEAN CORPUSCULAR VOLUME 91.5 fl (82.0-101.0); MEAN PLATELET VOLUME 10.8 fl (7.4-10.4); MONOCYTE # 1.1 10^3/ul (0.3-0.9); MONOCYTES % 3.7 % (0.0-11.0); NEUTROPHIL # 26.7 10^3/ul (1.6-7.5); NEUTROPHILS % 88.9 % (39.0-77.0); PLATELET COUNT 295 10^3/UL (140-415); POSITIVE DIFF @See below; RED BLOOD COUNT 2.58 10^6/ul (4.70-6.10)
[2017-11-12 06:20] LABS: ANION GAP 10 (8-16); BLOOD UREA NITROGEN 50 mg/dl (7-20); CALCIUM 7.8 mg/dl (8.4-10.2); CARBON DIOXIDE 27 mmol/L (21-31); CHLORIDE 104 mmol/L (97-110); CREATININE 1.87 mg/dl (0.61-1.24); GLUCOSE 100 mg/dl (70-220); MAGNESIUM 2.2 mg/dl (1.7-2.5); PHOSPHORUS 4.8 mg/dl (2.5-4.9); POTASSIUM 3.7 mmol/L (3.5-5.1); SODIUM 137 mmol/L (135-144)
[2017-11-12] MEDS: SOD CHLORIDE 0.9% 500 ML IV (07:01)
[2017-11-12] MEDS: COLLAGENASE 5 GM (UD JAR) TOP (09:16)
[2017-11-12] MEDS: BALSAM PERU/CASTOR OIL 60 GM TUBE TOP (09:16)
[2017-11-12] MEDS: ACCU-CHEK XX ×2 (09:16→21:00)
[2017-11-12] MEDS: FAMOTIDINE 20 MG TAB PO (09:16)
[2017-11-12] MEDS: oxyCODONE (CR) 15 MG TAB [oxyCONTIN] PO ×2 (09:16→21:24)
[2017-11-12] MEDS: NEUTRA-PHOS 250 MG PACKET PO ×2 (09:17→21:23)
[2017-11-12] MEDS: LINEZOLID 600 MG/D5W (PMX) 300 ML IVPB ×2 (09:18→21:25)
[2017-11-12] MEDS: CITRIC ACID/NA CITRATE 30 ML CUP PO ×3 (09:18→21:25)
[2017-11-12 10:46] LABS: PROCALCITONIN 2.83 ng/mL (<0.10)
[2017-11-12] MEDS: FAT EMULSION 20% 250 ML IV (16:40)
[2017-11-12] MEDS ORDERED: NACL 3% FOR INHALATION 15 ML NEBU NEB (22:00)
[2017-11-13] MEDS: CASPOFUNGIN 50 MG in SOD CHLORIDE 0.9% 250 ML IVPB ×2 (00:49→22:57)
[2017-11-13] MEDS: ONDANSETRON 4 MG INJ IV ×4 (03:08→20:58)
[2017-11-13] MEDS: CEFTOLOZANE IVPB ×3 (05:06→22:57)
[2017-11-13] MEDS: SOD CHLORIDE 0.9% IVPB ×3 (05:06→22:57)
[2017-11-13] MEDS: TAZOBACTAM IVPB ×3 (05:06→22:57)
[2017-11-13] MEDS: Metronidazole 500 MG in NS 100 ML IVPB ×3 (06:06→22:57)
[2017-11-13 06:11] LABS: ADD MAN DIFF? NO
[2017-11-13 06:14] LABS: WHITE BLOOD COUNT 40.7 10^3/ul (4.8-10.8)
[2017-11-13 06:14] LABS: ABNORMAL IP MESSAGE 1; BASOPHIL # 0.1 10^3/ul (0.0-0.1); BASOPHILS % 0.3 % (0.0-2.0); EOSINOPHILS # 0.3 10^3/ul (0.0-0.5); EOSINOPHILS % 0.8 % (0.0-7.0); HEMATOCRIT 25.5 % (42.0-52.0); HEMOGLOBIN 7.6 g/dl (14.0-18.0); LYMPHOCYTES # 2.2 10^3/ul (0.8-2.9); LYMPHOCYTES % 5.5 % (15.0-51.0); MEAN CORPUSCULAR HGB CONC 29.8 g/dl (32.0-37.0); MEAN CORPUSCULAR VOLUME 94.1 fl (82.0-101.0); MEAN PLATELET VOLUME 10.5 fl (7.4-10.4); MONOCYTE # 1.3 10^3/ul (0.3-0.9); MONOCYTES % 3.1 % (0.0-11.0); NEUTROPHIL # 35.9 10^3/ul (1.6-7.5); NEUTROPHILS % 88.2 % (39.0-77.0); PLATELET COUNT 333 10^3/UL (140-415); POSITIVE DIFF @See below; RED BLOOD COUNT 2.71 10^6/ul (4.70-6.10); RED CELL DISTRIBUTION WIDTH 16.1 % (11.5-14.5)
[2017-11-13 06:35] LABS: TRIGLYCERIDES 292 mg/dl (0-149)
[2017-11-13 06:46] LABS: ANION GAP 11 (8-16); BLOOD UREA NITROGEN 48 mg/dl (7-20); CARBON DIOXIDE 24 mmol/L (21-31); CHLORIDE 107 mmol/L (97-110); CREATININE 1.97 mg/dl (0.61-1.24); GLUCOSE 103 mg/dl (70-220); PHOSPHORUS 4.9 mg/dl (2.5-4.9); POTASSIUM 3.7 mmol/L (3.5-5.1); SODIUM 138 mmol/L (135-144)
[2017-11-13] MEDS ORDERED: NACL 3% FOR INHALATION 15 ML NEBU NEB (07:00)
[2017-11-13] MEDS: NACL 3% FOR INHALATION 15 ML NEBU NEB (07:39)
[2017-11-13] MEDS: BALSAM PERU/CASTOR OIL 60 GM TUBE TOP (08:37)
[2017-11-13] MEDS: LINEZOLID 600 MG/D5W (PMX) 300 ML IVPB ×2 (08:37→20:58)
[2017-11-13] MEDS: TPN 1,000 ML IV (08:37)
[2017-11-13] MEDS: NEUTRA-PHOS 250 MG PACKET PO ×2 (08:38→20:59)
[2017-11-13] MEDS: FAMOTIDINE 20 MG TAB PO (08:38)
[2017-11-13] MEDS: COLLAGENASE 5 GM (UD JAR) TOP (08:38)
[2017-11-13] MEDS: CITRIC ACID/NA CITRATE 30 ML CUP PO ×3 (08:38→20:58)
[2017-11-13] MEDS: oxyCODONE (CR) 15 MG TAB [oxyCONTIN] PO ×2 (08:39→19:43)
[2017-11-13] MEDS: ACCU-CHEK XX ×2 (08:48→20:59)
[2017-11-13] MEDS: HYDROCODONE/APAP (5/325) TAB PO ×2 (12:25→19:43)
[2017-11-13 14:26] LABS: NIL 0.15 IU/mL; QUANTIFERON(R)-TB GOLD NEGATIVE (NEGATIVE); TB-NIL <0.00 IU/mL
[2017-11-13] MEDS: FAT EMULSION 20% 250 ML IV (15:13)
[2017-11-13] MEDS: morphine LIQ (10 MG/5 ML) CUP PO (15:24)
[2017-11-13 23:15] LABS: LACTIC ACID 2.8 mmol/L (0.5-2.0)
[2017-11-14] MEDS: TOBRAMYCIN/0.25NS 300 MG/5 ML INHAL NEB ×3 (00:06→19:28)
[2017-11-14] MEDS: VANCOMYCIN HCL 250 MG/5ML POSYG PO ×5 (00:21→23:09)
[2017-11-14 00:53] LABS: ADD UMIC YES; UR ASCORBIC ACID NEGATIVE (NEGATIVE); UR BACTERIA FEW /HPF (NONE SEEN); UR BILIRUBIN (Dip) NEGATIVE (NEGATIVE); UR BLOOD (Dip) 3+ mg/dL (NEGATIVE); UR CLARITY CLOUDY (CLEAR); UR COLOR RED (YELLOW); UR GLUCOSE (Dip) NEGATIVE (NEGATIVE); UR KETONES (Dip) NEGATIVE (NEGATIVE); UR LEUKOCYTE ESTERASE (Dip) 3+ Leu/ul (NEGATIVE); UR NITRITE (Dip) NEGATIVE (NEGATIVE); UR RBC > 182 /HPF (0-5); UR SPECIFIC GRAVITY (Dip) 1.015 (1.003-1.030); UR TOTAL PROTEIN (Dip) 2+ mg/dl (NEGATIVE); UR UROBILINOGEN (Dip) NEGATIVE (NEGATIVE); UR WBC > 182 /HPF (0-5)
[2017-11-14] MEDS: HYDROCODONE/APAP (5/325) TAB PO (01:59)
[2017-11-14] MEDS: ONDANSETRON 4 MG INJ IV ×4 (02:00→20:40)
[2017-11-14] MEDS: TPN 1,000 ML IV (02:00)
[2017-11-14 06:02] LABS: ADD MAN DIFF? NO
[2017-11-14 06:06] LABS: WHITE BLOOD COUNT 33.7 10^3/ul (4.8-10.8)
[2017-11-14 06:06] LABS: ABNORMAL IP MESSAGE 1; BASOPHIL # 0.1 10^3/ul (0.0-0.1); BASOPHILS % 0.3 % (0.0-2.0); EOSINOPHILS # 0.1 10^3/ul (0.0-0.5); EOSINOPHILS % 0.3 % (0.0-7.0); HEMATOCRIT 24.4 % (42.0-52.0); HEMOGLOBIN 7.4 g/dl (14.0-18.0); LYMPHOCYTES # 0.8 10^3/ul (0.8-2.9); LYMPHOCYTES % 2.2 % (15.0-51.0); MEAN CORPUSCULAR HEMOGLOBIN 28.5 pg (29.0-33.0); MEAN CORPUSCULAR HGB CONC 30.3 g/dl (32.0-37.0); MEAN CORPUSCULAR VOLUME 93.8 fl (82.0-101.0); MEAN PLATELET VOLUME 10.5 fl (7.4-10.4); MONOCYTE # 0.9 10^3/ul (0.3-0.9); MONOCYTES % 2.7 % (0.0-11.0); NEUTROPHIL # 31.3 10^3/ul (1.6-7.5); NEUTROPHILS % 92.7 % (39.0-77.0); PLATELET COUNT 271 10^3/UL (140-415); POSITIVE DIFF @See below; RED CELL DISTRIBUTION WIDTH 16.1 % (11.5-14.5)
[2017-11-14 06:26] LABS: LACTIC ACID 2.4 mmol/L (0.5-2.0)
[2017-11-14 06:31] LABS: ANION GAP 11 (8-16); BLOOD UREA NITROGEN 50 mg/dl (7-20); CARBON DIOXIDE 20 mmol/L (21-31); CHLORIDE 112 mmol/L (97-110); GLUCOSE 103 mg/dl (70-220); MAGNESIUM 1.8 mg/dl (1.7-2.5); PHOSPHORUS 4.9 mg/dl (2.5-4.9); POTASSIUM 3.7 mmol/L (3.5-5.1); SODIUM 139 mmol/L (135-144)
[2017-11-14] MEDS: TAZOBACTAM IVPB ×3 (06:41→23:10)
[2017-11-14] MEDS: SOD CHLORIDE 0.9% IVPB ×3 (06:41→23:10)
[2017-11-14] MEDS: CEFTOLOZANE IVPB ×3 (06:41→23:10)
[2017-11-14] MEDS: Metronidazole 500 MG in NS 100 ML IVPB ×2 (06:41→15:07)
[2017-11-14] MEDS: HYDROmorphONE 2 MG TAB PO ×3 (07:19→18:09)
[2017-11-14] MEDS: CITRIC ACID/NA CITRATE 30 ML CUP PO ×3 (08:16→20:39)
[2017-11-14] MEDS: COLLAGENASE 5 GM (UD JAR) TOP (08:16)
[2017-11-14] MEDS: NEUTRA-PHOS 250 MG PACKET PO ×2 (08:16→20:39)
[2017-11-14] MEDS: oxyCODONE (CR) 15 MG TAB [oxyCONTIN] PO ×2 (08:16→20:40)
[2017-11-14] MEDS: FAMOTIDINE 20 MG TAB PO (08:17)
[2017-11-14] MEDS: LINEZOLID 600 MG/D5W (PMX) 300 ML IVPB ×2 (08:17→20:37)
[2017-11-14] MEDS: ACCU-CHEK XX ×2 (08:17→20:52)
[2017-11-14] MEDS: BALSAM PERU/CASTOR OIL 60 GM TUBE TOP (08:17)
[2017-11-14 08:47] LABS: AADO2 Arterial 230.2 mmHg (7.0-24.0); Allen Test ACCEPTAB; Arterial Base Excess -4.8 mmol/L (-3.0-3); Arterial Blood Gas Oxygen Sat 97.4 mmHG (95.0-98.0); Arterial COHb 0.9 % (0.0-3.0); Arterial Fraction of Oxyhgb 96.1 % (93.0-99.0); Arterial HCO3 21.1 mmol/L (22.0-26.0); Arterial MetHb 0.4 % (0.0-1.5); Arterial Total Hemglobin 8.2 g/dl (12.0-18.0); Arterial pCO2 42.4 mmhg (35-45); MODE MASK - SIMPLE; Site Right Radial
[2017-11-14] MEDS: morphine LIQ (10 MG/5 ML) CUP PO ×2 (10:03→21:42)
[2017-11-14] MEDS: FAT EMULSION 20% 250 ML IV (17:36)
[2017-11-14] MEDS: CASPOFUNGIN 50 MG in SOD CHLORIDE 0.9% 250 ML IVPB (21:44)
[2017-11-14] MEDS: NACL 3% FOR INHALATION 15 ML NEBU NEB ×2 (22:30→22:42)
[2017-11-15] MEDS: TPN 1,000 ML IV ×3 (00:19→22:57)
[2017-11-15] MEDS: Metronidazole 500 MG in NS 100 ML IVPB ×3 (00:28→16:27)
[2017-11-15] MEDS: ONDANSETRON 4 MG INJ IV ×4 (04:01→21:13)
[2017-11-15] MEDS: CEFTOLOZANE IVPB ×3 (05:04→20:02)
[2017-11-15] MEDS: VANCOMYCIN HCL 250 MG/5ML POSYG PO ×2 (05:04→12:00)
[2017-11-15] MEDS: SOD CHLORIDE 0.9% IVPB ×3 (05:04→20:02)
[2017-11-15] MEDS: TAZOBACTAM IVPB ×3 (05:04→20:02)
[2017-11-15] MEDS: ACETAMINOPHEN 650MG/20.3ML CUP PO (05:27)
[2017-11-15 05:57] LABS: WHITE BLOOD COUNT 30.5 10^3/ul (4.8-10.8)
[2017-11-15 05:57] LABS: ABNORMAL IP MESSAGE 1; HEMATOCRIT 27.2 % (42.0-52.0); HEMOGLOBIN 8.3 g/dl (14.0-18.0); MEAN CORPUSCULAR HEMOGLOBIN 29.7 pg (29.0-33.0); MEAN CORPUSCULAR HGB CONC 30.5 g/dl (32.0-37.0); MEAN CORPUSCULAR VOLUME 97.5 fl (82.0-101.0); MEAN PLATELET VOLUME 10.4 fl (7.4-10.4); NUCLEATED RED BLOOD CELLS% 0.1 /100WBC (0.0-0.0); PLATELET COUNT 309 10^3/UL (140-415); POSITIVE DIFF @See below; RED BLOOD COUNT 2.79 10^6/ul (4.70-6.10); RED CELL DISTRIBUTION WIDTH 16.8 % (11.5-14.5)
[2017-11-15 05:58] LABS: ADD MAN DIFF? YES
[2017-11-15 06:22] LABS: ANION GAP 15 (8-16); BLOOD UREA NITROGEN 57 mg/dl (7-20); CALCIUM 8.2 mg/dl (8.4-10.2); CARBON DIOXIDE 18 mmol/L (21-31); CHLORIDE 110 mmol/L (97-110); CREATININE 2.22 mg/dl (0.61-1.24); GLUCOSE 92 mg/dl (70-220); POTASSIUM 4.5 mmol/L (3.5-5.1); SODIUM 138 mmol/L (135-144)
[2017-11-15 06:24] LABS: LACTIC ACID 4.2 mmol/L (0.5-2.0)
[2017-11-15] MEDS: SOD CHLORIDE 0.9% 1,000 ML IV ×2 (06:37→11:00)
[2017-11-15 06:43] LABS: PHOSPHORUS 6.4 mg/dl (2.5-4.9)
[2017-11-15 06:43] LABS: MAGNESIUM 1.7 mg/dl (1.7-2.5)
[2017-11-15 06:51] LABS: TRIGLYCERIDES 512 mg/dl (0-149)
[2017-11-15] MEDS ORDERED: SUCCINYLCHOLINE CHLORIDE 100 MG/5 ML SYG IV (07:00)
[2017-11-15] MEDS ORDERED: ETOMIDATE 20 MG INJ (07:00)
[2017-11-15 07:14] LABS: AADO2 Arterial 525.3 mmHg (7.0-24.0); Arterial Base Excess -11.9 mmol/L (-3.0-3); Arterial Blood Gas Oxygen Sat 95.5 mmHG (95.0-98.0); Arterial COHb 0.4 % (0.0-3.0); Arterial Fraction of Oxyhgb 94.4 % (93.0-99.0); Arterial HCO3 19.6 mmol/L (22.0-26.0); Arterial MetHb 0.8 % (0.0-1.5); Arterial Total Hemglobin 7.8 g/dl (12.0-18.0); Arterial pCO2 87.9 mmhg (35-45); MODE MASK - NRB; Site LB
[2017-11-15] MEDS: ACCU-CHEK XX ×2 (09:00→21:17)
[2017-11-15] MEDS: NEUTRA-PHOS 250 MG PACKET PO ×2 (09:00→21:00)
[2017-11-15] MEDS: FAMOTIDINE 20 MG TAB PO (09:00)
[2017-11-15] MEDS: COLLAGENASE 5 GM (UD JAR) TOP (09:00)
[2017-11-15] MEDS: BALSAM PERU/CASTOR OIL 60 GM TUBE TOP (09:00)
[2017-11-15] MEDS: oxyCODONE (CR) 15 MG TAB [oxyCONTIN] PO (09:00)
[2017-11-15] MEDS: CITRIC ACID/NA CITRATE 30 ML CUP PO ×3 (09:00→23:24)
[2017-11-15] MEDS: NACL 3% FOR INHALATION 15 ML NEBU NEB (09:09)
[2017-11-15] MEDS: TOBRAMYCIN/0.25NS 300 MG/5 ML INHAL NEB (09:10)
[2017-11-15 09:21] LABS: ANISOCYTOSIS 1+ (0-0); BAND NEUTROPHILS #M 6.1 10^3/ul (0.0-0.6); BAND NEUTROPHILS % (M) 20 % (0-4); GIANT THROMBO% (M) 1 % (0-0); METAMYELOCYTES #M 0.3 10^3/ul (0.0-0.0); METAMYELOCYTES %M 1 % (0-0); PLATELET ESTIMATE NORMAL; POIKILOCYTOSIS 2+ (0-0); POLYCHROMASIA 1+ (0-0); SEGMENTED NEUTROPHILS (M) % 79 % (39-77); SMUDGE%M 95 % (0-0)
[2017-11-15 09:58] LABS: AADO2 Arterial 504.4 mmHg (7.0-24.0); Arterial Base Excess -12.4 mmol/L (-3.0-3); Arterial Blood Gas Oxygen Sat 91.8 mmHG (95.0-98.0); Arterial COHb 0.3 % (0.0-3.0); Arterial HCO3 21.4 mmol/L (22.0-26.0); Arterial MetHb 0.6 % (0.0-1.5); Arterial Total Hemglobin 8.3 g/dl (12.0-18.0); Arterial pCO2 124.8 mmhg (35-45); Blood Gas PS 20; MODE MASK - BIPAP; Site LB
[2017-11-15] MEDS ORDERED: NORepinephrine 8MG/250 ML (PMX 0 ML (10:43)
[2017-11-15] MEDS ORDERED: NORepinephrine 8MG/250 ML (PMX 250 ML (10:49)
[2017-11-15] MEDS ORDERED: NORepinephrine 8MG/250 ML (PMX 250 ML IV (11:00)
[2017-11-15 11:39] LABS: LACTIC ACID 4.4 mmol/L (0.5-2.0)
[2017-11-15] MEDS ORDERED: DEXTROSE 50% 50 ML SYRINGE (12:02)
[2017-11-15] MEDS: DEXTROSE 50% 50 ML SYRINGE INJ (12:37)
[2017-11-15] MEDS: LACTATED RINGER'S 1,000 ML IV (12:38)
[2017-11-15 12:56] LABS: AADO2 Arterial 527.4 mmHg (7.0-24.0); Arterial Base Excess -15.2 mmol/L (-3.0-3); Arterial COHb 0.3 % (0.0-3.0); Arterial Fraction of Oxyhgb 97.4 % (93.0-99.0); Arterial HCO3 14.9 mmol/L (22.0-26.0); Arterial MetHb 0.3 % (0.0-1.5); Arterial Total Hemglobin 8.6 g/dl (12.0-18.0); Arterial pCO2 57.9 mmhg (35-45); MODE VENT - AC; Site LB
[2017-11-15] MEDS: LINEZOLID 600 MG/D5W (PMX) 300 ML IVPB ×2 (13:16→21:13)
[2017-11-15] MEDS ORDERED: GLUCAGON 1 MG INJ IM (14:30)
[2017-11-15] MEDS ORDERED: GLUCOSE GEL 15 GRAM TUBE BUCCAL (14:30)
[2017-11-15] MEDS ORDERED: DEXTROSE 50% 50 ML SYRINGE IV (14:30)
[2017-11-15] MEDS ORDERED: GLUCOSE GEL 15 GRAM TUBE PO ×2 (14:30)
[2017-11-15] MEDS: MIDAZOLAM (DRIP) 50 mg/50 mL 50 ML IV (14:35)
[2017-11-15] MEDS: DEXTROSE 50% 50 ML SYRINGE IV ×2 (14:38→19:35)
[2017-11-15] MEDS: VASOPRESSIN 60 UNIT in DEXTROSE 5% 57 ML IV ×2 (14:50→16:44)
[2017-11-15] MEDS: FENTAnyl (DRIP) 1000 mcg/100mL 100 ML IV (17:06)
[2017-11-15] MEDS: PHENYLephrine 40 MG in DEXTROSE 5% 496 ML IV (19:55)
[2017-11-15] MEDS: ALBUMIN HUMAN 25% 50 ML IV (20:42)
[2017-11-15] MEDS: DEXTROSE 10% 250 ML IV (20:45)
[2017-11-15] MEDS: CASPOFUNGIN 50 MG in SOD CHLORIDE 0.9% 250 ML IVPB (22:25)
[2017-11-15] MEDS: NORepinephrine 32 MG in DEXTROSE 5% 218 ML IV (22:29)
[2017-11-15] MEDS: PHENYLephrine 160 MG in DEXTROSE 5% 484 ML IV (22:29)
[2017-11-15 22:40] LABS: AADO2 Arterial 252.9 mmHg (7.0-24.0); Allen Test ACCEPTAB; Arterial Base Excess -16.5 mmol/L (-3.0-3); Arterial Blood Gas Oxygen Sat 89.8 mmHG (95.0-98.0); Arterial COHb 0.3 % (0.0-3.0); Arterial Fraction of Oxyhgb 89.2 % (93.0-99.0); Arterial HCO3 11.7 mmol/L (22.0-26.0); Arterial MetHb 0.4 % (0.0-1.5); Arterial Total Hemglobin 8.7 g/dl (12.0-18.0); Arterial pCO2 37.2 mmhg (35-45); Blood Gas Mean Airway Pressure 16; MODE VENT - AC; Site Right Radial
[2017-11-15] MEDS ORDERED: NA BICARBONATE 8.4% 50 ML SYG (23:21)
[2017-11-15] MEDS: NA BICARBONATE 8.4% 50 ML SYG IV (23:25)
[2017-11-16] MEDS: Metronidazole 500 MG in NS 100 ML IVPB ×4 (00:18→23:55)
[2017-11-16] MEDS: SODIUM BICARBONATE (IV ADD) 100 MEQ in DEXTROSE 5% 900 ML IV ×2 (01:12→14:32)
[2017-11-16] MEDS: VASOPRESSIN 60 UNIT in DEXTROSE 5% 57 ML IV ×3 (01:17→19:47)
[2017-11-16] MEDS: ALBUMIN HUMAN 25% 50 ML IV (02:05)
[2017-11-16] MEDS: ONDANSETRON 4 MG INJ IV ×4 (02:58→20:32)
[2017-11-16] MEDS: MIDAZOLAM (DRIP) 50 mg/50 mL 50 ML IV (03:00)
[2017-11-16] MEDS: DOPamine 1,600 MG in DEXTROSE 5% 210 ML IV ×2 (03:11→23:35)
[2017-11-16 05:00] LABS: ABNORMAL IP MESSAGE 1; HEMATOCRIT 23.8 % (42.0-52.0); MEAN CORPUSCULAR HEMOGLOBIN 27.5 pg (29.0-33.0); MEAN CORPUSCULAR HGB CONC 28.6 g/dl (32.0-37.0); MEAN CORPUSCULAR VOLUME 96.4 fl (82.0-101.0); NUCLEATED RED BLOOD CELLS% 0.6 /100WBC (0.0-0.0); PLATELET COUNT 209 10^3/UL (140-415); POSITIVE DIFF @See below; RED BLOOD COUNT 2.47 10^6/ul (4.70-6.10); RED CELL DISTRIBUTION WIDTH 17.6 % (11.5-14.5)
[2017-11-16 05:00] LABS: WHITE BLOOD COUNT 43.1 10^3/ul (4.8-10.8)
[2017-11-16 05:09] LABS: ADD MAN DIFF? YES; HEMOGLOBIN 6.8 g/dl (14.0-18.0)
[2017-11-16 05:19] LABS: ANION GAP 22 (8-16); BLOOD UREA NITROGEN 54 mg/dl (7-20); CALCIUM 7.8 mg/dl (8.4-10.2); CARBON DIOXIDE 15 mmol/L (21-31); CHLORIDE 104 mmol/L (97-110); CREATININE 2.52 mg/dl (0.61-1.24); GLUCOSE 100 mg/dl (70-220); MAGNESIUM 1.6 mg/dl (1.7-2.5); PHOSPHORUS 5.2 mg/dl (2.5-4.9); POTASSIUM 3.6 mmol/L (3.5-5.1); SODIUM 137 mmol/L (135-144)
[2017-11-16] MEDS: CEFTOLOZANE IVPB ×3 (05:37→22:37)
[2017-11-16] MEDS: TAZOBACTAM IVPB ×3 (05:37→22:37)
[2017-11-16] MEDS: SOD CHLORIDE 0.9% IVPB ×3 (05:37→22:37)
[2017-11-16] MEDS ORDERED: EPINEPHrine 4 MG in DEXTROSE 5% 246 ML IV (06:00)
[2017-11-16] MEDS: MAGNESIUM SULFATE 1 GM/D5W 100 ML IVPB (07:03)
[2017-11-16 07:29] LABS: AADO2 Arterial 389.7 mmHg (7.0-24.0); Arterial Base Excess -15.3 mmol/L (-3.0-3); Arterial Blood Gas Oxygen Sat 99.5 mmHG (95.0-98.0); Arterial COHb 0.5 % (0.0-3.0); Arterial Fraction of Oxyhgb 98.3 % (93.0-99.0); Arterial MetHb 0.7 % (0.0-1.5); Arterial pCO2 40.8 mmhg (35-45); MODE VENT - AC; Site LB
[2017-11-16] MEDS ORDERED: MAGNESIUM SULFATE 2 GM/50 ML 50 ML IVPB (08:00)
[2017-11-16] MEDS: ACCU-CHEK XX ×4 (08:00→20:37)
[2017-11-16] MEDS: DEXTROSE 50% 50 ML SYRINGE IV ×2 (08:26→12:14)
[2017-11-16] MEDS: PHENYLephrine 160 MG in DEXTROSE 5% 484 ML IV ×3 (08:58→23:33)
[2017-11-16] MEDS ORDERED: NA BICARBONATE 8.4% 50 ML SYG IV ×2 (09:00→09:30)
[2017-11-16] MEDS: TOBRAMYCIN/0.25NS 300 MG/5 ML INHAL NEB ×2 (09:00→20:30)
[2017-11-16 09:01] LABS: ANISOCYTOSIS 1+ (0-0); BAND NEUTROPHILS #M 15.5 10^3/ul (0.0-0.6); BAND NEUTROPHILS % (M) 36 % (0-4); ERYTHROBLAST% (NRBC) (M) 1 % (0-0); LYMPHOCYTES #M 0.8 10^3/ul (0.8-2.9); LYMPHOCYTES % (M) 2 % (15-51); METAMYELOCYTES #M 0.4 10^3/ul (0.0-0.0); METAMYELOCYTES %M 1 % (0-0); MICROCYTOSIS 1+ (0-0); MONOCYTE #M 0.8 10^3/ul (0.3-0.9); MONOCYTES % (M) 2 % (0-11); PLATELET ESTIMATE NORMAL; POIKILOCYTOSIS 1+ (0-0); POLYCHROMASIA 1+ (0-0); SEG NEUT #M 32.1 10^3/ul (1.6-7.5); SEGMENTED NEUTROPHILS (M) % 59 % (39-77); SMUDGE%M 3 % (0-0); TOXIC GRANULATION 1+ (0-0)
[2017-11-16] MEDS: NEUTRA-PHOS 250 MG PACKET PO ×2 (09:34→20:49)
[2017-11-16] MEDS: FAMOTIDINE 20 MG TAB PO (09:34)
[2017-11-16] MEDS: COLLAGENASE 5 GM (UD JAR) TOP (09:34)
[2017-11-16] MEDS: CITRIC ACID/NA CITRATE 30 ML CUP PO ×3 (09:34→20:32)
[2017-11-16] MEDS: BALSAM PERU/CASTOR OIL 60 GM TUBE TOP (09:36)
[2017-11-16] MEDS: LINEZOLID 600 MG/D5W (PMX) 300 ML IVPB ×2 (09:39→20:32)
[2017-11-16] MEDS: NORepinephrine 32 MG in DEXTROSE 5% 218 ML IV (15:32)
[2017-11-16] MEDS: TPN 1,000 ML IV (16:57)
[2017-11-16] MEDS: CASPOFUNGIN 50 MG in SOD CHLORIDE 0.9% 250 ML IVPB (21:32)
[2017-11-16] MEDS: FENTAnyl (DRIP) 1000 mcg/100mL 100 ML IV (23:34)
[2017-11-17] MEDS: ACCU-CHEK XX (01:48)
[2017-11-17] MEDS: SODIUM BICARBONATE (IV ADD) 100 MEQ in DEXTROSE 5% 900 ML IV (02:10)
[2017-11-17] MEDS: ONDANSETRON 4 MG INJ IV (02:36)
[2017-11-17] MEDS: MIDAZOLAM (DRIP) 50 mg/50 mL 50 ML IV (02:36)
[2017-11-17] MEDS: morphine (DRIP) 100 MG/100 ML 100 ML IV (04:18)
[2017-11-17 12:52] LABS: PROCALCITONIN 3.53 ng/mL (<0.10)
== END 2017-11-17 06:00 | disposition expired | DRG 871 ==
LOC: 2NE 10-14 00:11 → 6WM 11-11 01:52 → ICU 11-15 10:20 → E/R 16:08 → 6WM 20:57
PROC: 0W2JX0Z Change Drainage Device in Pelvic Cavity, External Approach (ICD-10-PCS; 2017-10-15)
PROC: 30233N1 Transfusion of Nonautologous Red Blood Cells into Peripheral Vein, Percutaneous Approach (ICD-10-PCS; principal; 2017-11-15)
PROC: 0BH17EZ Insertion of Endotracheal Airway into Trachea, Via Natural or Artificial Opening (ICD-10-PCS; 2017-11-15)
PROC: 5A1945Z Respiratory Ventilation, 24-96 Consecutive Hours (ICD-10-PCS; 2017-11-15)
DX: A41.9 Sepsis, unspecified organism (principal); R65.21 Severe sepsis with septic shock; E43 Unspecified severe protein-calorie malnutrition; K65.1 Peritoneal abscess; J96.00 Acute respiratory failure, unspecified whether with hypoxia or hypercapnia; J18.9 Pneumonia, unspecified organism; J69.0 Pneumonitis due to inhalation of food and vomit; Z68.1 Body mass index [BMI] 19.9 or less, adult; N17.9 Acute kidney failure, unspecified; N18.4 Chronic kidney disease, stage 4 (severe); E87.2 Acidosis; I82.622 Acute embolism and thrombosis of deep veins of left upper extremity; I82.890 Acute embolism and thrombosis of other specified veins; N39.0 Urinary tract infection, site not specified; N13.30 Unspecified hydronephrosis; M86.9 Osteomyelitis, unspecified; I82.412 Acute embolism and thrombosis of left femoral vein; I82.432 Acute embolism and thrombosis of left popliteal vein; B37.49 Other urogenital candidiasis; K56.7 Ileus, unspecified; I12.9 Hypertensive chronic kidney disease with stage 1 through stage 4 chronic kidney disease, or unspecified chronic kidney disease; Z85.51 Personal history of malignant neoplasm of bladder; E87.5 Hyperkalemia; E88.09 Other disorders of plasma-protein metabolism, not elsewhere classified; Z93.3 Colostomy status; Z93.6 Other artificial openings of urinary tract status; D63.8 Anemia in other chronic diseases classified elsewhere; Z66 Do not resuscitate; I46.9 Cardiac arrest, cause unspecified; B96.20 Unspecified Escherichia coli [E. coli] as the cause of diseases classified elsewhere; B95.2 Enterococcus as the cause of diseases classified elsewhere; Z16.21 Resistance to vancomycin; R31.9 Hematuria, unspecified; R19.7 Diarrhea, unspecified; Y95 Nosocomial condition
CPT/HCPCS: 36415; 36430; 36600; 71045; 71250; 73080-RT; 74018; 74176; 75989; 77012; 80048; 80053; 80200; 80202; 81001; 81003; 82043; 82607; 82652; 82803; 82962; 83036; 83605; 83690; 83735; 84100; 84134; 84145; 84146; 84155; 84300; 84425; 84478; 84484; 85014; 85018; 85025; 85610; 86480; 86850; 86900; 86901; 86920; 87040; 87045; 87070; 87075; 87081; 87086; 87116; 87205; 87400; 89220; 93005; 93970; 93971; 94002; 94003; 94640; 94660; 94664; 94770; 96374; 96375; 96376; 97110; 97163; 97530; 99291-25